=== PATIENT | male | born 1965 | race Caucasian/White ===

== ENCOUNTER → 2016-07-25 | Outpatient (CLI) | payer OTHER ==
[~2016-07-25] VITALS: Ht 170.2 cm; Wt 93.9 kg
[~2016-07-25] MED LIST: BACT400T PO; ELIT100T2 PO; NS 1,000 ML IV SCH; OXYC-208 PO; PROPOFOL 200 MG/20 ML VIAL As Ordered ONE; SENN8.6T76 PO; TURMCAP PO
--- NOTE | 2016-07-25 13:23 | ROOR ---
Patient Name: Jonatan Means Procedure Date: 07/25/2016 1:00 PM Date of : 1965 Age: 50 Room: [facility] Gender: Male Note Status: Finalized Procedure: Colonoscopy Indications: Screening for colorectal malignant neoplasm Providers: Best VALE MD Referring MD: RACHEL REECE [facility] RACHEL REECE [facility], Admin. Requesting Provider: Medicines: Monitored Anesthesia Care Complications: No immediate complications. Procedure: Pre-Anesthesia Assessment: - The heart rate, respiratory rate, oxygen saturations, blood pressure, adequacy of pulmonary ventilation, and response to care were monitored throughout the procedure. The Colonoscope was introduced through the anus and advanced to the cecum, identified by appendiceal orifice and ileocecal valve. The colonoscopy was performed without difficulty. The patient tolerated the procedure well. The quality of the bowel preparation was good. Findings: The perianal and digital rectal examinations were normal. A 10 mm polyp was found in the rectum (benign-appearing lesion). The polyp was semi-pedunculated. The polyp was removed with a piecemeal technique using a cold snare. Resection and retrieval were complete. To close a defect after polypectomy, two hemostatic clips were successfully placed. There was no bleeding at the end of the procedure. A 5 mm polyp was found in the ascending colon. The polyp was sessile. The polyp was removed with a cold snare. Resection and retrieval were complete. Small Internal Hemorrhoids. (EXAM: Complete, PREP:Adequate) Impression: - One 10 mm polyp in the upper rectum (at 10 cm from verge), removed piecemeal using a cold snare. Resected and retrieved. Clips were placed. - One 5 mm polyp in the ascending colon, removed with a cold snare. Resected and retrieved. - Small Internal Hemorrhoids. - Exam is otherwise normal. - (EXAM: Complete, PREP:Adequate) Recommendation: - Repeat colonoscopy in 3 years for surveillance. Best Vale MD Best VALE MD 07/25/2016 1:23:35 PM This report has been signed electronically. Number of Addenda: 0 Note Initiated On: 07/25/2016 1:00 PM Estimated Blood Loss: Estimated blood loss: none.
[2016-07-25 13:45] VITALS: BP 154/84
== END ==
LOC: M OPP 10:51
PROVIDERS: ATTEND Internal Medicine Gastroenterology
DX: Z12.11 Encounter for screening for malignant neoplasm of colon (principal); K62.1 Rectal polyp; D12.2 Benign neoplasm of ascending colon; K64.8 Other hemorrhoids; I10 Essential (primary) hypertension; Z90.5 Acquired absence of kidney; Z79.899 Other long term (current) drug therapy; Z88.0 Allergy status to penicillin

== ENCOUNTER 2016-11-05 09:01 | Emergency (ER) | payer OTHER ==
[~2016-11-05] VITALS: Ht 170.2 cm; Wt 96.2 kg
[~2016-11-05 09:01] MED LIST changes: -NS 1,000 ML IV SCH; -PROPOFOL 200 MG/20 ML VIAL As Ordered ONE
[2016-11-05 10:59] LABS: ALBUMIN 3.7 GM/DL (3.2-5.2); ALBUMIN/GLOBULIN RATIO 1.12 (1.00-1.93); BILIRUBIN,DIRECT 0.1 MG/DL (0.0-0.2); BILIRUBIN,TOTAL 0.5 MG/DL (0.2-1.0); CALCIUM LEVEL 8.5 MG/DL (8.5-10.1); CREATININE FOR GFR 1.36 MG/DL (0.70-1.30); GLOMERULAR FILTRATION RATE 58.6 (>56); POTASSIUM SERUM 4.2 MEQ/L (3.5-5.1)
[2016-11-05 11:04] LABS: BASO # 0.1 K/mm3 (0.0-0.2); EOS # 0.5 K/mm3 (0.0-0.50); EOS % 7.7 % (0.0-3.0); LARGE UNSTAINED CELL # 0.2 K/mm3 (0.0-0.4); LARGE UNSTAINED CELL % 2.6 % (0.0-4.0); LYMPH # 1.5 K/mm3 (1.5-4.5); LYMPH % 21.4 % (24.0-44.0); MEAN CORPUSCULAR HEMOGLOBIN 33.1 pg (27.0-33.0); MEAN CORPUSCULAR VOLUME 94.5 fl (80.0-96.0); MONO # 0.6 K/mm3 (0.0-0.8); MONO % 8.7 % (0.0-5.0); NEUTROPHILS # 4.1 K/mm3 (1.8-7.7); NEUTROPHILS % 58.6 % (36.0-66.0); PLATELET COUNT, AUTOMATED 163 k/mm3 (150-450); RED CELL DISTRIBUTION WIDTH 12.9 % (11.5-14.5)
--- NOTE | 2016-11-05 11:07 | REP ---
ABDOMINAL SERIES: Supine and erect views of the abdomen demonstrate no free air and no compelling evidence for obstruction. Air is scattered throughout the GI tract in a nonspecific pattern. Air is seen in small bowel loops in the left abdomen, which do not appear to be significantly dilated. Calcification in the right mid abdomen measures 8 mm and may represent and intrarenal calculus. There are mild degenerative changes and curvature of the spine. IMPRESSION: Nonspecific bowel gas pattern. Possible 8 mm intrarenal calculus on the right. Signed by Vinh Harvey MD 11/05/2016 04:07 P
[2016-11-05 11:31] VITALS: BP 182/106
[2016-11-05] MEDS ORDERED: cloNIDine 0.1 MG TAB PO ONE (11:45)
== END 2016-11-05 11:39 | disposition home or self-care (01) ==
LOC: M ED 10:45
DX: K64.8 Other hemorrhoids (principal); R74.8 Abnormal levels of other serum enzymes; I10 Essential (primary) hypertension; Z96.0 Presence of urogenital implants; Z90.89 Acquired absence of other organs; Z88.0 Allergy status to penicillin

== ENCOUNTER → 2016-11-07 | Outpatient (REF) | payer OTHER ==
[2016-11-07 13:16] LABS: BASO # 0.1 K/mm3 (0.0-0.2); EOS # 0.5 K/mm3 (0.0-0.50); EOS % 7.1 % (0.0-3.0); LARGE UNSTAINED CELL # 0.2 K/mm3 (0.0-0.4); LARGE UNSTAINED CELL % 2.4 % (0.0-4.0); LYMPH # 1.4 K/mm3 (1.5-4.5); MEAN CORPUSCULAR HGB CONC 35.1 g/dl (32.0-36.5); MEAN CORPUSCULAR VOLUME 96.9 fl (80.0-96.0); MONO # 0.7 K/mm3 (0.0-0.8); MONO % 9.7 % (0.0-5.0); NEUTROPHILS # 4.2 K/mm3 (1.8-7.7); NEUTROPHILS % 59.8 % (36.0-66.0); PLATELET COUNT, AUTOMATED 162 k/mm3 (150-450); RED CELL DISTRIBUTION WIDTH 13.1 % (11.5-14.5)
== END ==
LOC: M SFHCADAM 08:42
PROVIDERS: ATTEND Family Medicine
DX: K64.8 Other hemorrhoids (principal); R74.8 Abnormal levels of other serum enzymes

== ENCOUNTER → 2016-12-16 | Outpatient (REF) | payer OTHER ==
[2016-12-16 13:33] LABS: ALBUMIN 3.6 GM/DL (3.2-5.2); ALBUMIN/GLOBULIN RATIO 1.13 (1.00-1.93); BILIRUBIN,TOTAL 0.5 MG/DL (0.2-1.0); CREATININE FOR GFR 1.68 MG/DL (0.70-1.30); FREE T4 0.8 NG/DL (0.76-1.46); GLOMERULAR FILTRATION RATE 45.9 (>56); POTASSIUM SERUM 4.2 MEQ/L (3.5-5.1); TOTAL PROTEIN 6.8 GM/DL (6.4-8.2)
== END ==
LOC: M SFHCADAM 08:28
PROVIDERS: ATTEND Family Medicine
DX: R68.81 Early satiety (principal); R94.6 Abnormal results of thyroid function studies; E78.5 Hyperlipidemia, unspecified

== ENCOUNTER → 2016-12-26 | Outpatient (REF) | payer OTHER | LOC: M SFHCADAM 09:28 | PROVIDERS: ATTEND Family Medicine | DX: N28.9 Disorder of kidney and ureter, unspecified (principal) ==

== ENCOUNTER → 2017-01-08 | Outpatient (CLI) | payer OTHER ==
--- NOTE | 2017-01-08 11:17 | REP ---
Urinary tract sonography: History: Solitary left kidney. Bloating. Comparison CT study August 10, 2012. Findings: The right kidney is surgically absent. Renal cortical echogenicity pattern is normal in the left kidney. Left kidney shows normal contours without evidence of hydronephrosis. No cyst, mass or calculus is seen on the left. The left kidney measures 11.6 x 6.4 x 5.9 cm. Impression: Unremarkable left renal sonography. Status post right nephrectomy.
== END ==
LOC: M WHC 08:02
PROVIDERS: ATTEND Family Medicine
DX: Q60.0 Renal agenesis, unilateral (principal); Z90.5 Acquired absence of kidney

== ENCOUNTER → 2017-01-29 | Outpatient (REF) | payer OTHER ==
[2017-01-29 19:51] LABS: ALT/SGPT 150 U/L (12-78); AST/SGOT 78 U/L (15-37)
[2017-01-31 10:59] LABS: HEPATITIS B SURFACE ANTIBODY NEGATIVE (POSITIVE)
== END ==
LOC: M LAB REF 16:59
PROVIDERS: ATTEND Internal Medicine Nephrology
DX: R94.5 Abnormal results of liver function studies (principal)

== ENCOUNTER → 2017-02-10 | Outpatient (CLI) | payer OTHER ==
--- NOTE | 2017-02-10 08:25 | REP ---
Abdominal right upper quadrant ultrasound: There is no Irwin's sign to transducer pressure. There is no cholelithiasis, gallbladder wall thickening or pericholecystic fluid. There is no intrahepatic or extrahepatic biliary duct dilatation, the common duct measures 4.1 mm in diameter. The hepatic parenchyma is echogenic compatible with hepato steatosis. The pancreas is obscured by bowel gas. The the patient has a right nephrectomy. There is no right upper quadrant free fluid. Impression: Hepato steatosis. Right nephrectomy. Pancreas obscured by bowel gas. Signed by Vinh Caraballo MD 02/10/2017 08:17 A
[2017-02-10 09:38] LABS: ALBUMIN 3.5 GM/DL (3.2-5.2); ALBUMIN/GLOBULIN RATIO 1.35 (1.00-1.93); BILIRUBIN,DIRECT 0.1 MG/DL (0.0-0.2); BILIRUBIN,TOTAL 0.4 MG/DL (0.2-1.0); TOTAL PROTEIN 6.1 GM/DL (6.4-8.2)
== END ==
LOC: M RAD 07:35 → M LAB 07:35
PROVIDERS: ATTEND Internal Medicine Nephrology
DX: R94.5 Abnormal results of liver function studies (principal); K76.0 Fatty (change of) liver, not elsewhere classified; Z90.5 Acquired absence of kidney

== ENCOUNTER 2018-01-10 11:18 | Emergency (ER) | payer OTHER ==
[2018-01-10] MEDS ORDERED: LISSAMINE GREEN OPHTH 1.5 MG STRIP OS (13:15)
[2018-01-10] MEDS ORDERED: TETRACAINE 0.5% OPHTH SOLN 4ML OS (13:15)
== END 2018-01-10 13:53 | disposition home or self-care (01) ==
LOC: M ED 11:18
DX: T15.02XA Foreign body in cornea, left eye, initial encounter (principal); X58.XXXA Exposure to other specified factors, initial encounter; Y92.89 Other specified places as the place of occurrence of the external cause; I10 Essential (primary) hypertension; M54.9 Dorsalgia, unspecified; Z88.0 Allergy status to penicillin; Z79.899 Other long term (current) drug therapy; Z79.2 Long term (current) use of antibiotics
CPT/HCPCS: 65220

== ENCOUNTER → 2018-07-16 | Outpatient (REF) | payer OTHER ==
[~2018-07-16] MED LIST changes: +ERYTOIN8 OS; +MAGN200T PO; +OFLO3OPSO; +[UNRECOGNIZED DRUG - OTHER] PO
--- NOTE | 2018-07-17 02:38 | REP ---
Clinical: Right foot pain. Technique: AP, lateral, bilateral oblique views of the right foot. Findings: Generalized age-related changes are appreciated. Subtle increased periarticular sclerosis at the first metatarsophalangeal joint identified. No further overt osteoarthritic findings noted. No acute fracture or dislocation. No subcutaneous emphysema or radiodense foreign body. Impression: Generalized age-related changes. Electronically Signed by Galdino Sanchez MD 07/17/2018 02:29 A
== END ==
LOC: M ADAMS 09:37
PROVIDERS: ATTEND Family Medicine
DX: M79.671 Pain in right foot (principal)

== ENCOUNTER → 2018-07-16 | Outpatient (REF) | payer OTHER ==
[2018-07-16 12:59] LABS: BASO # 0.1 10^3/uL (0.0-0.2); BASO % 0.7 % (0.0-1.0); EOS # 0.3 10^3/uL (0.0-0.50); EOS % 3.6 % (0.0-3.0); LYMPH # 1.1 10^3/uL (1.5-4.5); LYMPH % 12.5 % (24.0-44.0); MEAN CORPUSCULAR HEMOGLOBIN 33.4 pg (27.0-33.0); MEAN CORPUSCULAR HGB CONC 35.7 g/dl (32.0-36.5); MEAN CORPUSCULAR VOLUME 93.5 fl (80.0-96.0); MONO # 1.3 10^3/uL (0.0-0.8); MONO % 15.3 % (0.0-5.0); NEUTROPHILS # 5.8 10^3/uL (1.8-7.7); NEUTROPHILS % 67.4 % (36.0-66.0); PLATELET COUNT, AUTOMATED 161 10^3/uL (150-450); RED BLOOD COUNT 4.49 10^6/uL (4.30-6.10); WHITE BLOOD COUNT 8.6 10^3/uL (4.0-10.0)
[2018-07-16 13:03] LABS: ALBUMIN 3.9 GM/DL (3.2-5.2); BILIRUBIN,TOTAL 0.9 MG/DL (0.2-1.0); CALCIUM LEVEL 8.7 MG/DL (8.5-10.1); CREATININE FOR GFR 1.41 MG/DL (0.70-1.30); POTASSIUM SERUM 4.8 MEQ/L (3.5-5.1); TOTAL PROTEIN 6.9 GM/DL (6.4-8.2)
== END ==
LOC: M SFHCADAM 09:51
PROVIDERS: ATTEND Family Medicine
DX: I10 Essential (primary) hypertension (principal)

== ENCOUNTER 2020-02-11 10:40 | Day surgery (SDC) | payer OTHER ==
[~2020-02-11 10:40] MED LIST changes: +LIDOCAINE 2% MDV 20ML VIAL ONE; +propofoL 200 MG/20 ML VIAL ONE
[2020-02-11] MEDS ORDERED: fentaNYL 100 MCG/2 ML INJECTION (J3010) ONE (11:29)
--- NOTE | 2020-03-08 11:34 | ROOR ---
Patient Name: Jonatan Means Procedure Date: 02/11/2020 11:19 AM Date of : 1965 Age: 54 Room: 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 Procedure: Pre-Anesthesia Assessment: - The heart rate, respiratory rate, oxygen saturations, blood pressure, adequacy of pulmonary ventilation, and response to care were monitored throughout the procedure. The Colonoscope was introduced through the anus and advanced to the cecum, identified by appendiceal orifice and ileocecal valve. The colonoscopy was performed without difficulty. The patient tolerated the procedure well. The quality of the bowel preparation was adequate. Findings: Two sessile polyps were found in the cecum. The polyps were diminutive in size. These polyps were removed with a cold snare. Resection and retrieval were complete. External and internal hemorrhoids were found during retroflexion. The hemorrhoids were medium-sized. Hemorrhoids were found on perianal exam. Impression: - Ulcerated inflammed hemorrhoids found on perianal exam-biopsied. - Two diminutive polyps in the cecum, removed with a cold snare. Resected and retrieved. - Moderate internal hemorrhoids. Recommendation: - Telephone endoscopist for pathology results in 2 weeks. - Repeat colonoscopy in 5 years for surveillance. Best LOTT MD 02/11/2020 11:46:22 AM Number of Addenda: 0 Note Initiated On: 02/11/2020 11:19 AM Estimated Blood Loss: Estimated blood loss: none.
== END 2020-02-11 12:19 | disposition home or self-care (01) ==
LOC: M OPP 10:40
PROVIDERS: ATTEND Internal Medicine Gastroenterology
DX: Z12.11 Encounter for screening for malignant neoplasm of colon (principal); Z86.010 Personal history of colon polyps; K63.5 Polyp of colon; K64.8 Other hemorrhoids; I10 Essential (primary) hypertension; Z88.0 Allergy status to penicillin
CPT/HCPCS: 45385; 88305; J3010

== ENCOUNTER 2020-07-04 15:34 | Emergency (ER) | payer OTHER ==
[~2020-07-04] VITALS: Ht 170.2 cm; Wt 108.2 kg
[~2020-07-04 15:34] MED LIST changes: -LIDOCAINE 2% MDV 20ML VIAL ONE; -propofoL 200 MG/20 ML VIAL ONE
[2020-07-04] MEDS ORDERED: ISOVUE-370 76% 100ML VIAL As Ordered ONE (16:09)
--- NOTE | 2020-07-04 16:25 | REP ---
INDICATION: CVA COMPARISON: 09/23/2012 TECHNIQUE: Portable AP view of the chest FINDINGS: The mediastinum and cardiac silhouette are stable and within normal limits for portable technique. The lung wills are clear without acute consolidation, effusion, or pneumothorax. Skeletal structures are intact. IMPRESSION: No acute cardiopulmonary process appreciated. <Electronically signed by Galdino Sanchez > 07/04/20 [id number]
[2020-07-04] MEDS ORDERED: PT COMMENT (16:37)
[2020-07-04 16:54] LABS: BASO % 0.4 % (0.0-1.0); EOS # 0.5 10^3/uL (0.0-0.5); HEMATOCRIT 43.3 % (42.0-52.0); HEMOGLOBIN 14.6 g/dl (13.5-17.5); LYMPH # 1.5 10^3/uL (1.5-5.0); LYMPH % 16.3 % (24.0-44.0); MEAN CORPUSCULAR HEMOGLOBIN 31.9 pg (27.0-33.0); MEAN CORPUSCULAR HGB CONC 33.7 g/dl (32.0-36.5); MEAN CORPUSCULAR VOLUME 94.5 fl (80.0-96.0); MONO % 10.1 % (0.0-5.0); NEUTROPHILS # 6.3 10^3/uL (1.5-8.5); NEUTROPHILS % 67.7 % (36.0-66.0); PLATELET COUNT, AUTOMATED 165 10^3/uL (150-450); RED BLOOD COUNT 4.58 10^6/uL (4.30-6.10); WHITE BLOOD COUNT 9.4 10^3/uL (4.0-10.0)
[2020-07-04 17:10] VITALS: BP 181/90
[2020-07-04 17:15] LABS: PROTHROMBIN TIME 13.4 SECONDS (12.5-14.3)
[2020-07-04 17:16] LABS: PARTIAL THROMBOPLASTIN TIME 32.6 SECONDS (24.2-38.5)
--- NOTE | 2020-07-04 17:22 | REP ---
INDICATION: LEFT SIDE WEAKNESS COMPARISON: None. TECHNIQUE: Axial noncontrast images from the skull base to the thoracic inlet with coronal reformations. This CT examination was performed using the following dose reduction techniques: Automated exposure control, adjustment of mA and/or kv according to the patient's size, and use of iterative reconstruction technique. FINDINGS: Examination demonstrates a 4.7 x 2.5 x 3.8 cm hemorrhagic focus in the central right hemispheric white matter consistent with hypertensive hemorrhagic infarction. There is early surrounding vasogenic edema causing mass effect on the lateral ventricle and approximately 6 mm of contralateral midline shift. Harvey-white differentiation is maintained. The basilar cisterns are patent and there is no evidence for herniation. No extra-axial collection identified. Calvarium is intact. Sinuses and mastoid air cells are within normal limits. IMPRESSION: Presumed hypertensive hemorrhagic infarction in the right hemisphere with associated findings as described above. <Electronically signed by Galdino Sanchez > 07/04/20 [id number]
[2020-07-04] MEDS ORDERED: niCARdipine IV 40 MG in IV 1 EA IV SCH (17:30)
[2020-07-04 17:37] VITALS: BP 198/112
--- NOTE | 2020-07-04 17:38 | REPVR ---
PROCEDURE INFORMATION: Exam: CT Angiography Head With Contrast Exam date and time: 07/04/2020 4:44 PM Age: 54 years old Clinical indication: Headache; Additional info: CVA - nursing interventions must not delay CT TECHNIQUE: Imaging protocol: Computed tomography angiography of the head with intravenous contrast. 3D rendering (Not supervised by radiologist): MIP and/or 3D reconstructed images were created by the technologist. Radiation optimization: All CT scans at this facility use at least one of these dose optimization techniques: automated exposure control; mA and/or kV adjustment per patient size (includes targeted exams where dose is matched to clinical indication); or iterative reconstruction. Contrast material: ISOVUE 370; Contrast volume: 100 ml; Contrast route: INTRAVENOUS (IV); COMPARISON: No relevant prior studies available. FINDINGS: ANTERIOR CIRCULATION: Right internal carotid artery: Mild atherosclerosis of the right internal carotid artery, with mild stenosis. No aneurysm. Right middle cerebral artery: No occlusion or significant stenosis. No aneurysm. Right anterior cerebral artery: Fenestration of the A1 segment of the right anterior cerebral artery is visualized. No occlusion. No aneurysm. Left internal carotid artery: Mild atherosclerosis of the left internal carotid artery, with mild stenosis. No aneurysm. Left middle cerebral artery: No occlusion or significant stenosis. No aneurysm. Left anterior cerebral artery: No occlusion or significant stenosis. No aneurysm. POSTERIOR CIRCULATION: Right vertebral artery: The right vertebral artery is hypoplastic. There is stenosis with decreased enhancement/flow involving the proximal V4 segment of the right vertebral artery. Left vertebral artery: A dominant left vertebral artery is identified. No significant stenosis or occlusion of the left vertebral artery. Basilar artery: No occlusion or significant stenosis. No aneurysm. Right posterior cerebral artery: No occlusion or significant stenosis. No aneurysm. Left posterior cerebral artery: No occlusion or significant stenosis. No aneurysm. Brain: Hyperdense acute hemorrhage is identified within the right basal ganglia with adjacent edema. This area of hemorrhage measures 4.7 x 1.9 x 3.6 cm. This can be due to hemorrhagic conversion of infarction or hypertensive bleed, although additional hemorrhagic pathology cannot be excluded. Cerebral ventricles: There is mass effect upon the right lateral ventricle, with approximately 3 mm of midline shift to the left. Bones/joints: No acute fracture. Soft tissues: See "Brain" finding. IMPRESSION: 1. Acute hemorrhage is identified within the right basal ganglia with adjacent edema. This can be due to hemorrhagic conversion of infarction or hypertensive bleed, although additional hemorrhagic pathology cannot be excluded. 2. There is mass effect upon the right lateral ventricle, with approximately 3 mm of midline shift to the left. 3. A dominant left vertebral artery is identified. 4. The right vertebral artery is hypoplastic. There is stenosis with decreased enhancement/flow involving the proximal V4 segment of the right vertebral artery. 5. Atherosclerosis of the internal carotid arteries, with mild stenoses bilaterally. 6. Additional findings described above. Electronically signed by: Bernardo Hernandez On 07/04/2020 17:38:54 PM
[2020-07-04 17:40] LABS: CK-MB VALUE MASS 11.9 NG/ML (<3.6); CPK CREATINE PHOSPHOKINASE 1133 U/L (39-308); MB/CK RELATIVE INDEX 1.05 (< OR =4); TROPONIN I < 0.02 NG/ML (< 0.10)
--- NOTE | 2020-07-04 17:44 | ECGEPIP ---
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
--- NOTE | 2020-07-04 17:52 | REPVR ---
PROCEDURE INFORMATION: Exam: CT Angiography Neck With Contrast Exam date and time: 07/04/2020 4:44 PM Age: 54 years old Clinical indication: Headache; Additional info: CVA - nursing interventions must not delay CT TECHNIQUE: Imaging protocol: Computed tomography angiography of the neck with intravenous contrast. 3D rendering (Not supervised by radiologist): MIP and/or 3D reconstructed images were created by the technologist. Radiation optimization: All CT scans at this facility use at least one of these dose optimization techniques: automated exposure control; mA and/or kV adjustment per patient size (includes targeted exams where dose is matched to clinical indication); or iterative reconstruction. Contrast material: ISOVUE 370; Contrast volume: 100 ml; Contrast route: INTRAVENOUS (IV); COMPARISON: No relevant prior studies available. FINDINGS: Right common carotid artery: No significant stenosis. No dissection or occlusion. Right internal carotid artery: There is approximately 60% stenosis of the proximal right internal carotid artery, with atherosclerosis and suggested noncalcified plaque. Mural thrombus from dissection cannot be excluded. Right external carotid artery: No occlusion or significant stenosis. Right vertebral artery: There is nonvisualization of flow within the mid to distal V1 and proximal V2 segments of the right vertebral artery, consistent with occlusion. Flow is identified more distally, with a vessel that is small in caliber. Left common carotid artery: No significant stenosis. No dissection or occlusion. Left internal carotid artery: Atherosclerosis of the proximal left internal carotid artery, with less than 50% stenosis. Left external carotid artery: No occlusion or significant stenosis. Left vertebral artery: A dominant left vertebral artery is identified. No significant stenosis or occlusion of the left vertebral artery. Subclavian arteries: Venous enhancement and artifact limit evaluation of the right subclavian artery. The left subclavian artery is patent, as visualized. Oropharynx: A tiny calcification is seen within the right palatine tonsil. Hypopharynx: There is decreased aeration of the left pyriform sinus. Bones/joints: Degenerative changes are identified at multiple cervical levels. Straightening of the lordotic curvature of the cervical spine. Soft tissues: No significant soft tissue swelling. Lymph nodes: Scattered nonspecific cervical lymph nodes visualized. Other findings: Right apical bullae identified. IMPRESSION: 1. There is approximately 60% stenosis of the proximal right internal carotid artery, with atherosclerosis and suggested noncalcified plaque. Mural thrombus from dissection cannot be excluded. 2. There is nonvisualization of flow within the mid to distal V1 and proximal V2 segments of the right vertebral artery, consistent with occlusion. 3. Atherosclerosis of the proximal left internal carotid artery, with less than 50% stenosis. 4. A dominant left vertebral artery is identified. 5. Additional findings described above. REFERENCES: NASCET CRITERIA. The degree of internal carotid artery stenosis is based on NASCET criteria. Normal is no stenosis. Mild is less than 50% stenosis. Moderate is 50-69% stenosis. Severe is 70% to 99% stenosis. Total occlusion is no detectable patent lumen. Electronically signed by: Bernardo Hernandez On 07/04/2020 17:52:53 PM
[2020-07-04 18:00] VITALS: BP 155/88
[2020-07-04 18:45] VITALS: BP 167/95
[2020-07-04 18:58] VITALS: BP 167/95
== END 2020-07-04 19:06 | disposition short-term general hospital (02) ==
LOC: EDBD 15:34 → M ED 16:19
DX: I61.0 Nontraumatic intracerebral hemorrhage in hemisphere, subcortical (principal); R29.710 NIHSS score 10; I16.0 Hypertensive urgency; F10.10 Alcohol abuse, uncomplicated; F17.200 Nicotine dependence, unspecified, uncomplicated; Z88.0 Allergy status to penicillin
CPT/HCPCS: 70450; 70496; 70498; 71045; 80047; 82550; 82553; 85025; 85610; 85730; 86850; 86900; 86901; 93005; 93041; 94760; 96365; 96366; 99285; Q9967; U0002

== ENCOUNTER → 2020-07-17 | Outpatient (REF) | payer OTHER ==
[~2020-07-17] MED LIST changes: +PT COMMENT
[2020-07-17 18:00] LABS: BASO # 0.1 10^3/uL (0.0-0.2); BASO % 0.8 % (0.0-1.0); EOS # 0.5 10^3/uL (0.0-0.5); EOS % 5.7 % (0.0-3.0); HEMOGLOBIN 13.4 g/dl (13.5-17.5); LYMPH # 1.6 10^3/uL (1.5-5.0); LYMPH % 18.5 % (24.0-44.0); MEAN CORPUSCULAR HEMOGLOBIN 32.4 pg (27.0-33.0); MEAN CORPUSCULAR HGB CONC 34.4 g/dl (32.0-36.5); MEAN CORPUSCULAR VOLUME 94.2 fl (80.0-96.0); MONO # 0.9 10^3/uL (0.0-0.8); MONO % 10.4 % (0.0-5.0); NEUTROPHILS # 5.4 10^3/uL (1.5-8.5); NEUTROPHILS % 62.4 % (36.0-66.0); PLATELET COUNT, AUTOMATED 250 10^3/uL (150-450); RED BLOOD COUNT 4.14 10^6/uL (4.30-6.10); WHITE BLOOD COUNT 8.7 10^3/uL (4.0-10.0)
[2020-07-17 18:29] LABS: ALBUMIN 3.9 GM/DL (3.2-5.2); ALT/SGPT 36 U/L (12-78); BILIRUBIN,TOTAL 0.5 MG/DL (0.2-1.0); BLOOD UREA NITROGEN 12 MG/DL (7-18); CALCIUM LEVEL 9.5 MG/DL (8.5-10.1); CARBON DIOXIDE LEVEL 29 MEQ/L (21-32); CHLORIDE LEVEL 103 MEQ/L (98-107); CREATININE FOR GFR 1.24 MG/DL (0.70-1.30); GLOMERULAR FILTRATION RATE > 60.0 (>56); GLUCOSE, FASTING 80 MG/DL (70-100); POTASSIUM SERUM 4.4 MEQ/L (3.5-5.1); SODIUM LEVEL 140 MEQ/L (136-145)
== END ==
LOC: M SFHCADAM 11:41
PROVIDERS: ATTEND Physician Assistant Medical
DX: I12.9 Hypertensive chronic kidney disease with stage 1 through stage 4 chronic kidney disease, or unspecified chronic kidney disease (principal); N18.31 Chronic kidney disease, stage 3a

== ENCOUNTER 2020-08-21 11:45 | Emergency (ER) | payer OTHER ==
[~2020-08-21] VITALS: Ht 170.2 cm; Wt 100.5 kg
--- OUTSIDE RECORDS SUMMARY | 2020-08-21 11:56 | CCD | Summary of Care ---
Author Author [facility] Address Unknown Phone Unavailable Care Team Providers Care Hospitality Recruiter Name Role Phone Magnolia Rodarte PCP Reason for Visit * Reason Comments Follow-up ICH (CT same day) Encounter Details Care Team Description Date Type Department Justin Kelly MD [address] [place] [address] Intracranial hemorrhage (Primary Dx) 08/02/2020 Telemedicine [facility] [address] [facility] [address] [place] [id number] Allergies Comments Active Allergy Reactions Severity Noted Date Penicillins Rash Low 07/04/2020 documented as of this encounter (statuses as of 08/02/2020) Medications End Date Status Medication Sig Dispensed Refills Start Date Active Magnesium 100 MG Oral Take 200 mg 0 Tablet by mouth daily Active TURMERIC PO Take 1 0 capsule by mouth daily 07/11/2021 Active amLODIPine Besylate 10 MG Take 1 tablet 30 tablet Oral Tablet (NORVASC) by mouth 1 daily 07/11/2021 Active Folic Acid 1 MG Oral Take 1 tablet 30 tablet Tablet (FOLVITE) by mouth 1 daily 07/10/2021 Active Labetalol HCl 100 MG Oral Take 1 tablet 60 tablet Tablet (NORMODYNE) by mouth 1 every 12 (twelve) hours Active Tab-A-Joanna/Beta Carotene Take 1 tablet 30 tablet 0 Oral Tablet by mouth 1 daily 07/11/2021 Active Thiamine HCl 100 MG Oral Take 1 tablet 30 tablet 11 Tablet (B-1) by mouth 1 daily documented as of this encounter (statuses as of 08/02/2020) Active Problems Problem Noted Date H/O right nephrectomy 07/12/2020 Overview: 2013 ETOH abuse 07/11/2020 Uncontrolled hypertension 07/05/2020 LUCRECIA (acute kidney injury) 07/05/2020 Non-traumatic rhabdomyolysis 07/05/2020 Intracranial hemorrhage 07/04/2020 documented as of this encounter (statuses as of 08/02/2020) Social History Date Tobacco Use Types Packs/Day Years Used Former Smoker Smokeless Tobacco: Never Used Drinks/Week oz/Week Comments Alcohol Use 5 Shots of liquor 5.0 daily Yes Sex Assigned at Date Recorded Not on file Date Recorded COVID-19 Exposure Response 08/02/2020 11:10 AM EST In the last month, have you been in contact with No / Unsure someone who was confirmed or suspected to have Coronavirus / COVID-19? documented as of this encounter Last Filed Vital Signs Not on filedocumented in this encounter Progress Notes * Mesfin Garg MD - 08/02/2020 1:00 PM EST Subjective: Patient ID: Jonatan Means is a 54 y.o. male. HPI 54M PMHx HTN who was previously seen in the hospital for right basal ganglia hem orrhage with initial presenting systolic BP in the 180s. MRI was done at the [facility] without evidence of underlying mass lesion. Patient is here for followup; he r eports he is doing better now and is still working with home PT. Patient reports he is now able to walk on his own; he uses a walker but thinks he doesn't really need it, says he has it just to be safe. He reports no new symptoms, denies he adaches, vision changes, difficulty with speech, new numbness or weakness in the extremities. Review of Systems Constitutional: Negative. Respiratory: Negative. Cardiovascular: Negative. Gastrointestinal: Negative. Genitourinary: Negative. Neurological: Positive for weakness. Improving residual weakness from previous ICH, no new weakness Objective: Physical Exam Unable to complete physical exam as this was a telemedicine visit I personally reviewed the CTH from today as well as cranial imaging from recent admission Assessment: 54M PMHx HTN here for follow up for right basal ganglia hemorrhage Plan: Patient reports improvement in left sided weakness, able to walk independently n ow with walker CTH today shows complete resolution of right basal ganglia hemorrhage, no new ac jovany pathology Patient may follow up with PCP for HTN control, does not need further neurosurgi josh followup Mesfin Garg MD (Tony) Neurosurgery PGY-1 documented in this encounter Plan of Treatment Health Maintenance Due Date Last Done Comments MMR Vaccines (1 of - 1965 Standard series) Varicella Vaccines (1 of 1965 2 - 2-dose childhood series) Pneumococcal Vaccine: 1970 Pediatrics (0 to 5 Years) and At-Risk Patients (6 to 64 Years) (1 of 1 - PPSV23) DTaP,Tdap,and Td Vaccines 1971 (1 - Tdap) HIV Screening 1977 Colon Cancer Screening 10 2014 yrs Influenza Vaccine 03/30/2020 Pneumococcal Vaccine: 65+ 2029 Years (1 of 1 - PPSV23) Hepatitis C Screening (B. Completed 07/05/2020, [id number]) 07/05/2020 HIB Vaccines Aged Out No longer eligible based on patient's age to complete this topic Hepatitis A Vaccines Aged Out No longer eligibl e based on patient's age to complete this topic Hepatitis B Vaccines Aged Out No longer eligibl e based on patient's age to complete this topic IPV Vaccines Aged Out No longer eligible based on patient's age to complete this topic documented as of this encounter Results Not on filedocumented in this encounter Visit Diagnoses Diagnosis Intracranial hemorrhage - Primary Unspecified intracranial hemorrhage documented in this encounter
--- OUTSIDE RECORDS SUMMARY | 2020-08-21 11:56 | CCD ---
Author Author [facility] Organization [facility] Address Unknown Phone Unavailable Care Team Providers Care Team Facilitator Name Role Phone Magnolia Rodarte Unavailable PROBLEMS Type Condition ICD9-CM Code [id number] Code Onset Dates Condition S tatus W/U Status Risk SNOMED Code Notes Problem Hyperlipidemia, unspecified hyperlipidemia type E7 8.5 Active confirmed 06344596 Problem Poor appetite R63.0 Active confirmed 661025 06 Problem Essential hypertension I10 Active confirmed 41959619 Problem Alcohol abuse F10.10 Active confirmed 240904 05 Problem Solitary left kidney Q60.0 Active confirmed 152560180 Problem Chronic diastolic heart failure I50.32 Active confi rmed 143173217 Problem Stress F43.9 Active confirmed 96884686 Problem Left hemiplegia G81.94 Active confirmed 2782 45078 Problem Hemorrhagic cerebrovascular accident (CVA) I61.9 Active confirmed 250196045 Problem Medical non-compliance Z91.19 Active confirmed 183080941 ALLERGIES Allergen (clinical drug ingredient) Drug/Non Drug Allergy do cumented on EMR Reaction Allergy Type Onset Date Status Penicillin (For Allergies Use Only) Rash Drug Allerg y Active ENCOUNTERS from 1965 to 2020-08-11 Encounter Location Date Provider Diagnosis [facility] [address] [place] [address] 12 Jul, 2020 Kenya Rodarte IMMUNIZATIONS Vaccine Route Administration Date Status TDAP 0.5mL (Boostrix) IM Intramuscular November 06, 2016 Administe red Influenza (6mo & up) Fluzone IM Intramuscular Apr 29, 2016 Ad ministered SOCIAL HISTORY Tobacco Use: Social History Observation Description Date Details (start date - stop date) Former Smoker Sex Assigned At : Social History Observation Description Sex Assigned At Unknown Education: Question Answer Notes Level of Education: High School Audit Question Answer Notes Total Score: 10 Interpretation: Simple Advice Drug and Alcohol Question Answer Notes Total Score: 2 Interpretation: Low level Alcohol Screening: Question Answer Notes Did you have a drink containing alcohol in the past year? Ye s Points 5 Interpretation Positive How often did you have six or more drinks on one occas ion in the past year? Less than monthly (1 point) How many drinks did you have on a typica l day when you were drinking in the past year? 1 or 2 (0 points) How often did you have a drink containing alcohol in t he past year? Four or more times a week (4 points) BMI Care Goal Follow-Up Question Answer Notes Above Normal BMI Follow-Up Giving encouragement to exercise Tobacco Use: Question Answer Notes Are you a: former smoker How long has it been since you last smoked? 1-5 years 2012 REASON FOR REFERRAL No Information VITAL SIGNS No information MEDICATIONS Medication SIG (Take, Route, Frequency, Duration) Notes Start Da te End Date Status Thiamine 50 MG 2 capsules Orally Once a day for 30 day(s) Active Cane - straight cane I61.9, G81.94 use daily for 99 days Jun, Active Tab-A-Joanna - 1 tab Orally Daily for 30 Days Active AmLODIPine Besylate 10 MG 1 tablet Orally Once a day for 30 day(s) Active Labetalol HCl 100 MG 1 tablet Orally Twice a day for 30 day(s) Active Folic Acid 1 MG 1 tablet Orally Once a day for 30 day(s) Active PROCEDURES No Information RESULTS No Results REASON FOR VISIT [place] MEDICAL (GENERAL) HISTORY Type Description Date Medical History R renal hydropnephrosis, s/p nephrectomy , with Dr. Johnson Medical History colonoscopy (06/2016) with internal hemor rhoids, 2 polyps Medical History 10 year ASCVD risk 6.7% (11/2016) Medical History echo with mild concentric LV H, impaired LV diastolic function, aortic valvular sclerosis and very mild insufficiency (11/2017) Medical History essential hypertension, refusing medical therapy Medical History R basal ganglia hemorrhagic CVA, likely hypertensive - 06/2020 Surgical History appendectomy- as a child Surgical History Right - Nephrectomy 10/13/2012 Hospitalization History surgery related Hospitalization History R basal ganglia hemorrhagic CVA 07/19 20 Goals Section No Information Health Concerns No Information MEDICAL EQUIPMENT No Information MENTAL STATUS No Information FUNCTIONAL STATUS No Information ASSESSMENTS No Information PLAN OF TREATMENT Medication Medication Name Sig Start Date Stop Date Thiamine 50 MG 2 capsules Orally Once a day for 30 day(s) Labetalol HCl 100 MG 1 tablet Orally Twice a day for 30 day(s) Folic Acid 1 MG 1 tablet Orally Once a day for 30 day(s) AmLODIPine Besylate 10 MG 1 tablet Orally Once a day for 30 day( s) Tab-A-Joanna - 1 tab Orally Daily for 30 Days Next Appt Details Provider Name:Magnolia Rodarte, 2020-08-29 11:30:00 AM, [address], [place], [address], Insurance Providers Payer Name Payer Address Payer Phone Insured Name Patient Relati onship to Insured Coverage Start Date Coverage End Date [facility] COMMUNITY PLAN [facility] [address] [facility] [address] JULIETA BANGURA self
--- OUTSIDE RECORDS SUMMARY | 2020-08-21 11:56 | CCD | Summary of Care ---
Author Author [facility] Organization [facility] Address Unknown Phone Unavailable Care Team Providers Care Pta Name Role Phone Magnolia Rodarte PCP Reason for Referral * Diagnostic Radiology (STAT) Referred By Contact Referred To Contact Status Reason Specialty Diagnoses / Procedures Mesfin Garg MD [address] [place] [address] Email: [email or web address] Authorized Radiology Diagnoses Intracranial hemorrhage P rocedures CT Head without Contrast Reason for Visit * Diagnostic Radiology (STAT) Referred By Contact Referred To Contact Status Reason Specialty Diagnoses / Procedures Mesfin Garg MD [address] [place] [address] Email: [email or web address] Authorized Radiology Diagnoses Intracranial hemorrhage P rocedures CT Head without Contrast Encounter Details Care Team Description Date Type Department Intracranial hemorrhage 08/02/2020 [facility] [address] SCAN [facility] Encounter [address] [facility] [address] [place] [id number] Allergies Comments Active Allergy Reactions Severity Noted Date Penicillins Rash Low 07/04/2020 documented as of this encounter (statuses as of 2020) Medications End Date Status Medication Sig Dispensed [...] MG Oral Take 1 tablet 60 tablet 11 Tablet (NORMODYNE) by mouth 1 every 12 (twelve) hours Active Tab-A-Joanna/Beta Carotene Take 1 tablet 30 tablet 0 Oral Tablet by mouth 1 daily 07/11/2021 Active Thiamine HCl 100 MG Oral Take 1 tablet 30 tablet 11 Tablet (B-1) by mouth 1 daily documented as of this encounter (statuses as of 2020) Active Problems Problem Noted Date H/O right nephrectomy 07/12/2020 Overview: 2013 ETOH abuse 07/11/2020 Uncontrolled hypertension 07/05/2020 LUCRECIA (acute kidney injury) 07/05/2020 Non-traumatic rhabdomyolysis 07/05/2020 Intracranial hemorrhage 07/04/2020 documented as of this encounter (statuses as of 2020) Social History Date Tobacco Use Types Packs/Day [...] Signs Not on filedocumented in this encounter Plan of Treatment Health [...] PPSV23) Hepatitis C Screening (B. Completed 07/05/2020, [id number]) 07/05/2020 HIB Vaccines Aged Out No longer [...] this topic documented as of this encounter Procedures Comments Procedure Name Priority Date/Time Associated Diag nosis CT HEAD WITHOUT CONTRAST STAT 08/02/2020 Intra cranial hemorrhage 56209 11:00 AM EST documented in this encounter Results * CT Head without Contrast (08/02/2020 11:00 AM EST) Specimen Impressions Performed At Impression: Resolving right external capsule hemorrha ge. Decreased mass effect [facility] and resolution of midline shift. Sinus disease. Narrative Performed At Clinical Indication: Follow-up right basal ganglia in tracranial hemorrhage [facility] Comparison: 07/05/20 Multiple axial sections were obtained t hrough the brain without contrast. Automated dose lowering techniques and /or adjustment according to patient size were utilized for this exam. Compared to the prior study, the right external capsule hematoma now appears low density around the periphery and isoden se within the center. This is consistent with a resolving hematoma. There is dec reased mass effect on the right lateral ventricle and resolution of midline kristen ft. There is asymmetry of the lateral ventricles, smaller on the right side. No new foci of abnormal attenuation are seen within the brain. There is no acute intra or extra-axial hemorrhage. Mucosal thickening is noted within the left maxillary sinus. Retention cysts versus polyps in an old fracture are no frank involving the right maxillary sinus. There is an old depressed fracture of t he left lamina papyracea. The paranasal sinuses and mastoid air cells are other reynoso clear. Procedure Note Interface, Received Via Radiant System - 08/02/2020 11:38 AM EST Clinical Indication: Follow-up right basal ganglia intracranial hemorrhage Comparison: 07/05/20 Multiple axial sections were obtained through the brain without contrast. Automated dose lowering techniques and/or adjustment according to patient size were utilized for this exam. Compared to the prior study, the right external capsule hematoma now appears low density around the periphery and isodense within the center. This is consistent with a resolving hematoma. There is decreased mass effect on the right lateral ventricle and resolution of midline shift. There is asymmetry of the lateral ventricles, smaller on the right side. No new foci of abnormal attenuation are seen within the brain. There is no acute intra or extra-axial hemorrhage. Mucosal thickening is noted within the left maxillary sinus. Retention cysts versus polyps in an old fracture are noted involving the right maxillary sinus. There is an old depressed fracture of the left lamina papyracea. The paranasal sinuses and mastoid air cells are otherwise clear. Impression: Resolving right external capsule hemorrhage. Decreased mass effect and resolution of midline shift. Sinus disease. Performing Organization Address City/State/Zipctde Ph one Number [facility] [address] [place] [address] documented in this encounter Visit Diagnoses Diagnosis Intracranial hemorrhage Unspecified intracranial hemorrhage documented in this encounter
--- OUTSIDE RECORDS SUMMARY | 2020-08-21 11:56 | CCD ---
Author Author [facility] Organization [facility] Address Unknown Phone Unavailable Care Team Providers Care Precinct Police Sergeant Name Role Phone Magnolia Rodarte Unavailable PROBLEMS Type Condition ICD9-CM Code [id number] Code Onset Dates Condition S tatus W/U Status Risk SNOMED Code Notes Problem Hyperlipidemia, unspecified hyperlipidemia type E7 8.5 Active confirmed 72438895 Problem Poor appetite R63.0 Active confirmed 156588 06 Problem Essential hypertension I10 Active confirmed 96582082 Problem Alcohol abuse F10.10 Active confirmed 032037 05 Problem Solitary left kidney Q60.0 Active confirmed 931659271 Problem Chronic diastolic heart failure I50.32 Active confi rmed 054374009 Problem Stress F43.9 Active confirmed 87308566 Problem Left hemiplegia G81.94 Active confirmed 2782 32309 Problem Hemorrhagic cerebrovascular accident (CVA) I61.9 Active confirmed 311701845 Problem Medical non-compliance Z91.19 Active confirmed 923747713 ALLERGIES Allergen (clinical drug ingredient) Drug/Non Drug Allergy do cumented on EMR Reaction Allergy Type Onset Date Status Penicillin (For Allergies Use Only) Rash Drug Allerg y Active ENCOUNTERS from 1965 to 2020-08-18 Encounter Location Date Provider Diagnosis [facility] [address] [place] [address] 16 Jul, 2020 Kenya Rodarte IMMUNIZATIONS Vaccine Route Administration Date Status TDAP 0.5mL (Boostrix) IM Intramuscular November 06, 2016 Administe red Influenza 6mo & up Fluzone IM Intramuscular Apr 29, 2016 Admi nistered SOCIAL HISTORY Tobacco Use: Social History Observation [...] Information RESULTS No Results REASON FOR VISIT cardiology appt MEDICAL (GENERAL) HISTORY Type Description Date Medical [...] Details Provider Name:Magnolia Rodarte, 2020-08-29 11:30:00 AM, [address], [place], [address], Insurance Providers Payer Name Payer Address Payer Phone Insured Name Patient Relati onship to Insured Coverage Start Date Coverage End Date [facility] COMMUNITY PLAN [facility] [address] [facility] [address] JULIETA BANGURA self
--- OUTSIDE RECORDS SUMMARY | 2020-08-21 11:56 | CCD ---
Author Author [facility] Organization [facility] Address Unknown Phone Unavailable Care Team Providers Care Pediatric Cns Name Role Phone Ligia Vazquez Unavailable PROBLEMS Type Condition ICD9-CM Code [id number] Code Onset Dates Condition S tatus SNOMED Code Notes Problem Solitary left kidney Q60.0 Active 306613793 Problem Hyperlipidemia, unspecified hyperlipidemia type E7 8.5 Active 99431283 Problem Poor appetite R63.0 Active 50821717 Problem Medical non-compliance Z91.19 Active 203487055 Problem Alcohol abuse F10.10 Active 35739110 Problem Essential hypertension I10 Active 88687287 Problem Stress F43.9 Active 87996183 Problem Left hemiplegia G81.94 Active 801702830 Problem Hemorrhagic cerebrovascular accident (CVA) I61.9 Active 151445679 ALLERGIES Allergen (clinical drug ingredient) Drug/Non Drug Allergy do cumented on EMR Reaction Allergy Type Onset Date Status Penicillin (For Allergies Use Only) Rash Drug Allerg y Active ENCOUNTERS from 1965 to 2020-07-27 Encounter Location Date Provider Diagnosis [address] [place] [address] Jun, Ligia Vazquez IMMUNIZATIONS Vaccine Route Administration Date Status TDAP [...] Notes Start Da te End Date Status Folic Acid 1 MG 1 tablet Orally Once a day for 30 day(s) Active Tab-A-Joanna - 1 tab Orally Daily for 30 Days Active AmLODIPine Besylate 10 MG 1 tablet Orally Once a day for 30 day(s) Active Labetalol HCl 100 MG 1 tablet Orally Twice a day for 30 day(s) Active Cane - straight cane I61.9, G81.94 use daily for 99 days Jun, Active Thiamine 50 MG 2 capsules Orally Once a day for 30 day(s) Active PROCEDURES No Information RESULTS No Results REASON FOR VISIT call back reguarding an appt MEDICAL (GENERAL) HISTORY Type Description Date [...] Medication Name Sig Start Date Stop Date Folic Acid 1 MG 1 tablet Orally Once a day for 30 day(s) Cane - straight cane I61.9, G81.94 use daily for 99 day s Jun, Thiamine 50 MG 2 capsules Orally Once a day for 30 day(s) Labetalol HCl 100 MG 1 tablet Orally Twice a day for 30 day(s) Tab-A-Joanna - 1 tab Orally Daily for 30 Days AmLODIPine Besylate 10 MG 1 tablet Orally Once a day for 30 day( s) Next Appt Details Provider Name:Magnolia Andersoncea, 2020-08-08 11:30:00 AM, [address], [place], [address], Insurance Providers Payer Name Payer Address Payer Phone Insured Name Patient Relati onship to Insured Coverage Start Date Coverage End Date [facility] COMMUNITY PLAN [facility] [address] [facility] [phone] JULIETA BANGURA self
--- OUTSIDE RECORDS SUMMARY | 2020-08-21 11:57 | CCD ---
Author Author [facility] Organization [facility] Address Unknown Phone Unavailable Care Team Providers Care Technician Plant And Maintenance Name Role Phone Magnolia Rodarte Unavailable PROBLEMS Type Condition ICD9-CM Code [id number] Code Onset Dates Condition S tatus SNOMED Code Notes Problem Solitary left kidney Q60.0 Active 103815735 Problem Hyperlipidemia, unspecified hyperlipidemia type E7 8.5 Active 25840484 Problem Poor appetite R63.0 Active 24378394 Problem Medical non-compliance Z91.19 Active 358709878 Problem Alcohol abuse F10.10 Active 85179681 Problem Essential hypertension I10 Active 29116370 Problem Stress F43.9 Active 02786056 Problem Left hemiplegia G81.94 Active 269736232 Problem Hemorrhagic cerebrovascular accident (CVA) I61.9 Active 231961266 ALLERGIES Allergen (clinical drug ingredient) Drug/Non Drug Allergy do cumented on EMR Reaction Allergy Type Onset Date Status Penicillin (For Allergies Use Only) Rash Drug Allerg y Active ENCOUNTERS from 1965 to 2020-07-23 Encounter Location Date Provider Diagnosis [address] [address] Jun, Magnolia Rodarte IMMUNIZATIONS Vaccine Route Administration Date Status [...] Information RESULTS No Results REASON FOR VISIT pain in left knee MEDICAL (GENERAL) HISTORY Type Description Date Medical [...] day( s) Next Appt Details Provider Name:Magnolia Rodarte, 2020-08-08 11:30:00 AM, [address], [place], [address], Provider Name:Ligia Vazquez, 2020-10-23 11:30:00 AM, [address], [place], [address], Insurance Providers Payer Name Payer Address Payer Phone Insured Name Patient Relati onship to Insured Coverage Start Date Coverage End Date [facility] COMMUNITY [facility] [address] [facility] [address] JULIETA BANGURA self
--- OUTSIDE RECORDS SUMMARY | 2020-08-21 11:57 | CCD ---
Author Author [facility] Organization [facility] Address Unknown Phone Unavailable Care Team Providers Care Continuing Education Dean Name Role Phone Magnolia Rodarte Unavailable PROBLEMS Type Condition ICD9-CM Code KTK89-MQ Code Onset Dates Condition S tatus SNOMED Code Notes Problem Hydronephrosis 591 Active 10933339 Problem Solitary left kidney Q60.0 Active 846621528 Problem Stage 3 chronic kidney disease N18.3 Active 4 39883416 Secondary to hypertension and solitary kidney Problem Stress F43.9 Active 42868501 Problem Solitary kidney Q60.0 Active 670546440 Problem Hyperlipidemia, unspecified hyperlipidemia type E7 8.5 Active 89371198 Problem Poor appetite R63.0 Active 32905921 Problem Essential hypertension I10 Active 82784817 ALLERGIES Allergen (clinical drug ingredient) Drug/Non Drug Allergy do cumented on EMR Reaction Allergy Type Onset Date Status Penicillin (For Allergies Use Only) Rash Drug Allerg y Active ENCOUNTERS from 1965 to 2020-07-08 Encounter Location Date Provider Diagnosis [address] [address] Jun, Magnolia Rodarte IMMUNIZATIONS Vaccine Route Administration [...] Answer Notes Level of Education: High School Alcohol Screening: Question Answer Notes Did you [...] Notes Start Da te End Date Status Cefdinir 300 MG 1 cap Orally twice daily for 7 day(s) 20 A 2019 Active Halobetasol Propionate 0.05 % 1 application to affecte d area Externally Once a day to rash on leg for 21 day(s) Dec, Not-Taking Oxycodone HCl 5 MG 1 tablet as needed Orally every 6 hrs Not-Taking Tylenol 8 Hour Arthritis Pain 650 MG 2 tablets as needed Orally mat ry 8 hrs Not-Taking Turmeric 500 MG 1 cap Orally Daily N ot-Taking Cetirizine HCl 10 MG 1 tablet Orally Once a day for 90 day(s) Dec, Not-Taking Betamethasone Dipropionate Aug 0.05 % 1 application to affected area Externally to rash on leg Once a day for 21 day(s) Dec, Not-Taking Cetirizine HCl 10 MG 1 tablet Orally Once a day for 90 day(s) Dec, Not-Taking Magnesium 200 MG 2 tablets with a meal Orally occ Not-Taking PROCEDURES No Information RESULTS No Results REASON FOR VISIT ER Visit [facility] fall MEDICAL (GENERAL) HISTORY Type Description Date Medical History R renal hydropnephrosis, s/p nephrectomy , with Dr. Johnson Medical History colonoscopy (06/2016) with internal hemor rhoids, 2 polyps Medical History 10 year ASCVD risk 6.7% (11/2016) Medical History echo with mild concentric LV H, impaired LV diastolic function, aortic valvular sclerosis and very mild insufficiency (11/2017) Medical History essential hypertension, refusing medical therapy Surgical History appendectomy- as a child Surgical History Right - Nephrectomy 10/13/2012 Hospitalization History surgery related Goals Section No Information Health Concerns No Information MEDICAL EQUIPMENT No Information MENTAL STATUS No Information FUNCTIONAL STATUS No Information ASSESSMENTS No Information PLAN OF TREATMENT Medication Medication Name Sig Start Date Stop Date Cefdinir 300 MG 1 cap Orally twice daily for 7 day(s) Sep, Next Appt Details Provider Name:Ligia Vazquez, 2020-10-23 11:30:00 AM, [address], [place], [address], Insurance Providers Payer Name Payer Address Payer Phone Insured Name Patient Relati onship to Insured Coverage Start Date Coverage End Date [facility] COMMUNITY PLAN [facility] [address] [facility] [address] JULIETA BANGURA self
--- OUTSIDE RECORDS SUMMARY | 2020-08-21 11:57 | CCD ---
Author Author [facility] Organization [facility] Address Unknown Phone Unavailable Care Team Providers Care Electronic Lab Technician Name Role Phone Magnolia Rodarte Unavailable PROBLEMS Type Condition ICD9-CM Code UXT10-ZG Code Onset Dates Condition S tatus SNOMED Code Notes Problem Solitary left kidney Q60.0 Active 348229928 Problem Hyperlipidemia, unspecified hyperlipidemia type E7 8.5 Active 93085447 Problem Poor appetite R63.0 Active 46942619 Problem Medical non-compliance Z91.19 Active 221275380 Problem Alcohol abuse F10.10 Active 17237916 Problem Essential hypertension I10 Active 23177241 Problem Stress F43.9 Active 48518480 Problem Left hemiplegia G81.94 Active 673541310 Problem Hemorrhagic cerebrovascular accident (CVA) I61.9 Active 511947647 ALLERGIES Allergen (clinical drug ingredient) Drug/Non Drug Allergy do cumented on EMR Reaction Allergy Type Onset Date Status Penicillin (For Allergies Use Only) Rash Drug Allerg y Active ENCOUNTERS from 1965 to 2020-07-23 Encounter Location Date Provider Diagnosis [facility] [address] [place] [address] Jun, Mar fawad Rodarte IMMUNIZATIONS Vaccine Route Administration Date Status [...] Information RESULTS No Results REASON FOR VISIT cane MEDICAL (GENERAL) HISTORY Type Description Date Medical [...] Details Provider Name:Magnolia Rodarte, 2020-08-08 11:30:00 AM, [address], [place], [address], Provider Name:Ligia Vazquez, 2020-10-23 11:30:00 AM, [address], [place], [address], Insurance Providers Payer Name Payer Address Payer Phone Insured Name Patient Relati onship to Insured Coverage Start Date Coverage End Date [facility] COMMUN[facility] PLAN [facility] [address] [facility] [address] JULIETA BANGURA self
--- OUTSIDE RECORDS SUMMARY | 2020-08-21 11:57 | CCD | Continuity of Care Document ---
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 (I69.254) 04-Jul-2020 Status: Active Personal history of nicotine dependence (Z87.891) 04-Jul-2020 Status: Active History of falling (Z91.81) 04-Jul-2020 Status: Active Morbid (severe) obe sity due to excess calories (E66.01) 04-Jul-2020 Status: Active Essential (primary) hypertension (I10) 04-Jul-2020 Status: Active Other chronic pain (G89.29) 04-Jul-2020 Status: Active Dorsalgia, unspecif ied (M54.9) 04-Jul-2020 Status: Active Alcohol abuse, unco mplicated (F10.10) 04-Jul-2020 Status: Active Unspecified symptom s and signs involving cognitive functions and awareness (R41.9) 04-Jul-2020 Status: Active Rhabdomyolysis (M62.82) 04-Jul-2020 Status: Active 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 (I69.212) 04-Jul-2020 Status: Active 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) 04-Jul-2020 Status: Active Other sequelae of o ther nontraumatic intracranial hemorrhage (I69.298) 04-Jul-2020 Status: Active Medications Name Dates Details AmLODIPine Besylate 10 MG Jonatan Pena Active Labetalol HCl 100 MG Jonatan Pena* Start : 18-Jul-2020 Active Folic Acid 1 MG Jonatan Pena* Start : 18-Jul-2020 Active Thiamine HCl 100 MG Jonatan Pena* Start : 18-Jul-2020 Active Multivitamin Adult Jonatan Pena* Start : 18-Jul-2020 Active Allergies and Adverse Reactions Name Dates Details PCN (Allergy) Onset: 18-Jul-2020 Stat us: Active Results Date Description Value Details No Known Results Plan of Care Name Dates Details Instructions Diet:Regular Diet Ins truction Type: Nutrition education Payers * [facility] Essential Plan * [facility]
--- OUTSIDE RECORDS SUMMARY | 2020-08-21 11:57 | CCD ---
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 Role Phone Magnolia Rodarte Unavailable PROBLEMS Type Condition ICD9-CM Code FHS80-UR Code Onset Dates Condition S tatus SNOMED Code Notes Problem Solitary left kidney Q60.0 Active 163190987 Problem Hyperlipidemia, unspecified hyperlipidemia type E7 8.5 Active 54768831 Problem Poor appetite R63.0 Active 56697064 Problem Medical non-compliance Z91.19 Active 447159935 Problem Alcohol abuse F10.10 Active 16888210 Problem Essential hypertension I10 Active 35497055 Problem Stress F43.9 Active 89441025 Problem Left hemiplegia G81.94 Active 250765387 Problem Hemorrhagic cerebrovascular accident (CVA) I61.9 Active 945680940 ALLERGIES Allergen (clinical drug ingredient) Drug/Non Drug Allergy do cumented on EMR Reaction Allergy Type Onset Date Status Penicillin (For Allergies Use Only) Rash Drug Allerg y Active ENCOUNTERS from 1965 to 2020-07-22 Encounter Location Date Provider Diagnosis [address] [place] [address] Jun, Mar fawad Rodarte Essential hypertension I10 ; Stage 3a chronic kidney disease N18.31 ; Hemorrhagic cerebrovascular accident (CVA) I61.9 ; Medical non-compliance Z91.19 ; Alcohol abuse F10.10 and Left hemiplegia G81.94 IMMUNIZATIONS Vaccine Route Administration Date Status TDAP [...] REASON FOR REFERRAL No Information VITAL SIGNS Weight 227 lbs Jun, Height 5'7" in Jun, BMI 35.55 kg/m2 Jun, Heart Rate 78 /min Jun, Respiratory Rate 18 /min Jun, Temperature 96.3 degrees Fahrenheit Jun, Oximetry 96 Jun, Blood pressure systolic 135 mm Hg Jun, Blood pressure diastolic 80 mm Hg Jun, MEDICATIONS Medication SIG (Take, Route, Frequency, Duration) [...] 30 day(s) Active PROCEDURES No Information RESULTS Component Value Reference Range CBC with Differential Reviewed date:07/18/2020 09:02:10 Interpretation: Performing Lab:[facility], [facility] [address] [place] [address] , ,[place] [address] WHITE BLOOD COUNT 8.7 4.0-10.0 RED BLOOD COUNT 4.14 4.30-6.10 HEMOGLOBIN 13.4 13.5-17.5 HEMATOCRIT 39.0 42.0-52.0 MEAN CORPUSCULAR VOLUME 94.2 80.0-96.0 MEAN CORPUSCULAR HEMOGLOBIN 32.4 27.0-33.0 MEAN CORPUSCULAR HGB CONC 34.4 32.0-36.5 RED CELL DISTRIBUTION WIDTH 12.6 11.5-14.5 PLATELET COUNT, AUTOMATED 250 150-450 NEUTROPHILS % 62.4 36.0-66.0 LYMPH % 18.5 24.0-44.0 MONO % 10.4 0.0-5.0 EOS % 5.7 0.0-3.0 BASO % 0.8 0.0-1.0 NEUTROPHILS # 5.4 1.5-8.5 LYMPH # 1.6 1.5-5.0 MONO # 0.9 0.0-0.8 EOS # 0.5 0.0-0.5 BASO # 0.1 0.0-0.2 Comprehensive Metabolic Profile (CMP) Reviewed date:07/18/2020 09:02:10 Interpretation: Performing Lab:[facility], [facility] [address] [facility] [address] , ,[place] [address] GLUCOSE, FASTING 80 70-100 BLOOD UREA NITROGEN 12 7-18 CREATININE FOR GFR 1.24 0.70-1.30 GLOMERULAR FILTRATION RATE > 60.0 >56 SODIUM LEVEL 140 136-145 POTASSIUM SERUM 4.4 3.5-5.1 CHLORIDE LEVEL 103 98-107 CARBON DIOXIDE LEVEL 29 21-32 CALCIUM LEVEL 9.5 8.5-10.1 AST/SGOT 24 7-37 ALT/SGPT 36 12-78 ALKALINE PHOSPHATASE 108 45-117 BILIRUBIN,TOTAL 0.5 0.2-1.0 TOTAL PROTEIN 7.0 6.4-8.2 ALBUMIN 3.9 3.2-5.2 ALBUMIN/GLOBULIN RATIO 1.3 REASON FOR VISIT [facility] MEDICAL (GENERAL) HISTORY Type Description Date Medical [...] No Information FUNCTIONAL STATUS No Information ASSESSMENTS Encounter Date Diagnosis Assessment Notes Treatment Notes Treatm ent Clinical Notes Jun, Essential hypertension (ICD-10 - I10) Prssures controlled, meds refilled. Enc PIO diet, discouraged EtOH. Enc elevating legs when at rest. Jun, Stage 3a chronic kidney disease (ICD-10 - N18.31 ) Jun, Hemorrhagic cerebrovascular accident (CVA) (ICD- 10 - I61.9) PH is coming tomorrow to evaluate for PT/OT. Pt aware. Call with concerns. Pressures controlled. Jun, Medical non-compliance (ICD-10 - Z91.19) Jun, Alcohol abuse (ICD-10 - F10.10) Enc cessation. Jun, Left hemiplegia (ICD-10 - G81.94) Advised no driving, no heights/climbing, no working for now. He completed assistance paperwork when in the hospital. needs PT/OT. PLAN OF TREATMENT Medication Medication Name Sig [...] Once a day for 30 day( s) Treatment Notes Assessment Notes Clinical Notes Essential hypertension Prssures controlled, meds re filled. Enc PIO diet, discouraged EtOH. Enc elevating legs when at rest. Hemorrhagic cerebrovascular accident (CVA) PH is comin g tomorrow to evaluate for PT/OT. Pt aware. Call with concerns. Pressures controlled. Alcohol abuse Enc cessation. Left hemiplegia Advised no driving, no heigh ts/climbing, no working for now. He completed assistance paperwork when in the hospital. needs PT/OT. Next Appt Details PAULETTE gerardo, 3 Weeks, needs transfer paperw ork Reason: Provider Name:Magnolia Rodarte, 2020-08-08 11:30:00 AM, [address], [place], [address], Provider Name:Ligia Vazquez, 2020-10-23 11:30:00 AM, [address], [place], [address], Insurance Providers Payer Name Payer Address Payer Phone Insured Name Patient Relati onship to Insured Coverage Start Date Coverage End Date [facility] COMM[employer]AN [facility] [address] [facility] [id number] JULIETA BANGURA self
--- OUTSIDE RECORDS SUMMARY | 2020-08-21 11:57 | CCD | Continuity of Care Document ---
Author Author Jonatan Palm Automated Organization Unknown Address Unknown Phone Unavailable Care Team Providers Care Power Tong Operator Name Role Phone Jonatan Pena Unavailable Unavailable Unavailable [facility] Unavailable Unavailable Unavailable MosesCece faust Unavailable Yandy Yanez Unavailable Rachell Ramirez Unavailable Daniel Chaz Unavailable Problems Name Dates [...] nontraumatic intracranial hemorrhage (I69.298) 04-Jul-2020 Status: Active Body mass index [BM I] 35.0-35.9, adult (Z68.35) 04-Jul-2020 Status: Active Medications Name Dates Details [...] Ins truction Type: Nutrition education Payers * [facility] Essential Plan * [facility]
--- OUTSIDE RECORDS SUMMARY | 2020-08-21 11:57 | CCD | Summary of Care ---
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 Name Role Phone Magnolia Rodarte PCP Reason for Referral * Used Durable Medical Equipment (Routine) Referred By Contact Referred To Contact Status Reason Specialty Diagnoses / Procedures Soila Chong NP [address] [place] [id number] Email: [email or web address] Open Diagnoses Intracranial hemorrhage * Home Health Care (Routine) Referred By Contact Referred To Contact Status Reason Specialty Diagnoses / Procedures Soila Chong NP [address] [place] [id number] Email: [email or web address] Open Specialty Services Home Health Diagnoses Required Services Intracranial hemorrhage Reason for Visit * Reason Comments ED To ED Transfer Cerebrovascular Accident * Auth/Cert Referred By Contact Referred To Contact Status Reason Specialty Diagnoses / Procedures Diagnoses Intracranial hemorrhage Hemorrhagic Intracranial hemorrhage Encounter Details Care Team Description Date Type Department Dusty Mott MD [address] [place] [address] [phone] Reza Cobian MD [address] [place] [address] [phone] Jayshree Mclean MD [address] [place] [address] [phone] Viri Matias MD [address] [place] [address] [phone] Intracranial hemorrhage (Primary Dx) 07/04/2020 Hospital 09 NEUROSURGERY - Encounter [address] 07/12/2020 [place] [address] Allergies Comments Active Allergy Reactions Severity Noted Date Penicillins Rash Low 07/04/2020 documented as of this encounter (statuses as of 07/12/2020) Medications End Date Status Medication Sig Dispensed Refills Start Date Active Magnesium 100 MG Oral Take 200 mg 0 Tablet by mouth daily Active TURMERIC PO Take 1 0 capsule by mouth daily 07/11/2021 Active amLODIPine Besylate 10 MG Take 1 tablet 30 tablet 11 Oral Tablet (NORVASC) by mouth 1 daily 07/11/2021 Active Folic Acid 1 MG Oral Take 1 tablet 30 tablet 11 Tablet (FOLVITE) by mouth 1 daily 07/10/2021 [...] as of this encounter (statuses as of 07/12/2020) Active Problems Problem Noted Date H/O right nephrectomy 07/12/2020 Overview: 2013 ETOH abuse 07/11/2020 Uncontrolled hypertension 07/05/2020 LUCRECIA (acute kidney injury) 07/05/2020 Non-traumatic rhabdomyolysis 07/05/2020 Intracranial hemorrhage 07/04/2020 documented as of this encounter (statuses as of 07/12/2020) Social History Date Tobacco Use Types Packs/Day Years Used Former Smoker Smokeless Tobacco: Never Used Drinks/Week oz/Week Comments Alcohol Use 5 Shots of liquor 5.0 daily Yes Sex Assigned at Date Recorded Not on file documented as of this encounter Last Filed Vital Signs Reading Time Taken Comments Vital Sign 128/72 07/12/2020 8:00 AM EST Blood Pressure 71 07/12/2020 8:00 AM EST Pulse 36.7 C (98.1 F) 07/12/2020 8:00 AM EST Temperature 18 07/12/2020 8:00 AM EST Respiratory Rate 95% 07/12/2020 8:00 AM EST Oxygen Saturation - - Inhaled Oxygen Concentration 103 kg (227 lb 1.2 oz) 07/06/2020 6:00 AM EST Weight 170.2 cm (5' 7") 07/04/2020 8:27 PM EST Height 35.56 07/04/2020 8:27 PM EST Body Mass Index documented in this encounter Discharge Instructions * Discharge Instr - Outside Referral* Gabrielle Nagy LMSW - 07/07/2020 1:42 PM EST Please call Carolyn from Department of Charge Poster in [facility] follow u p with your Temporary Assistance application (they will hold the application unt August 07 so you do not have to complete a new one!). Call Carolyn at : when you get home. To contact the IRS to be eligible for a stimulus check, call: * Additional Instructions* Nika Madrid [facility] - 07/11/2020 1:42 PM EST Please start taking blood pressure control medications (Amlodipine and Labetalol ) as prescribed for prevention of hemorrhagic stroke worsening or recurrence. Please follow up with Neurosurgery outpatient clinic in 4 weeks for repeat evalu ation. documented in this encounter Progress Notes * Marly Eason, GERARD - 07/12/2020 10:48 AM EST Discharge instructions reviewed with patient at bedside. Verbalized understandin g of reasons to call provider and follow up appointment. No questions at this ti me. Patient was escorted to main entrance via wheelchair. * Germaine Osman, PT - 07/12/2020 9:05 AM EST Physical Therapy Acute Care Neurology Treatment Note Medical Diagnosis: 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 Rehabilitation Precautions/Restrictions: Full code. High fall risk. Activity: OOB as tolerated. OOB to chair. Keep SBP <140. O2 sat >94%. Goal Review Visit Number: 5 SUBJECTIVE Patient Report: Pt reports wanting to go home. States son (8th grade) will be with him at night and a couple friends during the day. Pain: Patient currently complains of pain. Location: R shoulder, low back - chronic . Patient describes pain as Nonspecific. Verbal Scale: Patient reports a pain level of 3 out of 10. Pain Medication Today: yes. OBJECTIVE Vital Signs: asymptomatic General Observation: Pt was supine in bed, NAD on room air, IV removed by RN during session, chair alarm Range of Motion:No change observed. Strength:No change observed. Skin Integrity Screen: Moderate edema to LUE throughout Functional Status: Bed Mobility: Patient moves from supine to/from sit with independence. Transfers: Patient transferred sit to/from stand requiring contact guard assistance of 1 person. gait belt with and without walker x3 reps each Locomotion/Wheelchair: Not assessed. Locomotion/Gait/Ambulation: Pt ambulated [id number], 2x15ft with minimal assistance and gait belt with unsteadiness, antalgic, decreased stance on L LE. Pt ambulated [id number] with rolling walker and contact guard to minimal assistance with frequent cues for junior account executive with L UE on walker, slight unsteadiness, x2 times walking walker into objects on L side with more equal step length and stance time noted. Stairs: Patient was minimal assist of 1 person for 4 steps with R ascending rail . Patient used the following equipment: Gait belt - use per hospital policy. one loss of balance requiring minimal assistance otherwise contact guard Modified Butler Score (mRS): 4 - Moderately severe disability; unable to walk without assistance and unable to attend to own bodily needs without assistance. Outcome Measures: [facility]-PAC "6 Clicks" Basic Mobility Inpatient Short Form: Turning over in bed: No difficulty (4) Sitting down on and standing up from a chair with arms: Unable to perform (1) Moving from lying on back to sitting on the side of the bed: A little difficulty (3) Moving to and from a bed to a chair (including a wheelchair): A little help (3) Walking in hospital room: A little help (3) Climbing 3-5 steps with a railing: A little help (3) Raw Score 17 /24. Interventions: Neuromuscular Reeducation: Facilitated balance training in standing with eyes closed, pertubations and varying base of support (shoulder width, narrow base, tandem stance) Pt reported increased difficulty with R forward tandem stance with increased unsteadiness and increased weightbearing in L LE to avoid position. Therapeutic Activities: Facilitated transfer training with cues for hand placement with walker management and increasing junior account executive on walker once in standing prior to walking. Facilitated bed mobility with cues for safety and breathing throughout activity. Discussed continued recommendation for rehab due to safety concern. Pt refusing rehab. Educated about fall risk due to poor balance and current level of assistance of minimal assistance with walker for increased safety. Gait Training: Facilitated gait training with cues for equal step length, upright posture, obstacle negotiation and cues for junior account executive on L UE. Educated about increasing eye contact when L junior account executive is about to loose grasp to improve holding position. Facilitated stair training with cues for increased use of railing to decrease risk of falling. Educated about using rohit UE on one rail when descending to improve safety due to difficulty gripping with L UE for increased safety. Education: Mode of education provided: Explanation. Demonstration. Audience: Patient. Education Provided: Importance of activity. Mobility Techniques. Safety. Role of Physical Therapy. Treatment Plan. Response: Applied knowledge. Needs practice/reinforcement. ASSESSMENT Response to Visit: The session was tolerated well. Pt demonstrated decreased assistance with rolling walker with difficulty maintaining L hand junior account executive due to weakness. Chair alarm was on at end of session. Patient seated on waffle cushion at end of session. Call oquendo was in patient's reach at end of session. Pain: Yes, pain is unchanged from start of today's treatment. Goal review: Contact guard to minimal assistance with rolling walker Changes in or Continuation of Plan of Care: Patient will benefit from continued therapy to achieve planned goals. PLAN Treatment Frequency, Duration and Interventions: Restorative Physical Therapy is recommended for 5x/wk for 4 weeks Treatment is to include: Gait Training. Therapeutic Activity. Therapeutic Exercise. Neuromuscular Re-education. Self Care/Home Management. Equipment Provided: None issued this visit. Equipment Recommended: Rolling walker. Recommended Physical Therapy Follow Up: Upon acute care discharge, the following is currently recommended: Anticipate patient will have inpatient rehab needs beyond the acute stay. If pt refuses short term rehab, then he would require gait belt, rolling walker and minimal assistance for all mobility 20/01 for pt safety. Recommended Consults: None currently. Development of Plan of Care: Participants included: pt. There was no change to plan of care today. Visit Number: Today's visit is number 5 Program: Stroke (Therapist may be reached on Voc[employer]) This document is submitted as a late entry. SESSION: Duration: 40 CHARGES: 05063 - CHARGE - PT GAIT TRNG - 15 MIN 1 Units 10201 - CHARGE - PT THERAPEUTIC ACTIVITIES - 15 MIN 1 Units 52166 - CHARGE - PT NEURO RE-ED - 15 MIN 1 Units - ORDER - Physical Therapy Treatment 1 Units - STROKE VISIT 1 Units Total treatment minutes: 40.00 Minutes Electronically Signed by: Germaine Osman PT, 07/12/2020 11:13:35 AM * Tanya Sanders RN - 07/12/2020 9:01 AM ESTSummary: Discharge Planning CM spoke with patient this am. Patient declined inpatient rehabilitation. CM has arranged home SN/PT/OT via [facility]. Patient has shared t hat he has 20/01 home support of friends and family. Patients brother, matt wall s confirmed that a family friend ( Ada) will stay with patient and when she is unavailable, patient will stay @ brothers home. Rolling Walker has been request ed on behalf of the patient. Patient due for d/c to home this am. Patient is vincent re and agreeable with the plan. * Nika Madrid [facility] - 07/12/2020 6:15 AM EST Plan for discharge home today following arrangement of home services. ANISHA Nur Department of Neurology, PGY-2 Pager: [phone] 07/12/2020 * Shiva Milton RN - 07/11/2020 11:36 PM EST 07/11/20 2321 Vitals BP 144/80 Dr. García notified SBP 144. Asked for clarification due to conflicting Epic order s. Dr. Colindres maintain SBP < 160 * Nika Madrid, [facility] - 07/11/2020 7:32 PM EST Stroke Service Progress Note Patient Jonatan [place] 1965 PCP Magnolia Rodarte PA Subjective Patient was seen and examined at bedside today. He had no overnight events. He i nitially contemplated inpatient rehab however later revised his decision and req uested to go home. Unfortunately he came to this decision too late in the day fo r transport and plan for discharge tomorrow. He had no new complaints. The patient's past medical history, social history and family history are unchan ged from prior assessment. Objective Temp: [36.3 C (97.4 F)-36.8 C (98.3 F)] 36.3 C (97.4 F) Pulse: [61-78] 73 Resp: [16-19] 18 BP: (122-149)/(77-91) 133/91 SpO2: [92 %-97 %] 92 % O2 Therapy: Room air Physical Exam General Appearance: obese, appears stated age, in no apparent distress Skin: No lesions HEENT: Head: Normocephalic, no lesions, without obvious abnormality. Breathing comfortably on room air Extremities: extremities normal, atraumatic, no cyanosis or edema Neurological Exam Mental status: Awake, oriented x3. Able to focus and sustain attention. Regards examiner. Follows complex commands and answers all questions appropriately. Auditory comprehension:Intact Speech output: Fluent and grammatically correct Naming: Preserved Repetition: Intact. Cranial nerves: CN II:Visual wills full CN III- : All extraocular movements were intact and no nystagmus CN V:Facial sensation was normal and symmetric CN VII: Facial expression was symmetric Sensory exam: Incomplete left hemisensory numbness Motor exam: Proximal Distal Right Upper extremity 5 5 Left Upper extremity 4- (pain) 5 tri, 5- biceps 5 WE 5- Proximal Distal Right lower extremity 5 5 Left Lower extremity 4 5 TA 5- Cerebellar Exam: Finger to nose / HTS Right Upper extremity intact Left Upper extremity intact Gait: Deferred Telemetry NSR Diagnostics Ct Head Without Contrast: 07/06/2020 IMPRESSION: Stable examination. Grossly unchanged appearance of the intraparench ymal hemorrhage with surrounding vasogenic edema. Stable mass effect and leftwar d midline shift of approximately [address] Head Without Contrast: 07/05/2020 IMPRESSION: Grossly stable intraparenchymal hemorrhage involving the right basal ganglia and temporal lobe with surrounding vasogenic edema, mass effect with pe rsistent effacement of right lateral ventricle and left-sided midline shift sandra uring approximately [address] hemorrhage[address] Ct Cervical Spine Without Contrast: 07/05/2020 IMPRESSION: No evidence of acute fracture or traumatic listhesis is noted. Mr Brain With And Without Contrast: 07/06/2020 IMPRESSION: Acute right basal ganglia hematoma. No evidence of an underlying mas s on the current examination. However a repeat MRI is recommended upon resolutio n of the blood byproducts. Medications Medication Frequency acetaminophen (TYLENOL) tablet 650 mg Q4H PRN amlodipine (NORVASC) tablet 10 mg Daily amlodipine (NORVASC) tablet 5 mg Once cyclobenzaprine (FLEXERIL) tablet 10 mg TID PRN docusate sodium (COLACE) capsule 100 mg BID folic acid (FOLVITE) tablet 1 mg Daily heparin (porcine) 5000 UNIT/ML injection 5,000 Units BID HYDROcodone-acetaminophen (LORTAB) 5-325 MG per tablet 1 tablet Q6H PRN labetalol (NORMODYNE) tablet 100 mg 2 times per day lidocaine (LIDODERM) 5 % patch 1 patch Daily multivitamin tablet 1 tablet Daily pantoprazole (PROTONIX) injection 40 mg Daily senna (SENOKOT) syrup 10 mL Nightly sodium chloride (preservative free) 0.9 % flush 3 mL 3 times per day sodium chloride (preservative free) 0.9 % flush 3 mL PRN sodium chloride 0.9 % bag 3-20 mL PRN thiamine (B-1) tablet 100 mg Daily Assessment & Plan Jonatan [place] is a 54 y.o. male patient with PMH of ETOH/marijuana abuse who pre sented as a transfer from [facility] for a nontraumatic intracranial hem orrhage. Of note patient was markedly hypertensive on admission. Plan for possib le discharge 07/10/2020 to . Events of the past 24h: - No acute events - Pending discharge to home on 07/12/2020 --- Right basal ganglia ICH Etiology: hypertension CTH at OSH on 07/04/20 with large right basal ganglia IPH CTA H/N on 07/04/20 at OSH without AVM/AVF MRI brain with and without contrast negative for any masses Most recent CTH on 07/05/20 grossly stable Neurosurgery: no acute intervention. SBP <160, Plt>100K, INR <1.4 PT/OT at bedside as tolerated. Hypertension s/p right nephrectomy, POA: Reportedly informed of his hypertension in 2012 s/p right nephrectomy at [facility]. Reports he was not on active home therapy. Keep SBP <160 Hydralazine/Labetalol PRN C/w Amlodipine 10mg QD and Labetalol 100 mg BID Consulted medicine team regarding BP control given history of nephrectomy. Recom mended Labetalol with good response in BP Alcohol withdrawal ETOH abuse, POA: Admits to drinking 5 hard drinks per day Elevated LFTs, normalized over 1-2 days Continue CIWA protocol, MVI, FOLIC ACID, THIAMINE S/P banana bag R/O cervical injury in setting of fall: C spine CT 07/05/20 showed no evidence of acute fracture Dc'd c collar Hx of chronic back pain, POA: Started on Flexeril PRN Lidocaine patch daily Lortab q6prn DVT Prophylaxis: heparin GI Prophylaxis: Not Indicated Code Status: Full Code Diet: regular diet Disposition: Plan discharge to: home Estimated Discharge Date: 07/12/2020 Patient seen and examined. Case discussed with Dr. Matias and formulated the palmer brown plan together. Associated attestation - Viri Matias MD - 07/11/2020 8:53 PM EST STROKE ATTENDING ADDENDUM: Date of Encounter: 07/11/2020 I personally saw and examined the patient, discussed the case and formulated ass essment and plan with the resident and agree with the history, exam, assessment and plan outlined in the resident's note except where stated in the supplemental documentation by myself. Doing well. Decided against going to rehab, reporting that he would feel better mentally back at home. He further states that he's relying on support from his f amily, as well as friends and is intent on working with PT on outpt bases. D/c t omorrow to home. Reminder of plan per resident's note. Signature: Viri Matias Quonitra W, RN - 07/11/2020 3:50 PM ESTSummary: Discharge Planning CM unable to speak with patient as patient unavailable. Patient due for inpatien t rehab, patient has refused. CM working on home care plan for [facility]. CM will discuss plan with patient once patient available. CM will continue to f demetri. * Nika Madrid [facility] - 07/11/2020 3:40 PM EST Spoke to patient who is insisting on return to home. Discussed his plan to get h ome and he stated he would like his brother to pick him up. Called his brother Matt [place] who stated he would be able to pick him up no ea rlier than 10 AM tomorrow. Plan for discharge to home in morning. ANISHA Nur Department of Neurology, PGY-2 Pager: [phone] 07/11/2020 * Germaine Osman, PT - 07/11/2020 1:50 PM EST Physical Therapy Acute Care Encounter Note Medical Diagnosis: 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 Rehabilitation Precautions/Restrictions: Full code. High fall risk. Activity: OOB as tolerated. OOB to chair. Keep SBP <140. O2 sat >94%. Goal Review Visit Number: 4 SUBJECTIVE Patient Report: Pt was agreeable to PT. Stated that he wants to go home "or he's going to need a padded room" Pain: Patient currently complains of pain. Location: R shoulder, low back - chronic . Patient describes pain as Nonspecific. Verbal Scale: Unable to articulate. "Normal aches and pains" Pain Medication Today: yes. OBJECTIVE General Observation: Pt was seated in recliner, NAD on room air, IV intact Chair alarm was on at start of session. Skin Integrity Screen: Moderate edema to LUE throughout Vital Signs: asymptomatic Functional Status: Transfers: Patient transferred sit to/from stand requiring contact guard assistance of 1 person. Patient used the following equipment: Transfer belt. Patient used the following equipment: Arms of chair. x8 reps Bed Mobility: Not assessed. Locomotion/Gait/Ambulation: Pt requires minimal assistance [id number], 3x75ft ambulation with gait belt with x3 loss of balance noticed with one requiring moderate assistance to maintain upright, antalgic, increased veer toward left with x2 times requiring assistance to prevent hitting object on L side. Stairs:Patient was minimal assist of 1 person for x4 steps with R ascending rail x4 steps with L ascending rail with moderate assistance . step to pattern Outcome Measures: [facility]-PAC "6 Clicks" Basic Mobility Inpatient Short Form: Turning over in bed: A little difficulty (3) Sitting down on and standing up from a chair with arms: Unable to perform (1) Moving from lying on back to sitting on the side of the bed: Unable to perform (1) Moving to and from a bed to a chair (including a wheelchair): A little help (3) Walking in hospital room: A little help (3) Climbing 3-5 steps with a railing: A little help (3) Raw Score 14 /24. Interventions: Gait Training: Facilitated gait training with cues for sequencing, obstacle negotiation, equal step length and safety. Facilitated stair training with increased support for ascending with L rail due to difficulty with junior account executive on L hand. Educated about safety and current assist for gait training with numerous loss of balance presenting fall risk. Therapeutic Activities: Facilitated transfer training with cues for sequencing and safety. Educated pt about rehab recommendation with importance of safety prior to discharge. Discussed fall risk and rehab recommendation with pt and MD at bedside. Neuromuscular Reeducation: Facilitated picking up objects x4 with x11 attempts due to constant dropping of cone and minimal assistance for stability. Educated about positioning to reduce back pain when bending over. Facilitated walking with heel toe pattern with increased unsteadiness with minimal to moderate assistance with hand held support and numerous loss of balance during 4x10ft trials. Education: Mode of education provided: Explanation. Demonstration. Audience: Patient. Education Provided: Importance of activity. Mobility Techniques. Role of Physical Therapy. Safety. Treatment Plan. Response: Indicates understanding. ASSESSMENT Response to Visit: The session was tolerated well. Patient reported fatigue Pt continues to required increased support for mobility due to poor safety, unsteadiness and numerous loss of balance. Medical team notified of PT recommendation. Call oquendo was in patient's reach at end of session. Chair alarm was on at end of session. Pain: Yes, pain is unchanged from start of today's treatment. PLAN Treatment Frequency, Duration and Interventions: Restorative Physical Therapy is recommended for 5x/wk for 4 weeks Treatment is to include: Gait Training. Therapeutic Activity. Therapeutic Exercise. Neuromuscular Re-education. Self Care/Home Management. Recommended Physical Therapy Follow Up: Upon acute care discharge, the following is currently recommended: Anticipate patient will have inpatient rehab needs beyond the acute stay. Equipment Provided: None issued this visit. Visit Number: Today's visit is number 4 Program: Stroke (Therapist may be reached on [employer]) SESSION: Duration: 43 CHARGES: - ORDER - Physical Therapy Treatment 1 Units 42477 - CHARGE - PT GAIT TRNG - 15 MIN 1 Units 78805 - CHARGE - PT THERAPEUTIC ACTIVITIES - 15 MIN 1 Units 25937 - CHARGE - PT NEURO RE-ED - 15 MIN 1 Units - STROKE VISIT 1 Units Total treatment minutes: 43.00 Minutes Electronically Signed by: Germaine Osman PT, 07/11/2020 3:24:39 PM * Marek Hernandez, OT - 07/11/2020 11:14 AM EST Occupational Therapy Acute Care Encounter Note Medical Diagnosis: Right basal ganglia ICH, s/p found down. Rehabilitation Precautions/Restrictions: Full code. High fall risk. Activity: OOB as tolerated. OOB to chair. Keep SBP <140. O2 sat >94%. Goal Review Visit Number: 4 SUBJECTIVE Patient Report: Patient agreeable to therapy Pain: Patient has no complaints of pain currently. Pain Medication Today: yes. OBJECTIVE General Observation: Patient received sleeping in bedside recliner. NAD. +PIV Chair alarm was on at start of session. Skin Integrity Screen: Moderate edema to LUE throughout Vital Signs: Stable. Self Care/Home Management: Grooming: Complete [place]. Dressing - upper body: Minimal Assistance. Bathing: Minimal Assistance. Dressing - lower body: Modified [place]. Shower transfer: Contact guard. Toilet transfer: Contact guard. Toileting: Complete [place]. Splinting: No splint issued today. Cognitive Test Score: Not tested. Outcome Measures: [employer] AM-PAC "6 Clicks" Daily Activity Inpatient Short Form: Putting on and taking off regular lower body clothing: A little assistance (3) Bathing (including washing, rinsing, and drying): A little assistance (3) Toileting (including use of toilet, bedpan, or urinal): A little assistance (3) Putting on and taking off regular upper body clothing: A little assistance (3) Taking care of personal grooming such as brushing teeth: No assistance (4) Eating meals: No assistance (4) Raw Score: 20 /24 MODIFIED SAQIB INDEX (AGUIRRE VERSION): SELF CARE ASSESSMENT Chair/Bed Transfers: 12 - The presence of another person is required either as a confidence measure, or to provide supervision for safety. Ambulation: 8 - Assistance is required with reaching aids and/or their manipulation. One person is required to offer assistance. Wheelchair: N/A - Pt is ambulatory and wheelchair is not scored Stair Climbin - Assistance is required in all aspects of stair climbing, including assistance with walking aids. Toilet Transfers: 5 - Assistance may be required with managment of clothing, transferring, or washing hands. Bowel Control: 10 - The patient can control bowels and has no accidents, can use suppository or take an enema when necessary. Bladder Control: 10 - The patient is able to control bladder day and night, and/or is independent with internal or external devices. Bathin - Assistance is required with either transfer to shower/bath or with washing or drying; including inability to complete a task because of condition or disease, etc. Dressin - Assistance is needed in putting on, and/or removing any clothing. Personal Hygiene (grooming): 5 - The pt can wash his/her own hands/face, comb hair, clean teeth and shave. Male pts may use any razor, but must insert blade or plug in razor and retrieve it without help. A female pt must apply own makeup, if used, but need not braid or style hair. Feedin - The patient can feed self from a tray or table when someone puts the food within reach. The patient must put on an assistive device if needed, cut food, and if desired use salt and pepper, spread butter, etc. Total Score: 70 Prediction: If living alone will probably need a number of community services to cope. Interventions: Self Care/Home Management: Therapist facilitated engagement in morning ADL routine in order to assess patient functional cognition, LUE function, and balance in order to maximize patient independence with self-care tasks. Therapist challenged patient by encouraging gathering of items to prepare for ADL tasks. Patient with difficulty maintaining balance while gathering items. Required support. Therapist facilitate standing/sitting balance throughout ADL routine in order to challenge patient functional endurance and standing balance. Therapist and patient discussed benefits of installation of grab bars and shower chair to promote safety while performing showering, and transferring in and out of the shower tub. Therapist provided minimal cues throughout to promote safety awareness and judgement. Therapist instructed patient through modified lower body dressing techniques in order to maximize patient independence while donning/doffing socks. Therapist and patient discussed discharge planning at length. Therapist discussed with patient the benefits of attending rehab as it pertains patient safety, and ability to care for self at home. Therapist explained to the patient the risk of readmission if not properly rehab'd. Patient indicated understanding. Education: Mode of education provided: Explanation. Audience: Patient. Education Provided: Role of OT in acute care, d/c plan, treatment plan, safety, modified dressing techniques . Response: Indicates understanding. ASSESSMENT Response to Visit: The session was tolerated fair, as evidenced by: Patient demonstrated consistent level of performance. Therapist and patient spoke at length regarding discharge. Therapist empathized with patient desire to discharge home with family support and OP services. However therapist educated patient on the benefits of attending rehab to improve function and promote safety. Chair alarm was on at end of session. Call oquendo was in patient's reach at end of session. Pain: Patient has no complaints of pain currently. PLAN Treatment Frequency, Duration and Interventions: Restorative Occupational Therapy recommended for 5x/week for 4 weeks. Treatment is to include: Hot Cold Pack. Development of Cognitive Skills. Neuromuscular Re-education. Self Care/Home Management. Therapeutic Activity. Therapeutic Exercise. Recommended Occupational Therapy Follow Up: Upon acute care discharge, the following is currently recommended: Anticipate patient will have inpatient rehab needs beyond the acute stay. Visit Number: Today's visit is number 4 Program: Stroke (Therapist may be reached on [facility]) SESSION: Duration: 69 CHARGES: - ORDER - Occupational Therapy Treatment 1 Units 36265 - CHARGE - OT SELF CARE ADL TRAIN-15 MIN 5 Units - STROKE VISIT 1 Units Total treatment minutes: 69.00 Minutes Electronically Signed by: ROSALBA Cook/Leigh Ann, 07/11/2020 12:54:24 PM * Betsy Quijano, HYDRO STATION OPERATOR - 07/11/2020 5:57 AM EST Physical Medicine and Rehabilitation IRF Consult Follow Up Interval hx: Jonatan Bangura is a 54 y.o. male. Interval/subjective hx: seen today in chair attempting to make a phone call to his brother. He has no ac jovany complaints besides "if I do not get out of here today I am going to end up i n a padded room." Out of bed yesterday ambulated in the hallway with therapy hand-held assist, sti ll unsteady, improving with coordination but still have issues grasping things w ith his left hand. He is not interested in rehab and he wants to go home. His brother will be coming to pick him up today hopefully. Scheduled Meds: amLODIPine 10 mg Oral Daily amLODIPine 5 mg Oral Once docusate sodium 100 mg Oral BID folic acid 1 mg Oral Daily heparin (porcine) 5,000 Units Subcutaneous BID labetalol 100 mg Oral 2 times per day lidocaine 1 patch Transdermal Daily multivitamin 1 tablet Oral Daily pantoprozole 40 mg Intravenous Daily senna 10 mL Oral Nightly sodium chloride (preservative free) 3 mL Intravenous 3 times per day thiamine 100 mg Oral Daily Continuous Infusions: PRN Meds:.acetaminophen (TYLENOL) tablet, cyclobenzaprine, HYDROcodone-acetamino phen, Peripheral IV AND sodium chloride (preservative free) AND sodium c hloride (preservative free) AND [COMPLETED] Saline Lock order, sodium chlori de Speech/swallow status: Dietary Orders (From admission, onward) Start Ordered 07/05/20913 Diet Adult; Regular DIET EFFECTIVE NOW Question Answer Comment Age Adult Diet Regular 07/05/20913 REVIEW OF SYSTEMS: (+ = positive, - = negative) 1. Constitutional: (-) fever, (-) chills, (-) insomnia, (-) fatigue/lethargy 2. Eye: (-) glasses, (-) diplopia, (-) blurred vision, (-) blindness 3. ENT: (-) dentures (-) hearing deficits, (-) dysphagia, (-) dizziness. 4. Respiratory: (-) shortness of breath, (-) wheeze, (-) cough, (-) dyspnea. 5. Cardiovascular: (-) chest pressure or pain, (-) palpitations, (-) edema. 6. GI: (-) abdominal pain, (-) nausea, (-) vomiting, (-) diarrhea, (-) constipat ion. 7. Neurology: (-) pain, (-) headache, (+) left UE weakness, (-) paralysis, (-) n umbness, (-) paresthesias, (-) dysesthesia. 8. Musculoskeletal: (-) arthralgia, (-) myalgia, (-) spasm, (-) contracture, (-) deformity. 9. Integument: (-) skin changes, (-) rash, (-) pressure sore. 10. Endocrine: (-) temperature intolerence, (-) polyuria, (-) polydipsia. 11. : (-) dysuria, (-) frequency, (-) urgency, (-) incontinence, (-) hematuria , (-) use of catheter. 12. Hem/Onc: (-) easy bleeding, (-) ecchymosis, (-) swollen glands 13. Psychiatric: (-) mood disturbance, (-) depression, (-) anxiety, (-) sleep di sturbance, (-) altered behavior delusions/hallucination. 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 No edema, No calf tenderness. Musculoskeletal: No significant changes from consult. Psych: Mood normal DIAGNOSTIC STUDIES: CBC: Lab Results Component Value Date WBC 9.6 07/10/2020 RBC 4.05 (L) 07/10/2020 HGB 13.5 07/10/2020 HCT 38.2 (L) 07/10/2020 PLT 154 07/10/2020 BMP: Lab Results Component Value Date NA 137 07/08/2020 K 4.2 07/08/2020 CL 102 07/08/2020 BICARBONATE 24 07/08/2020 GLUCOSE 96 07/08/2020 BUN 11 07/08/2020 CREATININE 1.23 (H) 07/08/2020 BCR 9 07/08/2020 GFRAA 75 07/08/2020 GFRNONAA 64 07/08/2020 DATA REVIEWED: allergy list and medication list Assessment and Plan: Assessing patient medical readiness for transition to [facility] level care and coordin ating safe transition: Assessment: 54 y/o RHD male with impaired mobility and self care secondary to s/p fall while smoking marijuana 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 E tiology HTN. Hx ETOH ( ci), R nephrectomy (2012). He was reluctant to take HTN meds in past. Medicine consulted for his uncontrolled HTN rec increasing meds and OP PCP follow up. SBP within last 24 hrs ranging 120's -160's managed with P O, meds recently titrated up . Exam alert oriented x3 follows commands. seen in bed on RA. Per his report ambul ating SA to BR. 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 WBAT he is pending updated notes, last notes 1/8 min A 100ft gait/ambulation GB left la teral path deviation, easily looses balance, high fall risk, CGA transfer, min A UB dressing, max A LB dressing. 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 He does his own finances he would n eed to be able to maintain that level. Regular diet. Bowel continence LBM 06/30 0.bladder continence. 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 unsteadiness with decreased coordination on L side, o ccassionally walking into objects on L side, standing rests due to fatigue,trans corrina CGA. OT: Dressing - lower body: Supervision. Toileting Complete Davison . Toilet transfer: Supervision Plan: Based upon yesterdays therapies his functional level was too high for IRF, Will have pt seen by OT again today to assess higher level adl's if qualifies will of corrina bed for 2N today. Of note: express he is not interested in rehab and prefers to go home however with limited support and would need to be fairly independent. would triple plan for IRF vs SNF vs Homecare Call with questions/concerns Betsy Quijano ANP-C Physical Medicine and Rehab Discussed with Soila Chong Stroke HYDRO STATION OPERATOR, PMR Attending RILEY Gonzalez ra dictation software used, some errors may occur in line crew supervisor every eff ort has been made to ensure accuracy of line crew supervisor but errors may go unnotice d/uncorrected.Parts of this note are copied/forwarded from prior PMR progress no licha for purposes of continuity of care. All changes made daily are reviewed and signed. * Stacey Riley GN - 07/10/2020 5:46 PM EST Assumed care of pt from 1500- 1900, neuro assessment documented in the flowsheet ,otherwise read and agree with previous production control scheduler. * Frank Pennington PharmD - 07/10/2020 11:52 AM EST Pharmacy Inpatient Medication History Review Prior to Admission Medications Prescriptions Last Dose Informant Patient Reported? Taking? Magnesium 100 MG Oral Tablet Self Yes Yes Sig: Take 200 mg by mouth daily TURMERIC PO Self Yes Yes Sig: Take 1 capsule by mouth daily Facility-Administered Medications: None The following medications have been added: magnesium, turmeric The following medications have been removed: The following medications have been modified: The patient takes the following medications differently than prescribed: Medication History Source: [facility] - [place] - [id number] US RT 11 [id number] US RT 11 [place] [address] [facility] - Located in the [facility] - [address] [place] [address] [address] [facility] [address] The above prior to admission medications have been compared to current inpatient orders. Medication history was completed based on information available during this bee ent encounter by a pharmacy med history fuel retrofitting technician and reviewed by myself. The list above may not be all inclusive. Thank you, Frank Pennington, PharmD * Marek Hernandez, OT - 07/10/2020 10:51 AM EST Occupational Therapy Acute Care Treatment Note Medical Diagnosis: Right basal ganglia ICH, s/p found down. Rehabilitation Precautions/Restrictions: Full code. High fall risk. Activity: OOB as tolerated. OOB to chair. Keep SBP <140. O2 sat >94%. Goal Review Visit Number: 3 SUBJECTIVE Patient Report: Patient agreeable to therapy Pain: Patient has no complaints of pain currently. Pain Medication Today: yes. OBJECTIVE General Observation: Patient received sitting in bedside chair. NAD. Chair alarm was on at start of session. Vital Signs: Stable. Range of Motion:Patient noted to have impairments to LUE as followed: Shoulder flexion: 0-100 Shoulder abduction: 0- 95 Elbow:WFL throughout Patient wrist/hand: >10% functional use Strength:No change observed. Skin Integrity Screen: Moderate edema to LUE throughout Self Care/Home Management: Dressing - lower body: Supervision. Toileting: Complete Davison. Toilet transfer: Supervision. Splinting: No splint issued today. Cognitive Test Score: Not tested. Outcome Measures: [facility] AM-PAC "6 Clicks" Daily Activity Inpatient Short Form: Putting on and taking off regular lower body clothing: A little assistance (3) Bathing (including washing, rinsing, and drying): A lot of assistance (2) Toileting (including use of toilet, bedpan, or urinal): No assistance (4) Putting on and taking off regular upper body clothing: A little assistance (3) Taking care of personal grooming such as brushing teeth: A little assistance (3) Eating meals: No assistance (4) Raw Score: 19 /24 Interventions: Therapeutic Activities: Therapist facilitated therapeutic activities in order to facilitate coordinated movement, fine motor control, and in hand manipulation to LUE. Therapist engaged patient in grab and release of items to simulate items of ADLs in order to assist with coordination improvement and to refine fine motor control. Therapist provide patient with resistive theraputty in order to improve in hand strength, in hand coordination and manipulation, as well as fine motor grasp pattern strengths including pincer and lateral pincer. Therapist and patient discussed every day tasks impacted by limited hand use, and the importance of performing activities in room in order to improve deficits. Indicated understanding Self Care/Home Management: Therapist facilitated toilet transfer with gait belt. Therapist provided verbal cues for safety and stand-by assistance. Therapist provided distant supervision for post toileting care. Education: Mode of education provided: Explanation. Audience: Patient. Education Provided: Role of OT in acute care, d/c plan, treatment plan . Response: Indicates understanding. ASSESSMENT Response to Visit: The session was tolerated fair, as evidenced by: Patient endorsed no pain throughout session. Reported mild discomfort Chair alarm was on at end of session. Call oquendo was in patient's reach at end of session. Pain: Patient has no complaints of pain currently. Goal review: Patient continues to make progress towards goals. Will continue to monitor progress. Patient requiring supervision for toilet transfer, supervision for lower body dressing. Patient is limited due to LUE deficits PLAN Treatment Frequency, Duration and Interventions: Restorative Occupational Therapy recommended for 5x/week for 4 weeks. Treatment is to include: Hot Cold Pack. Development of Cognitive Skills. Neuromuscular Re-education. Self Care/Home Management. Therapeutic Activity. Therapeutic Exercise. Equipment Provided: None issued this visit. Equipment Recommended: To be assessed. Recommended Occupational Therapy Follow Up: Upon acute care discharge, the following is currently recommended: If patient were to discharge today patient would benefit from inpatient rehab stay Recommended Consults: None currently. Development of Plan of Care: Participants included: Patient. Visit Number: Today's visit is number 3 Program: Stroke (Therapist may be reached on [facility]) SESSION: Duration: 33 CHARGES: 84219 - CHARGE - OT THEREAPEUTIC ACT 15 MIN 1 Units 60234 - CHARGE - OT SELF CARE ADL TRAIN-15 MIN 1 Units - ORDER - Occupational Therapy Treatment 1 Units - STROKE VISIT 1 Units Total treatment minutes: 33.00 Minutes Electronically Signed by: ROSALBA Cook/Leigh Ann, 07/10/2020 3:51:41 PM * Germaine Osman, PT - 07/10/2020 10:06 AM EST Physical Therapy Acute Care Neurology Treatment Note Medical Diagnosis: 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 Rehabilitation Precautions/Restrictions: Full code. High fall risk. Activity: OOB as tolerated. OOB to chair. Keep SBP <140. O2 sat >94%. 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 Pt agreeable to PT at this time. Pending PT from team. Pain: Patient currently complains of pain. Location: R shoulder, low back - chronic . Patient describes pain as Nonspecific. Verbal Scale: Patient reports a pain level of 3 out of 10. Pain Medication Today: yes. OBJECTIVE Vital Signs: Asymptomatic General Observation: Pt was seated in recliner, NAD on phone, IV intact in L UE. Chair alarm was on at start of session. Range of Motion:No change observed. Strength:No change observed. Skin Integrity Screen: visualized skin intact. Functional Status: Bed Mobility: Not assessed. Transfers: Patient transferred sit to/from stand requiring contact guard assistance of 1 person. Patient used the following equipment: Transfer belt. Patient used the following equipment: Arms of chair. Locomotion/Wheelchair: Not assessed. Locomotion/Gait/Ambulation:Patient was minimal assist with gait/ambulation of 1 person for [id number], x75ft, 2x90ft . Patient requires the following assistive device(s): Gait belt. unsteadiness with decreased coordination on L side, occassionally walking into objects on L side, standing rests due to fatigue Stairs: Not assessed. Outcome Measures: [facility]-PAC "6 Clicks" Basic Mobility Inpatient Short Form: Turning over in bed: A little difficulty (3) Sitting down on and standing up from a chair with arms: Unable to perform (1) Moving from lying on back to sitting on the side of the bed: Unable to perform (1) Moving to and from a bed to a chair (including a wheelchair): A little help (3) Walking in hospital room: A little help (3) Climbing 3-5 steps with a railing: A lot of help (2) Raw Score 13 /24. Tinetti: Total Balance Score: 4 16 Total Gait Score: 4 Total Score (Gait and Balance): 8 /28 ; Patients who score below 19 are at a high risk for falls. Graham Balance Scale: Graham Balance Scale 1. Sitting to Standin - needs minimal aid to stand or to stabilize 2. Arises: 2 - able to stand 30 seconds unsupported 3. Sitting Unsupported: 4 - able to sit safely and securely 2 minutes 4. Standing to Sittin - needs assistance to sit 5. Transfers: 1 - needs one person assist 6. Standing Unsupported with Eyes Closed: 0 - needs help to keep from falling 7. Standing with Feet Together: 1 - needs help to attain position but able to stand 15 seconds feet together 8. Reaching Forward in Standin - loses balance while trying/requires external support 9. Picking up Objects from Standin - unable to try/needs assist to keep from losing balance or falling 10. Turning to Look 0 - needs assist to keep from losing balance or falling 11. Turning 360 Degrees: 0 - needs assistance while turning 12. Alternating Foot on Step: 0 - needs assistance to keep from falling/unable to try 13. Standing Unsupported One Foot in Front: 0 - loses balance while stepping or standing 14. Standing On One Le - unable to try or needs assist to prevent fall Total Score: 9 Lurdes K, Oseas S, Omar JI, Jason D: Measuring balance in the elderly: Preliminary development of an instrument. Physiotherapy Minh, 41:[phone], 1989. Interventions: Gait Training: Facilitated gait training with cues for safety, obstacle negotiation and standing rests with fatigue to prevent falling. Provided pt with gloves to hold in left hand with ability to hold in hand for approx 9 steps at best, 2-4 steps as typical. Pt demonstrated unsteadiness with path deviation, and uncoordinated stepping. Neuromuscular Reeducation: Facilitated balance training with tinetti and graham balance scale to assess safety for return home with pt noted to be at high fall risk with both scales. Facilitated picking up objects x6 reps with increased difficulty grasping with L UE. Facilitated seated reaching with L UE without back support to improve L UE coordination x10 reps for 2 trials. Facilitated transfer training throughout session with cues for sequencing to improve coordination in L UE and L LE. Education: Mode of education provided: Demonstration. Explanation. Audience: Patient. Education Provided: Importance of activity. Mobility Techniques. Role of Physical Therapy. Safety. Treatment Plan. Response: Indicates understanding. ASSESSMENT Response to Visit: The session was tolerated well. Pt demonstrated stable pain with activities. Pt shows high fall risk on two balance scales and requires minimal assistance for gait to prevent fall. Pt would benefit from acute inpatient rehab to improve strength, coordination and balance to return back to prior level of function of independent without assistive device. Chair alarm was on at end of session. Patient seated on waffle cushion at end of session. Call oquendo was in patient's reach at end of session. Pain: Yes, pain is unchanged from start of today's treatment. Goal review: minimal assistance for gait training with numerous loss of balance. Changes in or Continuation of Plan of Care: Patient will benefit from continued therapy to achieve planned goals. PLAN Treatment Frequency, Duration and Interventions: Restorative Physical Therapy is recommended for 5x/wk for 4 weeks Treatment is to include: Gait Training. Therapeutic Activity. Therapeutic Exercise. Neuromuscular Re-education. Self Care/Home Management. Equipment Provided: None issued this visit. Equipment Recommended: None. Recommended Physical Therapy Follow Up: Upon acute care discharge, the following is currently recommended: Anticipate patient will have inpatient rehab needs beyond the acute stay. Recommended Consults: PM and R Consult. Development of Plan of Care: Participants included: Patient. Visit Number: Today's visit is number 3 Program: Stroke (Therapist may be reached on [facility]) SESSION: Duration: 46 CHARGES: 82265 - CHARGE - PT GAIT TRNG - 15 MIN 2 Units 42975 - CHARGE - PT NEURO RE-ED - 15 MIN 1 Units - ORDER - Physical Therapy Treatment 1 Units - STROKE VISIT 1 Units Total treatment minutes: 46.00 Minutes Electronically Signed by: Germaine Osman PT, 07/10/2020 10:35:39 AM * Nika Madrid, [facility] - 07/10/2020 9:19 AM EST Stroke Service Progress Note Patient Jonatan Bangura 1965 PCP Magnolia Rodarte PA Subjective Patient was seen and examined at bedside today. He had no new complaints. The patient's past medical history, social history and family history are unchan ged from prior assessment. Objective Temp: [36.6 C (97.8 F)-37.1 C (98.7 F)] 36.8 C (98.2 F) Pulse: [54-91] 70 Resp: [16-18] 16 BP: (120-160)/(71-97) 131/73 SpO2: [94 %-97 %] 96 % O2 Therapy: Room air Physical Exam General Appearance: obese, appears stated age, in no apparent distress Skin: No lesions HEENT: Head: Normocephalic, no lesions, without obvious abnormality. Breathing comfortably on room air Extremities: extremities normal, atraumatic, no cyanosis or edema Neurological Exam Mental status: Awake, oriented x3. Able to focus and sustain attention. Regards examiner. Follows complex commands and answers all questions appropriately. Auditory comprehension:Intact Speech output: Fluent and grammatically correct Naming: Preserved Repetition: Intact. Cranial nerves: CN II:Visual wills full CN III- : All extraocular movements were intact and no nystagmus CN V:Facial sensation was normal and symmetric CN VII: Facial expression was symmetric Sensory exam: Incomplete left hemisensory numbness Motor exam: Proximal Distal Right Upper extremity 5 5 Left Upper extremity 4- (pain) 5 tri, 5- biceps 5 WE 5- Proximal Distal Right lower extremity 5 5 Left Lower extremity 4 5 TA 5- Cerebellar Exam: Finger to nose / HTS Right Upper extremity intact Left Upper extremity intact Gait: Deferred Telemetry NSR Diagnostics Ct Head Without Contrast: 07/06/2020 IMPRESSION: Stable examination. Grossly unchanged appearance of the intraparench ymal hemorrhage with surrounding vasogenic edema. Stable mass effect and leftwar d midline shift of approximately [address] Head Without Contrast: 07/05/2020 IMPRESSION: Grossly stable intraparenchymal hemorrhage involving the right basal ganglia and temporal lobe with surrounding vasogenic edema, mass effect with pe rsistent effacement of right lateral ventricle and left-sided midline shift sandra uring approximately 5 mm. No new hemorrhage. Ct Cervical Spine Without Contrast: 07/05/2020 IMPRESSION: No evidence of acute fracture or traumatic listhesis is noted. Mr Brain With And Without Contrast: 07/06/2020 IMPRESSION: Acute right basal ganglia hematoma. No evidence of an underlying mas s on the current examination. However a repeat MRI is recommended upon resolutio n of the blood byproducts. Medications Medication Frequency acetaminophen (TYLENOL) tablet 650 mg Q4H PRN amlodipine (NORVASC) tablet 10 mg Daily amlodipine (NORVASC) tablet 5 mg Once cyclobenzaprine (FLEXERIL) tablet 10 mg TID PRN docusate sodium (COLACE) capsule 100 mg BID folic acid (FOLVITE) tablet 1 mg Daily heparin (porcine) 5000 UNIT/ML injection 5,000 Units BID HYDROcodone-acetaminophen (LORTAB) 5-325 MG per tablet 1 tablet Q6H PRN labetalol (NORMODYNE) tablet 100 mg 2 times per day lidocaine (LIDODERM) 5 % patch 1 patch Daily multivitamin tablet 1 tablet Daily pantoprazole (PROTONIX) injection 40 mg Daily senna (SENOKOT) syrup 10 mL Nightly sodium chloride (preservative free) 0.9 % flush 3 mL 3 times per day sodium chloride (preservative free) 0.9 % flush 3 mL PRN sodium chloride 0.9 % bag 3-20 mL PRN thiamine (B-1) tablet 100 mg Daily Assessment & Plan Jonatan Bangura is a 54 y.o. male patient with PMH of ETOH/marijuana abuse who pre sented as a transfer from [facility] for a nontraumatic intracranial hem orrhage. Of note patient was markedly hypertensive on admission. Plan for possib le discharge 07/10/2020 to 2N. Events of the past 24h: - No acute events - Pending discharge to 2N --- Right basal ganglia ICH Etiology: hypertension CTH at OSH on 07/04/20 with large right basal ganglia IPH CTA H/N on 07/04/20 at OSH without AVM/AVF MRI brain with and without contrast negative for any masses Most recent CTH on 07/05/20 grossly stable Neurosurgery: no acute intervention. SBP <160, Plt>100K, INR <1.4 PT/OT at bedside as tolerated. Hypertension s/p right nephrectomy, POA: Reportedly informed of his hypertension in 2012 s/p right nephrectomy at [facility]. Reports he was not on active home therapy. Keep SBP <140 Hydralazine/Labetalol PRN C/w Amlodipine 10mg QD Consulted medicine team regarding BP control given history of nephrectomy. BP im proved Alcohol withdrawal ETOH abuse, POA: Admits to drinking 5 hard drinks per day Elevated LFTs, will trend Continue CIWA protocol, MVI, FOLIC ACID, THIAMINE S/P banana bag R/O cervical injury in setting of fall: C spine CT 07/05/20 showed no evidence of acute fracture Dc'd c collar Hx of chronic back pain, POA: Started on Flexeril PRN Lidocaine patch daily Lortab q6prn DVT Prophylaxis: heparin GI Prophylaxis: Not Indicated Code Status: Full Code Diet: regular diet Disposition: Plan discharge to: 2N Estimated Discharge Date: 07/11- Patient seen and examined. Case discussed with Dr. Matias and formulated the a kevin plan together. Associated attestation - Viri Matias MD - 07/11/2020 2:21 AM EST STROKE ATTENDING ADDENDUM: Date of Encounter: 07/10/2020 I personally saw and examined the patient, discussed the case and formulated ass essment and plan with the resident and agree with the history, exam, assessment and plan outlined in the resident's note except where stated in the supplemental documentation by myself. Doing well. Awaiting rehab. Reminder of plan per resident's note. Signature: Viri Matias * Lauren Rice MD - 07/10/2020 8:54 AM EST Internal Medicine Inpatient Progress Note Subjective Pt seen at bedside this AM, resting comfortably in his chair, no acute distress. Patient reports that he just has diffuse body aches whenever he sits for a long time yesterday but he is cooperative with physical therapy. He denies chest p ain, headache, shortness of breath, cough, abdominal pain, nausea, vomiting. Review of Systems Constitutional: Positive for fatigue. Negative for appetite change, chills, diap horesis and fever. HENT: Negative for congestion, rhinorrhea and sore throat. Respiratory: Negative for cough, chest tightness, shortness of breath and strido r. Cardiovascular: Negative for chest pain, palpitations and leg swelling. Gastrointestinal: Negative for abdominal distention, abdominal pain, blood in st ool, constipation, diarrhea, nausea and vomiting. Endocrine: Negative for polydipsia. Genitourinary: Negative for decreased urine volume, difficulty urinating, dysuri a, frequency, hematuria and urgency. Musculoskeletal: Positive for arthralgias. Skin: Negative for pallor, rash and wound. Neurological: Positive for weakness. Negative for dizziness, syncope, facial asy mmetry, light-headedness, numbness and headaches. Hematological: Negative for adenopathy. Does not bruise/bleed easily. Objective Temp: [36.6 C (97.8 F)-37.1 C (98.7 F)] 36.8 C (98.2 F) Pulse: [54-91] 70 Resp: [16-18] 16 BP: (120-160)/(71-97) 131/73 SpO2: [94 %-97 %] 96 % O2 Therapy: Room air Intake/Output Summary (Last 24 hours) at 07/10/2020 0855 Last data filed at 07/10/2020 0848 Gross per 24 hour Intake 540 ml Output 850 ml Net -310 ml I/O last 3 completed shifts: In: 540 [P.O.:540] Out: 550 [Urine:550] I/O this shift: In: - Out: 300 [Urine:300] Physical Exam Constitutional: He is oriented to person, place, and time. Non-toxic appearance . He does not appear ill. No distress. HENT: Head: Normocephalic and atraumatic. Right Ear: External ear normal. Left Ear: External ear normal. Nose: Nose normal. No rhinorrhea. Mouth/Throat: Mucous membranes are moist. No posterior oropharyngeal erythema. Eyes: Conjunctivae are normal. No scleral icterus. Neck: Normal range of motion. No muscular tenderness present. Cardiovascular: Normal rate, regular rhythm, normal heart sounds and normal puls es. No murmur heard. Pulmonary/Chest: Effort normal. No stridor. Abdominal: Soft. Normal appearance and bowel sounds are normal. He exhibits no d istension. There is no abdominal tenderness. Musculoskeletal: Normal range of motion. General: No swelling or tenderness. Neurological: He is alert and oriented to person, place, and time. Skin: Skin is warm and dry. No jaundice or pallor. Psychiatric: His behavior is normal. Mood, judgment and thought content normal. Lines, Tubes, Monitors & Restraints Description Still Required? Comments PIV [x] Yes [] No Total Days of Anti-infective Therapy: 0 Laboratory Data (Most Recent in Past 3 Days) Lab 07/08/20 0529 07/09/20 0555 07/10/20 0448 WBC 8.3 9.0 9.6 HGB 14.3 14.3 13.5 HCT 41.2 40.8* 38.2* MCV 95.3 94.0 94.2 PLT 144* 153 154 Lab 07/08/20 0529 NA 137 K 4.2 CL 102 BICARBONATE 24 GLUCOSE 96 BUN 11 CREATININE 1.23* Lab 07/08/20 0529 CALCIUM 9.5 Lab 07/08/20 0529 PROT 7.0 ALBUMIN 3.9 AST 27 ALT 32 TBILI 0.8 ALKPHOS 92 Assessment/Plan Mr. Jonatan Bangura is a 54 y.o. male w past medical history most significant for h/o nephrectomy, alcohol and tobacco use disorder who has been admitted under al urology service forright basal ganglia hemorrhage with adjacent edemaand medline shift. Medicine was consulted for poorly controlled hypertension. Possi ble discharge today. #Hypertension -Continue on Amlodipine 10 mg Daily -continue with labetalol 100 mg bid. -Blood pressure looks better controlled today with a reading of 120/71 at 5 AM a nd 131/73 at 7:30 AM. Ensure patient has PCP prior to discharge who can follow up and monitor BP, titr ate medications as needed. The patient was discussed with Dr.Catherine Willingham who agrees with the above asse ssment and plan. Signature: Lauren Rice MD Date/Time: July 10, 2020 8:55 AM Associated attestation - Siomara Willingham MD - 07/10/2020 6:11 PM EST I saw and evaluated the patient. Discussed with the resident and agree with the residents findings and plans as written, along with any supplemental dictated a nd/or attending documentation in the patient record by myself. Stressed the importance of medication compliance, low salt diet, and home BP mon itoring again to patient to ensure <140/90. He will require close PCP follow-up for continued monitoring/titration of his antihypertensives, however his blood pressures overall seem very much improved. Thank you for this consult, the medicine service will sign off at this time. Maricel james appears to be planned for discharge to soon. Please reach out if further questions or concerns develop. Siomara Willingham MD Fisheries Manager * Betsy Quijano, HYDRO STATION OPERATOR - 07/10/2020 5:52 AM EST Physical Medicine and Rehabilitation IRF Consult Follow Up Interval hx: Jonatan Bangura is a 54 y.o. male. Interval/subjective hx: C/o 4/5 LBP, left hand weakness, difficulty grasping things. Per his report he has been out of bed and ambulated the unit with hand-held assist of 1 over the w eekend, feels unsteady but does not feel like he is going to fall. Thinks his LLE is back to normal. Tolerating regular diet. Voiding using urinal without d ifficulty. Bowel movement overnight. He is hopeful to go home Scheduled Meds: amLODIPine 10 mg Oral Daily amLODIPine 5 mg Oral Once docusate sodium 100 mg Oral BID folic acid 1 mg Oral Daily heparin (porcine) 5,000 Units Subcutaneous BID labetalol 100 mg Oral 2 times per day lidocaine 1 patch Transdermal Daily multivitamin 1 tablet Oral Daily pantoprozole 40 mg Intravenous Daily senna 10 mL Oral Nightly sodium chloride (preservative free) 3 mL Intravenous 3 times per day thiamine 100 mg Oral Daily Continuous Infusions: PRN Meds:.acetaminophen (TYLENOL) tablet, cyclobenzaprine, HYDROcodone-acetamino phen, Peripheral IV AND sodium chloride (preservative free) AND sodium c hloride (preservative free) AND [COMPLETED] Saline Lock order, sodium chlori de Speech/swallow status: Dietary Orders (From admission, onward) Start Ordered 01/06/21 0914 Diet Adult; Regular DIET EFFECTIVE NOW Question Answer Comment Age Adult Diet Regular 07/05/20913 REVIEW OF SYSTEMS: (+ = positive, - = negative) 1. Constitutional: (-) fever, (-) chills, (-) insomnia, (-) fatigue/lethargy 2. Eye: (-) glasses, (-) diplopia, (-) blurred vision, (-) blindness 3. ENT: (-) dentures (-) hearing deficits, (-) dysphagia, (-) dizziness. 4. Respiratory: (-) shortness of breath, (-) wheeze, (-) cough, (-) dyspnea. 5. Cardiovascular: (-) chest pressure or pain, (-) palpitations, (-) edema. 6. GI: (-) abdominal pain, (-) nausea, (-) vomiting, (-) diarrhea, (-) constipat ion. 7. Neurology: (+) pain, (-) headache, (+) left UE weakness, (-) paralysis, (-) n umbness, (-) paresthesias, (-) dysesthesia. 8. Musculoskeletal: (-) arthralgia, (-) myalgia, (-) spasm, (-) contracture, (-) deformity. 9. Integument: (-) skin changes, (-) rash, (-) pressure sore. 10. Endocrine: (-) temperature intolerence, (-) polyuria, (-) polydipsia. 11. : (-) dysuria, (-) frequency, (-) urgency, (-) incontinence, (-) hematuria , (-) use of catheter. 12. Hem/Onc: (-) easy bleeding, (-) ecchymosis, (-) swollen glands 13. Psychiatric: (-) mood disturbance, (-) depression, (-) anxiety, (-) sleep di sturbance, (-) altered behavior delusions/hallucination. 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 No edema, No calf tenderness. Musculoskeletal: No significant changes from consult. Psych: Mood normal DIAGNOSTIC STUDIES: CBC: Lab Results Component Value Date WBC 9.6 07/10/2020 RBC 4.05 (L) 07/10/2020 HGB 13.5 07/10/2020 HCT 38.2 (L) 07/10/2020 PLT 154 07/10/2020 BMP: Lab Results Component Value Date NA 137 07/08/2020 K 4.2 07/08/2020 CL 102 07/08/2020 BICARBONATE 24 07/08/2020 GLUCOSE 96 07/08/2020 BUN 11 07/08/2020 CREATININE 1.23 (H) 07/08/2020 BCR 9 07/08/2020 GFRAA 75 07/08/2020 GFRNONAA 64 07/08/2020 DATA REVIEWED: allergy list and medication list Assessment and Plan: Assessing patient medical readiness for transition to [facility] level care and coordin ating safe transition: Assessment: 54 y/o RHD male with impaired mobility and self care secondary to s/p fall while smoking marijuana 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 E tiology HTN. Hx ETOH ( ci), R nephrectomy (2012). He was reluctant to take HTN meds in past. Medicine consulted for his uncontrolled HTN rec increasing meds and OP PCP follow up. SBP within last 24 hrs ranging 120's -160's managed with P O, meds recently titrated up . Exam alert oriented x3 follows commands. seen in bed on RA. Per his report ambul ating SA to BR. 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 WBAT he is pending updated notes, last notes 1/8 min A 100ft gait/ambulation GB left la teral path deviation, easily looses balance, high fall risk, CGA transfer, min A UB dressing, max A LB dressing. 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 Regular diet. Bowel continence LB M 07/09.bladder continence. 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 currently IRF bed are tight and he is m aking functional progress with PT, please continue to have therapy work with him on the unit and will follow progress; however consider dual plan for home Call with questions/concerns Betsy Quijano ANP-C Physical Medicine and Rehab Discussed with Soila Chong Stroke HYDRO STATION OPERATOR, PMR Attending Marguerite Murguia dictation software used, some errors may occur in line crew supervisor every eff ort has been made to ensure accuracy of line crew supervisor but errors may go unnotice d/uncorrected. * Sarahi Navarro RN - 07/09/2020 10:36 PM EST Assumed care of pt from 19-23. VSS, complaints of muscle cramps & spasms, meds not due, previously medicated around 1700. Ambulated pt to bathroom a few times with standby assist, BM x1. No other acute issues during shift, will report to oncoming RN * Carlito Whitley MD - 07/09/2020 1:13 PM EST Internal Medicine Inpatient Progress Note Subjective Pt seen at bedside this AM, resting comfortably, no acute distress. Pt states he has been moving around more with PT and motivated to be active, vincent iting walker and will attempt to ambulate with nurses. Pt reports mild headaches, generalized fatigue and body aches at this time. Bee ent denies blurry vision, SOB, Cough, Chest pain, N/V/D, urinary changes or diff iculty. Review of Systems Constitutional: Positive for fatigue. Negative for appetite change, chills, diap horesis and fever. HENT: Negative for congestion, ear pain, facial swelling, hearing loss, rhinorrh ea, sore throat, tinnitus and trouble swallowing. Eyes: Negative for photophobia, pain, discharge and visual disturbance. Respiratory: Negative for cough, choking, chest tightness, shortness of breath, wheezing and stridor. Cardiovascular: Negative for chest pain, palpitations and leg swelling. Gastrointestinal: Negative for abdominal distention, abdominal pain, blood in st ool, constipation, diarrhea, nausea and vomiting. Endocrine: Negative for cold intolerance, heat intolerance, polydipsia and polyu fady. Genitourinary: Negative for decreased urine volume, difficulty urinating, dysuri a, frequency, hematuria and urgency. Musculoskeletal: Negative for arthralgias, back pain, myalgias, neck pain and ne ck stiffness. Skin: Negative for pallor, rash and wound. Allergic/Immunologic: Negative for environmental allergies, food allergies and i mmunocompromised state. Neurological: Positive for weakness and headaches. Negative for dizziness, synco pe, facial asymmetry, light-headedness and numbness. Hematological: Negative for adenopathy. Does not bruise/bleed easily. Psychiatric/Behavioral: Negative for agitation, decreased concentration, halluci nations and sleep disturbance. The patient is not nervous/anxious. Objective Temp: [36.5 C (97.7 F)-36.7 C (98.1 F)] 36.7 C (98.1 F) Pulse: [62-89] 70 Resp: [18] 18 BP: (137-148)/(76-91) 148/82 SpO2: [94 %-98 %] 94 % O2 Therapy: Room air Intake/Output Summary (Last 24 hours) at 07/09/2020 1313 Last data filed at 07/09/2020 1150 Gross per 24 hour Intake 420 ml Output 975 ml Net -555 ml I/O last 3 completed shifts: In: 360 [P.O.:360] Out: 925 [Urine:925] I/O this shift: In: 180 [P.O.:180] Out: 250 [Urine:250] Physical Exam Constitutional: He is oriented to person, place, and time. Non-toxic appearance . He does not appear ill. No distress. HENT: Head: Normocephalic and atraumatic. Right Ear: External ear normal. Left Ear: External ear normal. Nose: Nose normal. No rhinorrhea. Mouth/Throat: Mucous membranes are moist. No posterior oropharyngeal erythema. Eyes: Conjunctivae are normal. No scleral icterus. Neck: Normal range of motion. No muscular tenderness present. Cardiovascular: Normal rate, regular rhythm, normal heart sounds and normal puls es. No murmur heard. Pulmonary/Chest: Effort normal. No stridor. Abdominal: Soft. Normal appearance and bowel sounds are normal. He exhibits no d istension. There is no abdominal tenderness. Musculoskeletal: Normal range of motion. General: No swelling or tenderness. Neurological: He is alert and oriented to person, place, and time. Skin: Skin is warm and dry. No jaundice or pallor. Psychiatric: His behavior is normal. Mood, judgment and thought content normal. Lines, Tubes, Monitors & Restraints Description Still Required? Comments PIV [x] Yes [] No Total Days of Anti-infective Therapy: 0 Laboratory Data (Most Recent in Past 3 Days) Lab 07/07/20 0342 07/08/20 0529 07/09/20 0555 WBC 6.2 8.3 9.0 HGB 13.3* 14.3 14.3 HCT 37.9* 41.2 40.8* MCV 94.8 95.3 94.0 PLT 142* 144* 153 Lab 07/07/20 0342 07/08/20 0529 NA 137 137 K 3.9 4.2 CL 106 102 BICARBONATE 23 24 GLUCOSE 96 96 BUN 9 11 CREATININE 1.18 1.23* Lab 07/08/20 0529 CALCIUM 9.5 Lab 07/07/20 0342 07/08/20 0529 PROT 6.2* 7.0 ALBUMIN 3.5 3.9 AST 30 27 ALT 34 32 TBILI 0.7 0.8 ALKPHOS 82 92 Assessment/Plan Mr. Jonatan Bangura is a 54 y.o. male w past medical history as mentioned below an d significant for h/o nephrectomy, alcohol and tobacco use disorder who has been admitted under neurology service forright basal ganglia hemorrhage with adj acent edemaand medline shift. #Hypertension Continue on Amlodipine 10 mg Daily Consider increasing Labetalol to 200 mg BID for improved control with BP Goal of SBP <140 Please continue monitor BP control closely Ensure patient has PCP prior to discharge who can follow up and monitor BP, titr ate medications as needed The patient was discussed with Dr.Catherine Willingham who agrees with the above asse ssment and plan. Signature: Carlito Whitley MD Date/Time: July 09, 2020 1:13 PM Associated attestation - Siomara Willingham MD - 07/09/2020 2:28 PM EST I saw and evaluated the patient. Discussed with the resident and agree with the residents findings and plans as written, along with any supplemental dictated a nd/or attending documentation in the patient record by myself. If SBP is still not consistently <140 after a full day of Labetalol would consider increasing dose. As discussed yesterday, he will require close follow- up with his PCP after discharge for continued BP monitoring and titration of medications to sustain optimal control. Patient should have repeated enforcement on the importance of medication compliance, consistent home BP monitoring, low salt diet/DASH diet, as well as weight loss which all will play a large role in blood pressure control. Siomara Willingham MD Fisheries Manager * Marlyn Andrews MD - 07/09/2020 10:46 AM EST Stroke Service Progress Note Patient Jonatan Bangura 1965 PCP Magnolia Rodarte PA Subjective Patient was seen and examined at bedside today, sitting in his chair at bedside. When I entered the room patient was watching televion, stayed he has cabin feve r. . Patient slept without issues overnight and had eaten breakfast this morning . Patient endorsed no headache, nausea, vomiting, cough, SOB, Chest pain, abdomi nal pain. There were no acute events overnight. The patient's past medical history, social history and family history are unchan ged from prior assessment. Objective Temp: [36.5 C (97.7 F)-36.7 C (98 F)] 36.5 C (97.7 F) Pulse: [62-89] 62 Resp: [18] 18 BP: (137-148)/(76-91) 148/85 SpO2: [95 %-98 %] 98 % O2 Therapy: Room air Physical Exam General Appearance: obese, appears stated age, in no apparent distress Skin: No lesions HEENT: Head: Normocephalic, no lesions, without obvious abnormality. Breathing comfortably on room air Extremities: extremities normal, atraumatic, no cyanosis or edema Neurological Exam Mental status: Awake, oriented x3. Able to focus and sustain attention. Regards examiner. Follows complex commands and answers all questions appropriately. Auditory comprehension:Intact Speech output: Fluent and grammatically correct Naming: Preserved Repetition: Intact. Cranial nerves: CN II:Visual wills full CN III- : All extraocular movements were intact and no nystagmus CN V:Facial sensation was normal and symmetric CN VII: Facial expression was symmetric Sensory exam: Incomplete left hemisensory numbness Motor exam: Proximal Distal Right Upper extremity 5 5 Left Upper extremity 4- (pain) 5 tri, 5- biceps 5 WE 5- Proximal Distal Right lower extremity 5 5 Left Lower extremity 4 5 TA 5- Cerebellar Exam: Finger to nose / HTS Right Upper extremity intact Left Upper extremity intact Gait: Deferred Telemetry NSR Diagnostics Ct Head Without Contrast: 07/06/2020 IMPRESSION: Stable examination. Grossly unchanged appearance of the intraparench ymal hemorrhage with surrounding vasogenic edema. Stable mass effect and leftwar d midline shift of approximately [address] Head Without Contrast: 07/05/2020 IMPRESSION: Grossly stable intraparenchymal hemorrhage involving the right basal ganglia and temporal lobe with surrounding vasogenic edema, mass effect with pe rsistent effacement of right lateral ventricle and left-sided midline shift sandra uring approximately 5 mm. No new hemorrhage. Ct Cervical Spine Without Contrast: 07/05/2020 IMPRESSION: No evidence of acute fracture or traumatic listhesis is noted. Mr Brain With And Without Contrast: 07/06/2020 IMPRESSION: Acute right basal ganglia hematoma. No evidence of an underlying mas s on the current examination. However a repeat MRI is recommended upon resolutio n of the blood byproducts. Medications Medication Frequency acetaminophen (TYLENOL) tablet 650 mg Q4H PRN amlodipine (NORVASC) tablet 10 mg Daily amlodipine (NORVASC) tablet 5 mg Once cyclobenzaprine (FLEXERIL) tablet 10 mg TID PRN docusate sodium (COLACE) capsule 100 mg BID folic acid (FOLVITE) tablet 1 mg Daily heparin (porcine) 5000 UNIT/ML injection 5,000 Units BID HYDROcodone-acetaminophen (LORTAB) 5-325 MG per tablet 1 tablet Q6H PRN labetalol (NORMODYNE) tablet 100 mg 2 times per day lidocaine (LIDODERM) 5 % patch 1 patch Daily multivitamin tablet 1 tablet Daily pantoprazole (PROTONIX) injection 40 mg Daily senna (SENOKOT) syrup 10 mL Nightly sodium chloride (preservative free) 0.9 % flush 3 mL 3 times per day sodium chloride (preservative free) 0.9 % flush 3 mL PRN sodium chloride 0.9 % bag 3-20 mL PRN thiamine (B-1) tablet 100 mg Daily Assessment & Plan Jonatan Bangura is a 54 y.o. male patient with PMH of ETOH/marijuana abuse who pre sented as a transfer from [facility] for a nontraumatic intracranial hem orrhage. Of note patient was markedly hypertensive on admission. Plan for possib le discharge 07/10/2020 to 2N. Right basal ganglia ICH Etiology: hypertension CTH at OSH on 07/04/20 with large right basal ganglia IPH CTA H/N on 07/04/20 at OSH without AVM/AVF MRI brain with and without contrast negative for any masses Most recent CTH on 07/05/20 grossly stable Neurosurgery: no acute intervention. SBP <160, Plt>100K, INR <1.4 PT/OT at bedside as tolerated. Hypertension s/p right nephrectomy, POA: Reportedly informed of his hypertension in 2012 s/p right nephrectomy at [facility]. Reports he was not on active home therapy. Keep SBP <140 Hydralazine/Labetalol PRN C/w Amlodipine 10mg QD Consulted medicine team regarding BP control given history of nephrectomy. BP im proved Alcohol withdrawal ETOH abuse, POA: Admits to drinking 5 hard drinks per day Elevated LFTs, will trend Continue CIWA protocol, MVI, FOLIC ACID, THIAMINE S/P banana bag R/O cervical injury in setting of fall: C spine CT 07/05/20 showed no evidence of acute fracture Dc'd c collar Hx of chronic back pain, POA: Started on Flexeril PRN Lidocaine patch daily Lortab q6prn DVT Prophylaxis: heparin GI Prophylaxis: Not Indicated Code Status: Full Code Diet: regular diet Disposition: Plan discharge to: 2N Estimated Discharge Date: 07/10/2020 to 2N. Patient seen and examined. Case discussed with Dr. Duleep and formulated the ab ove plan together. Associated attestation - Jayshree Mclean MD - 07/09/2020 10:33 PM EST Stroke Attending: I saw the patient with the resident, I discussed the plan of c are with the resident and I agree with the resident's documentation * Sarahi Navarro RN - 07/08/2020 11:13 PM EST Assumed care of pt from 19-23. Pt in chair upon assessment. Assisted to bathroom & back to bed a few times with standby assist. Encouraged use of urinal due to urgency, pt compliant. VSS. Acute issue, pain in L Upper abdomen, treated with flexiril. Otherwise, pt rested comfortably & was appropriate towards staff. Will report to oncoming RN * Nika Madrid MBBC - 07/08/2020 2:24 PM EST Stroke Service Progress Note Patient Jonatan Bangura 1965 PCP Magnolia Rodarte PA Subjective Jonatan is resting comfortably. He was sitting up in his chair. He reported feeli ng some aches and pains especially his shoulders for which he has been receiving Lortab. He had no new complaints. The patient's past medical history, social history and family history are unchan ged from prior assessment. Objective Temp: [36.7 C (98 F)-37.1 C (98.8 F)] 36.7 C (98 F) Pulse: [60-96] 86 Resp: [16-18] 18 BP: (128-159)/(63-95) 137/88 SpO2: [95 %-97 %] 95 % O2 Therapy: Room air Physical Exam General Appearance: obese, appears stated age, in no apparent distress Skin: No lesions HEENT: Head: Normocephalic, no lesions, without obvious abnormality. Cardiovascular: normal sinus rhythm, no murmurs, heart sounds normal Respiratory: breath sounds clear and equal bilaterally Gastrointestinal: Abdomen soft, non-tender Extremities: extremities normal, atraumatic, no cyanosis or edema Neurological Exam Mental status: Awake, oriented x3. Able to focus and sustain attention. Regards examiner. Follows complex commands and answers all questions appropriately. Language: Auditory comprehension:Intact Speech output: Fluent and grammatically correct Naming: Preserved Repetition: Intact. Cranial nerves: CN II:Direct pupillary reaction to light normal. Visual wills full CN III- : All extraocular movements were intact and no nystagmus noted CN V:Facial sensation was normal and symmetric CN VII: Facial expression was symmetric CN VIII: Finger rub response was normal bilaterally CN IX: Uvula elevates bilaterally CN XI: Shoulder shrug normal CN XII: Tongue protrusion was midline Sensory exam: Incomplete left hemisensory numbness Motor exam: Proximal Distal Right Upper extremity 5- 5 Left Upper extremity 5- 5 Proximal Distal Right lower extremity 5 5 Left Lower extremity 5 5 Cerebellar Exam: Finger to nose Right Upper extremity intact Left Upper extremity intact Gait: Deferred Telemetry NSR Diagnostics Ct Head Without Contrast Result Date: 07/06/2020 IMPRESSION: Stable examination. Grossly unchanged appearance of the intraparench ymal hemorrhage with surrounding vasogenic edema. Stable mass effect and leftwar d midline shift of approximately [address] Head Without Contrast Result Date: 07/05/2020 IMPRESSION: Grossly stable intraparenchymal hemorrhage involving the right basal ganglia and temporal lobe with surrounding vasogenic edema, mass effect with pe rsistent effacement of right lateral ventricle and left-sided midline shift sandra uring approximately 5 mm. No new hemorrhage. Ct Cervical Spine Without Contrast Result Date: 07/05/2020 IMPRESSION: No evidence of acute fracture or traumatic listhesis is noted. END OF IMPRESSION: Mr Brain With And Without Contrast Result Date: 07/06/2020 IMPRESSION: Acute right basal ganglia hematoma. No evidence of an underlying mas s on the current examination. However a repeat MRI is recommended upon resolutio n of the blood byproducts. Medications Current Facility-Administered Medications Medication Dose Route Frequency Provider Last Rate Last Admin acetaminophen (TYLENOL) tablet 650 mg 650 mg Oral Q4H PRN OSWALDO Joseph 650 mg at 07/06/20 1658 amlodipine (NORVASC) tablet 10 mg 10 mg Oral Daily Elaine Saurez NP 10 mg at 07/08/20 0848 amlodipine (NORVASC) tablet 5 mg 5 mg Oral Once Elaine Suarez NP Stoppe d at 07/06/20 0942 cyclobenzaprine (FLEXERIL) tablet 10 mg 10 mg Oral TID PRN Elaine Suarez NP 10 mg at 07/08/20 0522 docusate sodium (COLACE) capsule 100 mg 100 mg Oral BID OSWALDO Lorenzo 100 mg at 07/08/20 0849 folic acid (FOLVITE) tablet 1 mg 1 mg Oral Daily OSWALDO Lawrence 1 mg at 07/08/20 0848 heparin (porcine) 5000 UNIT/ML injection 5,000 Units 5,000 Units Subcuta neous BID Peterson Enriquez NP 5,000 Units at 07/08/20 0848 hydrALAZINE (APRESOLINE) injection 10 mg 10 mg Intravenous Q6H PRN Nika Madrid [facility] 10 mg at 07/06/20 1514 HYDROcodone-acetaminophen (LORTAB) 5-325 MG per tablet 1 tablet 1 tablet Oral Q6H PRN Nika Madrid [facility] 1 tablet at 07/08/20 0522 labetalol (TRANDATE) injection 10 mg 10 mg Intravenous Q6H [facility]N [facility] 100 mL/hr at 07/05/20 2132 10 mg at 07/07/20 1151 lidocaine (LIDODERM) 5 % patch 1 patch 1 patch Transdermal Daily Elaine guerra NP 1 patch at 07/08/20 0849 multivitamin tablet 1 tablet 1 tablet Oral Daily OSWALDO Lawrence 1 tablet at 07/08/20 0848 pantoprazole (PROTONIX) injection 40 mg 40 mg Intravenous Daily Elaine rosa NP 40 mg at 07/08/20 0848 potassium chloride (K-DUR) dissolvable tablet 20 mEq 20 mEq Oral BID Kamran Ring NP 20 mEq at 07/08/20 0848 senna (SENOKOT) syrup 10 mL 10 mL Oral Nightly Elaine Suarez NP Stopped at 07/05/20 0853 sodium chloride (preservative free) 0.9 % flush 3 mL 3 mL Intravenous 3 times per day OSWALDO Lawrence 3 mL at 07/08/20 0850 And sodium chloride (preservative free) 0.9 % flush 3 mL 3 mL Intravenous PA N OSWALDO Lawrence sodium chloride 0.9 % bag 3-20 mL 3-20 mL Intravenous PRN OSWALDO Joseph thiamine (B-1) tablet 100 mg 100 mg Oral Daily OSWALDO Lawrence 100 mg at 07/08/20 0848 Assessment & Plan Jonatan Bangura is a 54 y.o. male patient with PMH of ETOH/marijuana abuse who pre sented as a transfer from [facility] for a nontraumatic intracranial hem orrhage. Of note patient was markedly hypertensive on admission. Events of the past 24h - Consulted medicine team regarding BP control given history of nephrectomy. - Plan for possible discharge 07/10/2020 to 2N. --- Right basal ganglia ICH Etiology: likely hypertension CTH at OSH on 07/04/20 with large right basal ganglia IPH CTA H/N on 07/04/20 at OSH without AVM/AVF MRI brain with and without contrast negative for any masses Most recent CTH on 07/05/20 grossly stable Neurosurgery: no acute intervention. SBP <160, Plt>100K, INR <1.4 PT/OT at bedside as tolerated. Hypertension s/p right nephrectomy, POA: Reportedly informed of his hypertension in 2012 s/p right nephrectomy at [facility]. Reports he was not on active home therapy. Keep SBP <140 Hydralazine/Labetalol PRN C/w Amlodipine 10mg QD Consulted medicine team regarding BP control given history of nephrectomy. Alcohol withdrawal ETOH abuse, POA: Admits to drinking 5 hard drinks per day Elevated LFTs, will trend Continue CIWA protocol, MVI, FOLIC ACID, THIAMINE S/P banana bag R/O cervical injury in setting of fall: C spine CT 07/05/20 showed no evidence of acute fracture Dc'd c collar Hx of chronic back pain, POA: Started on Flexeril PRN Lidocaine patch daily Lortab q6prn DVT Prophylaxis: heparin GI Prophylaxis: Not Indicated Code Status: Full Code Diet: regular diet Disposition: Plan discharge to: 2N Estimated Discharge Date: 07/10/2020 to 2N. Patient seen and examined. Case discussed with Dr. Mclean and formulated the ab ove plan together. Associated attestation - Jayshree Mclean MD - 07/08/2020 9:52 PM EST Attending: I saw the patient with the resident, discussed the plan of care and I agree with the resident's documentation * Nika Madrid MBBC - 07/07/2020 7:54 [place] [address] Patient's Name: Jonatan Bangura : 1965 --- 8 PM: updated patient's brother on his status. Answered all questions to his sat isfaction. JUDITH Nur Department of Neurology, PGY-2 Pager: [phone] 07/07/2020 * Nika Madrid MBBC - 07/07/2020 5:13 PM EST Stroke Service Progress Note Patient Jonatan Bangura 1965 PCP [facility] Rodarte PA Subjective Jonatan is resting comfortably. He sitting up in his chair. He reported history o f right nephrectomy in 2012 after which he was diagnosed with HTN. He had no new complaints. The patient's past medical history, social history and family history are unchan ged from prior assessment. Objective Temp: [36.3 C (97.4 F)-36.9 C (98.4 F)] 36.9 C (98.4 F) Pulse: [56-85] 75 Resp: [13-18] 18 BP: (113-153)/(61-97) 143/86 SpO2: [92 %-98 %] 95 % O2 Therapy: Room air Physical Exam General Appearance: obese, appears stated age, in no apparent distress Skin: No lesions HEENT: Head: Normocephalic, no lesions, without obvious abnormality. Cardiovascular: normal sinus rhythm, no murmurs, heart sounds normal Respiratory: breath sounds clear and equal bilaterally Gastrointestinal: Abdomen soft, non-tender Extremities: extremities normal, atraumatic, no cyanosis or edema Neurological Exam NIH Stroke Scale: Category Patient Score 1a. Level of consciousness (Alert, drowsy, etc.) 0 - Alert 1b. LOC Questions (Month, age) 0 - Both questions correct 1c. LOC Commands (Open, close eyes; make fist, let go) 0 - Performs both tasks correctly 2. Best Gaze (Eyes open- patient follows finger or face) 0 - Normal 3. Visual (Introduce visual stimulus to patients visual field quadrants) 0 - No vi sual loss 4. Facial palsy (Show teeth, raise eyebrows and squeeze eyes shut) 0 - Normal, symmetrical move ments 5a. Motor Arm left 5b. Motor Arm right (Elevate extremity to 90 and score drift/movement) Left: 0- No drift (exten ds arm 10sec. w/o drift) Right: 0- No drift (extends arm 10sec. w/o drift) 6a. Motor Leg left 6b. Motor Leg right (Elevate extremity to 30 and score drift/movement) Left: 0- No drift (exten ds leg 5 sec w/o drift) Right: 0- No drift (extends leg 5 sec w/o drift) 7. Limb Ataxia (Finger-nose, heel-[place]) 0 - Absent 8. Sensory (Pin prick to face, arm trunk, and leg- compare side to side) 1 - Mild to moder ate sensory loss 9. Best Language (Name items, describes a picture, reads sentence) 0 - No aphasia 10. Dysarthria (Evaluate speech clarity by patient repeating listed words) 0 - Normal articula tion 11. Extinction and Inattention (Use information from prior testing to identify neglect or double simultaneous s timuli testing) 0 - No neglect Proximal muscle weakness not significant enough to cause drift Total Score: 1 NEUROLOGIC EXAMINATION: Mental status: Awake, oriented x3. Able to focus and sustain attention. Regards examiner. Follows complex commands and answers all questions appropriately. Language: Auditory comprehension:Intact Speech output: Fluent and grammatically correct Naming: Preserved Repetition: Intact. Cranial nerves: CN II:Direct pupillary reaction to light normal. Visual wills full CN III- : All extraocular movements were intact and no nystagmus noted CN V:Facial sensation was normal and symmetric CN VII: Facial expression was symmetric CN VIII: Finger rub response was normal bilaterally CN IX: Uvula elevates bilaterally CN XI: Shoulder shrug normal CN XII: Tongue protrusion was midline Sensory exam: Incomplete left hemisensory numbness Motor exam: Proximal Distal Right Upper extremity 5- 5 Left Upper extremity 5- 5 Proximal Distal Right lower extremity 5 5 Left Lower extremity 5 5 Cerebellar Exam: Finger to nose Right Upper extremity intact Left Upper extremity intact Gait: Deferred Telemetry NSR Diagnostics Ct Head Without Contrast Result Date: 07/06/2020 IMPRESSION: Stable examination. Grossly unchanged appearance of the intraparench ymal hemorrhage with surrounding vasogenic edema. Stable mass effect and leftwar d midline shift of approximately [address] Head Without Contrast Result Date: 07/05/2020 IMPRESSION: Grossly stable intraparenchymal hemorrhage involving the right basal ganglia and temporal lobe with surrounding vasogenic edema, mass effect with pe rsistent effacement of right lateral ventricle and left-sided midline shift sandra uring approximately 5 mm. No new hemorrhage. Ct Cervical Spine Without Contrast Result Date: 07/05/2020 IMPRESSION: No evidence of acute fracture or traumatic listhesis is noted. END OF IMPRESSION: Mr Brain With And Without Contrast Result Date: 07/06/2020 IMPRESSION: Acute right basal ganglia hematoma. No evidence of an underlying mas s on the current examination. However a repeat MRI is recommended upon resolutio n of the blood byproducts. Medications Current Facility-Administered Medications Medication Dose Route Frequency Provider Last Rate Last Admin acetaminophen (TYLENOL) tablet 650 mg 650 mg Oral Q4H PRN OSWALDO Joseph 650 mg at 07/06/20 1658 amlodipine (NORVASC) tablet 10 mg 10 mg Oral Daily Elaine Suarez HYDRO STATION OPERATOR 10 mg at 07/07/20 0811 amlodipine (NORVASC) tablet 5 mg 5 mg Oral Once Elaine Daniela, HYDRO STATION OPERATOR Stoppe d at 07/06/20 0942 cyclobenzaprine (FLEXERIL) tablet 10 mg 10 mg Oral TID PRN Elaine Suarez HYDRO STATION OPERATOR 10 mg at 07/06/20 1907 docusate sodium (COLACE) capsule 100 mg 100 mg Oral BID OSWALDO Lorenzo 100 mg at 07/07/20 0811 folic acid (FOLVITE) tablet 1 mg 1 mg Oral Daily OSWALDO Lawrence 1 mg at 07/07/20 0811 heparin (porcine) 5000 UNIT/ML injection 5,000 Units 5,000 Units Subcuta neous BID Peterson Enriquez, HYDRO STATION OPERATOR 5,000 Units at 07/07/20 0811 hydrALAZINE (APRESOLINE) injection 10 mg 10 mg Intravenous Q6H PRN [facility] 10 mg at 07/06/20 1514 HYDROcodone-acetaminophen (LORTAB) 5-325 MG per tablet 1 tablet 1 tablet Oral Q6H PRN Elaine Suarez, HYDRO STATION OPERATOR 1 tablet at 07/07/20 1009 labetalol (TRANDATE) injection 10 mg 10 mg Intravenous Q6H PRN Nika villatoro [facility] 100 mL/hr at 07/05/20 2132 10 mg at 07/07/20 1151 lidocaine (LIDODERM) 5 % patch 1 patch 1 patch Transdermal Daily Elaine guerra NP 1 patch at 07/07/20 0810 multivitamin tablet 1 tablet 1 tablet Oral Daily OSWALDO Lawrence 1 tablet at 07/07/20 0811 pantoprazole (PROTONIX) injection 40 mg 40 mg Intravenous Daily Elaine Patrick moe, HYDRO STATION OPERATOR 40 mg at 07/07/20 0811 potassium chloride (K-DUR) dissolvable tablet 20 mEq 20 mEq Oral BID Kamran Ring HYDRO STATION OPERATOR 20 mEq at 07/07/20 0811 senna (SENOKOT) syrup 10 mL 10 mL Oral Nightly Elaine Suarez, HYDRO STATION OPERATOR Stopped at 07/05/20 0853 sodium chloride (preservative free) 0.9 % flush 3 mL 3 mL Intravenous 3 times per day OSWALDO Lawrence 3 mL at 07/07/20 1557 And sodium chloride (preservative free) 0.9 % flush 3 mL 3 mL Intravenous PA N OSWALDO Lawrence sodium chloride 0.9 % bag 3-20 mL 3-20 mL Intravenous PRN OSWALDO Joseph thiamine (B-1) tablet 100 mg 100 mg Oral Daily OSWALDO Lawrence 100 mg at 07/07/20 0811 Assessment & Plan Jonatan Bangura is a 54 y.o. male patient with PMH of ETOH/marijuana abuse who pre sented as a transfer from [facility] for a nontraumatic intracranial hem orrhage. Of note patient was markedly hypertensive on admission. Events of the past 24h - Consulted PMR team. Plan for possible discharge 07/10/2020. --- Right basal ganglia ICH Etiology: likely hypertension CTH at OSH on 07/04/20 with large right basal ganglia IPH CTA H/N on 07/04/20 at OSH without AVM/AVF MRI brain with and without contrast negative for any masses Most recent CTH on 07/05/20 grossly stable Neurosurgery: no acute intervention. SBP <160, Plt>100K, INR <1.4 PT/OT at bedside as tolerated. Hypertension s/p right nephrectomy, POA: Reportedly informed of his hypertension in 2012 s/p right nephrectomy at [facility]. Reports he was not on active home therapy. Keep SBP <160 Hydralazine/Labetalol PRN C/w Amlodipine 10mg QD Continue with hemodynamic monitoring. Echo 07/05/20 with no LVH, EF 64% Alcohol withdrawal ETOH abuse, POA: Admits to drinking 5 hard drinks per day Elevated LFTs, will trend Continue CIWA protocol, MVI, FOLIC ACID, THIAMINE S/P banana bag R/O cervical injury in setting of fall: C spine CT 07/05/20 showed no evidence of acute fracture Dc'd c collar Hx of chronic back pain, POA: Started on Flexeril PRN Lidocaine patch daily Lortab q6prn DVT Prophylaxis: heparin GI Prophylaxis: Not Indicated Code Status: Full Code Diet: regular diet Disposition: Plan discharge to: Rehab Estimated Discharge Date: 07/10/2020 Patient seen and examined. Case discussed with Dr. Mclean and formulated the ab ove plan together. Associated attestation - Jayshree Mclean MD - 07/07/2020 9:26 PM EST Stroke Attending: I saw the patient, I discussed with the resident and I agree w ith the resident's documentation * Lita Hernandez, PT - 07/07/2020 2:54 PM EST Physical Therapy Acute Care Encounter Note Medical Diagnosis: 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 Rehabilitation Precautions/Restrictions: Full code. High fall risk. Activity: OOB as tolerated. OOB to chair. Keep SBP <140. O2 sat >94%. Goal Review Visit Number: 2 SUBJECTIVE Patient Report: Pt and bedside RN agreeable to therapy session Pain: Patient has no complaints of pain currently. Pain Medication Today: yes. OBJECTIVE General Observation: Pt presents seated in recliner in NAD (+)PIV Chair alarm was on at start of session. Skin Integrity Screen: visualized skin intact. Vital Signs: Stable. Functional Status: Transfers: Patient transferred sit to/from stand requiring contact guard assistance of 1 person. Patient used the following equipment: Transfer belt. Patient used the following equipment: Arms of chair. Bed Mobility: Not assessed. Locomotion/Gait/Ambulation: Patient was minimal assist with gait/ambulation of 1 person for Approximately 100 ft x2 . Patient requires the following assistive device(s): Gait belt. Narrow base of support, occasionally running into objects on L, unable to hold something in his left hand and ambulate, easily looses his balance if asked to dual task. L lateral path deviation Stairs: Not assessed. Outcome Measures: [facility] "6 Clicks" Basic Mobility Inpatient Short Form: Turning over in bed: A little difficulty (3) Sitting down on and standing up from a chair with arms: Unable to perform (1) Moving from lying on back to sitting on the side of the bed: Unable to perform (1) Moving to and from a bed to a chair (including a wheelchair): A little help (3) Walking in hospital room: A little help (3) Climbing 3-5 steps with a railing: A little help (3) Raw Score 14 /24. Interventions: Gait Training: Therapist facilitated gait training as described above to improve functional mobility and normalize gait pattern. Prior to mobilization reviewed compensatory strategies with pt to account for his L side neglect- pt appropriate stating that he had to look to his L side more frequently to make sure he didn't run into something. Cuing provided throughout ambulation to increase step length, to correct L foot from crossing/nearing midline with each step, for safety, and for visual scanning. Pt requiring 1 standing rest break each distance and a seated rest break in between trials. On second ambulation attempt, this ad copy writer attempted to have pt hold a sock in his L hand to increase awareness and further challenge the pt however pt was unable to maintain hold on the sock and would drop it almost immediately without noticing despite max cuing. Therapeutic Activities: Therapist facilitated multiple sit to stands from bedside chair to improve functional mobility and strength. Cuing provided for proper placement of hands throughout and to encourage use of LUE. Therapist educated pt on the importance of elevating LUE and using it frequently throughout the day to reduce edema and improve strength/coordination. Pt also educated on the importance of ambulating 3x day with nursing to improve gait. Pt agreeable. Education: Mode of education provided: Explanation. Audience: Patient. Education Provided: importance of mobility, role of acute PT, PT plan of care, safe mobility . Response: Indicates understanding. Needs practice/reinforcement. ASSESSMENT Response to Visit: The session was tolerated well. Patient reported fatigue Pt reporting improvement in back pain after ambulation. Chair alarm was on at end of session. Patient seated on waffle cushion at end of session. Call oquendo was in patient's reach at end of session. LUE elevated on 2 pillows after ambulation Pain: Patient has no complaints of pain currently. PLAN Treatment Frequency, Duration and Interventions: Restorative Physical Therapy is recommended for 5x/wk for 4 weeks Treatment is to include: Gait Training. Neuromuscular Re-education. Therapeutic Activity. Therapeutic Exercise. Self Care/Home Management. Recommended Physical Therapy Follow Up: Upon acute care discharge, the following is currently recommended: Anticipate patient will have inpatient rehab needs beyond the acute stay. Equipment Provided: None issued this visit. Visit Number: Today's visit is number 2 Program: Stroke (Therapist may be reached on [facility]) SESSION: Duration: 31 CHARGES: 74206 - CHARGE - PT GAIT TRNG - 15 MIN 1 Units 24481 - CHARGE - PT THERAPEUTIC ACTIVITIES - 15 MIN 1 Units - STROKE VISIT 1 Units Total treatment minutes: 31.00 Minutes Electronically Signed by: Lita Hernandez PT, DPT, 07/07/2020 4:28:21 PM * Lita Hernandez PT - 07/07/2020 12:01 PM EST Physical Therapy Acute Care Missed Visit Note Location: bedside Attempted to visit patient for therapy, but was unable for the following reasons: Treatment not completed secondary to scheduling conflict. Pt meeting with social work at bedside, will continue to follow and re-attempt as scheduling allows and pt is medically appropriate. (Therapist may be reached on [facility]) SESSION: Duration: 0 CHARGES: - CHARGE-IP PT PATIENT SCHEDULING CONFLICT 1 Units - ORDER - Physical Therapy Treatment 1 Units Total treatment minutes: 0.00 Minutes Electronically Signed by: Lita Hernandez PT, DPT, 07/07/2020 12:02:37 PM * Johanna Mccormack LMSW - 07/07/2020 9:58 AM EST Social Work: This ad copy writer provided verbal handoff to Gabrielle Nagy LMSW as pt was castro sferred from 8F to 9G. SW will continue to remain available. * Janna Arita OT - 07/07/2020 9:56 AM EST Occupational Therapy Acute Care Encounter Note Medical Diagnosis: Right basal ganglia ICH, s/p found down. Rehabilitation Precautions/Restrictions: Full code. High fall risk. Activity: OOB as tolerated. OOB to chair. Keep SBP <140. O2 sat >94%. Goal Review Visit Number: 2 SUBJECTIVE Patient Report: Pt and RN agreeable to OT treatment session Pain: Patient currently complains of pain. Location: R shoulder, low back - chronic . Patient describes pain as Nonspecific. Verbal Scale: Patient reports a pain level of 7 out of 10. Pain Medication Today: yes. OBJECTIVE General Observation: Pt received supine in bed with HOB elevated, sound asleep. LUE undressed and unaware. PIV, capped. Bed alarm was on at start of session. Skin Integrity Screen: visualized skin intact. Vital Signs: Stable. Self Care/Home Management: Dressing - lower body: Maximal Assistance. rohit sock management seated edge of bed . Dressing - upper body: Minimal Assistance. doff/don hospital gown seated edge of bed . Dressing - lower body: Maximal Assistance. don pants seated<> standing . Task: Functional bed mobility, supine to sit edge of bed Provided: Judy x1 . Task: Functional sit <> stand, edge of bed Provided: initial transfer modA x1, progressed to Judy x1, cues, gait belt . Task: Functional mobility within pt room, unsupported Provided: mod A x1, cues, gait belt . Eating: Supervision. set-up . Splinting: No splint issued today. Cognitive Test Score: Alert, oriented x4, demonstrating fair insight into functional impairments. Difficulty with motor planning. L side inattention. score = Outcome Measures: [facility] AM-PAC "6 Clicks" Daily Activity Inpatient Short Form: Putting on and taking off regular lower body clothing: A lot of assistance (2) Bathing (including washing, rinsing, and drying): A lot of assistance (2) Toileting (including use of toilet, bedpan, or urinal): A lot of assistance (2) Putting on and taking off regular upper body clothing: A little assistance (3) Taking care of personal grooming such as brushing teeth: A little assistance (3) Eating meals: A little assistance (3) Raw Score: 15 /24 Interventions: Self Care/Home Management: Facilitated pt through self-care tasks and safe functional transitions this session to improve strength, activity tolerance, coordination, functional cognition, functional performance patterns, balance, neuroplasticity, safety, and independence in prep for ADL routine engagement provided assistance as documented above, cues/coaching to improve motor planning/sequencing/problem solving, grading of tasks/modified engagement/use of DME, and additional time to process cues/commands and complete all with maximal independence. Discussed/educated pt on POC, stroke education, neurorehabilitation/neuroplasticity, and safe discharge planning. Therapeutic Exercise: Facilitated pt through 1x 10 reps LUE AAROM/AROM therapeutic exercises (shoulder flexion/extension, adduction/abduction, elbow flexion/extension in gravity assisted position, pronation/supination, composite digit flexion/extension, scapular protraction/retraction, scapular elevation/depression) to improve AROM, strength, joint integrity, motor learning, circulation, swelling/edema management, contracture prevention, and functional use in prep for ADL routine engagement/achievement of functional goals provided grading of assistance to provide just-right challenge with points of distal/proximal stability/control and cues/coaching for pacing/technique/count aloud. Rest breaks as needed to optimize pt engagement and to monitor pain. Education: Mode of education provided: Explanation. Demonstration. Audience: Patient. Education Provided: As indicated above. . Response: Applied knowledge. Needs practice/reinforcement. Requires cues (auditory/physical). Verbalized understanding. ASSESSMENT Response to Visit: The session was tolerated well. Patient reported fatigue Pain unchanged. Pt repositioned seated supported in bedside recliner, NAD. All intact and unchanged. Eating breakfast. Pleasant, cooperative, and motivated throughout. Chair alarm was on at end of session. Patient seated on waffle cushion at end of session. Call oquendo was in patient's reach at end of session. Pain: Yes, pain is unchanged from start of today's treatment. PLAN Treatment Frequency, Duration and Interventions: Restorative Occupational Therapy recommended for 5x/week for 4 weeks. Treatment is to include: Development of Cognitive Skills. Neuromuscular Re-education. Self Care/Home Management. Therapeutic Activity. Therapeutic Exercise. Recommended Occupational Therapy Follow Up: Upon acute care discharge, the following is currently recommended: Anticipate patient will have inpatient rehab needs beyond the acute stay. Visit Number: Today's visit is number 2 Program: Stroke (Therapist may be reached on [facility]) SESSION: Duration: 39 CHARGES: 57008 - CHARGE - OT THER PRO - 15 MIN 1 Units [id number] - CHARGE - OT SELF CARE ADL TRAIN-15 MIN 2 Units - ORDER - Occupational Therapy Treatment 1 Units - STROKE VISIT 1 Units Total treatment minutes: 39.00 Minutes Electronically Signed by: ROSALBA Delaney/Leigh Ann, 07/07/2020 12:09:34 PM * Юлия Park RN - 07/06/2020 9:04 PM EST 2100 pt refused po meds. Educated pt on rationale and stressed importance of eac h med. 2315 report given to nurse. VSS and pt transported in bed to . All belongin gs with pt. * Johanna Mccormack LMSW - 07/06/2020 3:09 PM EST Social Work: Pt's bedside nurse reported that pt is alert and able to make his needs known an d she was going to address the HCP form with pt. This ad copy writer and pt's bedside Karen stephenson met with pt at bedside. Pt was aware that Renuka Kuo was his heal th care agent listed on his HCP form that was retrieved. Pt reported that he wan frank to change his HCP form and wanted to appoint his brother, Jose D Bangura as his he alth care agent on the HCP form. Pt did not want to appoint an alternate health care agent at this time. Pt completed a new HCP form and appointed his brother, Jose D Bangura ([phone]) a s his health care agent. This ad copy writer faxed pt's HCP form to medical records to be scanned into [employer]. 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 This ad copy writer notified Renuka that SW would follow up with pt regar sabrina this. * Mesfin Garg MD - 07/06/2020 9:31 AM EST Brief Neurosurgery Progress Note Care of patient discussed with attending. Patient neurologically stable. MRI zay ws stable acute basal ganglia hemorrhage, no evidence of underlying mass. No maddie rosurgical intervention warranted, neurosurgery will sign off. Patient will foll ow up with neurosurgery clinic in 4 weeks with repeat CTH. Mesfin Garg MD (Tony) Neurosurgery PGY-1 * Betsy Cote RN - 07/05/2020 10:30 PM EST All times approximated. Assumed care of patient [id number]. 1900 - Received report from off shift RN. Room safety checks complete. Patient a sleep and VSS. Previous production control scheduler reviewed; current assessment complete and in agreement. 2029 - Chely CHACON updated regarding patients pain level of 3/10, moaning and a gitated. CIWA score noted 3. Patient received PRN tylenol at 1830 with little re lief. Patient also complaining the R PIV in antecubital is extremely painful. 2099 - Patient blood pressure 155/79. Hydralazine given at 1800; reached out to Jose Cuellar regarding infusing labetolol in minibag. She advised in D5, but then after consulting with Chely KINSEYBS agreed 10 mg labetolol in 25 mL NS over 15 minutes would be appropriate. Patient's BP increased to 172/82 at 2115. Admin istered labetolol as directed, BP 121/63 at 2200. 2300 - Chely CHACON at bedside to assess patient's pain. Prescribed lortab and a greed to d/c hudson at patient's request. * Sanjana López MBBS - 07/05/2020 12:59 PM EST Neurocritical Care Attending Note Jonatan Bangura is a 54 y.o. male patient with: Active Problems: Intracranial hemorrhage Critical Care Documentation Performed by: Sanjana López MBBS Date of Encounter: 07/05/2020 Total critical care time: 35 minutes Critical care time was exclusive of separately billable procedures and treating other patients and teaching time. 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 failure due to Nontraumatic Intracerebral Hemorrhage Critical care was time spent personally by me on the following activities: obtaining history from patient or surrogate examination of patient ordering an d review of laboratory studies ordering and review of radiographic studies orde ring and performing treatments and interventions development of treatment plan with patient or surrogate discussion with consultants discussion with primary provider evaluation od patient's response to treatment re-evaluation of patien t's condition review of old charts Events of the last 24 hours: Awake and alert, oriented to person, knows he is in the hospital and the year is 2020. Mild dysarthria but edentulous Moves all extremities antigravity but slightly weaker on the right. Medical Decision Makin54 year old male with alcohol abuse and hypertension history found down at his h ouse and on presentation found to have a right basal ganglia hemorrhage. Right basal ganglia hemorrhage - likely secondary to hypertension SBP in the 200s at presentation. SBP goal <140mmhg. MRI brain pending Risk of C-spine injury: CT Alcohol abuse - on thiamine and folic acid. CIWA protocol. Hypertension - start amlodipine. Weaned off nicardipine. SBP goal as above. TTE. Pulm - saturating well in room air. Suspected LUCRECIA - unclear bas chary. Will continue to monitor. Mild rhabdomyolysis - ensure adequate hydration. Trending down. Nutrition -ADAT. Hb goal > 7, Endo Blood sugar satisfactory. DVT prophylaxis - SCDs for today. * Leti Richey RN - 07/05/2020 12:02 PM EST Case Management Screen Patient Name: Jonatan Bangura Gender: male Date of : 1965 Admission Dx: Intracranial hemorrhage [I62.9] Age: 54 y.o. Admission: 07/04/2020 8:17 PM Attending Provider: Reza Cobian MD High Risk Criteria - Prior to Admission/Upon Arrival [employer]ER-Type of Residence: Private Residence [employer]- Home Care Services: No Limited Home Supports/Lives Alone?: No Multi trauma/Critical care/Step down admit?: Yes Head/Spinal cord injury?: No Self Pay: No Multiple ED visits?: No Related/Unplanned readmission within 30 days?: No Complex/New medical issues: Right basal ganglia ICH Relevant comorbidities: ETOH abuse, HTN, Marijuana use Screening Outcome Social Work Consult Needed?: Yes Social Work Consult Order Exists: Acknowledge Further Case Management Needs?: Case Management Needs Note: Patient transferred from [facility] with nontraumatic likely hyper tensive intracranial hemorrhage on the right side with subsequent left hemiplegi a. Patient with h/o ETOH abuse and on CIWA protocol. Patient discussed in multidisciplinary rounds this morning and patient on room a ir, hudson to gravity, and plan for MRI of Brain. CM spoke to Damaris [facility]ccormack [facility] with identifying patient's HCP/surrogate decision maker this morning. Patient is sleepy and chart reviewed at this time. Patient will benefit from PT, and OT consults to assess for discharge recommenda tions. Benefit check to be requested. CM to follow-up with patient and family to discuss d/c planning needs and concer ns. Leti Richey * Bernardo Silvestre RN - 07/05/2020 10:09 AM EST If wound was present on admission, this documentation was sent to attending prov ider for cosignature. Originally filed by Leno GEE on 07/04/20 * Ramírez Jimenez MD - 07/05/2020 7:54 [place] [address] PATIENT NAME: Jonatan Bangura, DATE OF : 1965 . Subjective Date of Encounter: 07/05/2020 Length of stay: 1 days Interval History: admitted yesterday, agitated and started on precedex Current Hospital Problem List: Active Problems: Intracranial hemorrhage Objective Vitals Temp: [35.9 C (96.6 F)-36.7 C (98.1 F)] 35.9 C (96.6 F) Pulse: [57-94] 58 Resp: [11-19] 14 BP: (85-162)/(52-104) 105/73 SpO2: [90 %-96 %] 95 % O2 Therapy: Room air O2 Flow Rate (L/min): [2 L/min] 2 L/min Intake/Output Last 3 Completed Shifts I/O last 3 completed shifts: In: 1692.7 [I.V.:1692.7] Out: 630 [Urine:630] Physical Exam General NAD, lying supine on room air HEENT:NC/AT CV:Normal Rate Pulm: symmetric chest rise Abdm: soft Ext: warm, well perfused Neuro General appearance: Sleepy, precedex held Mental status: arouses to stim, oriented to person place and time Language: slightly dysarhtric vs edentulous Cranial nerves: Left facial weakness, TML, PERRL, EOMI Strength: Elevates BUE R>>L, Wiggles toes BLE Sensation: Sensation intact to light touch bilaterally Neglect: None Data Review CBC: Recent Labs Lab 07/04/20203907/05/20 0609 WBC 9.9 6.4 RBC 4.58* 4.11* HGB 15.1 13.7 HCT 43.0 38.8* PLT 184 134* NEUTOPHILPCT 65 -- MONOPCT 11 -- BMP: Recent Labs Lab 07/04/20203907/05/20 0003 07/05/20 0609 NA 143 138 140 K 3.7 3.8 4.0 CL 104 103 108* BICARBONATE 25 24 23 GLUCOSE 102 98 95 BUN 13 15 15 CREATININE 1.43* 1.54* 1.29* BCR 9 10 11 GFRAA 62 57* 71 GFRNONAA 54* 49* 61 COAGS: Recent Labs Lab 07/04/202039 INR 1.00 Assessment/Plan Jonatan Bangura is a 54 y.o. male patient with hx of ETOH use disorder who present s after being found down with a right basal ganglia IPH. GCS 13 Exam limited by recent precedex but grossly stable Repeat CT head prelim read stable MR brain pending CT cervical spine pending Rest of care per primary team Will follow peripherally for scan Ramírez Jimenez Neurosurgery Resident, PGY-4 Associated attestation - Adrian Hurley MD - 07/05/2020 11:08 PM EST I agree with the findings and plans described, except/unless as listed below. I personally evaluated the patient. I reviewed and discussed the history, exam fin dings, relevant laboratory and imaging data, assessment and plan with the reside nt physician. * Jayna Gold, RN - 07/05/2020 7:47 AM EST All times are approximate. Assumed care of pt [id number]. 2330: Pt arrived to unit and settled 2347: Pt restless, anxious, agitated, verbally abusive, and difficult to redirec t. CIWA score noted 28. Valium ordered Q1H x4 (see MAR). 0000: Full assessment completed (see flowsheet). 0003: Labs collected (see results). 0015: Thiamine given (see MAR). 0019: Precedex started (see MAR/VS flowsheet for RASS trend). 0035: Plasmalyte stopped as MIVF, NS started, per order (see MAR). 0045: Banana bag started (see MAR). 0100: Pt taken down to have CT of head without contrast via bed with 2 RNs on tr bridger monitor. Pt tolerated 0145: Cardene gtt weaned off (see MAR/VS flowsheet for BP trend). 0452: Pt RASS -2, per OSWALDO Lund precedex weaned off. 0609: AM labs collected (see results). 0730: Precedex off but pt RASS remains -2. Bedside report given to oncoming RN. Aware of behavior fluctuation. Safety measures remains in place. Jesus Manuel Gold * Marlyn Burr RN - 07/04/2020 11:11 PM EST documented in this encounter H&P Notes * Anahi Easley MBBS - 07/04/2020 10:15 PM EST Consider consult note as H&P Signed by: OSWALDO Carlson Neurology Resident Physician PGY 3 This document was dictated using speech to text medical software. A reasonable attempt at proofreading has been made to minimize errors. Associated attestation - Reza Cobian MD - 07/05/2020 8:08 AM EST . documented in this encounter Consult Notes * Gabrielle Nagy LMSW - 07/10/2020 11:57 AM EST Social work note: KHADRA received a phone call from Carolyn at the Department of [employer] of [facility], letting me know that they'll hold on to Quique's Temporary Assistance application for 30 days after submission (until 08/07/2020) so he does not have to complete a new one, but that he needs to contact them back when he's out of the hospital. They cannot get him started with TA until he's discharged back home. KHADRA let Quique know this and he asked for KHADRA to put their number in his discharge [facility] [phone]-. He said he will call them once discharged back home. * Melissa Gibbons MBBS - 07/08/2020 2:25 PM EST Associated Order(s): Consult to General Int Medicine Inpatient Consult to General Int Medicine Inpatient Consult performed by: OSWALDO Lopez Consult ordered by: Jayshree Mclean MD CONSULT NOTE Department: Internal Medicine Reason for consult: Hypertension management Physician requesting consult: Jayshree Mclean MD Physician performing the consult: Melissa Gibbons MD History of Presenting Illness Mr. Jonatan Bangura is a 54 y.o. male with a past medical history as mentioned bel ow and significant for h/o nephrectomy In 2012, alcohol and previous tobacco us e disorder (quit in 2012) who has been admitted under neurology service for righ t basal ganglia hemorrhage with adjacent edema and medline shift. Patient is kno wn to have a history of hypertension and medication non-compliance. The etiology was thought to be hypertension and patient is s/p nicardipine drip and currentl y on Amlodipine daily with prn hydralazine and Labetalol to maintain SBP<160 mm hg. Patient says his BP at home is usually in the range of 150/90mmhg and sometimes lesser. He was prescribed some medication in the past (possibly XAVIER inhibitor) a nd was told it might affect his kidney. Patient reports never taking the medicat ion as he has "only one kidney now". He reports no chest pain, shortness of rica th, leg swelling. Does have some abdominal discomfort on and off. He drinks 3-6 beers daily and is not on any other medications at home. Medicine was consulted for hypertension management. Past Medical & Surgical History Past Medical History: Diagnosis Date ETOH abuse Hypertension Past Surgical History: Procedure Laterality Date APPENDECTOMY nepherectomy Right non func Home medications Home Medications Not on File Allergies Allergen Reactions Penicillins Rash Medications at this time amLODIPine 10 mg Oral Daily amLODIPine 5 mg Oral Once docusate sodium 100 mg Oral BID folic acid 1 mg Oral Daily heparin (porcine) 5,000 Units Subcutaneous BID lidocaine 1 patch Transdermal Daily multivitamin 1 tablet Oral Daily pantoprozole 40 mg Intravenous Daily potassium chloride 20 mEq Oral BID senna 10 mL Oral Nightly sodium chloride (preservative free) 3 mL Intravenous 3 times per day thiamine 100 mg Oral Daily acetaminophen (TYLENOL) tablet, cyclobenzaprine, hydrALAZINE, HYDROcodone-acetam inophen, labetalol, Peripheral IV AND sodium chloride (preservative free) AND sodium chloride (preservative free) AND [COMPLETED] Saline Lock order, sodium chloride Social History He is Single. He lives alone. He reports that he has quit smoking. He has never used smokeless tobacco. He reports current alcohol use of about 5.0 standard dri nks of alcohol per week. He reports current drug use. Drug: Marijuana. Travel:No recent history of long distance travel Family History family history is not on file. Review Of Systems: The following systems were reviewed: A complete review of systems was performed with the patient which was negative o ther than pertinent positives as mentioned in the HPI PHYSICAL EXAMINATION Vitals: 07/08/20 0300 07/08/20 0522 07/08/20 0745 07/08/20 1150 BP: 128/63 (!) 159/95 140/83 137/88 BP Location: Right arm Right arm Left leg Right arm Patient Position: Lying Lying Sitting Pulse: 60 66 68 86 Resp: 16 16 16 18 Temp: 36.7 C (98.1 F) 36.9 C (98.4 F) 37.1 C (98.7 F) 36 .7 C (98 F) TempSrc: Oral Oral Oral Oral SpO2: 95% 97% 96% 95% Weight: Height: Patient in no acute distress, breathing comfortably HEENT: EOMI, PERRL, no conjunctival discoloration, no sore throat, No JVD CVS- S1S2 heard, no murmurs, rubs or gallops RS- B/L equal breath sounds heard, no rhonchi, rales Abdomen- Soft, non-tender, mildly distended, no organomegaly, bowel sounds heard Neuro- AAOX3, CN 2-12 grossly intact, weakness in the LUE DATA REVIEW Laboratory Data Recent Labs Lab 07/06/20 0618 07/07/20 0342 07/08/20 0529 HGB 13.6 13.3* 14.3 HCT 38.5* 37.9* 41.2 WBC 6.8 6.2 8.3 PLT 149* 142* 144* ] Lab Results Component Value Date NEUTOPHILPCT 65 07/04/2020 LYMPHOPCT 17 07/04/2020 MONOPCT 11 07/04/2020 EOSPCT 6 07/04/2020 Lab Results Component Value Date NA 137 07/08/2020 K 4.2 07/08/2020 CL 102 07/08/2020 BICARBONATE 24 07/08/2020 GLUCOSE 96 07/08/2020 BUN 11 07/08/2020 CREATININE 1.23 (H) 07/08/2020 Lab Results Component Value Date PROT 7.0 07/08/2020 ALBUMIN 3.9 07/08/2020 AST 27 07/08/2020 ALT 32 07/08/2020 TBILI 0.8 07/08/2020 ALKPHOS 92 07/08/2020 No results found for: LIPASE, AMYLASE Lab Results Component Value Date INR 1.00 07/04/2020 Lab Results Component Value Date HGBA1C 5.4 07/04/2020 Lab Results Component Value Date CHO 175 07/04/2020 TRIG 89 07/04/2020 HDL 42 07/04/2020 LDL 115 (H) 07/04/2020 VLDL 18 07/04/2020 No results for input(s): CKTOTAL, TROPONINI, TROPONINT, CKMBINDEX in the last 16 8 hours. Lab Results Component Value Date TSH 3.140 07/04/2020 ASSESSMENT AND PLAN Mr. Jonatan Bangura is a 54 y.o. year old male with past medical history as mentfederico guerrier below and significant for h/o nephrectomy, alcohol and tobacco use disorder who has been admitted under neurology service for right basal ganglia hemorrhage with adjacent edema and medline shift. We have been consulted for Hypertension management. PLAN: -Please start patient on Labetalol 100 mg twice daily. Continue Amlodipine 10mg daily. -Please stop all PRN anti-hypertensive medications so that we can assess his BP control on this new regimen -Please ensure patient has a PCP prior to discharge who he can follow up with fo r BP follow up and medication titration. The patient was discussed with Dr.Catherine Willingham who agrees with the above asse ssment and plan. Melissa Gibbons MBBS 07/08/2020 2:25 PM Associated attestation - Siomara Willingham MD - 07/08/2020 6:55 PM EST I saw and evaluated the patient with the resident. A complete ROS was obtained a nd is negative other than as per HPI below. Family history was reviewed and was deemed non-contributory. A full physical examination was performed with pertinen t findings documented below. Discussed with the resident and agree with the donna ornelas findings as documented in the resident's note which has not been edited, a ny differences are noted respectively in this addendum. Patient was recently started on Amlodipine by the primary service and this appea rs to be having a great effect. It is likely the patient has chronic uncontrolle d hypertension and he tells us that he has never taken any of his prescribed ant ihypertensives because of concern for adverse kidney side effects (given that he is s/p nephrectomy). While Amlodipine will take a couple of days to reach maxim um efficacy, I do think it's reasonable to add a second agent (we are recommendi ng Labetalol given patient's hesitation to try any medication that could affect his lone kidney) as patient has borderline control (per neurology guidance of < 140 SBP) at this time when he is sedentary. He is likely to have higher blood pr essures upon ambulation/exertion as well as he returns to his home diet (would a ssume higher sodium intake). I would also recommend stopping any PRN IV medicati ons in order to get a good read on how we are doing with PO mgmt alone. He will require close follow-up with his PCP after discharge for continued BP monitoring and titration of medications to sustain optimal control. Patient should have re peated enforcement on the importance of medication compliance, consistent home B P monitoring, low salt diet/DASH diet, as well as weight loss which all will romelia y a large role in blood pressure control. Thank you for this consult. Siomara Willingham MD Fisheries Manager * Gabrielle Nagy, [facility] - 07/07/2020 1:19 PM EST Social work note: KHADRA had previously been consulted for substance use/abuse and to help Quique with so me financial concerns. KHADRA went and visited with Quique for a lengthy amount of time. We talked about his a lcohol use, which he states is not a problem, but he was willing to complete an assessment. He drinks around 2-6 shots in a 16 oz bottle of soda per day. He dri nks every day of the week, but does not classify himself as an alcoholic, statin g that alcoholics are people who drink every day to get drunk. He was adamant th at he just drinks because it de-stresses him after work. He believes that there' s a big difference, despite the many areas of his life that alcohol has affected --including his health, past arrests, 4 DUI's and DUAI's, etc. He states that he does not have any desire to lower his consumption at all right now. KHADRA tried to work with him on getting him to see how alcohol may impact him and be a part of his life more than he realizes. He was defensive about his alcohol use and SW p icked up on it. He states that people have brought up concerns in the past (prim makaylaly family, he states no medical providers have brought up concerns). The conc erns were related to his weight and losing weight, which his father has brought up. He states that he has cut out artificial sweetener because he felt it was ne gatively impacting him. KHADRA asked whether he'd like to learn more about the affec ts of alcohol on the body and weight, which he declined for now. He was mandated to go to inpatient rehab at one point but wound up leaving before admission, as he did not want to stay the full 21 days. Social Work Alcohol Use Disorders Identification (AUDIT) Assessment How often do you have a drink containing alcohol? 4 or more times a week (4 pts) How many drinks containing alcohol do you have on a typical day when you are dri nking? 5 or 6 (2 pts) How often do you have six or more drinks on one occasion? Weekly (3 pts) How often during the last year have you found that you were not able to stop dri nking once you had started? Less than monthly (1 pt) How often during the last year have you failed to do what is normally expected f rom you because of drinking? Never (0 pts) How often during the last year have you needed a first drink in the morning to g et yourself going after a heavy drinking session? Never (0 pts) How often during the last year have you had a feeling of guilt or remorse after drinking? Never (0 pts) How often during the last year have you been unable to remember what happened th e night before because you had been drinking? Never (0 pts) Have you or someone else been injured as a result of your drinking? Yes, during the last year (4 pts) Has a relative, friend, doctor or other health worker been concerned about your drinking or suggested you cut down? Yes, during the last year (4 pts) AUDIT Score 18 Quique states that he is not motivated to quit, thus he did not want any resources or referrals. He states that his primary concern is that he is self-employed and needs to figure out an income until he can get back to work. He runs a [employer] KHADRA assisted him with completing the application for Temporary Assistance/Public Assistance through the [facility] department of health. We completed the application in its entirety and KHADRA faxed it to the department of clinical social worker of [facility] ( ). KHADRA provided Quique with a copy of the application so he has it on file, and will provide the office livia ne # so he can check in with his application status in a few weeks. KHADRA put the # in his discharge summary. KHADRA assessed for other needs, which he deferred right now. KHADRA will remain available as needed. * Lolita Rosa DO - 07/07/2020 9:09 AM EST Associated Order(s): Consult to PMR Inpatient Consult to PMR Inpatient Consult performed by: Lolita Rosa DO Consult ordered by: Jayshree Mclean MD Reason for consult: Impaired mobility and self-care, evaluate for rehab needs Physical Medicine and Rehabilitation Consult REASON FOR CONSULTATION: Impaired mobility and self-care secondary to right basa l ganglia hemorrhagic stroke Requested By: ANISHA Nur HISTORY OF PRESENT ILLNESS: (Brief 1-3 elements, Extended 4-8 elements) Jonatan Bangura is a 54 y.o. male Admitted on: 07/04/2020 Jonatan Bangura is a 54 y.o. male with PMH significant for alcohol abuse, marijuan a abuse, chronic back pain. He presented as OSH transfer. He was found down afte r he reported that he fell while smoking marijuana. Following the fall he was un able to get up or move his left arm or leg. He was started on cardene drip for h ypertensive urgency on admission. CTH showed right basal ganglia hemorrhage with adjacent edema and 3mm midline shift. CTA negative for AVM or AVF. NIHSS 4 on a rrival. Neurosurgery did not recommend any acute intervention. Patient has been on CIWA protocol while admitted and started on folic acid and thiamine. He was t reated for rhabdomyolysis. Patient also noted to have elevated Cr during admissi on. PM&R consulted for evaluation for admission to IRF. Current Functional Status: PT: Mobility Dep Max Mod Min CG S I PA Ambulation x Bed x Transfer x Balance x OT: ADL Dep Max Mod Min CG S I PA Feeding x Grooming x Upper x Lower x Toileting x Speech/swallow status: no dysphagia, mild dysarthria Weight bearing restrictions: WBAT Continence: Bowel: incontinent Bladder: continent REVIEW OF SYSTEMS: (+ = positive, - = negative) (Problem Pertinent: 1 system, Ex tended: 2-9 systems, Complete: 10+ systems / others neg.) Review of Systems: 1. Constitutional: (-) fever, (-) chills, (-) insomnia, (-) weight loss, (+) fat igue/lethargy 2. Eye: (-) glasses, (-) diplopia, (-) blurred vision, (-) blindness 3. ENT: (-) dentures (-) hearing deficits, (-) dysphagia, (-) dizziness. 4. Respiratory: (-) shortness of breath, (-) wheeze, (+) cough, (-) dyspnea. 5. Cardiovascular: (-) chest pressure or pain, (-) palpitations, (-) edema, (-) orthopnea. 6. GI: (-) abdominal pain, (-) nausea, (-) vomiting, (-) diarrhea, (-) constipat ion, (+) appetite change. 7. Neurology: (+) pain, (+) headache, (-) dizziness, (+) weakness, (-) paralysis , (+) stiffness, (+) numbness, (-) paresthesias, (+) dysesthesia. 8. Musculoskeletal: (+) arthralgia, (+) myalgia, (-) spasm, (-) contracture, (-) deformity. 9. Integument: (-) skin changes, (-) rash, (-) pressure sore 10. Endocrine: (-) temperature intolerence, (-) polyuria, (-) polydipsia, (-) ch anges in weight. 11. : (-) dysuria, (-) frequency, (-) urgency, (+) incontinence, (-) hematuria , (-) use of catheter. 12. Hem/Onc: (-) easy bleeding, (-) ecchymosis, (-) swollen glands 13. Psychiatric: (+) mood disturbance, (-) depression, (-) anxiety, (-) sleep di sturbance, (-) altered behavior delusions/hallucination. ALLERGIES/REACTIONS: Allergies Allergen Reactions Penicillins Rash MEDICATIONS: Current Facility-Administered Medications Medication Dose Route Frequency Provider Last Rate Last Admin acetaminophen (TYLENOL) tablet 650 mg 650 mg Oral Q4H PRN OSWALDO Joseph 650 mg at 07/06/20 1658 amlodipine (NORVASC) tablet 10 mg 10 mg Oral Daily Elaine Suarez HYDRO STATION OPERATOR 10 mg at 07/07/20 0811 amlodipine (NORVASC) tablet 5 mg 5 mg Oral Once Elaine Suarez NP Stoppe d at 07/06/20 0942 cyclobenzaprine (FLEXERIL) tablet 10 mg 10 mg Oral TID PRN Elaine Suarez HYDRO STATION OPERATOR 10 mg at 07/06/20 1907 docusate sodium (COLACE) capsule 100 mg 100 mg Oral BID OSWALDO Lorenzo 100 mg at 07/07/20 0811 folic acid (FOLVITE) tablet 1 mg 1 mg Oral Daily OSWALDO Lawrence 1 mg at 07/07/20 0811 heparin (porcine) 5000 UNIT/ML injection 5,000 Units 5,000 Units Subcuta neous BID Peterson Enriquez NP 5,000 Units at 07/07/20 0811 hydrALAZINE (APRESOLINE) injection 10 mg 10 mg Intravenous Q6H PRN Elaine Suarez, HYDRO STATION OPERATOR 10 mg at 07/06/20 1514 HYDROcodone-acetaminophen (LORTAB) 5-325 MG per tablet 1 tablet 1 tablet Oral Q6H PRN Elaine Daniela, HYDRO STATION OPERATOR 1 tablet at 07/07/20 1009 labetalol (TRANDATE) injection 10 mg 10 mg Intravenous Q6H PRN Elaine Sye da, HYDRO STATION OPERATOR 100 mL/hr at 07/05/20 2132 10 mg at 07/05/20 213 lidocaine (LIDODERM) 5 % patch 1 patch 1 patch Transdermal Daily Elaine sanchezda, HYDRO STATION OPERATOR 1 patch at 07/07/20 0810 multivitamin tablet 1 tablet 1 tablet Oral Daily OSWALDO Lawrence 1 tablet at 07/07/20 0811 pantoprazole (PROTONIX) injection 40 mg 40 mg Intravenous Daily Elaine Sy moe, HYDRO STATION OPERATOR 40 mg at 07/07/20 0811 potassium chloride (K-DUR) dissolvable tablet 20 mEq 20 mEq Oral BID Arunlacy al Daniela, HYDRO STATION OPERATOR 20 mEq at 07/07/20 0811 senna (SENOKOT) syrup 10 mL 10 mL Oral Nightly Elaine Suarez, HYDRO STATION OPERATOR Stopped at 07/05/20 0853 sodium chloride (preservative free) 0.9 % flush 3 mL 3 mL Intravenous 3 times per day OSWALDO Lawrence 3 mL at 07/07/20 0812 And sodium chloride (preservative free) 0.9 % flush 3 mL 3 mL Intravenous PA N OSWALDO Lawrence sodium chloride 0.9 % bag 3-20 mL 3-20 mL Intravenous PRN OSWALDO Joseph thiamine (B-1) tablet 100 mg 100 mg Oral Daily OSWALDO Lawrence 100 mg at 07/07/20 0811 PMH: ETOH abuse Hypertension PSH: nepherectomy APPENDECTOMY FAMILY HX: HTN SOCIAL HISTORY: He reports that he has quit smoking. He has never used smokeless tobacco. He rep orts current alcohol use of about 5.0 standard drinks of alcohol per week. He re ports current drug use. Drug: Marijuana. 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 PHYSICAL EXAM: (Prob. Focused: 1-5 checks; Expanded: 6-11 checks; Detailed: 2 ch ecks in 6 systems or 12 checks; Comprehensive: 2 checks in 9 systems) Vitals: Visit Vitals BP 134/69 (BP Location: Right arm) Pulse 62 Temp 36.5 C (97.7 F) (Oral) Resp 18 Ht 1.702 m (5' 7") Wt 103 kg (227 lb 1.2 oz) SpO2 95% BMI 35.56 kg/m GENERAL APPEARANCE: Normal development and nutrition, disheveled Build: Obese BMI: Body mass index is 35.56 kg/m. HEAD: NC/AT EYES:Normal pupil shape and size, PERRL, Conjunctiva clear/no lid lesions ENT: External ears and nose intact without erythema or exudate , Gross hearing i ntact, Normal lips, gums, and teeth, Oral mucosa is pink and moist without eryth alex, exudate, or lesions NECK: Supple and symmetrical with trachea midline RESPIRATORY: Lungs: Clear to ascultation: no crackles, wheezes, or rhonchi, Norm al respiratory effort CARDIOVASCULAR: Heart: RRR, no murmurs, Pedal pulses intact bilaterally, no elaine pheral cyanosis, edema, asymmetry, limbs nontender ABDOMINAL: Bowel sounds present in all 4 quadrants, Nondistended, Nontender MUSCULOSKELETAL: Normal Bulk, Normal Tone Motor Examination: (Graded strength from a scale 0-5) Motor Strength Right Left C4 Shoulder abductors 5 3 C5 Elbow flexors 5 4+ C6 Wrist extensor 5 4 C7 Elbow extensor 5 4 C7/8 Finger extensor 5 4 C8 Finger flexors 5 4+ T1 Finger abductor 5 4 L2 Hip flexors 5 4 L3 Knee extensors 5 4+ L4 Ankle dorsiflexors 5 4+ L5 Extensor hallucis longus 5 4 S1 Ankle plantar flexor 5 4+ Neurological: No Babinski No Valdez's No Clonus No pathologic reflexes Cranial nerves II-XII exam: Cranial Nerves Normal Abnormal II x III, IV, X (1-2 beats nystagmus rightward) V x VII X (left facial droop) VIII x IX, X x XI x XII x Coordination: Normal Abnormal Motor Control X (LUE) Finger to nose X (dysmetria L) Heel/knee/middleton x Rapid alternating movements Sensation: Normal Abnormal Light touch (Dorsal Column) X (diminished LUE, LLE) Pin prick (Spinothalamic) Vibration (Dorsal Column) Proprioception (Dorsal Column) x DTR exam: Present, symmetric Right Left Bicep (C5) 2 2 Brachioradialis (C6) Patella (L3/4) 2 2 Achilles (S1) Other Abnormal Neurologic: Present Absent Normal speech/language x Dysarthria x Apraxia x Neglect x Hemiparesis x Paresis x Aphasia: Present Absent Fluency x Word Errors x Repetition x Naming x Comprehension x Reading x Psychiatric: Present Absent Normal judgement/and insight: x Normal mood: x Depression x Anxiety x Agitation x Hypomanic x Normal affect: x Flat x Euphoric x Normal level of consciousness: x Drowsy/Stupor x Coma x Mini Mental Status: Orientation: Year, Day, Month, Date, Season, State, Country, Town, Hospital, [facility] or Memory: Immediate 3 item recall 3/ 3, Delayed 3 item recall 3/ 3 Serial 7's # / 5 or DLROW 2/ 5 Language: Point and have patient name Pencil & Watch 2/ 2 Repeat the following: "No if's, and's, or but's." 06/30 3 step commands: (Take the paper, fold, and place.) 0/ 3 (patient declined) Read and obey: "Close your eyes." 06/30 Write a sentence: 0/ 1 (patient declined) Copy: 0/ 1 (patient declined) Fund of knowledge: fair Skin: Inspection: no rashes, lesions, or ulcers, Palpation: no induration, nodu les, or tightening. DIAGNOSTIC TESTS: CBC: Lab Results Component Value Date WBC 6.2 07/07/2020 RBC 4.00 (L) 07/07/2020 HGB 13.3 (L) 07/07/2020 HCT 37.9 (L) 07/07/2020 PLT 142 (L) 07/07/2020 BMP: Lab Results Component Value Date NA 137 07/07/2020 K 3.9 07/07/2020 CL 106 07/07/2020 BICARBONATE 23 07/07/2020 GLUCOSE 96 07/07/2020 BUN 9 07/07/2020 CREATININE 1.18 07/07/2020 BCR 7 07/07/2020 GFRAA 79 07/07/2020 GFRNONAA 68 07/07/2020 Ct Head Without Contrast Result Date: 07/06/2020 CLINICAL INDICATION: Follow-up of intraparenchymal hemorrhage. TECHNIQUE: Multia xial CT images of the brain were obtained from the skull base through the vertex and displayed at 5 mm and 1.25 mm increments. No intravenous contrast was admin istered. Automated dose lowering techniques and/or adjustment according to patie nt size were utilized for this exam. COMPARISON: Outside noncontrast CT head and CTA head dated 07/04/2020. FINDINGS: Intracranial hemorrhage centered in the right basal ganglia and temporal lobe measures 4.2 x 2.5 x 3.3 cm (AP x TV x CC), gr ossly unchanged in size from the prior outside study. The amount of surrounding vasogenic edema appears stable. There is persisting effacement of the right late ral ventricle and approximately 5 mm leftward midline shift, which is unchanged. The basal cisterns and foramen magnum remain patent. No hemorrhage is seen else where and there is no evidence of acute territorial infarct. The calvarium is in tact. Mild maxillary sinus mucosal thickening is present. Mastoid air cells are clear. The extracranial soft tissues are unremarkable. IMPRESSION: Stable examination. Grossly unchanged appearance of the intraparench ymal hemorrhage with surrounding vasogenic edema. Stable mass effect and leftwar d midline shift of approximately [address] Head Without Contrast Result Date: 07/05/2020 INDICATION: Follow-up of intraparenchymal hemorrhage. TECHNIQUE: Noncontrast CT of the head using axial technique was performed. Automated dose lowering techniq ues and/or adjustment according to patient size were utilized for this exam. COM PARISON: CT head dated 07/05/2020. FINDINGS: There is redemonstration of intrapare nchymal hemorrhage involving the right basal ganglia and temporal lobe, grossly unchanged as compared to scan. There is redemonstration of surrounding vasogenic edema and mass effect with persistent effacement of right lateral ventricle. Th ere is redemonstration of left-sided midline shift measuring approximately 5 mm. No new hemorrhage is seen. There is no evidence of acute territorial infarction. No abnormal extra-axial fluid collection is seen. The basal cisterns are patent. Mild mucosal thickening is noted in bilateral maxillary sinuses. Mastoid air cells are clear. No depressed calvarial fracture. Extracranial soft tissues are normal. IMPRESSION: Grossly stable intraparenchymal hemorrhage involving the right basal ganglia and temporal lobe with surrounding vasogenic edema, mass effect with pe rsistent effacement of right lateral ventricle and left-sided midline shift sandra uring approximately 5 mm. No new hemorrhage. Ct Cervical Spine Without Contrast Result Date: 07/05/2020 07/05/2020 8:[address] CERVICAL SPINE WITHOUT CONTRAST [id number] ORDERING CLINICAL INF ORMATION: trauma. Fall from standing. ADDITIONAL CLINICAL INFORMATION: None. COMPARISON: None. CERVICAL SPINE CT PROCEDURE : Contiguous axial tomographic s ections were obtained through the cervical spine without intravenous contrast. Coronal and sagittal reformats were processed. Automated dose lowering technique s and/or adjustment according to patient size were utilized for this exam CERVIC AL SPINE CT FINDINGS: Cervical vertebral bodies are grossly maintained in height . There is no evidence of significant compression deformity or fracture. Alignme nt of the cervical vertebral bodies is unremarkable without significant listhesi s or subluxation. The craniovertebral junction is unremarkable. Multilevel osteo phyte formation is noted. Moderate to severe narrowing of neural foramina at C5- 6 and C6-7 levels. IMPRESSION: No evidence of acute fracture or traumatic listhesis is noted. END OF IMPRESSION: Mr Brain With And Without Contrast Result Date: 07/06/2020 HISTORY: Rule out underlying mass in the region of hemorrhage. COMPARISON: CT he ad July 05, 2020. TECHNIQUE: Multiplanar multiecho MRI of the brain emphasizin g relative T1 and T2*information without and with intravenous contrast administr ation was completed on a 3 Mayi magnet. FINDINGS: The known hemorrhage in the r ight basal ganglia reveals low intensity signal on T2-weighted sequences while o n the T1-weighted sequences there is a center with increased intensity signal an d the periphery of low intensity signal. Following intravenous contrast administ ration there is no evidence of abnormal enhancement in the region of the hemorrh age or in the vicinity of the brain. Moderate vasogenic edema surrounds the righ t basal ganglia acute hematoma extending also to the right temporal stem. Again there is effacement of the right lateral ventricle and approximately 4.5 mm midl ine shift to the left grossly unchanged compared to the prior examination. The b raúl cisterns and the foramen magnum remain patent. The remainder of the brain r eveals normal signal characteristics and morphology. There is no evidence off ed alex or mass effect elsewhere in the brain. The posterior fossa structures appear normal. No evidence of abnormal parenchymal or meningeal enhancement in the rem ainder of the brain either. IMPRESSION: Acute right basal ganglia hematoma. No evidence of an underlying mas s on the current examination. However a repeat MRI is recommended upon resolutio n of the blood byproducts. Records Reviewed: Hospital, H&P ASSESSMENT: Patient Active Problem List Diagnosis Date Noted Uncontrolled hypertension 07/05/2020 LUCRECIA (acute kidney injury) 07/05/2020 Non-traumatic rhabdomyolysis 07/05/2020 Intracranial hemorrhage 07/04/2020 PLAN: Jonatan Bangura is a 54 y.o. 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 CTH showed right basal ganglia hemorrhagic stroke with adjacent edema and 3mm midline shift. NIHSS 4 on arrival. No acute intervention recommended by neurosurgery. Patient's course complicated by need for CIWA protocol for alcohol withdrawal and hypertension requiring cardene drip initially, and LUCRECIA. He was also treated for rhabdomyolysis. PM&R consulted for evaluation for admission to IRF. -Prior to admission, patient was independent for mobility, ADLs, and IADLs. Curr ently, he is requiring moderate assistance for ambulation, max assist for lower body dressing, min assist for transfers and balance as well as feeding grooming, upper body dressing, and toileting. Patient has intermittent assistance availab le from family and friends following discharge. Please see attending addendum for full assessment and recommendations. Marlene Giron MD PGY3 Pager: [phone] Jnoatan Bangura is a 54 y.o. male seen today for impaired mobility and self care Continue therapy in the acute care hospital until admission. Patient admitted on: 07/04/2020. Prior to admission the patient was independent and active. Therapies: PT for inc reased mobility, transfers, strengthening, OT for increased UE strength, ADL's a nd FREELANCE RECRUITER for cognitive evaluationCurrently the patient requires assistance in [facility] two therapy disciplines for 3 hours, 5 days per week and daily medical arvin toring from a rehabilitation physician for listed problems and comorbidities to obtain timely functional recovery. Due to the complexity of their nursing, medic al management, and specialized rehabilitation needs this patient requires and ca n reasonably be expected to benefit from an inpatient stay with an interdiscipli nary team approach to the delivery of rehabilitation needs. Patient requires close medical management by a rehabilitation physician, rehabil itation nursing care and comprehensive interdisciplinary team (including OT, PT, ST and/or Prosthetics/Orthotics, RT, Rehab Psych, Rehab Counseling, Social Work) to manage and complete training/education/recovery for the following problem a reas: Medical/functional conditions requiring inpatient rehabilitation: Patient Active Problem List Diagnosis Date Noted Uncontrolled hypertension 07/05/2020 LUCRECIA (acute kidney injury) 07/05/2020 Non-traumatic rhabdomyolysis 07/05/2020 Intracranial hemorrhage 07/04/2020 Comorbidities: Cognitive Impairment, Hemiparesis, Impaired health literacy, Morb id obesity, Neglect and Vision impairment with hemianopsia ETOH abuse and Hypertension. Risk for medical/clinical complications: Behavioral/mood, Bleeding, Decubitus u lcer, DVT/PE, Fall, Gastrointestinal, Hypertension, Hypotension, Infection, AR, Nutritional Risk, Pain, Pneumonia, Safety, Seizure, Spasticity and Stroke Anticipate Inpatient Rehabilitation Facility needs at [facility] ([facility]). * Johanna Mccormack [facility] - 07/05/2020 1:54 PM EST Associated Order(s): IP CONSULT TO SOCIAL WORK Social Work Brief Screen Patient Name: Jonatan Bangura Pronoun Date of : 1965 County of Residence: [place] Admitting Dx: Intracranial hemorrhage [I62.9] Admitting Provider: Reza camargo MD Referral Type: Inpatient Referral Source: Lamar CHACON and Leti benitez RN CM Reason for Referral: Family Dynamics "Establish health care proxy and for MRI questionnaire"; Decision Making Date: J anuary 2020 Emergency Contacts Name: Address: Home: Work: Mobile: Primary Caregiver: unknown Informant(s): Please see note below for details on in formants Authorized to Consent: If pt lacks decisional making capacity, Renuka Kuo, w ho is his health care agent would be his decision maker This ad copy writer was asked by Leti Richey RN CM to locate pt's decision maker. T his ad copy writer was unsuccessful in locating a HCP form in [facility]. This ad copy writer contacte d pt's PCP office at [phone] to inquire if pt had a HCP form on file and SW was notified that pt did not have a HCP form on file or an emergency contact gerardo mallory. This ad copy writer contacted [facility] Medical Records Department at [phone] and was notified that pt did not have an emergency contact, but did no t have a HCP form on file from 2012. This ad copy writer received pt's HCP form from via fax and did verify the form was valid. Pt appointed Renukajonah Kuo (Addres s: [id number] [facility]; ) as his health care agent . This ad copy writer attempted to contact Renuka at number listed on the HCP form but th e contact number did not work. This ad copy writer found additional contact numbers for a person by the name of Renuka Scotton but they were also not working numbers. T his ad copy writer did locate a person by the name of Renuka Elysia on [email or web address] utilizing the [facility] Facebook page. This ad copy writer messaged Renuka Alvares requesting that she contact this ad copy writer, but did not provide any pa tient information. This ad copy writer did receive a phone call from Renuka Naidu ([phone]) and she confirmed that she knows the pt as he is her ex-fiance and the father o f her 13 y/o son. She stated that she was never to the pt. She reported that she used to reside with pt at [id number] [facility] in [place], but she no longer resides there and her contact number is no longer [phone]. She repo rted that she was aware that pt was in the hospital prior to speaking to this wr iter. This ad copy writer asked Renuka if she would like to be pt's decision maker as she is listed as his health care agent on the HCP form. This ad copy writer notified Renuka of the [facility] Care Decision's Act if she were to decide to not make m edical decisions for pt. She reported that pt does not have a known legal guardi an or court order. She reported that pt is not and does not have a domes tic partner that she is aware of. She reported that pt does not have adult child dakota. She reported that pt's mother and father reside in [place]. If she decided to not make medical decisions, pt's surrogate decision makers would be pt's moth er and father. At this time, Renuka reported that she would like to remain pt's decision maker a t this time if pt is unable to do so. She is aware that she should call this wri ter if she changes her mind. Renuka reported that she was to another pers on after the completion of the HCP form, thus her name is now Renuka ahumada and she can be reached at [phone]. This ad copy writer attempted to contact pt's brother, Jose D at [phone] but was unsuc cessful in reaching him initially. However, Jose D contacted this ad copy writer back and S W notified him of reason for call: to solidify decision making for pt. This writ er notified Jose D of the located HCP form from 2012. This ad copy writer notified pt's bedside nurse of pt's valid HCP form and his health ca re agent, Renuka. This ad copy writer has attempted to get in contact with pt's provider, but is waiting to hear back. This ad copy writer updated the floor principal planner of the completed HCP form located. This ad copy writer faxed the HCP form to medical records to be scanned into [employer]. No further SW needs identified at this time. Please re-consult SW if additional SW needs/concerns arise. Interventions Located pt's HCP form and verified with his health care agent and she wants to b e able to make medical decisions on behalf of pt if he is unable to. Signature: Johanna Mccormack LMSW Date: July 05, 2020 Available on [employer] * Oh, Jimmy Benítez MD - 07/04/2020 10:31 PM EST Associated Order(s): IP CONSULT TO NEUROSURGERY [facility] [place] [address] PATIENT NAME: Jonatan Bangura, DATE OF : 1965 . Subjective Date of Encounter: 07/04/2020 Reason for Consultation: Right basal ganglia IPH. Requested By: ED Time consult called: 2046 Time consult seen: 2048 History of Present Illness: Jonatan Bangura is a 54 y.o. male with hx of HTN who p resents after being found down in his home by neighbors. He states that he was i n his usual state of health yesterday when his leg gave out and he fell to the round. He was unable to get up by himself. He was stuck there until today his ne ighbors found him. He was brought to [facility] where he was hypertensive to the 180's. He had a CT head showing a large right basal ganglia IPH and was [facility]. Patient today denies WALL, n, v. Does endorse some numbness in his right hand. He denies bowel/bladder loss of control. Denies saddle anesthesia. Denies blood thi nners. Review of Systems Pertinent items are noted in HPI. Active Problems: Patient Active Problem List Diagnosis Date Noted Intracranial hemorrhage 07/04/2020 Past Medical History: Past Medical History: Diagnosis Date ETOH abuse Past Surgical History:History reviewed. No pertinent surgical history. Allergies: Allergies Allergen Reactions Penicillins Rash Prior to Admission Medications:(Not in a hospital admission) Family History:No family history on file. Social History: Social History Tobacco Use Smoking status: Never Smoker Substance Use Topics Alcohol use: Yes Objective Vitals Temp: [36.7 C (98.1 F)] 36.7 C (98.1 F) Pulse: [77-94] 77 Resp: [11-18] 14 BP: (114-162)/(56-90) 114/56 SpO2: [91 %-96 %] 91 % O2 Therapy: Room air O2 Flow Rate (L/min): [2 L/min] 2 L/min Intake/Output Last 3 Completed Shifts No intake/output data recorded. Physical Exam Mental status: Eyes open to voice, orientedx3 Language: Fluent Cranial Nerves: PERRL, EOMI, Left facial droop, TML Strength: Elevates BUE significant left drift, Elevates BLE left lag Sensation: SILTx4 Data Review CBC: No results for input(s): WBC, RBC, HGB, HCT, PLT, NEUTOPHILPCT, MONOPCT in the l ast 168 hours. Invalid input(s): EOSPCT BMP: No results for input(s): NA, K, CL, BICARBONATE, GLUCOSE, BUN, CREATININE, BCR, LABOSMO, GFRAA, GFRNONAA in the last 168 hours. COAGS: No results for input(s): INR in the last 168 hours. Invalid input(s): PT, PTT Assessment/Plan Jonatan Bangura is a 54 y.o. male patient with hx of ETOH use disorder who present s after being found down with a right basal ganglia IPH. Neuro: GCS 14 (Eyes 3, Verbal 5, Motor 6) -Neurological exam with expected left sided weakness -CTA at OSH without obvious vascular malformation or aneurysm -repeat CTH in 6 hours for stability -SBP<140 -Plt>100K -INR <1.4 -Recommend coags -Recommend MRI brain with and without contrast after stable scan -Recommend neurology service -Recommend CT cervical spine given fall Discussed with chief resident Dr. Gill and attending Dr. Hurley . Jimmy Coburn MD Neurosurgery Resident, PGY-3 Associated attestation - Adrian Hurley MD - 07/05/2020 11:08 PM EST I agree with the findings and plans described, except/unless as listed below. I personally evaluated the patient. I reviewed and discussed the history, exam fin dings, relevant laboratory and imaging data, assessment and plan with the reside nt physician. documented in this encounter ED Notes * Brent Hess RN - 07/04/2020 11:25 PM EST Report given to Johanna GEE. * Brent Hess RN - 07/04/2020 10:41 PM EST Report given to Erna GEE on 8F. * Dusty Mott MD - 07/04/2020 9:01 PM EST History Allergies Allergen Reactions Penicillins Rash Chief Complaint Patient presents with ED To ED Transfer Cerebrovascular Accident There is no immunization history on file for this patient. The history is provided by the patient. Cerebrovascular Accident Presenting symptoms: weakness Presenting symptoms: no headaches Onset quality: Sudden Timing: Constant Progression: Unchanged Associated symptoms: no chest pain, no difficulty swallowing, no dizziness, no f ever, no nausea, no neck pain and no vomiting Past Medical History: Diagnosis Date ETOH abuse History reviewed. No pertinent surgical history. No family history on file. Social History Tobacco Use Smoking status: Never Smoker Substance Use Topics Alcohol use: Yes Drug use: Not Currently E-Cigarette Use: Never User Social Screening Review of Systems Constitutional: Negative for chills and fever. HENT: Negative for ear pain, nosebleeds, sore throat and trouble swallowing. Eyes: Negative for visual disturbance. Respiratory: Negative for cough, shortness of breath and wheezing. Cardiovascular: Negative for chest pain. Gastrointestinal: Negative for abdominal pain, constipation, diarrhea, nausea an d vomiting. Genitourinary: Negative for dysuria and hematuria. Musculoskeletal: Negative for arthralgias, myalgias and neck pain. Skin: Negative for rash. Neurological: Positive for weakness. Negative for dizziness, light-headedness, n umbness and headaches. Hematological: Negative for adenopathy. Does not bruise/bleed easily. Psychiatric/Behavioral: Negative for dysphoric mood and suicidal ideas. Physical Exam Visit Vitals BP 143/82 Pulse 84 Temp 36.7 C (Oral) Resp 15 Ht 1.702 m Wt 104.8 kg SpO2 92% BMI 36.18 kg/m Physical Exam Vitals signs and nursing note reviewed. Constitutional: Appearance: He is well-developed. HENT: Head: Normocephalic and atraumatic. Right Ear: Tympanic membrane and external ear normal. Left Ear: Tympanic membrane and external ear normal. Nose: Nose normal. Eyes: General: Right eye: No discharge. Left eye: No discharge. Conjunctiva/sclera: Conjunctivae normal. Pupils: Pupils are equal, round, and reactive to light. Neck: Musculoskeletal: Normal range of motion and neck supple. Cardiovascular: Rate and Rhythm: Normal rate and regular rhythm. Heart sounds: Normal heart sounds. No murmur. No friction rub. No gallop. Pulmonary: Effort: Pulmonary effort is normal. Breath sounds: Normal breath sounds. No wheezing or rales. Abdominal: General: Bowel sounds are normal. There is no distension. Palpations: Abdomen is soft. Tenderness: There is no abdominal tenderness. There is no guarding or rebound . Musculoskeletal: Normal range of motion. General: No tenderness. Lymphadenopathy: Cervical: No cervical adenopathy. Skin: General: Skin is warm and dry. Findings: No rash. Neurological: Mental Status: He is alert and oriented to person, place, and time. Cranial Nerves: Facial asymmetry present. No cranial nerve deficit. Sensory: No sensory deficit. Motor: Weakness present. Coordination: Coordination normal. Gait: Gait normal. Deep Tendon Reflexes: Reflexes are normal and symmetric. Comments: Rightward pupil gaze Psychiatric: Speech: Speech normal. Behavior: Behavior normal. Thought Content: Thought content normal. Judgment: Judgment normal. ED Course (Entries in this section may reflect care that occurred after patient hand-off a nd are the responsibility of that provider as indicated by their initials.) Procedures MDM Number of Diagnoses or Management Options Diagnosis management comments: 54 M c/o L sided weakness found to have R basal g anglia bleed at [facility] on Nicardipine. Will d/w neuro/neurosurgery. Admitted to neuro. 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 Critical care time was time spent personally, by me, exclusive of any separately billable procedures, on the following activities: development of treatment plan with patient or surrogate. Discussed with: Neurology Signature: Dusty Mott MD 07/04/20 7908 * Beau Larson RN - 07/04/2020 8:19 PM EST Pt transferred for neuro consult. Fall yesterday. +SDH. Pt arrives Alert and fol lowing commands. Pt arrives on Nicardipine at 7.5mg/hr. documented in this encounter Miscellaneous Notes * Plan of Care - Yoselin Cowan RN - 07/09/2020 3:40 PM EST Problem: Sensory Perception is less than 4 (< 4) Goal: Improve Sensory Perception 07/09/2020 1540 by Yoselin Cowan RN Outcome: Progressing 07/09/2020 1002 by Yoselin Cowan RN Outcome: Progressing Problem: Moisture is less than 4 (< 4) Goal: Eliminate Moisture 07/09/2020 1540 by Yoselin Cowan RN Outcome: Progressing 07/09/2020 1002 by Yoselin Cowan RN Outcome: Progressing Problem: Activity is less than 4 (< 4) Goal: Improve Activity 07/09/2020 1540 by Yoselin Cowan RN Outcome: Progressing 07/09/2020 1002 by Yoselin Cowan RN Outcome: Progressing Problem: Mobility is less than 4 (< 4) Goal: Improve Mobility 07/09/2020 1540 by Yoselin Cowan RN Outcome: Progressing 07/09/2020 1002 by Yoselin Cowan RN Outcome: Progressing Problem: Nutrition is Less than 3 (< 3) Goal: Improve Nutrition 07/09/2020 1540 by Yoselin Cowan RN Outcome: Progressing 07/09/2020 1002 by Yoselin Cowan RN Outcome: Progressing Problem: Friction Shear is less than 3 (< 3) Goal: Eliminate Friction Shear 07/09/2020 1540 by Yoselin Cowan RN Outcome: Progressing 07/09/2020 1002 by Yoselin Cowan RN Outcome: Progressing Problem: Risk for Falls Goal: No falls during hospitalization Description: Patient will not fall during hospitalization. 07/09/2020 1540 by Yoselin Cowan RN Outcome: Progressing 07/09/2020 1002 by Yoselin Cowan RN Outcome: Progressing Problem: Knowledge Deficit Goal: Knowledge - personal safety Description: Patient will verbalize understanding of fall prevention. 07/09/2020 1540 by Yoselin Cowan RN Outcome: Progressing 07/09/2020 1002 by Yoselin Cowan RN Outcome: Progressing Problem: Neurological Deficit Goal: Neurological status is stable or improving Description: Monitor and assess patient's level of consciousness, motor function , sensory function, and level of assistance needed for ADLs. Monitor and report changes from baseline. Collaborate with interdisciplinary team to initiate plan and implement interventions as ordered. Outcome: Progressing Problem: Activity Intolerance/Impaired Mobility Goal: Mobility/activity is maintained at optimum level for patient Description: Assess and monitor patient barriers to mobility and need for chan tive/adaptive devices. Assess patient's emotional response to limitations. Ang maceate with interdisciplinary team and initiate plans and interventions as order ed. Outcome: Progressing Problem: Comorbidity: Increased stroke risk related to hypertension Goal: Blood pressure is within ordered parameters Outcome: Progressing Goal: Knowledge deficit of disease process Outcome: Progressing Goal: Patient's hypertension discharge needs are met Outcome: Progressing Problem: Communication Impairment Goal: Ability to express needs and understand communication Description: Assess patient's communication skills and ability to understand inf ormation. Patient will demonstrate use of effective communication techniques, a lternative methods of communication and understanding even if not able to speak. Outcome: Progressing Problem: Aspiration Precautions Goal: Non-ventilated patient's risk of aspiration is minimized Description: Assess and monitor vital signs, respiratory status, and labs (WBC). Monitor for signs of aspiration (tachypnea, cough, rales, wheezing, cyanosis, fever). Outcome: Progressing Goal: Ventilated patient's risk of aspiration is minimized Description: Assess and monitor vital signs, respiratory status, airway cuff pre ssure, and labs (WBC). Monitor for signs of aspiration (tachypnea, cough, rales , wheezing, cyanosis, fever). Outcome: Progressing Problem: Post Alteplase Bleeding Goal: Patient's risk of bleeding post tPA is minimized within 24 hours post papa tment Outcome: Progressing Problem: Post Alteplase Bleeding Knowledge Deficit Goal: Patient will have increased knowledge of bleeding risk after alteplase lily atment Outcome: Progressing Problem: Nutrition Goal: Nutritional status is improving Description: Monitor and assess patient for malnutrition (ex- brittle hair, brui ses, dry skin, pale skin and conjunctiva, muscle wasting, smooth red tongue, and disorientation). Collaborate with interdisciplinary team and initiate plan and interventions as ordered. Monitor patient's weight and dietary intake as ordere d or per policy. Utilize nutrition screening tool and intervene per policy. Dete rmine patient's food preferences and provide high-protein, high-caloric foods as appropriate. Outcome: Progressing Problem: Comorbidity: Increased stroke risk related to dyslipidemia Goal: Patient cholestrol levels will be monitored Outcome: Progressing Goal: Knowledge deficit on high cholestrol treatment and prevention Outcome: Progressing Goal: Patient's discharge needs are met Outcome: Progressing Problem: Comorbidity: Increased stroke risk related to diabetes mellitus Goal: Clinical indication of glucose balance is achieved Outcome: Progressing Goal: Knowledge deficit of disease process Outcome: Progressing Goal: Patient's discharge needs are met Outcome: Progressing Problem: Comorbidity: Increased stroke risk related to Coronary Artery Disease Goal: Patient will be within ordered blood pressure parameters Outcome: Progressing Goal: Patient will be without knowledge deficits in Cornary Artery Disease treat ment and prevention Outcome: Progressing Goal: Patient's discharge needs are met Outcome: Progressing Problem: Comorbidity: Increased stroke risk related to atrial fibrillation Goal: Maintain heart rate less than 110bpm Outcome: Progressing Goal: Knowledge deficit of disease process Outcome: Progressing Goal: Patient's discharge needs are met Outcome: Progressing * Plan of Yoselin Esquivel RN - 07/09/2020 10:02 AM EST Problem: Sensory Perception is less than 4 (< 4) Goal: Improve Sensory Perception Outcome: Progressing Problem: Moisture is less than 4 (< 4) Goal: Eliminate Moisture Outcome: Progressing Problem: Activity is less than 4 (< 4) Goal: Improve Activity Outcome: Progressing Problem: Mobility is less than 4 (< 4) Goal: Improve Mobility Outcome: Progressing Problem: Nutrition is Less than 3 (< 3) Goal: Improve Nutrition Outcome: Progressing Problem: Friction Shear is less than 3 (< 3) Goal: Eliminate Friction Shear Outcome: Progressing Problem: Risk for Falls Goal: No falls during hospitalization Description: Patient will not fall during hospitalization. Outcome: Progressing Problem: Knowledge Deficit Goal: Knowledge - personal safety Description: Patient will verbalize understanding of fall prevention. Outcome: Progressing * Plan of Yoslein Esquivel RN - 07/08/2020 11:53 AM EST Problem: Sensory Perception is less than 4 (< 4) Goal: Improve Sensory Perception Outcome: Progressing Problem: Moisture is less than 4 (< 4) Goal: Eliminate Moisture Outcome: Progressing Problem: Activity is less than 4 (< 4) Goal: Improve Activity Outcome: Progressing Problem: Mobility is less than 4 (< 4) Goal: Improve Mobility Outcome: Progressing Problem: Nutrition is Less than 3 (< 3) Goal: Improve Nutrition Outcome: Progressing Problem: Friction Shear is less than 3 (< 3) Goal: Eliminate Friction Shear Outcome: Progressing Problem: Risk for Falls Goal: No falls during hospitalization Description: Patient will not fall during hospitalization. Outcome: Progressing Problem: Knowledge Deficit Goal: Knowledge - personal safety Description: Patient will verbalize understanding of fall prevention. Outcome: Progressing * Interim Summary - Leti Richey RN - 07/07/2020 8:08 AM EST Jonatan Bangura transferred to from , and report was given to receiving CM. P atient admitted from Emergency Dept Other Hosp + CPEP Admissn with complaints of Intracranial hemorrhage [I62.9]. Patient Level of Care remains Acute at this [facility]. Jonatan's supports include No data recorded, and they are available to assist the patient with discharge. Decision Maker/HCP: patient Jonatan does not have a complex CM following, and is not on the Difficult to Plac e list. Transfer Agreement: Yes Current discharge plan is rehab, and expected discharge date is 07/11/2020. Barriers to discharge include: No data recorded Jonatan has not been referred in [facility]. Patient transferred from [facility] with nontraumatic likely hypertensiv e intracranial hemorrhage on the right side with subsequent left hemiplegia. Maricel ramirez with h/o ETOH abuse and on CIWA protocol upon admission and previous HCP Leigh duffy and patient A&O yesterday and changed HCP to his brother Jose D Bangura and completed form with [facility]. Patient lives alone and family support is his brother. Home is [address] to enter. Per SW's note previous HCP Renuka asked SW to speak to patient regarding financia l resources available to him as patient may be out of work for some time and pat james was self employed prior to admission. PT/OT recommending PM&R consult for rehab needs at discharge. Benefit check completed. Leti Richey * Assessment & Plan Note - Jordyn Vicente, OT - 07/06/2020 10:49 AM EST Occupational Therapy Acute Care Functional Living Examination Medical Diagnosis: Right basal ganglia ICH left hemiplegia History of Present Illness: per EPIC: "This is a 54-year-old gentleman with past medical history of alcohol and marijuana use disorder who presents to the hospital after being transferred from [facility]. He was transferred after he was found down for an unknown number of hours. The patient reports that he fell down yesterday night without feeling dizzy or lightheaded after he toked a couple of bongs of marijuana. Subsequent to this he was unable to get up and was not able to move his left arm or left leg. He was down for approximately the whole night, and in the morning the next-door neighbor noticed that his dog was outside the house when it was usually inside. Therefore the next her neighbor called the state police, and the state police found him down on the ground. At [facility] he was found to be hypertensive up to the 190s to 200s, and he was given a Cardene drip. A CT of the head revealed that he had significant right basal ganglia hemorrhage with adjacent edema. There was 3 mm of midline shift to the left. A CT angiogram of the brain did not reveal any acute abnormalities. The area of hemorrhage measured 4.7 x 1.9 x 3.6 cm, with an estimated volume of 16-18cm?" Date of Admission: 07/04/2020 8:17:00 PM Demographics: Age: 54 Gender: Male Past Medical History and Radiographics: Significant rehabilitation considerations: Past Medical History: DiagnosisDate ETOH abuse? ? Past Surgical History: Has had nephrectomy Rehabilitation Precautions/Restrictions: High fall risk OOB as tolerated SBH<140 SUBJECTIVE Premorbid Level of Activities of Daily Living: Pt reports he was independent with ADLs. Remains active. Independent with all IADLs. +drives. Has two dogs at home that he cares for. 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 . If needed: Family member is willing to assist. reports his 13 year old son may be able to assist some. Brother is able to assist some- self employed contractor. Home Environment: There are 4 steps to enter the home with Right ascending handrails. There is no ramp to enter the home. Home is a single level. Description of bed and bathroom accessibility: tub/shower combo. Regular height toilet. Regular flat bed. . one 5inch step down to living room Equipment Owned: None. Pain: Patient has no complaints of pain currently. Pain Medication Today: yes. OBJECTIVE General Observation: Pt sidelying to the R, +tele, +pulse ox, +BP cuff, NAD No bed alarm noted at start of session. Vital Signs: Stable. Heart Rate: 74 beats per minute Oxygen Saturation: 96 % Blood Pressure: 140/77 mm Hg UPPER EXTREMITY FUNCTION Hand Dominance: right. Range of Motion: RUE AROM within functional limits, LUE PROM within functional limits Strength: RUE grossly 5/5, L shoulder 2+/5, L elbow flexion 3/5, elbow extension 4/5 Skin Integrity Screen: visualized skin intact. Endurance: good (-). Tone/Spasticity: No relevant impairments. Sensation: all sensation intact to R side. Absent light touch. Pt does not recognize painful stimuli, however pulls away reporting "My toe is cramping", intact proprioception proximally, impairments apparent moving distally. Edema: Left hand edema- Moderate. LOWER EXTREMITY FUNCTION: BLE ROM and strength grossly within functional limits, L foot with decreased coordination Cognitive Screen: Responsiveness: Alert. Orientation: oriented to self, place. knows the month and year- states that its Friday the . Following Commands: Able to follow 2 step commands. Memory: Normal. Recalls names and information from earlier in day and within session Communications: Pt is able to verbally communicate all wants/needs Executive Function: Pt demonstrates some decreased insight . Attention: Normal. Cognitive Test Score: Not tested. Vision Screen: reports corrective lenses for "small print" at baseline. Visually tracks to all planes, able to maintain gaze stabilization. Noted to have L sided inattention vs. fieldcut Perception: Perception impaired with today's examination as follows: Body neglect. Functional Mobility: Functional bed mobility with CGA supine to sit, sit to supine. Functional transfers and mobility with CGA, cues for avoiding obstacles Fine Motor Coordination: Fine motor coordination of the left hand is impaired. Gross Motor Coordination: Left upper extremity gross motor coordination is impaired Balance: fair+ standing balance Activities of Daily Living: Feeding: Supervision. Observed patient during task. assist to open items Grooming: Supervision. Observed patient during task. Bathing - Upper Body: Minimal assistance. Observed patient during task. simulated Bathing - Lower Body: Minimal assistance. Observed patient during task. simulated Upper Body Dressing: Minimal Assistance. Observed patient during task. Lower Body Dressing: Moderate assistance. Observed patient during task. Toileting: Minimal assistance. Observed patient during task. simulated Toilet Transfer: Contact guard assistance. Observed patient during task. Outcome Measure: [facility] "6 Clicks" Daily Activity Inpatient Short Form: Putting on and taking off regular lower body clothing: A lot of assistance (2) Bathing (including washing, rinsing, and drying): A little assistance (3) Toileting (including use of toilet, bedpan, or urinal): A little assistance (3) Putting on and taking off regular upper body clothing: A little assistance (3) Taking care of personal grooming such as brushing teeth: A little assistance (3) Eating meals: A little assistance (3) Raw Score: 17 /24 Interventions: None provided today. Splinting: No splint issued today. Education: Educational needs: Role of OT, treatment plan, ADL retraining, stroke, task modifications, compensatory techniques, safety, transfer training, discharge recommendations Barriers to Learning: Visual deficits. Learning Preference: Auditory. Demonstration. Visual. Mode of education provided: Demonstration. Explanation. Audience: Patient. Education Provided: Role of OT, treatment plan, ADL retraining, stroke, task modifications, compensatory techniques, safety, transfer training, discharge recommendations . Response: Needs practice/reinforcement. ASSESSMENT Moderate Complexity Evaluation: An occupational profile and medical and therapy history, which includes an expanded review of medical and/or therapy records and additional review of physical, cognitive, or psychosocial history related to current functional performance. An assessment(s) that identifies 3-5 performance deficits (i.e., relating to physical, cognitive, and psychosocial skills) that result in activity limitations and/or participation restrictions. Patient may present with comorbidities that affect occupational performance. Minimal to moderate modification of tasks or assistance (i.e., physical or verbal) with assessment(s) is necessary to enable patient to complete evaluation component. Clinical decision-making of moderate analytic complexity which includes an analysis of the occupational profile, analysis of data from detailed assessment(s), and consideration of several treatment options. Response to Evaluation: The session was tolerated well. pt reports fatigue, but pleasant and cooperative throughout. Call oquendo was in patient's reach at end of session. Pain: Patient has no complaints of pain currently. Strengths: Independent premorbid function. Goals: Patient's functional goals: to get better, to go home The patient's therapy goals are based on limitations/impairments in the following areas: ADLs / IADLs. Short Term Goals: 1. Pt will complete UB dressing tasks with supervision within two weeks. 2. Pt will demonstrate improved visual scanning techniques by ability to complete grooming tasks with only two verbal cues within two weeks. Assisted Goals: 1. Pt will complete dressing tasks with modified independence within four weeks. 2. Pt with complete all toileting tasks with modified independence within four weeks. 3. Pt will complete ADL routine with no verbal cues for compensatory techniques within four weeks. PLAN Treatment Frequency, Duration and Interventions: Restorative Occupational Therapy recommended for 5x/week for 4 weeks. Treatment is to include: Development of Cognitive Skills. Neuromuscular Re-education. Self Care/Home Management. Therapeutic Activity. Therapeutic Exercise. Equipment Provided: None issued this visit. Equipment Recommended: To be assessed. Recommended Occupational Therapy Follow Up: Upon acute care discharge, the following is currently recommended: Anticipate patient will have inpatient rehab needs beyond the acute stay. Recommended Consults: PM and R Consult. Development of Plan of Care: Participants included: Patient. Nurse. Goal Review Visit Number: 1 Visit Number: Today's visit is number 1 Program: Stroke (Therapist may be reached on [facility] [facility]) SESSION: Duration: 45 CHARGES: - 0 Units - 0 Units - 0 Units - 0 Units 16651 - CHARGE - OT EVAL; MODERATE COMLEXITY 3 Units - ORDER - Occupational Therapy Treatment 1 Units - ORDER - OCCUPATIONAL THERAPY CONSULT 1 Units - STROKE VISIT 1 Units Total treatment minutes: 45.00 Minutes Electronically Signed by: ROSALBA Carrizales/Leigh Ann, 07/06/2020 2:07:35 PM * Assessment & Plan Note - Lita Hernandez, PT - 07/06/2020 10:49 AM EST Physical Therapy Acute Care ICU Examination Medical Diagnosis: 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 History of Present Illness: Per Epic: "This is a 54-year-old gentleman with past medical history of alcohol and marijuana use disorder who presents to the hospital after being transferred from [facility]. He was transferred after he was found down for an unknown number of hours. The patient reports that he fell down yesterday night without feeling dizzy or lightheaded after he toked a couple of bongs of marijuana. Subsequent to this he was unable to get up and was not able to move his left arm or left leg. He was down for approximately the whole night, and in the morning the next-door neighbor noticed that his dog was outside the house when it was usually inside. Therefore the next her neighbor called the state police, and the state police found him down on the ground. At [facility] he was found to be hypertensive up to the 190s to 200s, and he was given a Cardene drip. A CT of the head revealed that he had significant right basal ganglia hemorrhage with adjacent edema. There was 3 mm of midline shift to the left. A CT angiogram of the brain did not reveal any acute abnormalities. The area of hemorrhage measured 4.7 x 1.9 x 3.6 cm, with an estimated volume of 16-18cm?" Date of Onset: as described above Date of Admission: 07/04/2020 8:17:00 PM Demographics: Age: 54 Gender: Male Past Medical History and Radiographics: Significant rehabilitation considerations: Past Medical History: DiagnosisDate ?ETOH abuse? ? ? Past Surgical History: Has had nephrectomy Rehabilitation Precautions/Restrictions: OOB as tolerated, SBP <140 mmHg, high fall risk, Oxygen goal O2Sat>94%, swallow/aspiration precaution SUBJECTIVE Mental Status: Responsiveness:Alert. Orientation:Pt oriented to location, grossly to date requiring minor cuing, to situation, and to self Following Commands: Able to follow 2 step commands. Arouses to: WNL. Prior Functional Level: The patient reported the premorbid level of function was independent with ADL's and iADL's. Active- finishing [employer] wall the day before the stroke. Drives. Occupation: Works in [employer] Social History: Patient lives alone. . If needed: Family member is willing to assist. Pt reporting that his brother could assist him if needed but he does work Home Environment: There are 4 steps to enter the home with Right ascending handrails. There is no ramp to enter the home. Home is a single level. Description of bed and bathroom accessibility: full bathroom and bedroom. (+)1 Step up into kitchen (+)flat bed (+)tub shower . Equipment Owned: None. Pain: Patient has no complaints of pain currently. Pain Medication Today: yes. OBJECTIVE General Observation: Pt presents supine in bed with HOB elevated in NAD (+)PIV (+)Tele No bed alarm noted at start of session. Position: The position of the patient upon entering the room was: Head of bed elevated 30 degrees. Vital Signs: Stable. Blood Pressure: 140/77 mm Hg Heart Rate: 72 beats per minute Oxygen Saturation: 96 % Lines, Tubes, and Drains: Intact. Skin Integrity Screen: swelling/redness observed to L hand/arm Tone: No relevant impairments. Range of Motion: PROM to BUE and BLE intact Strength: BLE 4+/5 into hip flexion, knee extension, knee flexion, and ankle dorsiflexion. L shoulder flexion 2+/5 L elbow flexion 3/5 L elbow extension 4/5 Edema: Left hand edema- Minimal. Functional Mobility: Bed Mobility:Patient moves from supine to/from sit requiring contact guard assistance. to steady trunk and prevent backwards loss of balance Transfers:Patient transferred sit to/from stand requiring minimal assistance of 1 person. Patient used the following equipment: Transfer belt. Patient used the following equipment: Bed rails. Locomotion/Wheelchair: Not applicable for this patient at this time. Locomotion/Gait/Ambulation: Patient was moderate assist with gait/ambulation of 1 person for approximately 75 ft . Patient requires the following assistive device(s): Gait belt. Narrow base of support, L lateral path deviations, small step lengths, poor body awareness/awareness of surroundings, requiring assistance to visually scan to prevent pt from running into objects Pulmonary Status: Within normal limits. Neuromotor: WNL. Sensation: Detailed Sensation: Intact sensation to RUE and RLE. Absent light touch sensation to LUE and LLE. Pt not recognizing noxious stimuli on LUE or LLE however noticed to withdraw from noxious stimuli at nail beds on foot and hand. Pt reporting "my toes cramping" when asked what was going on with his foot after withdrawing from noxious. Pt not recognizing noxious stimuli at nail beds at all. Endurance: good. Balance: fair. Outcome Measures: [facility] "6 Clicks" Basic Mobility Inpatient Short Form: Turning over in bed: No difficulty (4) Sitting down on and standing up from a chair with arms: Unable to perform (1) Moving from lying on back to sitting on the side of the bed: Unable to perform (1) Moving to and from a bed to a chair (including a wheelchair): A lot of help (2) Walking in hospital room: A lot of help (2) Climbing 3-5 steps with a railing: A lot of help (2) Raw Score 12 /24. Interventions: None provided today. Education: Educational needs: importance of mobility, role of acute PT, PT plan of care, safe mobility, impairments associated with his stroke, purpose/benefits of rehab Barriers to Learning: No barriers. Learning Preference: Auditory. Mode of education provided: Explanation. Audience: Patient. Education Provided: importance of mobility, role of acute PT, PT plan of care, safe mobility, impairments associated with his stroke, purpose/benefits of rehab . Response: Needs practice/reinforcement. Requires cues (auditory/physical). Indicates understanding. ASSESSMENT Moderate Complexity Evaluation: A history of present problem with 1-2 personal factors and/or comorbidities that impact the plan of care. An examination of body system(s) using standardized tests and measures addressing a total of 3 or more elements from any of the following: body structures and functions, activity limitations, and/or participation restrictions. An evolving clinical presentation with changing characteristics. Clinical decision-making of moderate complexity using standardized patient assessment instrument and/or measurable assessment of functional outcome. Response to Evaluation: The session was tolerated well. Patient reported fatigue Pt reporting understanding of his deficits and demonstrated good memory of things told to him. Pt with some neglect and reduced proprioception to L side that is seemingly worse at distal aspects of UE&LE then proximal aspect. Pt also with potential visual deficits on the L side. Call oquendo was in patient's reach at end of session. Pain: Patient has no complaints of pain currently. Other Rehabilitation Considerations: Patient's progress may be impaired by the following potential barriers: No potential barriers to progress. Support Structure: Support structure is fair. Strengths: Independent premorbid function. Goals: Patient's functional goals: to go home The patient's therapy goals are based on limitations/impairments in the following areas: Balance. Bed Mobility. Gait. Stairs/Curbs/Environmental barrier negotiation. Strength. Transfers. Short Term Goals: 1. Pt will be able to perform all bed mobility independently in 2 weeks 2. Pt will be able to perform all transfers independently in 2 weeks [facility] Manager Goals: 1. Pt will be able to ambulate 400 ft independently in 4 weeks 2. Pt will be able to ascend/descend 4 stairs with modified independence and use of unilateral handrail in 4 weeks PLAN Treatment Frequency, Duration and Interventions: Restorative Physical Therapy is recommended for 5x/wk for 4 weeks Treatment is to include: Gait Training. Neuromuscular Re-education. Therapeutic Activity. Therapeutic Exercise. Self Care/Home Management. Equipment Provided: None issued this visit. Equipment Recommended: None. Recommended Physical Therapy Follow Up: Upon acute care discharge, the following is currently recommended: Anticipate patient will have inpatient rehab needs beyond the acute stay. Recommended Consults: PM and R Consult. Development of Plan of Care: Participants included: Nurse. Patient. Goal Review Visit Number: 1 Visit Number: Today's visit is number 1 Program: Stroke (Therapist may be reached on [employer]) SESSION: Duration: 45 CHARGES: - 0 Units - 0 Units - 0 Units - 0 Units 03573 - CHARGE - PT EVAL; MODERATE COMPLEXITY 3 Units - ORDER - Physical Therapy Treatment 1 Units - ORDER - PHYSICAL THERAPY CONSULT 1 Units - STROKE VISIT 1 Units Total treatment minutes: 45.00 Minutes Electronically Signed by: Lita Hernandez PT, DPT, 07/06/2020 12:14:53 PM * Plan of Care - Betsy Cote RN - 07/06/2020 12:33 AM EST Problem: Sensory Perception is less than 4 (< 4) Goal: Improve Sensory Perception 07/06/202032 by Betsy Cote RN Outcome: Progressing 07/06/202029 by Betsy Cote RN Outcome: Progressing Problem: Moisture is less than 4 (< 4) Goal: Eliminate Moisture 07/06/202032 by Betsy Cote RN Outcome: Progressing 07/06/2020 003 by Betsy Cote RN Outcome: Progressing Problem: Activity is less than 4 (< 4) Goal: Improve Activity 07/06/202032 by Betsy Cote RN Outcome: Progressing 07/06/202029 by Betsy Cote RN Outcome: Progressing Problem: Mobility is less than 4 (< 4) Goal: Improve Mobility 07/06/202032 by Betsy Cote RN Outcome: Progressing 07/06/202029 by Betsy Cote RN Outcome: Progressing Problem: Nutrition is Less than 3 (< 3) Goal: Improve Nutrition 07/06/202032 by Betsy Cote RN Outcome: Progressing 07/06/202029 by Betsy Cote RN Outcome: Progressing Problem: Friction Shear is less than 3 (< 3) Goal: Eliminate Friction Shear 07/06/202032 by Betsy Cote RN Outcome: Progressing 07/06/202029 by Betsy Cote RN Outcome: Progressing Problem: Risk for Falls Goal: No falls during hospitalization Description: Patient will not fall during hospitalization. 07/06/202032 by Betsy Cote RN Outcome: Progressing 07/06/202029 by Betsy Cote RN Outcome: Progressing Problem: Knowledge Deficit Goal: Knowledge - personal safety Description: Patient will verbalize understanding of fall prevention. 07/06/202032 by Betsy Cote RN Outcome: Progressing 07/06/202029 by Betsy Cote RN Outcome: Progressing * Benefit Check - Ligia Lacy - 07/05/2020 12:16 PM EST [facility] Acute - $150 co pay. [facility] - $150 co pay. [facility], [facility] Home health - $15 copay. [facility] home health Home infusion - 100% coverage. [facility], [employer], [facility] dme - 95% coverage. gulshan Jonas, [facility] * Plan of Care - Marlyn Burr RN - 07/04/2020 11:24 PM EST Problem: Sensory Perception is less than 4 (< 4) Goal: Improve Sensory Perception Outcome: Progressing Problem: Moisture is less than 4 (< 4) Goal: Eliminate Moisture Outcome: Progressing Problem: Activity is less than 4 (< 4) Goal: Improve Activity Outcome: Progressing Problem: Mobility is less than 4 (< 4) Goal: Improve Mobility Outcome: Progressing Problem: Nutrition is Less than 3 (< 3) Goal: Improve Nutrition Outcome: Progressing Problem: Friction Shear is less than 3 (< 3) Goal: Eliminate Friction Shear Outcome: Progressing documented in this encounter Plan of Treatment Order Schedule Name Type Priority Associated Diag noses Daily for 30 Days starting 07/05/2020 un til 2020, 8 completed CBC Lab Routine Order Schedule Name Type Priority Associated Diag noses Ordered: 07/12/2020 Referral to home health Outpatient Routine Intrac ranial hemorrhage Referral Ordered: 07/12/2020 REFERRAL TO DME, EXTERNAL Outpatient Routine Intr acranial hemorrhage ONLY Referral Health Maintenance Due Date Last Done Comments [...] PPSV23) Hepatitis C Screening (B. Completed 07/05/2020, [id number]) 07/05/2020 HIB Vaccines Aged Out No longer [...] Procedure Name Priority Date/Time Associated Diag nosis CBC Routine 07/12/2020 3:27 AM EST COVID-19 PCR Routine 07/11/2020 9:29 AM EST CBC Routine 07/11/2020 6:00 AM EST CBC Routine 07/10/2020 4:48 AM EST CBC Routine 07/09/2020 5:55 AM EST POCT GLUCOSE, DOCKED Routine 07/08/2020 8:43 AM EST CBC Routine 07/08/2020 5:29 AM EST COMPREHENSIVE METABOLIC Routine 07/08/2020 PANEL 5:29 AM EST CBC Routine 07/07/2020 3:42 AM EST COMPREHENSIVE METABOLIC Routine 07/07/2020 PANEL 3:42 AM EST CBC Routine 07/06/2020 6:18 AM EST CK Routine 07/06/2020 6:18 AM EST COMPREHENSIVE METABOLIC Routine 07/06/2020 PANEL 6:18 AM EST CK Timed 07/06/2020 1:17 AM EST CK Timed 07/05/2020 6:25 PM EST MR BRAIN WITH AND WITHOUT Routine 07/05/2020 CONTRAST [id number] 5:48 PM EST ECHOCARDIOGRAM 2D Routine 07/05/2020 COMPLETE 1:37 PM EST CK Timed 07/05/2020 11:51 AM EST COMPREHENSIVE METABOLIC Timed 07/05/2020 PANEL 11:[address] CERVICAL SPINE WITHOUT Routine 07/05/2020 CONTRAST 13391 8:[address] HEAD WITHOUT CONTRAST Routine 07/05/2020 44238 8:17 AM EST CBC Routine 07/05/2020 6:09 AM EST CK Timed 07/05/2020 6:09 AM EST COMPREHENSIVE METABOLIC Timed 07/05/2020 PANEL 6:[address] HEAD WITHOUT CONTRAST STAT 07/05/2020 52746 1:15 AM EST RESPIRATORY PATHOGEN Routine 07/05/2020 PANEL 12:49 AM EST COVID-19 PCR Routine 07/05/2020 12:49 AM EST HEPATITIS C ANTIBODY Routine 07/05/2020 12:03 AM EST CK Timed 07/05/2020 12:03 AM EST COMPREHENSIVE METABOLIC Timed 07/05/2020 PANEL 12:03 AM EST METABOLIC PANEL, Routine 07/04/2020 COMPREHENSIVE 8:40 PM EST PARTIAL THROMBOPLASTIN Routine 07/04/2020 TIME (PTT) 8:40 PM EST PROTIME INR Routine 07/04/2020 8:40 PM EST CBC AND DIFFERENTIAL Routine 07/04/2020 8:40 PM EST TSH Routine 07/04/2020 8:40 PM EST HEMOGLOBIN A1C Routine 07/04/2020 8:40 PM EST CK Routine 07/04/2020 8:40 PM EST LIPID PANEL Routine 07/04/2020 8:40 PM EST documented in this encounter Results * CBC (07/12/2020 3:27 AM EST) White Blood 7.1 4 - 10 10*3/uL [facility] Clin Pathology Red Blood Cell 3.88 (L) 4.6 - 6.1 10*6/uL [facility] Clin Pathology Hemoglobin 12.8 (L) 13.5 - 18 g/dL [facility] Clin Pathology Hematocrit 35.9 (L) 41 - 53 % [facility] Clin Pathology Mean Cell 92.6 80 - 96 fL [facility] Volume Med Univ Clin Pathology Mean Cell 32.9 27 - 33 pg [facility] Hemoglobin Med Univ Clin Pathology Mean Cell Hgb 35.5 32.0 - 36.0 g/dL [facility] Conc [facility] Clin Pathology Red Cell Dist 12.7 11.5 - 14.5 % [facility] Width [facility] Clin Pathology Platelet Count 197 150 - 400 10*3/uL [facility] Clin Pathology Specimen EDTA Whole Blood Performing Organization Address City/[facility] Ph one Number [facility] CLINICAL [address] [place], [place] [address] PATHOLOGY [facility] [address] [place], [place] [address] Clin Pathology * COVID-19 PCR (07/11/2020 9:29 AM EST) Specimen Nasopharyngeal Swab [facility] Description CLINICAL PATHOLOGY SARS CoV-2 2019 nCoV Real-Time RT-PCR: 2019 nCoV Real-Julius e [facility] NOT DETECTED RT-PCR: NOT DETECTED Med [facility] Clin Pathology Assay performed Test performed using [facility] Sim[facility] COVID-19 Direct [facility] Clin Assay. This test is only for Pathology use under Food and Drug Administration's Emergency Use Authorization. Additional information is available on the following FDA websites for healthcare providers and patients. https://www.fda.gov/media/0587 20/download, https://www.fda.gov/media/1341 21/download First COVID-19 NO [facility] Test? CLINICAL PATHOLOGY Employed in NO [facility] CLINICAL setting? PATHOLOGY Symptomatic for NO [facility] COVID-19 as CLINICAL defined by CDC? PATHOLOGY Date of symptom UNKNOWN [facility] onset? CLINICAL ([id number]) PATHOLOGY Hospitalized NO [facility] for COVID-19? CLINICAL PATHOLOGY Admitted to ICU UNKNOWN [facility] for COVID-19? CLINICAL PATHOLOGY Resident in a NO [facility] CLINICAL (group) care PATHOLOGY setting? ? UNKNOWN [facility] CLINICAL PATHOLOGY Specimen Nasopharyngeal Swab Performing Organization Address [facility] Number [facility] [address] [place], [place] [address] [address] Clin Pathology * CBC (07/11/2020 6:00 AM EST) White Blood 6.9 4 - 10 10*3/uL [facility] Clin Pathology Red Blood Cell 3.96 (L) 4.6 - 6.1 10*6/uL [facility] Clin Pathology Hemoglobin 13.1 (L) 13.5 - 18 g/dL [facility] Clin Pathology Hematocrit 36.8 (L) 41 - 53 % [facility] Clin Pathology Mean Cell 93.0 80 - 96 fL [facility] Clin Pathology Mean Cell 33.0 27 - 33 pg [facility] Clin Pathology Mean Cell Hgb 35.5 32.0 - 36.0 g/dL [facility] Clin Pathology Red Cell Dist 12.7 11.5 - 14.5 % [facility] Clin Pathology Platelet Count 178 150 - 400 10*3/uL [facility] Clin Pathology Specimen EDTA Whole Blood Performing Organization Address City[facility] Ph one Number [facility] [address], [place] [address] [address] 10 Clin Pathology * CBC (07/10/2020 4:48 AM EST) White Blood 9.6 4 - 10 10*3/uL [facility] Univ Clin Pathology Red Blood Cell 4.05 (L) 4.6 - 6.1 10*6/uL [facility] Clin Pathology Hemoglobin 13.5 13.5 - 18 g/dL [facility] Clin Pathology Hematocrit 38.2 (L) 41 - 53 % [facility] Clin Pathology Mean Cell 94.2 80 - 96 fL [facility] Univ Clin Pathology Mean Cell 33.2 (H) 27 - 33 pg [facility] Hemoglobin Med Univ Clin Pathology Mean Cell Hgb 35.2 32.0 - 36.0 g/dL [facility] Univ Clin Pathology Red Cell Dist 13.0 11.5 - 14.5 % [facility] Clin Pathology Platelet Count 154 150 - 400 10*3/uL [facility] Clin Pathology Specimen EDTA Whole Blood Performing Organization Address [facility] Ph one Number [facility] CLINICAL [address], [place] [address] PATHOLOGY [facility] [address] [place], [place] [address] 10 Clin Pathology * CBC (07/09/2020 5:55 AM EST) White Blood 9.0 4 - 10 10*3/uL [facility] Clin Pathology Red Blood Cell 4.34 (L) 4.6 - 6.1 10*6/uL [facility] Clin Pathology Hemoglobin 14.3 13.5 - 18 g/dL [facility] Clin Pathology Hematocrit 40.8 (L) 41 - 53 % [facility] Clin Pathology Mean Cell 94.0 80 - 96 fL [facility] Volume [facility] Clin Pathology Mean Cell 32.9 27 - [address] [facility] Clin Pathology Mean Cell Hgb 35.0 32.0 - 36.0 g/dL [facility] Clin Pathology Red Cell Dist 13.0 11.5 - 14.5 % [facility] Pathology Platelet Count 153 150 - 400 10*3/uL [facility] Pathology Specimen EDTA Whole Blood Performing Organization Address [facility] Ph one Number [facility] CLINICAL [address], [place] [address] PATHOLOGY [facility] [address] [place], [place] [address] 10 Clin Pathology * POCT glucose, docked (07/08/2020 8:43 AM EST) POC Glucose 99 70 - 140 mg/dL [facility] POC Specimen Whole Blood Performing Organization Address [facility] Ph one Number POINT OF CARE TEST [address] [place] [address] [facility] POC [address] [place] [address] * Comprehensive Metabolic Panel (07/08/2020 5:29 AM EST) Albumin 3.9 3.5 - 5.2 g/dL [facility] PATHOLOGY Bilirubin, 0.8 <1.2 mg/dL [facility] Total CLINICAL PATHOLOGY Calcium 9.5 8.6 - 10.0 mg/dL [facility] CLINICAL PATHOLOGY Chloride 102 98 - 107 mmol/L [facility] CLINICAL PATHOLOGY Creatinine 1.23 (H) 0.70 - 1.20 mg/dL [facility] CLINICAL PATHOLOGY Glucose 96 70 - 140 mg/dL [facility] CLINICAL PATHOLOGY Alkaline 92 40 - 129 U/L [facility] Phosphatase CLINICAL PATHOLOGY Potassium 4.2 3.4 - 5.1 mmol/L [facility] PATHOLOGY Total Protein 7.0 6.4 - 8.3 g/dL [facility] CLINICAL PATHOLOGY Sodium 137 136 - 145 mmol/L [facility] CLINICAL PATHOLOGY AST/SGO 27 <40 U/L [facility] PATHOLOGY Blood Urea 11 6 - 20 mg/dL [facility] Nitrogen CLINICAL PATHOLOGY Osmolality, Osman 283 275 - 300 mosm/kg [facility] PATHOLOGY BUN/Cre Ratio 9 [facility] CLINICAL PATHOLOGY Bicarbonate 24 22 - 29 mmol/L [facility] PATHOLOGY ALT/SGP 32 <41 U/L [facility] PATHOLOGY Anion Gap 11 8 - 15 mmol/L [facility] CLINICAL PATHOLOGY GFR Non 64 >60 mL/min/1.73m2 [facility] 2008 CLINICAL CDK-EPI PATHOLOGY GFR 75 >60 mL/min/1.73m2 [facility] 2008 CLINICAL CKD-EPI PATHOLOGY Specimen Plasma Performing Organization Address [facility] Ph one Number [facility] CLINICAL [address] [place] [address] PATHOLOGY * CBC (07/08/2020 5:29 AM EST) White Blood 8.3 4 - 10 10*3/uL [facility] Univ Clin Pathology Red Blood Cell 4.32 (L) 4.6 - 6.1 10*6/uL [facility] Clin Pathology Hemoglobin 14.3 13.5 - 18 g/dL [facility] Clin Pathology Hematocrit 41.2 41 - 53 % [facility] Clin Pathology Mean Cell 95.3 80 - 96 fL [facility] Univ Clin Pathology Mean Cell 33.1 (H) 27 - 33 pg [facility] Hemoglobin Med Univ Clin Pathology Mean Cell Hgb 34.8 32.0 - 36.0 g/dL [facility] Univ Clin Pathology Red Cell Dist 13.0 11.5 - 14.5 % [facility] Width [facility] Clin Pathology Platelet Count 144 (L) 150 - 400 10*3/uL [facility] Clin Pathology Specimen EDTA Whole Blood Performing Organization Address [facility] Ph one Number [facility] CLINICAL [address], [place] [address] PATHOLOGY [facility] [address], [place] [address] 10 Clin Pathology * Comprehensive Metabolic Panel (07/07/2020 3:42 AM EST) Albumin 3.5 3.5 - 5.2 g/dL [facility] CLINICAL PATHOLOGY Bilirubin, 0.7 <1.2 mg/dL [facility] Total CLINICAL PATHOLOGY Calcium 8.8 8.6 - 10.0 mg/dL [facility] CLINICAL PATHOLOGY Chloride 106 98 - 107 mmol/L [facility] PATHOLOGY Creatinine 1.18 0.70 - 1.20 mg/dL [facility] PATHOLOGY Glucose 96 70 - 140 mg/dL [facility] CLINICAL PATHOLOGY Alkaline 82 40 - 129 U/L [facility] Phosphatase CLINICAL PATHOLOGY Potassium 3.9 3.4 - 5.1 mmol/L [facility] PATHOLOGY Total Protein 6.2 (L) 6.4 - 8.3 g/dL [facility] CLINICAL PATHOLOGY Sodium 137 136 - 145 mmol/L [facility] CLINICAL PATHOLOGY AST/SGO 30 <40 U/L [facility] PATHOLOGY Blood Urea 9 6 - 20 mg/dL [facility] CLINICAL PATHOLOGY Osmolality, Osman 282 275 - 300 mosm/kg [facility] CLINICAL PATHOLOGY BUN/Cre Ratio 7 [facility] CLINICAL PATHOLOGY Bicarbonate 23 22 - 29 mmol/L [facility] PATHOLOGY ALT/SGP 34 <41 U/L [facility] PATHOLOGY Anion Gap 8 8 - 15 mmol/L [facility] CLINICAL PATHOLOGY GFR Non 68 >60 mL/min/1.73m2 [facility] [place] 2008 CLINICAL CDK-EPI PATHOLOGY GFR 79 >60 mL/min/1.73m2 [facility] 2009 CLINICAL CKD-EPI PATHOLOGY Specimen Plasma Performing Organization Address [facility] Ph one Number [facility] CLINICAL [address], [place] [address] PATHOLOGY * CBC (07/07/2020 3:42 AM EST) White Blood 6.2 4 - 10 10*3/uL [facility] Cell [facility] Clin Pathology Red Blood Cell 4.00 (L) 4.6 - 6.1 10*6/uL [facility] Clin Pathology Hemoglobin 13.3 (L) 13.5 - 18 g/dL [facility] Clin Pathology Hematocrit 37.9 (L) 41 - 53 % [facility] Clin Pathology Mean Cell 94.8 80 - 96 fL [facility] Volume [facility] Clin Pathology Mean Cell 33.3 (H) 27 - 33 pg [facility] Hemoglobin [facility] Univ Clin Pathology Mean Cell Hgb 35.2 32.0 - 36.0 g/dL [facility] Conc [facility] Clin Pathology Red Cell Dist 13.7 11.5 - 14.5 % [facility] Width [facility] Clin Pathology Platelet Count 142 (L) 150 - 400 10*3/uL [facility] Clin Pathology Specimen EDTA Whole Blood Performing Organization Address [facility] Ph one Number [facility] CLINICAL [address] [place] [address] [address] 132 10 Clin Pathology * CK (07/06/2020 6:18 AM EST) CK 281 (H) 20 - 200 U/L [facility] PATHOLOGY Specimen Plasma Performing Organization Address [facility] Ph one Number [address] 1321 PATHOLOGY * Comprehensive Metabolic Panel (07/06/2020 6:18 AM EST) Albumin 3.5 3.5 - 5.2 g/dL [facility] PATHOLOGY Bilirubin, 0.7 <1.2 mg/dL [facility] Total CLINICAL PATHOLOGY Calcium 8.3 (L) 8.6 - 10.0 mg/dL [facility] CLINICAL PATHOLOGY Chloride 109 (H) 98 - 107 mmol/L [facility] PATHOLOGY Creatinine 1.22 (H) 0.70 - 1.20 mg/dL [facility] CLINICAL PATHOLOGY Glucose 93 70 - 140 mg/dL [facility] PATHOLOGY Alkaline 85 40 - 129 U/L [facility] Phosphatase CLINICAL PATHOLOGY Potassium 3.7 3.4 - 5.1 mmol/L [facility] CLINICAL PATHOLOGY Total Protein 6.0 (L) 6.4 - 8.3 g/dL [facility] CLINICAL PATHOLOGY Sodium 142 136 - 145 mmol/L [facility] CLINICAL PATHOLOGY AST/SGO 31 <40 U/L [facility] CLINICAL PATHOLOGY Blood Urea 11 6 - 20 mg/dL [facility] CLINICAL PATHOLOGY Osmolality, Osman 294 275 - 300 mosm/kg [facility] CLINICAL PATHOLOGY BUN/Cre Ratio 9 [facility] CLINICAL PATHOLOGY Bicarbonate 24 22 - 29 mmol/L [facility] CLINICAL PATHOLOGY ALT/SGP 34 <41 U/L [facility] PATHOLOGY Anion Gap 9 8 - 15 mmol/L [facility] CLINICAL PATHOLOGY GFR Non 65 >60 mL/min/1.73m2 [facility] 2008 CLINICAL CDK-EPI PATHOLOGY GFR 75 >60 mL/min/1.73m2 [facility] 2008 CLINICAL CKD-EPI PATHOLOGY Specimen Plasma Performing Organization Address [facility] Ph one Number [facility] [address], [place] [address] PATHOLOGY * CBC (07/06/2020 6:18 AM EST) White Blood 6.8 4 - 10 10*3/uL [facility] Cell [facility] Univ Clin Pathology Red Blood Cell 4.08 (L) 4.6 - 6.1 10*6/uL [facility] Clin Pathology Hemoglobin 13.6 13.5 - 18 g/dL [facility] Clin Pathology Hematocrit 38.5 (L) 41 - 53 % [facility] Clin Pathology Mean Cell 94.4 80 - 96 fL [facility] Volume [facility] Univ Clin Pathology Mean Cell 33.3 (H) 27 - 33 pg [facility] Hemoglobin [facility] Univ Clin Pathology Mean Cell Hgb 35.3 32.0 - 36.0 g/dL [facility] Clin Pathology Red Cell Dist 13.0 11.5 - 14.5 % [facility] Width [facility] Univ Clin Pathology Platelet Count 149 (L) 150 - 400 10*3/uL [facility] Clin Pathology Specimen EDTA Whole Blood Performing Organization Address [facility] Ph one Number [facility] CLINICAL [address], [place] [address] PATHOLOGY [facility] [address], [place] [address] 10 Clin Pathology * CK (07/06/2020 1:17 AM EST) CK 363 (H) 20 - 200 U/L [facility] CLINICAL PATHOLOGY Specimen Plasma Performing Organization Address [facility] one Number [facility] CLINICAL [address], [place] 1321 PATHOLOGY * CK (07/05/2020 6:25 PM EST) CK 454 (H) 20 - 200 U/L [facility] CLINICAL PATHOLOGY Specimen Plasma Performing Organization Address [facility] one Number [facility] CLINICAL [address], [place] [address] PATHOLOGY * MR Brain with and without Contrast (07/05/2020 5:48 PM EST) Specimen Impressions Performed At IMPRESSION: Acute right basal ganglia hematoma. No ev idence of an underlying [facility] RAD[facility] mass on the current examination. Howeve r a repeat MRI is recommended upon resolution of the blood byproducts. Narrative Performed At [facility] RAD[facility] HISTORY: Rule out underlying mass in th e region of hemorrhage. COMPARISON: CT head July 05, 2020. TECHNIQUE: Multiplanar multiecho MRI of the brain emphasizing relative T1 and T2*information without and with intrave nous contrast administration was completed on a 3 Mayi magnet. FINDINGS: The known hemorrhage in the right basal ganglia reveals low intensity signal on T2-weighted sequences while on the T1-w eighted sequences there is a center with increased intensity signal and the elaine phery of low intensity signal. Following intravenous contrast administration the re is no evidence of abnormal enhancement in the region of the hemorrhage or in t he vicinity of the brain. Moderate vasogenic edema surrounds the right bas al ganglia acute hematoma extending also to the right temporal stem. Again there is effacement of the right lateral ventricle and approximately 4.5 mm midl ine shift to the left grossly unchanged compared to the prior examination. The basal cisterns and the foramen magnum remain patent. The remainder of the brain reveals norm al signal characteristics and morphology. There is no evidence off edema or mass effect elsewhere in the brain. The posterior fossa structures appear chase l. No evidence of abnormal parenchymal or meningeal enhancement in the remainder of the brain either. Procedure Note Interface, Received Via [employer] System - 07/06/2020 8:23 AM EST HISTORY: Rule out underlying mass in the region of hemorrhage. COMPARISON: CT head July 05, 2020. TECHNIQUE: Multiplanar multiecho MRI of the brain emphasizing relative T1 and T2*information without and with intravenous contrast administration was completed on a 3 Mayi magnet. FINDINGS: The known hemorrhage in the right basal ganglia reveals low intensity signal on T2-weighted sequences while on the T1-weighted sequences there is a center with increased intensity signal and the periphery of low intensity signal. Following intravenous contrast administration there is no evidence of abnormal enhancement in the region of the hemorrhage or in the vicinity of the brain. Moderate vasogenic edema surrounds the right basal ganglia acute hematoma extending also to the right temporal stem. Again there is effacement of the right lateral ventricle and approximately 4.5 mm midline shift to the left grossly unchanged compared to the prior examination. The basal cisterns and the foramen magnum remain patent. The remainder of the brain reveals normal signal characteristics and morphology. There is no evidence off edema or mass effect elsewhere in the brain. The posterior fossa structures appear normal. No evidence of abnormal parenchymal or meningeal enhancement in the remainder of the brain either. IMPRESSION: Acute right basal ganglia hematoma. No evidence of an underlying mass on the current examination. However a repeat MRI is recommended upon resolution of the blood byproducts. Performing Organization Address [facility] Ph one Number [facility] RAD[facility] [address] [place] [address] * Echocardiogram 2D complete (07/05/2020 1:37 PM EST) Specimen Narrative Performed At . [facility] Echo/Stress Lab [address] [place] [address] Echocardiography Examination Transthoracic Name: JONATAN BANGURA MR#: [id number] Admission Number: [id number] Study Date: 07/05/2020 Study Time: 01:37 PM Date Of : 1965 Age: 54 years Height: 67 in. (170.2 cm) Weight: 231 lbs. (104.78 kg) BSA: 2.15 m2 Gender: Male Blood Pressure: 144 mmHg / 86 mmHg Heart Rate: 88 bpm Rhythm: Normal sinus rhythm Procedure Staff Business System Manager: Deena Sandhu RDCS Reading Physician: Leydi Reza MD [facility] Ordering Physician: SEVERO MOE Admitting Physician: REZA COBIAN Referring Physician: SEVERO MOE Indications Reason for Order->Other; Description->B aseline cardiac function Exam Details Procedure Ordered: ECHOCARDIOGRAM 2D COMPLETE Image Quality: This was a technically difficult stud y with suboptimal images Conclusions 1. Normal LV size with eccentric hypertro phy. Normal LV systolic function, cannot co mment on wall motion. Indeterminate LV diastolic function 2. Grossly normal RV size and function 3. Normal atria. Lipomatous hypertrophy of the interatr ial septum noted 4. No significant valvular disease No prior studies available for comparis on Previous Study Comparison Overview: No previous studies available for comp real Findings Patient: JONATAN BANGURA Study Date: 07/05/2020 01:37 PM Left Ventricle: Left ventricle is normal in size. There is left ventricular eccentric hypertrophy. Normal global systolic lef t ventricular function. This study is inadequate for the evaluation of regional wall motion. Indeterminate LV diastolic function.. Left Ventricular Measurements LVEF, BP: 64 %. Right Ventricle: Right ventricle is grossly normal in si ze and function. Left Atrium: The left atrium size by volume measurem ent is normal (16-34 ml/m2) . Left Atrium Measurements LAESV index, BP: 27.0 ml/m. IAS: There is increased thickness of the int eratrial septum, consistent with lipomatous hypertrophy. Right Atrium: The right atrium size by volume measure ment is normal. Right Atrium Measurements RA Index: 11.2 ml/m. Mitral Valve: The mitral valve appears grossly normal . The mitral valve is functionally normal. Aortic Valve: The aortic valve is trileaflet. No aort ic regurgitation. There is no aortic stenosis. Tricuspid Valve: Tricuspid valve is poorly visualized. Pulmonic Valve: Pulmonic valve is poorly visualized. Aorta: The aortic root measures 3.6 cm. The ao rtic root is normal in size. Aorta Measurements Ao Sinus Valsalva: 3.6 cm. Great Vessels: IVC: The inferior vena cava is normal in siz e with preserved inspiratory collapse. Pericardium: A prominent epicardial fat pad is prese nt. No pericardial effusion. Measurements Anatomy Label Value Normal Value Aorta Ao Sinus Valsalva 3.6 cm Aortic Valve AV PGmean 5.05 mmHg (0mmHg - 9.99mmHg) Aortic Valve SIRI D (continuity eq. Vmax) 2.5 cm Aortic Valve AV Vmax 1.57 m/s (1m/s - 1.7m/s) Interventricular septum IVSd, 2D 1.3 cm (0.6cm - 1cm) Left Atrium LADs, 2D 3.8 cm (3cm - 4cm) Left Atrium LAESV index, BP 27 ml/m (0ml/m - 34ml/m) Left Ventricle LVOTd 2.1 cm (1.9cm - 2.1cm) Left Ventricle LVDd, 2D 5.62 cm (4.2cm - 5.84cm) Left Ventricle LVDs, 2D 3.01 cm (2.5cm - 3.98cm) Left Ventricle LVPWd, 2D 1.2 cm (0.6cm - 1cm) Left Ventricle LVEF, BP 64 % (52% - 72%) Left Ventricle LV Mass Index, 2D ASE 138.8 g/m (50g/m - 102.4g/m) Left Ventricle LVRWT, 2D 0.41 (0.24 - 0.42) Left Ventricle LVESV, 2D 35 ml Patient: JONATAN BANGURA Study Date: 07/05/2020 01:37 PM Left Ventricle Diastolic MV E/A 0.69 Function Left Ventricle Diastolic MV E/E' lateral 6.05 (0 - 13) Function Left Ventricle Diastolic MV E/E' septal 9.51 (0 - 15) Function Left Ventricle Diastolic MV E' septal 0.06 m/s (0.07m/s - 0m/s) Function Left Ventricle Diastolic MV E' lateral 0.09 m/s Function Left Ventricle Diastolic MV E/E' mean 6.93 (0 - 14) Function Left Ventricle Diastolic MV E' mean 0.08 m/s Function Right Atrium RA Index 11.2 ml/m (1ml/m - 39ml/m) Right Ventricle TAPSE 2.9 cm Right Ventricle RVD Base 3.5 cm (2.5cm - 4.1cm) _ Patient: JONATAN BANGURA Study Date: 07/05/2020 01:37 PM Procedure Note Interface, Received Via [employer] Systems - 07/05/2020 5:22 PM EST . [facility] [place] Echo/Stress Lab [address] [place] [address] Echocardiography Examination Transthoracic Name: JONATAN BANGURA MR#: [id number] Admission Number: [id number] Study Date: 07/05/2020 Study Time: 01:37 PM Date Of : 1965 Age: 54 years Height: 67 in. (170.2 cm) Weight: 231 lbs. (104.78 kg) BSA: 2.15 m2 Gender: Male Blood Pressure: 144 mmHg / 86 mmHg Heart Rate: 88 bpm Rhythm: Normal sinus rhythm Procedure Staff Business System Manager: Deena Sandhu RDCS Reading Physician: Leydi Reza MD [facility] Ordering Physician: SEVERO MOE Admitting Physician: REZA COBIAN Referring Physician: SEVERO MOE Indications Reason for Order->Other; Description->Baseline cardiac function Exam Details Procedure Ordered: ECHOCARDIOGRAM 2D COMPLETE Image Quality: This was a technically difficult study with suboptimal images Conclusions 1. Normal LV size with eccentric hypert rophy. Normal LV systolic function, cannot comment on wall motion. Indeterminate LV diastolic function 2. Grossly normal RV size and function 3. Normal atria. Lipomatous hypertroph y of the interatrial septum noted 4. No significant valvular disease No prior studies available for comparison Previous Study Comparison Overview: No previous studies available for comparison Findings Patient: JONATAN BANGURA Study Date: 07/05/2020 01:37 PM Left Ventricle: Left ventricle is normal in size. There is left ventricular eccentric hypertrophy. Normal global systolic left ventricular function. This study is inadequate for the evaluation of regional wall motion. Indeterminate LV diastolic function.. Left Ventricular Measurements LVEF, BP: 64 %. Right Ventricle: Right ventricle is grossly normal in size and function. Left Atrium: The left atrium size by volume measurement is normal (16-34 ml/m2) . Left Atrium Measurements LAESV index, BP: 27.0 ml/m. IAS: There is increased thickness of the interatrial septum, consistent with lipomatous hypertrophy. Right Atrium: The right atrium size by volume measurement is normal. Right Atrium Measurements RA Index: 11.2 ml/m. Mitral Valve: The mitral valve appears grossly normal. The mitral valve is functionally normal. Aortic Valve: The aortic valve is trileaflet. No aortic regurgitation. There is no aortic stenosis. Tricuspid Valve: Tricuspid valve is poorly visualized. Pulmonic Valve: Pulmonic valve is poorly visualized. Aorta: The aortic root measures 3.6 cm. The aortic root is normal in size. Aorta Measurements Ao Sinus Valsalva: 3.6 cm. Great Vessels: IVC: The inferior vena cava is normal in size with preserved inspiratory collapse. Pericardium: A prominent epicardial fat pad is present. No pericardial effusion. Measurements Anatomy Label Value Normal Value Aorta Ao Sinus Valsalva 3.6 cm Aortic Valve AV PGmean 5.05 mmHg (0mmHg - 9.99mmHg) Aortic Valve SIRI D (continuity eq. Vmax) 2.5 cm Aortic Valve AV Vmax 1.57 m/s (1m/s - 1.7m/s) Interventricular septum IVSd, 2D 1.3 cm (0.6cm - 1cm) Left Atrium LADs, 2D 3.8 cm (3cm - 4cm) Left Atrium LAESV index, BP 27 ml/m (0ml/m - 34ml/m) Left Ventricle LVOTd 2.1 cm (1.9cm - 2.1cm) Left Ventricle LVDd, 2D 5.62 cm (4.2cm - 5.84cm) Left Ventricle LVDs, 2D 3.01 cm (2.5cm - 3.98cm) Left Ventricle LVPWd, 2D 1.2 cm (0.6cm - 1cm) Left Ventricle LVEF, BP 64 % (52% - 72%) Left Ventricle LV Mass Index, 2D ASE 138.8 g/m (50g/m - 102.4g/m) Left Ventricle LVRWT, 2D 0.41 (0.24 - 0.42) Left Ventricle LVESV, 2D 35 ml Patient: JONATAN BANGURA Study Date: 07/05/2020 01:37 PM Left Ventricle Diastolic MV E/A 0.69 Function Left Ventricle Diastolic MV E/E' lateral 6.05 (0 - 13) Function Left Ventricle Diastolic MV E/E' septal 9.51 (0 - 15) Function Left Ventricle Diastolic MV E' septal 0.06 m/s (0.07m/s - 0m/s) Function Left Ventricle Diastolic MV E' lateral 0.09 m/s Function Left Ventricle Diastolic MV E/E' mean 6.93 (0 - 14) Function Left Ventricle Diastolic MV E' mean 0.08 m/s Function Right Atrium RA Index 11.2 ml/m (1ml/m - 39ml/m) Right Ventricle TAPSE 2.9 cm Right Ventricle RVD Base 3.5 cm (2.5cm - 4.1cm) Patient: JONATAN BANGURA Study Date: 07/05/2020 01:37 PM Performing Organization Address City/State/Zipcode Ph one Number [facility] * Comprehensive Metabolic Panel (07/05/2020 11:51 AM EST) Albumin 3.4 (L) 3.5 - 5.2 g/dL [facility] CLINICAL PATHOLOGY Bilirubin, 0.9 <1.2 mg/dL [facility] Total CLINICAL PATHOLOGY Calcium 8.1 (L) 8.6 - 10.0 mg/dL [facility] CLINICAL PATHOLOGY Chloride 105 98 - 107 mmol/L [facility] PATHOLOGY Creatinine 1.38 (H) 0.70 - 1.20 mg/dL [facility] CLINICAL PATHOLOGY Glucose 82 70 - 140 mg/dL [facility] CLINICAL PATHOLOGY Alkaline 86 40 - 129 U/L [facility] Phosphatase CLINICAL PATHOLOGY Potassium 4.2 3.4 - 5.1 mmol/L [facility] PATHOLOGY Total Protein 5.8 (L) 6.4 - 8.3 g/dL [facility] CLINICAL PATHOLOGY Sodium 136 136 - 145 mmol/L [facility] CLINICAL PATHOLOGY AST/SGO 39 <40 U/L [facility] CLINICAL PATHOLOGY Blood Urea 14 6 - 20 mg/dL [facility] Nitrogen CLINICAL PATHOLOGY Osmolality, Osman 282 275 - 300 mosm/[facility] BUN/Cre Ratio 10 [facility] CLINICAL PATHOLOGY Bicarbonate 25 22 - 29 mmol/L [facility] CLINICAL PATHOLOGY ALT/SGP 37 <41 U/L [facility] CLINICAL PATHOLOGY Anion Gap 6 (L) 8 - 15 mmol/L [facility] CLINICAL PATHOLOGY GFR Non 56 (L) >60 mL/min/1.73m2 [facility] CLINICAL CDK-EPI PATHOLOGY GFR 65 >60 mL/min/1.73m2 [facility] [place] 2009 CLINICAL CKD-EPI PATHOLOGY Specimen Plasma Performing Organization Address City/[facility] Ph one Number [facility] CLINICAL [address], [place] [address] PATHOLOGY * CK (07/05/2020 11:51 AM EST) CK 525 (H) 20 - 200 U/L [facility] CLINICAL PATHOLOGY Specimen Plasma Performing Organization Address [facility] one Number [facility] CLINICAL [address], [place] [address] PATHOLOGY * CT Cervical Spine without Contrast (07/05/2020 8:17 AM EST) Specimen Impressions Performed At IMPRESSION: [facility] RADIOLOGY No evidence of acute fracture or trauma tic listhesis is noted. END OF IMPRESSION: Narrative Performed At 07/05/2020 8:12 AM [facility] RADIOLOGY CT CERVICAL SPINE WITHOUT CONTRAST [id number] ORDERING CLINICAL INFORMATION: trauma. Fall from standing. ADDITIONAL CLINICAL INFORMATION: None. COMPARISON: None. CERVICAL SPINE CT PROCEDURE : Contiguous axial tomographic sections were obtained through the cervical spine without intravenous contrast. Coronal and sagittal reformats were pr ocessed. Automated dose lowering techniques and/ or adjustment according to patient size were utilized for this exam CERVICAL SPINE CT FINDINGS: Cervical vertebral bodies are grossly m aintained in height. There is no evidence of significant com pression deformity or fracture. Alignment of the cervical vertebral bod ies is unremarkable without significant listhesis or subluxation. The craniovertebral junction is unremar kable. Multilevel osteophyte formation is noted. Moderate to severe narrowing of neural foramina at C5-6 and C6-7 levels. Procedure Note Interface, Received Via [employer] System - 07/05/2020 9:59 AM EST 07/05/2020 8:[address] CERVICAL SPINE WITHOUT CONTRAST [id number] ORDERING CLINICAL INFORMATION: trauma. Fall from standing. ADDITIONAL CLINICAL INFORMATION: None. COMPARISON: None. CERVICAL SPINE CT PROCEDURE : Contiguous axial tomographic sections were obtained through the cervical spine without intravenous contrast. Coronal and sagittal reformats were processed. Automated dose lowering techniques and/or adjustment according to patient size were utilized for this exam CERVICAL SPINE CT FINDINGS: Cervical vertebral bodies are grossly maintained in height. There is no evidence of significant compression deformity or fracture. Alignment of the cervical vertebral bodies is unremarkable without significant listhesis or subluxation. The craniovertebral junction is unremarkable. Multilevel osteophyte formation is noted. Moderate to severe narrowing of neural foramina at C5-6 and C6-7 levels. IMPRESSION: No evidence of acute fracture or traumatic listhesis is noted. END OF IMPRESSION: Performing Organization Address City/State/Zipcode Ph one Number [facility] RADIOLOGY [address] [place] [address] * CT Head without Contrast (07/05/2020 8:17 AM EST) Specimen Impressions Performed At IMPRESSION: [facility] RADIOLOGY Grossly stable intraparenchymal hemorrh age involving the right basal ganglia and temporal lobe with surrounding vasogeni c edema, mass effect with persistent effacement of right lateral ventricle a nd left-sided midline shift measuring approximately 5 mm. No new hemorrhage. Narrative Performed At INDICATION: Follow-up of intraparenchymal hemorrhage. [facility] RADIOLOGY TECHNIQUE: Noncontrast CT of the head u [facility] axial technique was performed. Automated dose lowering techniques and/ or adjustment according to patient size were utilized for this exam. COMPARISON: CT head dated 07/05/2020. FINDINGS: There is redemonstration of intraparenc hymal hemorrhage involving the right basal ganglia and temporal lobe, grossl y unchanged as compared to scan. There is redemonstration of surrounding vasogeni c edema and mass effect with persistent effacement of right lateral ventricle. There is redemonstration of left-sided midline shift measuring approximately 5 mm. No new hemorrhage is seen. There is no evidence of acute territori al infarction. No abnormal extra-axial fluid collection is seen. The basal cis terns are patent. Mild mucosal thickening is noted in rohit ateral maxillary sinuses. Mastoid air cells are clear. No depressed calvarial fracture. Extra cranial soft tissues are normal. Procedure Note Interface, Received Via [employer] System - 07/05/2020 8:36 AM EST INDICATION: Follow-up of intraparenchymal hemorrhage. TECHNIQUE: Noncontrast CT of the head using axial technique was performed. Automated dose lowering techniques and/or adjustment according to patient size were utilized for this exam. COMPARISON: CT head dated 07/05/2020. FINDINGS: There is redemonstration of intraparenchymal hemorrhage involving the right basal ganglia and temporal lobe, grossly unchanged as compared to scan. There is redemonstration of surrounding vasogenic edema and mass effect with persistent effacement of right lateral ventricle. There is redemonstration of left-sided midline shift measuring approximately 5 mm. No new hemorrhage is seen. There is no evidence of acute territorial infarction. No abnormal extra-axial fluid collection is seen. The basal cisterns are patent. Mild mucosal thickening is noted in bilateral maxillary sinuses. Mastoid air cells are clear. No depressed calvarial fracture. Extracranial soft tissues are normal. IMPRESSION: Grossly stable intraparenchymal hemorrhage involving the right basal ganglia and temporal lobe with surrounding vasogenic edema, mass effect with persistent effacement of right lateral ventricle and left-sided midline shift measuring approximately 5 mm. No new hemorrhage. Performing Organization Address City/State/Zipcode Ph one Number [facility] RADIOLOGY [address] [place] [address] * Comprehensive Metabolic Panel (07/05/2020 6:09 AM EST) Albumin 3.4 (L) 3.5 - 5.2 g/dL [facility] CLINICAL PATHOLOGY Bilirubin, 0.9 <1.2 mg/dL [facility] Total CLINICAL PATHOLOGY Calcium 8.0 (L) 8.6 - 10.0 mg/dL [facility] CLINICAL PATHOLOGY Chloride 108 (H) 98 - 107 mmol/L [facility] PATHOLOGY Creatinine 1.29 (H) 0.70 - 1.20 mg/dL [facility] CLINICAL PATHOLOGY Glucose 95 70 - 140 mg/dL [facility] CLINICAL PATHOLOGY Alkaline 86 40 - 129 U/L [facility] Phosphatase CLINICAL PATHOLOGY Potassium 4.0 3.4 - 5.1 mmol/L [facility] PATHOLOGY Total Protein 5.8 (L) 6.4 - 8.3 g/dL [facility] CLINICAL PATHOLOGY Sodium 140 136 - 145 mmol/L [facility] CLINICAL PATHOLOGY AST/SGO 45 (H) <40 U/L [facility] CLINICAL PATHOLOGY Blood Urea 15 6 - 20 mg/dL [facility] Nitrogen CLINICAL PATHOLOGY Osmolality, Osman 290 275 - 300 mosm/kg [facility] CLINICAL PATHOLOGY BUN/Cre Ratio 11 [facility] CLINICAL PATHOLOGY Bicarbonate 23 22 - 29 mmol/L [facility] CLINICAL PATHOLOGY ALT/SGP 39 <41 U/L [facility] CLINICAL PATHOLOGY Anion Gap 9 8 - 15 mmol/L [facility] CLINICAL PATHOLOGY GFR Non 61 >60 mL/min/1.73m2 [facility] [place] 2009 CLINICAL CDK-EPI PATHOLOGY GFR 71 >60 mL/min/1.73m2 [facility] 2009 CLINICAL CKD-EPI PATHOLOGY Specimen Plasma Performing Organization Address City/[facility] Ph one Number [facility] [address], [place] [address] PATHOLOGY * CK (07/05/2020 6:09 AM EST) CK 704 (H) 20 - 200 U/L [facility] CLINICAL PATHOLOGY Specimen Plasma Performing Organization Address [facility] Ph one Number [address] [address] PATHOLOGY * CBC (07/05/2020 6:09 AM EST) White Blood 6.4 4 - 10 10*3/uL [facility] Univ Clin Pathology Red Blood Cell 4.11 (L) 4.6 - 6.1 10*6/uL [facility] Clin Pathology Hemoglobin 13.7 13.5 - 18 g/dL [facility] Clin Pathology Hematocrit 38.8 (L) 41 - 53 % [facility] Clin Pathology Mean Cell 94.3 80 - 96 fL [facility] Volume [facility] Univ Clin Pathology Mean Cell 33.3 (H) 27 - 33 pg [facility] Hemoglobin [facility] Univ Clin Pathology Mean Cell Hgb 35.3 32.0 - 36.0 g/dL [facility] Univ Clin Pathology Red Cell Dist 13.2 11.5 - 14.5 % [facility] Width [facility] Univ Clin Pathology Platelet Count 134 (L) 150 - 400 10*3/uL [facility] Clin Pathology Specimen EDTA Whole Blood Performing Organization Address [facility] one Number [facility] [address], [place] [address] [address] Clin Pathology * CT Head without Contrast (07/05/2020 1:15 AM EST) Specimen Impressions Performed At IMPRESSION: [facility] RADIOLOGY Stable examination. Grossly unchanged a ppearance of the intraparenchymal hemorrhage with surrounding vasogenic e gretta. Stable mass effect and leftward midline shift of approximately 5 mm. Narrative Performed At CLINICAL INDICATION: Follow-up of intraparenchymal he morrhage. [facility] RADIOLOGY TECHNIQUE: Multiaxial CT images of the brain were obtained from the skull base through the vertex and displayed at 5 m m and 1.25 mm increments. No intravenous contrast was administered. Automated do se lowering techniques and/or adjustment according to patient size were utilized for this exam. COMPARISON: Outside noncontrast CT head and CTA head dated 07/04/2020. FINDINGS: Intracranial hemorrhage cente red in the right basal ganglia and temporal lobe measures 4.2 x 2.5 x 3.3 cm (AP x TV x CC), grossly unchanged in size from the prior outside study. The amount of surrounding vasogenic edema appears stable. There is persisting eff acement of the right lateral ventricle and approximately 5 mm leftward midline shift, which is unchanged. The basal cisterns and foramen magnum remain saravia nt. No hemorrhage is seen elsewhere and there is no evidence of acute territori al infarct. The calvarium is intact. Mild maxillary sinus mucosal thickening is p resent. Mastoid air cells are clear. The extracranial soft tissues are unremarka ble. Procedure Note Interface, Received Via [employer] System - 07/06/2020 9:43 AM EST CLINICAL INDICATION: Follow-up of intraparenchymal hemorrhage. TECHNIQUE: Multiaxial CT images of the brain were obtained from the skull base through the vertex and displayed at 5 mm and 1.25 mm increments. No intravenous contrast was administered. Automated dose lowering techniques and/or adjustment according to patient size were utilized for this exam. COMPARISON: Outside noncontrast CT head and CTA head dated 07/04/2020. FINDINGS: Intracranial hemorrhage centered in the right basal ganglia and temporal lobe measures 4.2 x 2.5 x 3.3 cm (AP x TV x CC), grossly unchanged in size from the prior outside study. The amount of surrounding vasogenic edema appears stable. There is persisting effacement of the right lateral ventricle and approximately 5 mm leftward midline shift, which is unchanged. The basal cisterns and foramen magnum remain patent. No hemorrhage is seen elsewhere and there is no evidence of acute territorial infarct. The calvarium is intact. Mild maxillary sinus mucosal thickening is present. Mastoid air cells are clear. The extracranial soft tissues are unremarkable. IMPRESSION: Stable examination. Grossly unchanged appearance of the intraparenchymal hemorrhage with surrounding vasogenic edema. Stable mass effect and leftward midline shift of approximately 5 mm. Performing Organization Address City/[facility] Ph one Number [facility] RADIOLOGY [address] [place] [address] * Respiratory Pathogen Panel (07/05/2020 12:49 AM EST) Special Request None [facility] Clin Pathology Respiratory PCR PCR Results [facility] Univ Clin Pathology Culture/Results See Labs Tab for 2019 n[facility] Clin Pathology Adenovirus Not Detected [facility] Clin Pathology Coronavirus Not Detected [facility] [address] [facility] Univ Clin Pathology Coronavirus Not Detected [facility] HKU1 [facility] Univ Clin Pathology Coronavirus Not Detected [facility] NL63 [facility] Univ Clin Pathology Coronavirus Not Detected [facility] OC43 [facility] Univ Clin Pathology Human Not Detected [facility] Metapneumovirus [facility] Univ Clin Pathology Rhinovirus/ Not Detected [facility] Enterovirus [facility] Clin Pathology Influenza A Not Detected [facility] Clin Pathology Influenza B Not Detected [facility] Clin Pathology Parainfluenza Not Detected [facility] virus [address] [facility] Univ Clin Pathology Parainfluenza Not Detected [facility] virus [address] [facility] Univ Clin Pathology Parainfluenza Not Detected [facility] virus 3 Med [facility] Clin Pathology Parainfluenza Not Detected [facility] virus [address] [facility] Clin Pathology RSV Not Detected [facility] Clin Pathology Bordetella Not Detected [facility] pertussis [facility] Univ Clin Pathology Chlamydia Not Detected [facility] pneumoniae [facility] Univ Clin Pathology Mycoplasma Not Detected [facility] pneumoniae [facility] Clin Pathology Bordetella Not Detected [facility] parapertussis [facility] Clin Pathology Specimen Nasopharyngeal Swab Performing Organization Address City/[facility] Ph one Number [facility] CLINICAL [address], [place] [address] PATHOLOGY [facility] [address] [place], [place] [address] Clin Pathology * COVID-19 PCR (07/05/2020 12:49 AM EST) Specimen Nasopharyngeal Swab [facility] CLINICAL PATHOLOGY SARS CoV-2 2019 nCoV Real-Time RT-PCR: 2019 nCoV Real-Julius e [facility] NOT DETECTED RT-PCR: NOT DETECTED Med Univ Clin Pathology Assay performed Test performed using [employer] AFRICA [facility] gonzalez Respiratory Panel. This test [facility] Clin is only for use under Food and Pathology Drug Administration's Emergency Use Authorization. Additional information is available on the following FDA websites for healthcare providers and patients. https://www.fda.gov/media/2053 20/download, https://www.fda.gov/media/6054 21/download First COVID-19 [facility] Test? CLINICAL PATHOLOGY Employed in [facility] CLINICAL setting? PATHOLOGY Symptomatic for [facility] COVID-19 as CLINICAL defined by CDC? PATHOLOGY Date of symptom UNKNOWN [facility] onset? CLINICAL ([id number]) PATHOLOGY Hospitalized [facility] for COVID-19? CLINICAL PATHOLOGY Admitted to ICU UNKNOWN [facility] for COVID-19? CLINICAL PATHOLOGY Resident in a [facility] CLINICAL (group) care PATHOLOGY setting? ? UNKNOWN [facility] CLINICAL PATHOLOGY Specimen Nasopharyngeal Swab Performing Organization Address City/[facility] Ph one Number [facility] CLINICAL [address], [place] [address] PATHOLOGY [facility] Med Univ [address], [place] [address] Clin Pathology * Hepatitis C antibody (07/05/2020 12:03 AM EST) Hepatitis C Ab Non ReactiveComment: No Non Reactive [facility] evidence of active CLINICAL infection. If recent exposure PATHOLOGY is suspected, test for HCV RNA. Specimen Serum Performing Organization Address [facility] Ph one Number [facility] CLINICAL [address], [place] [address] PATHOLOGY * Comprehensive Metabolic Panel (07/05/2020 12:03 AM EST) Albumin 3.9 3.5 - 5.2 g/dL [facility] CLINICAL PATHOLOGY Bilirubin, 1.1 <1.2 mg/dL [facility] Total CLINICAL PATHOLOGY Calcium 8.5 (L) 8.6 - 10.0 mg/dL [facility] CLINICAL PATHOLOGY Chloride 103 98 - 107 mmol/L [facility] PATHOLOGY Creatinine 1.54 (H) 0.70 - 1.20 mg/dL [facility] CLINICAL PATHOLOGY Glucose 98 70 - 140 mg/dL [facility] CLINICAL PATHOLOGY Alkaline 99 40 - 129 U/L [facility] Phosphatase CLINICAL PATHOLOGY Potassium 3.8 3.4 - 5.1 mmol/L [facility] CLINICAL PATHOLOGY Total Protein 6.6 6.4 - 8.3 g/dL [facility] CLINICAL PATHOLOGY Sodium 138 136 - 145 mmol/L [facility] CLINICAL PATHOLOGY AST/SGO 49 (H) <40 U/L [facility] CLINICAL PATHOLOGY Blood Urea 15 6 - 20 mg/dL [facility] Nitrogen CLINICAL PATHOLOGY Osmolality, Osman 287 275 - 300 mosm/kg [facility] CLINICAL PATHOLOGY BUN/Cre Ratio 10 [facility] CLINICAL PATHOLOGY Bicarbonate 24 22 - 29 mmol/L [facility] CLINICAL PATHOLOGY ALT/SGP 43 (H) <41 U/L [facility] PATHOLOGY Anion Gap 11 8 - 15 mmol/L [facility] CLINICAL PATHOLOGY GFR Non 49 (L) >60 mL/min/1.73m2 [facility] 2008 CLINICAL CDK-EPI PATHOLOGY GFR 57 (L) >60 mL/min/1.73m2 [facility] 2009 CLINICAL CKD-EPI PATHOLOGY Specimen Plasma Performing Organization Address City/[facility] Ph one Number [facility] CLINICAL [address], [place] [address] PATHOLOGY * CK (07/05/2020 12:03 AM EST) CK 925 (H) 20 - 200 U/L [facility] CLINICAL PATHOLOGY Specimen Plasma Performing Organization Address [facility] Ph one Number [facility] CLINICAL [address], [place] [address] PATHOLOGY * Hemoglobin A1c (07/04/2020 8:40 PM EST) Hemoglobin A1C 5.4 4.0 - 6.0 % [facility] Comment: CLINICAL (NOTE) PATHOLOGY <5.7% Average risk of diabetes(ADA) 5.7-6.4% Increased risk of diabetes(ADA) >/= 6.5% Diagnostic for diabetes(ADA) Estimated Avg 108 <126 mg/dL [facility] Glucose CLINICAL PATHOLOGY Specimen Whole Blood Performing Organization Address City[facility] Ph one Number [facility] [address], [place] [address] PATHOLOGY * TSH (07/04/2020 8:40 PM EST) TSH 3.140 0.270 - 4.200 [facility] u[IU]/mL CLINICAL PATHOLOGY Specimen Plasma Performing Organization Address [facility] one Number [facility] CLINICAL [address], [place] [address] PATHOLOGY * Partial Thromboplastin Time (PTT) (07/04/2020 8:40 PM EST) PTT 30.7 24.0 - 33.0 s [facility] Clin Pathology Specimen Plasma Performing Organization Address [facility] one Number [facility] [address], [place] [address] [address] Clin Pathology * Protime-INR (07/04/2020 8:40 PM EST) PT Patient 13.3 12.5 - 14.9 s [facility] Clin Pathology Int'l 1.00Comment: Routine intensity [facility] Normalized oral anticoagulation INR is [facility] Clin Ratio typically 2.0-3.0. Target INR Patholo gy must be clinically individualized. Specimen Plasma Performing Organization Address [facility] one Number [facility] [address], [place] [address] [address] Clin Pathology * METABOLIC PANEL, COMPREHENSIVE (07/04/2020 8:40 PM EST) Albumin 4.2 3.5 - 5.2 g/dL [facility] CLINICAL PATHOLOGY Bilirubin, 1.2 (H) <1.2 mg/dL [facility] Total CLINICAL PATHOLOGY Calcium 8.6 8.6 - 10.0 mg/dL [facility] CLINICAL PATHOLOGY Chloride 104 98 - 107 mmol/L [facility] CLINICAL PATHOLOGY Creatinine 1.43 (H) 0.70 - 1.20 mg/dL [facility] CLINICAL PATHOLOGY Glucose 102 70 - 140 mg/dL [facility] CLINICAL PATHOLOGY Alkaline 103 40 - 129 U/L [facility] Phosphatase CLINICAL PATHOLOGY Potassium 3.7 3.4 - 5.1 mmol/L [facility] CLINICAL PATHOLOGY Total Protein 6.8 6.4 - 8.3 g/dL [facility] CLINICAL PATHOLOGY Sodium 143 136 - 145 mmol/L [facility] CLINICAL PATHOLOGY AST/SGO 51 (H) <40 U/L [facility] PATHOLOGY Blood Urea 13 6 - 20 mg/dL [facility] CLINICAL PATHOLOGY Osmolality, Osman 296 275 - 300 mosm/kg [facility] CLINICAL PATHOLOGY BUN/Cre Ratio 9 [facility] CLINICAL PATHOLOGY Bicarbonate 25 22 - 29 mmol/L [facility] PATHOLOGY ALT/SGP 44 (H) <41 U/L [facility] PATHOLOGY Anion Gap 14 8 - 15 mmol/L [facility] PATHOLOGY GFR Non 54 (L) >60 mL/min/1.73m2 [facility] 2008 CLINICAL CDK-EPI PATHOLOGY GFR 62 >60 mL/min/1.73m2 [facility] 2008 CLINICAL CKD-EPI PATHOLOGY Specimen Plasma Performing Organization Address [facility] one Number 38 [address] PATHOLOGY * Lipid panel (07/04/2020 8:40 PM EST) Cholesterol 175 <200 mg/dL [facility] CLINICAL PATHOLOGY Triglyceride 89 <150 mg/dL [facility] CL[facility] PATHOLOGY HDL Cholesterol 42 >40 mg/dL [facility] CL[facility]ICAL PATHOLOGY LDL Cholesterol 115 (H) <100 mg/dL [facility] PATHOLOGY VLDL 18 16 - 42 mg/dl [facility] Cholesterol CLINICAL PATHOLOGY Non HDL 132 (H) <130 mg/dL [facility] CLINICAL PATHOLOGY Specimen Plasma Performing Organization Address City/[facility] Ph one Number [address] PATHOLOGY * CK (07/04/2020 8:40 PM EST) CK 1,063 (H) 20 - 200 U/L [facility] CLINICAL PATHOLOGY Specimen Plasma Performing Organization Address [facility] Ph one Number [address] PATHOLOGY * CBC and Differential (07/04/2020 8:40 PM EST) White Blood 9.9 4 - 10 10*3/uL [facility] Clin Pathology Red Blood Cell 4.58 (L) 4.6 - 6.1 10*6/uL [facility] Clin Pathology Hemoglobin 15.1 13.5 - 18 g/dL [facility] Clin Pathology Hematocrit 43.0 41 - 53 % [facility] Clin Pathology Mean Cell 93.7 80 - 96 fL [facility] Volume [facility] Clin Pathology Mean Cell 33.0 27 - 33 pg [facility] Hemoglobin [facility] Clin Pathology Mean Cell Hgb 35.2 32.0 - 36.0 g/dL [facility] Clin Pathology Red Cell Dist 13.0 11.5 - 14.5 % [facility] Width [facility] Clin Pathology Platelet Count 184 150 - 400 10*3/uL [facility] Clin Pathology Differential Automated Diff [facility] Type [facility] Clin Pathology Neutrophil 65 % [facility] Clin Pathology Lymphocyte 17 % [facility] Clin Pathology Monocyte 11 % [facility] Clin Pathology Eosinophil 6 % [facility] Clin Pathology Basophil 1 % [facility] Clin Pathology Abs Neutrophil 6.53 1.8 - 7.0 10*3/uL [facility] Clin Pathology Abs Lymphocyte 1.70 1.2 - 4.0 10*3/uL [facility] Clin Pathology Abs Monocyte 1.09 (H) 0 - 0.8 10*3/uL [facility] Clin Pathology Abs Eosinophil 0.55 (H) 0 - 0.5 10*3/uL [facility] Clin Pathology Abs Basophil 0.05 0 - 0.2 10*3/uL [facility] Clin Pathology Nucleated Red 0 0 - 0 /100{WBCs} [facility] Blood Cells [facility] Clin Pathology Specimen EDTA Whole Blood Performing Organization Address City/State/[facility] Ph one Number [facility] CLINICAL [address], [place] 132[address] PATHOLOGY [facility] [address] [place], [place] [address] Clin Pathology documented in this encounter Visit Diagnoses Diagnosis Intracranial hemorrhage - Primary Unspecified intracranial hemorrhage Uncontrolled hypertension Unspecified essential hypertension LUCRECIA (acute kidney injury) Acute kidney failure, unspecified Non-traumatic rhabdomyolysis ETOH abuse Alcohol abuse, unspecified H/O right nephrectomy documented in this encounter Administered Medications Action Date Dose Rate Site Medication Order AUG Action 07/10/2020 8:06 AM EST 650 mg acetaminophen (TYLENOL) tablet 650 mg Given 650 mg, Oral, Every 4 hours PRN, Mild Pain (Pain Scale Score 1-3), Starting Fri07/04/20 at 2216, For 30 days, Maximu m daily dose of acetaminophen is 3,000 mg from all sources in 24 hours., 650 mg Given 07/09/2020 5:39 PM EST 650 mg Given 07/09/2020 11:46 AM EST 07/12/2020 8:29 AM EST 10 mg amlodipine (NORVASC) tablet 10 mg Given 10 mg, Oral, Daily Standard, First dos e on Fri07/07/20 at 0900, For 30 days, Check vital signs before administering, 10 mg Given 07/11/2020 8:21 AM EST 10 mg Given 07/10/2020 8:05 AM EST 07/10/2020 12:12 AM EST 10 mg cyclobenzaprine (FLEXERIL) tablet 10 mg Given 10 mg, Oral, Three Times Daily-PRN, Muscle spasms, Starting Fri07/06/20 at 0913, For 30 days 10 mg Given 07/09/2020 5:39 PM EST 10 mg Given 07/09/2020 5:56 AM EST 07/12/2020 8:29 AM EST 100 mg docusate sodium (COLACE) capsule 100 mg Given 100 mg, Oral, 2 Times Daily, First dose on Fri07/05/20 at 0900, For 30 days 100 mg Given 07/09/2020 8:02 PM EST 100 mg Given 07/09/2020 8:16 AM EST 07/12/2020 8:29 AM EST 1 mg folic acid (FOLVITE) tablet 1 mg Given 1 mg, Oral, Daily Standard, First dose on Fri07/05/20 at 0900, For 30 days 1 mg Given 07/11/2020 8:21 AM EST 1 mg Given 07/10/2020 8:05 AM EST 07/12/2020 8:29 AM EST 5,000 Units heparin (porcine) 5000 UNIT/ML injection Given 5,000 Units 5,000 Units, Subcutaneous, 2 Times Daily, First dose on Fri07/06/20 at 2100 , For 30 days 5,000 Units Given 07/11/2020 8:48 PM EST 5,000 Units Given 07/11/2020 8:21 AM EST HYDROcodone-acetaminophen (LORTAB) 5-32 5 MG per tablet 1 tablet 1 tablet, Oral, Every 6 hours PRN, Moderate Pain (Pain Scale Score 4-6), Starting Fri07/12/20 at 0730, For 3 days, Maximum daily dose of acetaminophen is 3,000 mg from all sources in 24 hours., 07/12/2020 8:29 AM EST 100 mg labetalol (NORMODYNE) tablet 100 mg Given 100 mg, Oral, Every 12 hours Standard (2 times per day), First dose on 07/08/20 at 2100, For 30 days, Check alberto l signs before administering, 100 mg Given 07/11/2020 8:47 PM EST 100 mg Given 07/11/2020 8:21 AM EST 07/12/2020 8:29 AM EST 1 patch Other lidocaine (LIDODERM) 5 % patch 1 patch Patch 1 patch, Transdermal, Daily Standard, Applied First dose on Fri07/06/20 at 0915, For 3 0 days, Apply to area of back pain 12 hours on - 12 hours off, 1 patch Other Patch Applied 07/09/2020 8:16 AM EST 1 patch Other Patch Applied 07/08/2020 8:49 AM EST Magnesium 100 MG Oral Tablet Take 200 mg by mouth daily, Historical Med 07/12/2020 8:29 AM EST 1 tablet multivitamin tablet 1 tablet Given 1 tablet, Oral, Daily Standard, First dose on Fri07/05/20 at 0900, For 30 days 1 tablet Given 07/11/2020 8:21 AM EST 1 tablet Given 07/10/2020 8:05 AM EST 07/12/2020 8:29 AM EST 40 mg pantoprazole (PROTONIX) injection 40 mg New Bag 40 mg, Intravenous, Daily Standard, First dose on Fri07/05/20 at 1215, For 3 0 days 40 mg New Bag 07/11/2020 8:21 AM EST 40 mg Given by IV push 07/10/2020 8:05 AM EST senna (SENOKOT) syrup 10 mL 10 mL, Oral, Nightly, First dose on Fri07/05/20 at 0815, For 30 days 07/12/2020 8:30 AM EST 3 mLs sodium chloride (preservative free) 0.9 New Bag % flush 3 mL 3 mL, Intravenous, Every 8 hours Standard (3 times per day), First dose on Fri07/05/20 at 0100, For 30 days, Saline Lock. Flush Q8H and after each use to Saline Lock., 3 mLs Given 07/11/2020 8:22 AM EST 3 mLs Given 07/10/2020 8:06 AM EST sodium chloride (preservative free) 0.9 % flush 3 mL 3 mL, Intravenous, PRN, Line Care, Starting Fri07/04/20 at 2223, For 30 days, Saline Lock. Flush Q8H and after each use to Saline Lock., sodium chloride 0.9 % bag 3-20 mL 3-20 mL, Intravenous, at 1-999 mL/hr, PRN, For Medication Administration and Line Clearance, Starting Fri07/04/20 at 2223, For 30 days, Flush line with sufficient amount of fluid needed based on used car sales manager recommendation for specific line size. Rate should be run at the same rate as medication in the line being flushed., 07/12/2020 8:29 AM EST 100 mg thiamine (B-1) tablet 100 mg Given 100 mg, Oral, Daily Standard, First dose on Fri07/05/20 at 0900, For 30 days 100 mg Given 07/11/2020 8:21 AM EST 100 mg Given 07/10/2020 8:05 AM EST TURMERIC PO Take 1 capsule by mouth daily, Historical Med Action Date Dose Rate Site Medication Order MAR Action 07/06/2020 9:41 AM EST 10 mg amlodipine (NORVASC) tablet 10 mg Given 10 mg, Oral, Daily Standard, First dos e (after last modification) on Fri07/06/20 at 0900, For 28 doses, Check vital sign s before administering, 07/06/2020 8:03 AM EST 5 mg amlodipine (NORVASC) tablet 5 mg Given 5 mg, Oral, Daily Standard, First dose (after last modification) on Fri07/05/20 at 1515, For 30 days, Check vital signs before administering, 5 mg Given 07/05/2020 3:16 PM EST amlodipine (NORVASC) tablet 5 mg 5 mg, Oral, Once, [facility] 07/06/20 at 0915, For 1 dose, Check vital signs before administering, 07/05/2020 6:02 AM EST 0.1 mcg/kg/hr 2.6 mL/hr dexmedetomidine (PRECEDEX) in NaCl 0.9 % Rate/Dose infusion 4 mcg/mL Verify 0.1-1.5 mcg/kg/hr 104.8 kg (2.62-39.3 mL/hr, rounded to 2.6-39.3 mL/hr), Intravenous, at 2.6-39.3 mL/hr, Continuous, Starting We d 07/05/20 at 0015, For 30 days, Starting dose = 0.2 mcg/kg/hr Titrate to maintai n RASS of -2 Titrate by 0.1-0.2 mcg/kg/h r Max Dose = 1.5 mcg/kg/hr Titrate down if RASS of -1, 0.1 mcg/kg/hr 2.6 mL/hr Rate/Dose Change 07/05/2020 6:02 AM EST 0.2 mcg/kg/hr 5.2 mL/hr Rate/Dose Verify 07/05/2020 6:00 AM EST 07/05/2020 2:28 AM EST 10 mg diazePAM (VALIUM) injection 10 mg New Bag 10 mg, Intravenous, Every 1 hour, Firs t dose on Fri07/04/20 at 2300, For 4 doses , Maximum of 40 mg in 4 hour period. If patient is sleeping, do not wake them t o administer Diazepam or to assess the CIWA score. Assess once patient awakens., 10 mg New Bag 07/05/2020 12:35 AM EST 10 mg New Bag 07/04/2020 11:47 PM EST 07/05/2020 12:00 AM EST 125 mL/hr 125 mL/hr electrolyte-A (PLASMALYTE-A) infusion Rate/Dose at 125 mL/hr, Intravenous, Continuous, Verify Starting Fri07/04/20 at 2230, For 3 days , This product comes from distribution., 125 mL/hr 125 mL/hr New Bag 07/04/2020 11:48 PM EST 07/05/2020 5:34 PM EST 10 mLs gadobutrol (GADAVIST) contrast injection Given 10 mL 10 mL (rounded from 10.48 mL = 0.1 mL/k g 104.8 kg), Intravenous, 1 TIME IMAGING, Fri07/05/20 at 1715, For 1 dose, Do not mix or administer in the same IV line with other medications., 07/06/2020 3:14 PM EST 10 mg hydrALAZINE (APRESOLINE) injection 10 mg New Bag 10 mg, Intravenous, Every 6 hours PRN , Other, High Blood Pressure, Starting 07/04/20 at 2216, For 30 days, If BP > 140, 10 mg New Bag 07/06/2020 8:03 AM EST 10 mg New Bag 07/05/2020 6:36 PM EST 07/06/2020 12:44 AM EST 1 tablet HYDROcodone-acetaminophen (LORTAB) 5-325 Given MG per tablet 1 tablet 1 tablet, Oral, Once, Fri07/05/20 at 2330, For 1 dose, Maximum daily dose of acetaminophen is 3,000 mg from all sources in 24 hours., 07/10/2020 6:04 AM EST 1 tablet HYDROcodone-acetaminophen (LORTAB) 5-325 Given MG per tablet 1 tablet 1 tablet, Oral, Every 6 hours PRN, Moderate Pain (Pain Scale Score 4-6), Starting Dalila 07/06/20 at 1800, For 4 days 18 hours, Maximum daily dose of acetaminophen is 3,000 mg from all sources in 24 hours., 1 tablet Given 07/10/2020 12:12 AM EST 1 tablet Given 07/09/2020 5:39 PM EST 07/07/2020 11:51 AM EST 10 mg labetalol (TRANDATE) injection 10 mg New Bag 10 mg, Intravenous, Every 6 hours PRN , High Blood Pressure, Starting Fri 1 at 2216, For 30 days, If BP > 140, 10 mg 100 mL/hr New Bag 07/05/2020 9:32 PM EST 07/05/2020 12:00 PM EST 125 mL/hr NaCl infusion 0.9 % Rate/Dose at 125 mL/hr, Intravenous, Continuous, Verify Starting Fri07/05/20 at 0015, For 30 day s 125 mL/hr New Bag 07/05/2020 10:25 AM EST 125 mL/hr Rate/Dose Change 07/05/2020 5:06 AM EST 07/05/2020 1:30 AM EST 5 mg/hr 25 mL/hr niCARdipine (CARDENE) 40 mg in sodium Rate/Dose chloride 0.9 % 200 mL infusion (0.2 Change mg/mL) 5-15 mg/hr (25-75 mL/hr), Intravenous, at 25-75 mL/hr, Continuous, Starting 07/04/20 at 2045, For 8 hours, Titrate to SBP < 140, 6 mg/hr 30 mL/hr Rate/Dose Change 07/05/2020 1:00 AM EST 7 mg/hr 35 mL/hr Rate/Dose Verify 07/05/2020 12:00 AM EST niCARdipine (CARDENE) 40-0.83 MG/200ML- % in sodium chloride 0.9 % infusion (0.2 mg/mL) Starting Fri07/04/20 at 2024, For 1 dose , Momo Stover: viji beasley, Momo Stover: viji beasley, 07/08/2020 8:01 PM EST 20 mEq potassium chloride (K-DUR) dissolvable Given tablet 20 mEq 20 mEq, Oral, 2 Times Daily, First dose (after last modification) on [facility] 07/06/20 at 0915, For 3 days, May be dissolved i n water for patients with a G-Tube or unable to swallow. If concern for clogging G-Tube, may contact Pharmacy t o switch formulation to a powder packet., 20 mEq Given 07/08/2020 8:48 AM EST 20 mEq Given 07/07/2020 8:05 PM EST 07/05/2020 10:00 AM EST 100 mL/hr 100 mL/hr sodium chloride 0.9 % 1,000 mL with MVI Rate/Dose adult 10 mL, folic acid 1 mg, magnesium Verify sulfate 2 g, thiamine (B-1) 100 mg infusion at 100 mL/hr, Intravenous, Continuous, Starting Fri07/04/20 at 2230, For 10 hours, Run in at 100 mL/hr until done., 100 mL/hr 100 mL/hr Rate/Dose Change 07/05/2020 9:54 AM EST 100 mL/hr 100 mL/hr Rate/Dose Verify 07/05/2020 9:00 AM EST 07/05/2020 12:16 AM EST 100 mg thiamine (B-1) injection 100 mg Given 100 mg, Intramuscular, Once, 07/04/20 at 2230, For 1 dose, Upon arrival PRIOR to administration of any glucose containing IVF., documented in this encounter Additional Health Concerns Last Indicated Resolved Time Infection Onset Date 07/05/2020 07/05/2020 2:17 AM EST Respiratory Rule-Out 07/05/2020 documented as of this encounter
--- OUTSIDE RECORDS SUMMARY | 2020-08-21 11:59 | CCD ---
Author Author [facility] Organization [facility] Address Unknown Phone Unavailable Care Team Providers Care Consulting Nurse Name Role Phone Esperanza Cobian MD Unavailable Unavailabl e AranzaEsperanza MD Unavailable Unavailabl e AranzaEsperanza MD Unavailable Unavailabl e AranzaEsperanza MD Unavailable Unavailabl e AranzaEsperanza MD Unavailable Unavailabl e AranzaEsperanza MD Unavailable Unavailabl e AranzaEsperanza MD Unavailable Unavailabl e AranzaEsperanza MD Unavailable Unavailabl e AranzaEsperanza MD Unavailable Unavailabl e Aranza, Mata Abdirizak Gene MD Unavailable Unavailabl e Aranza, Mata Abdirizak Gene MD Unavailable Unavailabl e Aranza, Mata Abdirizak Gene MD Unavailable Unavailabl e Aranza, Mata Abdirizak Gene MD Unavailable Unavailabl e Aranza, Mata Abdirizak Gene MD Unavailable Unavailabl e Aranza, Mata Abdirizak Gene MD Unavailable Unavailabl e Aranza, Mata Abdirizak Gene MD Unavailable Unavailabl e Aranza, Mata Abdirizak Gene MD Unavailable Unavailabl e Aranza, Mata Abdirizak Gene MD Unavailable Unavailabl e Aranza, Mata Abdirizak Gene MD Unavailable Unavailabl e Aranza, Mata Badirizak Gene MD Unavailable Unavailabl e Aranza, Mata Abdirizak Gene MD Unavailable Unavailabl e Aranza, Mata Abdirizak Gene MD Unavailable Unavailabl e Aranza, Mata Abdirizak Gene MD Unavailable Unavailabl e Aranza, Mata Abdirizak Gene MD Unavailable Unavailabl e Aranza, Mata Abdirizak Gene MD Unavailable Unavailabl e Aranza, Mata Abdirizak Gene MD Unavailable Unavailabl e Aranza, Mata Abdirizak Gene MD Unavailable Unavailabl e Aranza, Mata Abdirizak Gene MD Unavailable Unavailabl e Aranza, Mata Abdirizak Gene MD Unavailable Unavailabl e Leslie DIAZ MD Unavailable Unavailable Leslie DIAZ MD Unavailable Unavailable Leslie DIAZ MD Unavailable Unavailable Leslie DIAZ MD Unavailable Unavailable Leslie DIAZ MD Unavailable Unavailable Leslie DIAZ MD Unavailable Unavailable Leslie DIAZ MD Unavailable Unavailable Leslie DIAZ MD Unavailable Unavailable Leslie DIAZ MD Unavailable Unavailable Leslie DIAZ MD Unavailable Unavailable Leslie DIAZ MD Unavailable Unavailable Leslie DIAZ MD Unavailable Unavailable Leslie DIAZ MD Unavailable Unavailable Leslie DIAZ MD Unavailable Unavailable Leslie DIAZ MD Unavailable Unavailable Leslie DIAZ MD Unavailable Unavailable Leslie DIZA MD Unavailable Unavailable Leslie DIAZ MD Unavailable Unavailable Leslie DIAZ MD Unavailable Unavailable Leslie DIAZ MD Unavailable Unavailable Leslie DIAZ MD Unavailable Unavailable Leslie DIAZ MD Unavailable Unavailable Leslie DIAZ MD Unavailable Unavailable Leslie DIAZ MD Unavailable Unavailable Leslie DIAZ MD Unavailable Unavailable Leslie DIAZ MD Unavailable Unavailable Leslie DIAZ MD Unavailable Unavailable DIAZ, C GRAHAME MD Unavailable Unavailable DIAZ, C GRAHAME MD Unavailable Unavailable DIAZ, C GRAHAME MD Unavailable Unavailable DIAZ, C GRAHAME MD Unavailable Unavailable DIAZ, C GRAHAME MD Unavailable Unavailable DIAZ, C GRAHAME MD Unavailable Unavailable DIAZ, C GRAHAME MD Unavailable Unavailable DIAZ, C GRAHAME MD Unavailable Unavailable DIAZ, C GRAHAME MD Unavailable Unavailable DIAZ, C GRAHAME MD Unavailable Unavailable DIAZ, C GRAHAME MD Unavailable Unavailable DIAZ, C GRAHAME MD Unavailable Unavailable DIAZ, C GRAHAME MD Unavailable Unavailable DIAZ, C GRAHAME MD Unavailable Unavailable DIAZ, C GRAHAME MD Unavailable Unavailable DIAZ, C GRAHAME MD Unavailable Unavailable DIAZ, C GRAHAME MD Unavailable Unavailable DIAZ, C GRAHAME MD Unavailable Unavailable DIAZ, C GRAHAME MD Unavailable Unavailable DIAZ, C GRAHAME MD Unavailable Unavailable DIAZ, C GRAHAME MD Unavailable Unavailable DIAZ, C GRAHAME MD Unavailable Unavailable DIAZ, C GRAHAME MD Unavailable Unavailable DIAZ, C GRAHAME MD Unavailable Unavailable DIAZ, C GRAHAME MD Unavailable Unavailable DIAZ, C GRAHAME MD Unavailable Unavailable DIAZ, C GRAHAME MD Unavailable Unavailable DIAZ, C GRAHAME MD Unavailable Unavailable DIAZ, C GRAHAME MD Unavailable Unavailable DIAZ, C GRAHAME MD Unavailable Unavailable DIAZ, C GRAHAME MD Unavailable Unavailable DIAZ, C GRAHAME MD Unavailable Unavailable DULEEP, K JAYCEE MD Unavailable Unavailable DULEEP, K JAYCEE MD Unavailable Unavailable DULEEP, K JAYCEE MD Unavailable Unavailable DULEEP, K JAYCEE MD Unavailable Unavailable DULEEP, K JAYCEE MD Unavailable Unavailable DULEEP, K JAYCEE MD Unavailable Unavailable DULEEP, K JAYCEE MD Unavailable Unavailable DULEEP, K JAYCEE MD Unavailable Unavailable DULEEP, K JAYCEE MD Unavailable Unavailable DULEEP, K JAYCEE MD Unavailable Unavailable DULEEP, K JAYCEE MD Unavailable Unavailable DULEEP, K JAYCEE MD Unavailable Unavailable DULEEP, K JAYCEE MD Unavailable Unavailable DULEEP, K JAYCEE MD Unavailable Unavailable DULEEP, K JAYCEE MD Unavailable Unavailable DULEEP, K JAYCEE MD Unavailable Unavailable DULEEP, K JAYCEE MD Unavailable Unavailable DULEEP, K JAYCEE MD Unavailable Unavailable DULEEP, K JAYCEE MD Unavailable Unavailable DULEEP, K JAYCEE MD Unavailable Unavailable DULEEP, K JAYCEE MD Unavailable Unavailable DULEEP, K JAYCEE MD Unavailable Unavailable DULEEP, K JAYCEE MD Unavailable Unavailable DULEEP, K JAYCEE MD Unavailable Unavailable DULEEP, K JAYCEE MD Unavailable Unavailable DULEEP, K JAYCEE MD Unavailable Unavailable DULEEP, K JAYCEE MD Unavailable Unavailable DULEEP, K JAYCEE MD Unavailable Unavailable DULEEP, K JAYCEE MD Unavailable Unavailable DULEEP, K JAYCEE MD Unavailable Unavailable DULEEP, K JAYCEE MD Unavailable Unavailable DULEEP, K JAYCEE MD Unavailable Unavailable DULEEP, K JAYCEE MD Unavailable Unavailable DULEEP, K JAYCEE MD Unavailable Unavailable DULEEP, K JAYCEE MD Unavailable Unavailable DULEEP, K JAYCEE MD Unavailable Unavailable DULEEP, K JAYCEE MD Unavailable Unavailable DULEEP, K JAYCEE MD Unavailable Unavailable DULEEP, K JAYCEE MD Unavailable Unavailable DULEEP, K JAYCEE MD Unavailable Unavailable DULEEP, K JAYCEE MD Unavailable Unavailable DULEEP, K JAYCEE MD Unavailable Unavailable DULEEP, K JAYCEE MD Unavailable Unavailable DULEEP, K JAYCEE MD Unavailable Unavailable DULEEP, K JAYCEE MD Unavailable Unavailable DULEEP, K JAYCEE MD Unavailable Unavailable DULEEP, K JAYCEE MD Unavailable Unavailable DULEEP, K JAYCEE MD Unavailable Unavailable DULEEP, K JAYCEE MD Unavailable Unavailable DULEEP, K JAYCEE MD Unavailable Unavailable DULEEP, K JAYCEE MD Unavailable Unavailable DULEEP, K JAYCEE MD Unavailable Unavailable DULEEP, K JAYCEE MD Unavailable Unavailable DULEEP, K JAYCEE MD Unavailable Unavailable DULEEP, K JAYCEE MD Unavailable Unavailable DULEEP, K JAYCEE MD Unavailable Unavailable DULEEP, K JAYCEE MD Unavailable Unavailable DULEEP, K JAYCEE MD Unavailable Unavailable DULEEP, K JAYCEE MD Unavailable Unavailable Janett Mott MD Unavailable Unavailable Janett Mott MD Unavailable Unavailable Janett Mott MD Unavailable Unavailable Janett Mott MD Unavailable Unavailable Janett Mott MD Unavailable Unavailable Janett Mott MD Unavailable Unavailable Janett Mott MD Unavailable Unavailable Janett Mott MD Unavailable Unavailable Janett Mott MD Unavailable Unavailable Janett Mott MD Unavailable Unavailable Janett Mott MD Unavailable Unavailable Janett Mott MD Unavailable Unavailable Kera GUERRERO Unavailable Unavailable KYLEE MILLS MD Unavailable KYLEE MILLS MD Unavailable KYLEE MILLS MD Unavailable KYLEE MILLS MD Unavailable KYLEE MILLS MD Unavailable MARLEN SHEARER MD Unavailable Unavailable MARLEN SHEARER MD Unavailable Unavailable MARLEN SHEARER MD Unavailable Unavailable MARLEN SHEARER MD Unavailable Unavailable BRYDEN, A FLOR DO Unavailable Unavailable BRYDEN, A FLOR DO Unavailable Unavailable BRYDEN, A FLOR DO Unavailable Unavailable BRYDEN, A FLOR DO Unavailable Unavailable BRYDEN, A FLOR DO Unavailable Unavailable BRYDEN, A FLOR DO Unavailable Unavailable BRYDEN, A FLOR DO Unavailable Unavailable BRYDEN, A FLOR DO Unavailable Unavailable BRYDEN, A FLOR DO Unavailable Unavailable BRYDEN, A FLOR DO Unavailable Unavailable BRYDEN, A FLOR DO Unavailable Unavailable BRYDEN, A FOLR DO Unavailable Unavailable BRYDEN, A FLOR DO Unavailable Unavailable BRYDEN, A FLOR DO Unavailable Unavailable BRYDEN, A FLOR DO Unavailable Unavailable BRYDEN, A FLOR DO Unavailable Unavailable BRYDEN, A FLOR DO Unavailable Unavailable BRYDEN, A FLOR DO Unavailable Unavailable BRYDEN, A FLOR DO Unavailable Unavailable BRYDEN, A FLOR DO Unavailable Unavailable BRYDEN, A FLOR DO Unavailable Unavailable BRYDEN, A FLOR DO Unavailable Unavailable BRYDEN, A FLOR DO Unavailable Unavailable BRYDEN, A FLOR DO Unavailable Unavailable BRYDEN, A FLOR DO Unavailable Unavailable BRYDEN, A FLOR DO Unavailable Unavailable BRYDEN, A FLOR DO Unavailable Unavailable BRYDEN, A FLOR DO Unavailable Unavailable Re-disclosure Warning The records that you are about to access may contain information from federally-assisted alcohol or drug abuse programs. If such information is present, then the following federally mandated warning applies: This information has been disclosed to you from records protected by federal confidentiality rules (42 CFR part 2). The federal rules prohibit you from making any further disclosure of this information unless further disclosure is expressly permitted by the written consent of the person to whom it pertains or as otherwise permitted by 42 CFR part 2. A general authorization for the release of medical or other information is NOT sufficient for this purpose. The Federal rules restrict any use of the information to criminally investigate or prosecute any alcohol or drug abuse patient.The records that you are about to access may contain highly sensitive health information, the redisclosure of which is protected by Article 27-F of the [facility] Public Health law. If you continue you may have access to information: Regarding HIV / AIDS; Provided by facilities licensed or operated by the [facility] Office of Mental Health; or Provided by the [facility] Office for People With Developmental Disabilities. If such information is present, then the following [facility] mandated warning applies: This information has been disclosed to you from confidential records which are protected by state law. State law prohibits you from making any further disclosure of this information without the specific written consent of the person to whom it pertains, or as otherwise permitted by law. Any unauthorized further disclosure in violation of state law may result in a fine or mcfp sentence or both. A general authorization for the release of medical or other information is NOT sufficient authorization for further disc losure. Allergies and Adverse Reactions Type Description Substance Reaction Status Data Source(s ) PCN PCN PCN active NETSBANNERT ([facility]) Drug Class PENICILLINS Penicillin Rash [facility] Drug allergy Penicillin (For Allergies Use Only) Drug allergy Rash Active eCW1 ([facility]) Family History Family Member Name Family Member Gender Family Member Status Date o f Status Description Data Source(s) Unknown Unknown Problem MEDENT ([facility]) Unknown Female Problem MEDENT ([facility]) Encounters Encounter Providers Location Date Indications Data Source(s ) [place] [address] [facility] [address] 08/15/2020 12:00:00 AM EST eCW1 ([facility]) [place] [address] [facility] [address] 08/11/2020 12:00:00 AM EST [facility]1 [facility]) Outpatient Attender: MARLEN SHEARER MD [id number] 08/02/2020 12:00:00 AM EST - 08/02/2020 01:21:46 PM EST [facility], [facility] Outpatient Referrer: CLAUDE DIAZ MD 08/02/2020 12: 00:00 AM EST [facility], un specified Outpatient Attender: GABINO GUERRERO [address] [place] [address] 07/28/2020 10:01:54 AM E [facility] [place] [address] [facility] [address] 07/25/2020 12:00:00 AM EST eCW1 ([facility]) [facility]2020 11:58:22 AM E [facility] Unknown [address] [facility] [address] 07/21/2020 12:00:00 AM EST eCW1 ([facility]) Unknown [address] [facility] [address] 07/19/2020 12:00:00 AM EST eCW1 ([facility]) 07/18/2020 12:00:00 AM EST - 021 10:10:03 AM EST NETSMART ([facility]) Outpatient Attender: GABINO [facility]ERRERO [facility] 07/17/2020 12:08:42 PM E [facility] Outpatient [address] [facility] [address] 07/17/2020 12:00:00 AM EST eCW1 ([facility]) [place] [address] [facility] [address] 07/06/2020 12:00:00 AM EST eCW1 ([facility]) Inpatient Attender: Abdirizak BUTLEReferrer: Abdirizak Cobian MD 07/05/2020 12:00:00 AM EST [facility] Inpatient Attender: KYLEE MILLS MDAt tender: JAYCEE LI MDAttender: Abdirizak Cobian MDAttender: Dusty Mott MDAdmitter: Abdirizak Cobian MDReferrer: Abdirizak Cobian MD [id number] 07/04/2020 12:00:00 AM EST - 07/12/2020 10:48:00 AM EST Nontraumatic intracranial hemorrhage, unspecified [facility] Nontraumatic intracranial hemorrhage, un specified Patient discharged. Outpatient Attender: FLOR Wheeler/Manfred/Johnie/David ndl 05/11/2020 09:00:00 AM EST MEDENT [facility] Outpatient Attender: FLOR Wheeler/Everett/David ndeugenia 03/16/2020 11:20:00 AM EDT MEDENT ([facility] ) [address], [address] [address] 10/19/2019 12:00:00 AM EDT eCW1 ([facility]) [address] [place] [address] 10/18/2019 12:00:00 AM EDT eCW1 ([facility]) [address] [address] 10/18/2019 12:00:00 AM EDT eCW1 ([facility]) Medications Medication Brand Name Start Date Product Form Dose Route Admi nistrative Instructions Pharmacy Instructions Status Indications Reaction Description Data Source(s) Labetalol hydrochloride 100 MG Oral Tablet LABETALOL HCL 08/09/2020 12:00:00 AM EST tablet 60 TAKE ONE TABLET BY MOUTH TWI CE A DAY TAKE ONE TABLET BY MOUTH TWICE A DAY SOLD: 08/10/2020 [facility] 50 mg 08/09/2020 12:00:00 AM EST tablet 60 TAKE TWO TABLETS BY MOUTH EVERY DAY TAKE TWO TABLETS BY MOUTH EVERY DAY SOLD: 08/10/2020 [facility] 10 mg 08/09/2020 12:00:00 AM EST tablet 30 TAKE ONE TABLET BY MOUTH EVERY DAY TAKE ONE TABLET BY MOUTH EVERY DAY SOLD: 08/10/2020 [facility] 400 mcg 08/08/2020 12:00:00 AM EST tablet 30 TAKE ONE TABLET BY MOUTH EVERY DAY TAKE ONE TABLET BY MOUTH EVERY DAY SOLD: 08/10/2020 [facility] 1 mg 08/08/2020 12:00:00 AM EST tablet 30 TAKE ONE TABLET BY MOUTH EVERY DAY TAKE ONE TABLET BY MOUTH EVERY DAY SOLD: 08/10/2020 [facility] Cane - Cane - 07/21/2020 12:00:00 AM EST active Cane - eCW1 ([facility]) Cane - Cane - 07/21/2020 12:00:00 AM EST active Cane - eCW1 ([facility]) Cane - Cane - 07/21/2020 12:00:00 AM EST active Cane - eCW1 ([facility]) Cane - Cane - 07/21/2020 12:00:00 AM EST active Cane - eCW1 ([facility]) Cane - Cane - 07/21/2020 12:00:00 AM EST active Cane - eCW1 ([facility]) Cane - Cane - 07/21/2020 12:00:00 AM EST active Cane - eCW1 ([facility]) Labetalol HCl 100 MG Labetalol HCl 07/18/2020 12:00:00 AM EST completed NETSMART ([facility]) Folic Acid 1 MG Folic Acid 07/18/2020 12:00:00 AM EST completed NETSMART ([facility]) Thiamine HCl 100 MG Thiamine HCl 07/18/2020 12:00:00 AM EST completed NETSMART ([facility]) Multivitamin Adult Multivitamin Adult 07/18/2020 12:00:00 AM EST completed NETSMART ([facility]) AmLODIPine Besylate 10 MG AmLODIPine Besylate 07/18/2020 12:00:[address] completed NETSMART ([facility]) Acetaminophen 325 MG / Hydrocodone Yarely trate 5 MG Oral Tablet HYDROcodone- acetaminophen (LORTAB) 5-325 MG per tablet 1 tablet HYDROcodone-acetaminophen (LORTAB) 5-325 MG per tablet 1 tablet 07/12/2020 07:30:54 AM EST 1 {tbl} Oral active 1 tablet, Oral, Every 6 hours PRN, Moderate Pain (Pain Scale Score 4-6), Starting Fri07/12/20 at 0730, For 3 days
Maximum daily dose of acetaminophen is 3,000 mg from all sources in 24 hours.
[facility] Medication administered onsite Tab-A-Joanna/Beta Carotene Oral Tablet 2298-3322-55 07/12/2020 12:00: 00 AM EST 1 {tbl} Oral active Take 1 tablet by mouth d [facility] Amlodipine 10 MG Oral Tablet amLODIPine Besylate 10 MG Oral Tablet (NORVASC) amLODIPine Besylate 10 MG Oral Tablet (NORVASC) 07/12/2020 12:00:00 AM EST 10 mg Oral active Take 1 tablet by mouth d [facility] Folic Acid 1 MG Oral Tablet Folic Acid 1 MG Oral Table t (FOLVITE) Folic Acid 1 MG Oral Tablet (FOLVITE) 07/12/2020 12:00:00 AM EST 1 mg Oral active Take 1 tablet by mouth daily [facility] Thiamine 100 MG Oral Tablet Thiamine HCl 100 MG Oral T ablet (B-1) Thiamine HCl 100 MG Oral Tablet (B-1) 07/12/2020 12:00:00 AM EST 100 mg Oral active Take 1 tablet by mouth daily [facility] Labetalol hydrochloride 100 MG Oral Tabl et Labetalol HCl 100 MG Oral Tablet (NORMODYNE) Labetalol HCl 100 MG Oral Tablet (NORMODYNE) 12:00:00 AM EST 100 mg Oral active Take 1 tablet by mouth every 12 (twelve) hours [facility] Labetalol hydrochloride 100 MG Oral Tablet labetalol ( NORMODYNE) tablet 100 mg labetalol (NORMODYNE) tablet 100 mg 07/08/2020 09:00:00 PM EST 100 mg Oral active 100 mg, Oral, Ev jackie 12 hours Standard (2 times per day), First dose on 07/08/20 at 2100, For 30 days
Check vital signs before administering
[facility] Medication administered onsite Amlodipine 5 MG Oral Tablet amlodipine (NORVASC) table t 10 mg amlodipine (NORVASC) tablet 10 mg 07/07/2020 09:00:00 AM EST 10 mg Oral active 10 mg, Oral, Daily Standard, First dose on Fri07/07/20 at 0900, For 30 days
Check vital signs before administering
[facility] Medication administered onsite heparin (porcine) 5000 UNIT/ML injection 5,000 Units [id number] 07/06/2020 09:00:00 PM EST 5000 U Subcutaneous active 5,000 Units, Subcutaneous, 2 Times Daily, First dose on Fri07/06/20 at 2100, For 30 days [facility] Medication administered onsite Acetaminophen 325 MG / Hydrocodone Yarely trate 5 MG Oral Tablet HYDROcodone- acetaminophen (LORTAB) 5-325 MG per tablet 1 tablet HYDROcodone-acetaminophen (LORTAB) 5-325 MG per tablet 1 tablet 07/06/2020 06:00:53 PM EST 1 {tbl} Oral completed 1 tablet, Oral, Every 6 hours PRN, Moderate Pain (Pain Scale Score 4-6), Starting Fri07/06/20 at 1800, For 4 days 18 hours
Maximum daily dose of acetaminophen is 3,000 mg from all sources in 24 hours.
[facility] Medication administered onsite potassium chloride (K-DUR) dissolvable tablet 20 mEq 21217-9 [id number] 07/06/2020 09:15:00 AM EST 20 meq Oral completed 20 mEq, Oral, 2 Times Daily, First dose (after last modification) on Fri07/06/20 at 0915, For 3 days
May be dissolved in water for patients with a G-Tube or unable to swallow. If concern for clogging G-Tube, may contact Pharmacy to switch formulation to a powder packet.
[facility] Medication administered onsite lidocaine (LIDODERM) 5 % patch 1 patch 0422-5914-94 09:15:00 AM EST 1 {patch} Transdermal active 1 patch, T ransdermal, Daily Standard, First dose on Fri07/06/20 at 0915, For 30 days
Apply to area of back pain12 hours on - 12 hours off
[facility] Medication administered onsite Amlodipine 5 MG Oral Tablet amlodipine (NORVASC) table t 5 mg amlodipine (NORVASC) tablet 5 mg 07/06/2020 09:15:00 AM EST 5 mg Oral aborted 5 mg, Oral, Once, Dalila 07/06/20 at 0915, For 1 dose
Check vital signs before administering
[facility] Medication administered onsite Cyclobenzaprine hydrochloride 10 MG Oral Tablet cyclobenzaprine (FLEXERIL) tablet 10 mg cyclobenzaprine (FLEXERIL) tablet 10 mg 07/06/2020 09:13:20 AM EST 10 mg Oral active 10 mg, Oral, Thr ee Times Daily-PRN, Muscle spasms, Starting Dalila 07/06/20 at 0913, For 30 days [facility] Medication administered onsite Amlodipine 5 MG Oral Tablet amlodipine (NORVASC) table t 10 mg amlodipine (NORVASC) tablet 10 mg 07/06/2020 09:00:00 AM EST 10 mg Oral aborted 10 mg, Oral, Daily Standard, First dose (after last modification) on Dalila 07/06/20 at 0900, For 28 doses
Check vital signs before administering
[facility] Medication administered onsite Acetaminophen 325 MG / Hydrocodone Yarely trate 5 MG Oral Tablet HYDROcodone- acetaminophen (LORTAB) 5-325 MG per tablet 1 tablet HYDROcodone-acetaminophen (LORTAB) 5-325 MG per tablet 1 tablet 07/05/2020 11:30:00 PM EST 1 {tbl} Oral completed 1 tablet, Oral, Once, Fri07/05/20 at 2330, For 1 dose
Maximum daily dose of acetaminophen is 3,000 mg from all sources in 24 hours.
[facility] Medication administered onsite gadobutrol (GADAVIST) contrast injection 10 mL [id number] 07/05/2020 05:15:00 PM EST 0.1 mL/kg Intravenous completed 10 mL (r ounded from 10.48 mL = 0.1 mL/kg 104.8 kg), Intravenous, 1 TIME IMAGING, Fri07/05/20 at 1715, For 1 dose
Do not mix or administer in the same IV line with other medications.
[facility] Medication administered onsite Amlodipine 5 MG Oral Tablet amlodipine (NORVASC) table t 5 mg amlodipine (NORVASC) tablet 5 mg 07/05/2020 03:15:00 PM EST 5 mg Oral aborted 5 mg, Oral, Daily Standard, First dose (after last modification) on Fri07/05/20 at 1515, For 30 days
Check vital signs before administering
[facility] Medication administered onsite pantoprazole 4 MG/ML Injectable Solution pantoprazole (PROTONIX) injection 40 mg pantoprazole (PROTONIX) injection 40 mg 07/05/2020 12:15:00 PM EST 40 mg Intravenous active 40 mg, Intrav enous, Daily Standard, First dose on Fri07/05/20 at 1215, For 30 days [facility] Medication administered onsite Thiamine 100 MG Oral Tablet thiamine (B-1) tablet 100 mg thiamine (B-1) tablet 100 mg 07/05/2020 09:00:00 AM EST 100 mg Oral active 100 mg, Oral, Daily Standard, First dose on Fri07/05/20 at 0900, For 30 days [facility] Medication administered onsite Docusate Sodium 100 MG Oral Capsule docusate sodium (C OLACE) capsule 100 mg docusate sodium (COLACE) capsule 100 mg 07/05/2020 09:00:00 AM EST 100 mg Oral active 100 mg, Oral, 2 Times Daily, First dose on Fri07/05/20 at 0900, For 30 days [facility] Medication administered onsite Folic Acid 1 MG Oral Tablet folic acid (FOLVITE) table t 1 mg folic acid (FOLVITE) tablet 1 mg 07/05/2020 09:00:00 AM EST 1 mg Oral active 1 mg, Oral, Daily Standard, First dose on Fri07/05/20 at 0900, For 30 days [facility] Medication administered onsite multivitamin tablet 1 tablet [id number] 07/05/2020 09:00:00 AM EST 1 {tbl} Oral active 1 tablet, Oral , Daily Standard, First dose on Fri07/05/20 at 0900, For 30 days [facility] Medication administered onsite sennosides, FCI 35.2 MG/ML Oral Solution senna (SENOKO T) syrup 10 mL senna (SENOKOT) syrup 10 mL 07/05/2020 08:15:00 AM EST 10 mL Oral active 10 mL, Oral, Nightly, First dose on Fri07/05/20 at 0815, For 30 days [facility] Medication administered onsite sodium chloride (preservative free) 0.9 % flush 3 mL 07/05/2020 01:00:00 AM EST 3 mL Intravenous active [Ord er 1 Start] Name: Peripheral IV Signed Summary: Routine, CONTINUOUS, Starting Fri07/04/20 at 2224, Until Dalila 08/03/20, For 30 days [Order 1 End] [Order 2 Start] Name: sodium chloride (preservative free) 0.9 % flush 3 mL Signed Summary: 3 mL, Intravenous, Every 8 hours Standard (3 times per day), First dose on Fri07/05/20 at 0100, For 30 days
Saline Lock. Flush Q8H and after each use to Saline Lock.
[Order 2 End] [Order 3 Start] Name: sodium chloride (preservative free) 0.9 % flush 3 mL Signed Summary: 3 mL, Intravenous, PRN, Line Care, Starting Fri07/04/20 at 2223, For 30 days
Saline Lock. Flush Q8H and after each use to Saline Lock.
[Order 3 End] [Order 4 Start] Name: Saline Lock order Signed Summary: Routine, ONCE, Fri07/04/20 at 2224, For 1 occurrence [Order 4 End] [facility] Medication administered onsite NaCl infusion 0.9 % [id number] 07/05/2020 12:15:00 AM EST Intravenous aborted at 125 mL/hr, Intrav enous, Continuous, Starting Fri07/05/20 at 0015, For 30 days [facility] Medication administered onsite dexmedetomidine (PRECEDEX) in NaCl 0.9 % infusion 4 mcg/mL 1 [id number] 07/05/2020 12:15:00 AM EST ug/kg/h Intravenous aborted 0.1-1.5 mcg/kg/hr 104.8 kg (2.62-39.3 mL/hr, rounded to 2.6-39.3 mL/hr), Intravenous, at 2.6-39.3 mL/hr, Continuous, Starting Fri07/05/20 at 0015, For 30 days
Starting dose = 0.2 mcg/kg/hrTitrate to maintain RASS of -2 Titrate by 0.1-0.2 mcg/kg/hrMax Dose = 1.5 mcg/kg/hr Titrate down if RASS of -1
[facility] Medication administered onsite diazePAM (VALIUM) injection 10 mg [id number] 07/04/2020 11:00:00 PM EST 10 mg Intravenous aborted 10 mg, I ntravenous, Every 1 hour, First dose on Fri07/04/20 at 2300, For 4 doses
Maximum of 40 mg in 4 hour period. If patient is sleeping, do not wake them to administer Diazepam or to assess the CIWA score. Assess once patient awakens.
[facility] Medication administered onsite Thiamine 100 MG/ML Injectable Solution thiamine (B-1) injection 100 mg thiamine (B-1) injection 100 mg 07/04/2020 10:30:00 PM EST 100 mg Intramuscu lar completed 100 mg, Intramuscula r, Once, Fri07/04/20 at 2230, For 1 dose
Upon arrival PRIOR to administration of any glucose containing IVF.
[facility] Medication administered onsite Magnesium Chloride 0.81573 MEQ/ML / Pota ssium Chloride 0.53222 MEQ/ML / Sodium Acetate 0.027 MEQ/ML / Sodium Chloride 0.0899 MEQ/ML / Sodium gluconate 5.02 MG/ML Injectable Solution [Plasmalyte A] electrolyte-A (PLASMALYTE-A) infusion electrolyte-A (PLASMALYTE-A) infusion 07/04/2020 10:30:00 PM EST 125 mL/h Intravenous aborted at 125 mL/hr, Intravenous, Continuous, Starting Fri07/04/20 at 2230, For 3 days
This product comes from distribution.
[facility] Medication administered onsite sodium chloride 0.9 % 1,000 mL with MVI adult 10 mL, folic acid 1 mg, magnesium sulfate 2 g, thiamine (B-1) 100 mg infusion 07/04/2020 10:30:00 PM EST 100 mL/h Intravenous aborted at 100 m L/hr, Intravenous, Continuous, Starting Fri07/04/20 at 2230, For 10 hours
Run in at 100 mL/hr until done.
[facility] Medication administered onsite sodium chloride 0.9 % bag 3-20 mL [id number] 07/04/2020 10:23:46 PM EST mL Intravenous active 3-20 mL, Intr avenous, at 1-999 mL/hr, PRN, For Medication Administration and Line Clearance, Starting Fri07/04/20 at 2223, For 30 days
Flush line with sufficient amount of fluid needed based on man ufacturer recommendation for specific line size. Rate should be run at the same rate as medication in the line being flushed.
[facility] Medication administered onsite Acetaminophen 325 MG Oral Tablet acetaminophen (TYLENO L) tablet 650 mg acetaminophen (TYLENOL) tablet 650 mg 07/04/2020 10:16:59 PM EST 65 0 mg Oral active 650 mg, Oral, E very 4 hours PRN, Mild Pain (Pain Scale Score 1- 3), Starting Fri07/04/20 at 2216, For 30 days
Maximum daily dose of acetaminophen is 3,000 mg from all sources in 24 hours.
[facility] Medication administered onsite 4 ML Labetalol hydrochloride 5 MG/ML Car tridge labetalol (TRANDATE) injection 10 mg labetalol (TRANDATE) injection 10 mg 07/04/2020 10:16:59 PM EST 10 mg Intravenous aborted 10 mg, Intrav enous, Every 6 hours PRN, High Blood Pressure, Starting Fri07/04/20 at 2216, For 30 days
If BP > 140
[facility] Medication administered onsite Hydralazine Hydrochloride 20 MG/ML Injec table Solution hydrALAZINE (APRESOLINE) injection 10 mg hydrALAZINE (APRESOLINE) injection 10 mg 07/04/2020 10 :16:59 PM EST 10 mg Intravenous aborted 10 m g, Intravenous, Every 6 hours PRN, Other, High Blood Pressure, Starting Fri07/04/20 at 2216, For 30 days
If BP > 140
[facility] Medication administered onsite Nicardipine hydrochloride 0.2 MG/ML Inje ctable Solution niCARdipine (CARDENE) 40 mg in sodium chloride 0.9 % 200 mL infusion (0.2 mg/mL) niCARdipine (CARDENE) 40 mg in sodium chloride 0.9 % 200 mL infusion (0.2 mg/mL) 07/04/2020 08:45:00 PM EST mg/h Intravenous completed 5- 15 mg/hr (25-75 mL/hr), Intravenous, at 25-75 mL/hr, Continuous, Starting Fri07/04/20 at 2044, For 8 hours
Titrate to SBP < 140
[facility] Medication administered onsite Nicardipine hydrochloride 0.2 MG/ML Inje ctable Solution niCARdipine (CARDENE) 40-0.83 MG/200ML-% in sodium chloride 0.9 % infusion (0.2 mg/mL) niCARdipine (CARDENE) 40-0.83 MG/200ML-% in sodium chloride 0.9 % infusion (0.2 mg/mL) 07/04/2020 08:25:33 PM EST completed Starting Fri07/04/20 at 2024, For 1 dose
Momo Stover: cabinet override
Momo Stover: ruthinet override
[facility] Medication administered onsite 17 gram/dose 02/04/2020 12:00:00 AM EDT powder 510 USE DIRECTED BY OREN COLÓN (TO BE USED FOR PREP) USE DIRECTED BY OREN COLÓN (TO BE USED FOR PREP) SOLD: 02/09/2020 [facility] POLYETHYLENE GLYCOL 3350 142 MG/ML Oral Solution [Miralax] M iralax 02/03/2020 12:00:00 AM EDT completed MEDENT ([facility]) cefdinir 300 MG Oral Capsule Cefdinir 300 MG Cefdinir 300 MG 10/18/2019 12:00:00 AM EDT active 1 cap eCW1 ([facility]) cefdinir 300 MG Oral Capsule Cefdinir 300 MG Cefdinir 300 MG 10/18/2019 12:00:00 AM EDT active Cefdinir 300 MG eCW1 ([facility]) 300 mg 10/18/2019 12:00:00 AM EDT capsule 14 TAKE ONE CAPSULE BY MOUTH TWICE A DAY FOR 7 DAYS TAKE ONE CAPSULE BY MOUTH TWICE A DAY FOR 7 DAYS SOLD: 10/18/2019 [facility] Bisacodyl 5 MG Delayed Release Oral Tablet [Dulcolax] Dulcol ax 09/13/2019 12:00:00 AM EDT ORAL active Janett EDENT ([facility], ) POLYETHYLENE GLYCOL 3350 142 MG/ML Oral Solution [Miralax] M iralax 09/13/2019 12:00:00 AM EDT active Janett TRUJILLO ([facility], ) Insurance Providers Payer name Policy type / Coverage type Policy ID Covered democrat ID Covered democrat's relationship to egan Policy Egan Plan Information [facility] COMMUNITY PLAN [employer] [id number] SP [id number] [facility] COMMUNITY PLAN MCDO [id number] SP [id number] [facility] [id number] Self [id number] [facility]) O [id number] S [id number] [facility] COMMUNITY PLAN MCDO [id number] SP [id number] [facility] COMMUNITY PLAN MCDO [id number] SP [id number] [facility] COMMUNITY PLAN MCDO [id number] SP [id number] [facility] Health Maintenance Organization (HMO) [id number] Self [id number] [facility]-Medicaid [id number] [facility] [id number] Self [id number] Medicaid Dental S [id number] S [id number] D Managed Care [facility] P [id number] S [id number] [facility] [id number] Self [id number] [facility]-Medicaid [id number] [facility](MCAID) O [id number] S [id number] ANSI-Medicaid [id number] D Managed Care [facility] P [id number] S [id number] [facility] Health Maintenance Organization (HMO) [id number] Self [id number] [facility] [id number] SP [id number] [facility] Health Maintenance Organization (HMO) Self [employer](MCAID) O [id number] S [id number] [facility] Health Maintenance Organization (HMO) Self SELF PAY UNAVAILABLE SP UNAVAILA BLE Medicaid Dental O [id number] S [id number] Medicaid S [id number] S [id number] MEDICAID [id number] SP [id number] MEDICAID - CLINIC [id number] DS [id number] Problems, Conditions, and Diagnoses Code Display Name Description Problem Type Effective Dates Data Source(s) I50.32 [id number] Chronic diastolic heart failure Problem 08/08/2020 12:00:00 AM EST eCW1 ([facility]) Z91.19 [id number] Medical non-compliance Problem 07/17/2020 12 :00:00 AM EST eCW1 ([facility]) I61.9 [id number] Hemorrhagic cerebrovascular accident (CVA ) Problem 07/17/2020 12:00:00 AM EST eCW1 ([facility]) G81.94 [id number] Left hemiplegia Problem 07/17/2020 12:00:00 AM EST eCW1 ([facility]) F10.10 Alcohol abuse Alcohol abuse Problem 07/17/2020 12:00:00 AM EST eCW1 ([facility]) Z68.35 Body mass index [BMI] 35.0-35.9, adult B devan mass index [BMI] 35.0-35.9, adult Problem 07/04/2020 12:00:00 AM EST NETSMART ([facility]) I69.298 Other sequelae of other nontraumatic int racranial hemorrhage Other sequelae of other nontraumatic intracranial hemorrhage Problem 07/04/2020 12:00:00 AM EST NETSMART ([facility] ) 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 Het eronymous bilateral field defects Problem 07/04/2020 12:00:00 AM EST NETSMART ([facility]) 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 Visuospatial deficit and spatial neglect following other nontraumatic intracranial hemorrhage Problem 07/04/2020 12:00:00 AM EST NETSMART ([facility]) M62.82 Rhabdomyolysis Rhabdomyolysis Problem 07/04/2020 12:00: 00 AM EST NETSMART ([facility]) R41.9 Unspecified symptoms and sig ns involving cognitive functions and awareness Unspecified symptoms and signs involving cognitive fun ctions and awareness Problem 07/04/2020 12:00:00 AM EST NETSMART ([facility]) F10.10 Alcohol abuse, uncomplicated Alcohol abuse, uncomplica frank Problem 07/04/2020 12:00:00 AM EST NETSMART ([facility] ) M54.9 Dorsalgia, unspecified Dorsalgia, unspecified Problem 07/04/2020 12:00:00 AM EST NETSMART ([facility] ) G89.29 Other chronic pain Other chronic pain Problem 12:00:00 AM EST NETSMART ([facility]) I10 Essential (primary) hypertension Essential (primary) h ypertension Problem 07/04/2020 12:00:00 AM EST NETSMART ([facility] ) E66.01 Morbid (severe) obesity due to excess ca lories Morbid (severe) obesity due to excess calories Problem 07/04/2020 12:00:00 AM EST NETSMART ( [facility]) Z91.81 History of falling History of falling Problem 12:00:00 AM EST NETSMART ([facility]) Z87.891 Personal history of nicotine dependence Personal history of nicotine dependence Problem 07/04/2020 12:00:00 AM EST NETSMART ([facility]) I69.254 Hemiplegia and hemiparesis f ollowing other nontraumatic intracranial hemorrhage affecting left non-dominant side Hemiplegia and hemiparesis following other nontraumatic intracranial hemorrhage affecting left non-dominant side Problem 07/04/2020 12:00:00 AM EST NETSMART ([facility]) I62.9 Nontraumatic intracranial hemorrhage, un specified Nontraumatic intracranial hemorrhage, unspecified Diagnosis 07/04/2020 10:25:17 PM [facility] R29.810 Facial weakness Facial weakness Diagnosis 07/04/2020 08:1 7:00 PM [facility] G81.94 Hemiplegia, unspecified affecting left n ondominant side Hemiplegia, unspecified affecting left nondominant side Diagnosis 07/04/2020 08:17:00 PM [facility] I61.0 Nontraumatic intracerebral hemorrhage in hemisphere, subcortical Nontraumatic intracerebral hemorrhage in hemisphere, subcortical Diagnosis 07/04/2020 08:17:00 PM [facility] Hemorrhagic CVA. Hemorrhagic CVA. Diagnosis 07/04/2020 08 :17:00 PM [facility] Surgeries/Procedures Procedure Description Date Indications Data Source(s) CT HEAD/BRAIN W/O CONTRAST MATERIAL CT HEAD WITHOUT CONTRAST 70 450 STAT 08/02/2020 11:00 AM EST Intracranial hemorrhage 08/02/2020 11:00:00 AM EST Intracranial hemorrhage [facility] Intracranial hemorrhage BLOOD COUNT COMPLETE AUTOMATED CBC Routine 07/12/2020 3:27 A M EST 07/12/2020 03:27:00 AM [facility] COVID-19 PCR COVID-19 PCR Routine 07/11/2020 9:29 AM EST 07/11/2020 09:29:00 AM [facility] BLOOD COUNT COMPLETE AUTOMATED CBC Routine 07/11/2020 6:00 A M EST 07/11/2020 06:00:00 AM [facility] BLOOD COUNT COMPLETE AUTOMATED CBC Routine 07/10/2020 4:48 A M EST 07/10/2020 04:48:00 AM [facility] BLOOD COUNT COMPLETE AUTOMATED CBC Routine 07/09/2020 5:55 A M EST 07/09/2020 05:55:00 AM [facility] GLUCOSE QUANTITATIVE BLOOD XCPT REAGENT STRIP POCT GLUCOSE, DOC KED Routine 07/08/2020 8:43 AM EST 07/08/2020 08:43:00 AM [facility] BLOOD COUNT COMPLETE AUTOMATED CBC Routine 07/08/2020 5:29 A M EST 07/08/2020 05:29:00 AM [facility] COMPREHENSIVE METABOLIC PANEL COMPREHENSIVE METABOLIC PANEL Rou rashard 07/08/2020 5:29 AM EST 07/08/2020 05:29:00 AM [facility] BLOOD COUNT COMPLETE AUTOMATED CBC Routine 07/07/2020 3:42 A M EST 07/07/2020 03:42:00 AM [facility] COMPREHENSIVE METABOLIC PANEL COMPREHENSIVE METABOLIC PANEL Rou rashard 07/07/2020 3:42 AM EST 07/07/2020 03:42:00 AM [facility] BLOOD COUNT COMPLETE AUTOMATED CBC Routine 07/06/2020 6:18 A M EST 07/06/2020 06:18:00 AM [facility] CREATINE KINASE TOTAL CK Routine 07/06/2020 6:18 AM EST 07/06/2020 06:18:00 AM [facility] COMPREHENSIVE METABOLIC PANEL COMPREHENSIVE METABOLIC PANEL Rou rashard 07/06/2020 6:18 AM EST 07/06/2020 06:18:00 AM [facility] CREATINE KINASE TOTAL CK Timed 07/06/2020 1:17 AM EST 07/06/2020 01:17:00 AM [facility] CREATINE KINASE TOTAL CK Timed 07/05/2020 6:25 PM EST 07/05/2020 06:25:00 PM [facility] MRI BRAIN BRAIN STEM W/O &W/CONTRAST MATERIAL MR BRAI N WITH AND WITHOUT CONTRAST [id number] Routine 07/05/2020 5:48 PM EST 07/05/2020 05:48:00 PM [facility] ECHO TTHRC R-T 2D W/WOM-MODE COMPL SPEC&COLR DOP ECHOCARDIO GRAM 2D COMPLETE Routine 07/05/2020 1:37 PM EST 07/05/2020 01:37:15 PM [facility] CREATINE KINASE TOTAL CK Timed 07/05/2020 11:51 AM EST 07/05/2020 11:51:00 AM [facility] COMPREHENSIVE METABOLIC PANEL COMPREHENSIVE METABOLIC PANEL Julius ed 07/05/2020 11:51 AM EST 07/05/2020 11:51:[address] [facility] [address] CERVICAL SPINE W/O CONTRAST MATERIAL CT CERVICAL S PINE WITHOUT CONTRAST [id number] Routine 07/05/2020 8:17 AM EST 07/05/2020 08:17 :26 AM [facility] CT HEAD/BRAIN W/O CONTRAST MATERIAL CT HEAD WITHOUT CONTRAST 70 450 Routine 07/05/2020 8:17 AM EST 07/05/2020 08:17:26 AM [facility] BLOOD COUNT COMPLETE AUTOMATED CBC Routine 07/05/2020 6:09 A M EST 07/05/2020 06:09:00 AM [facility] CREATINE KINASE TOTAL CK Timed 07/05/2020 6:09 AM EST 07/05/2020 06:09:00 AM [facility] COMPREHENSIVE METABOLIC PANEL COMPREHENSIVE METABOLIC PANEL Julius ed 07/05/2020 6:09 AM EST 07/05/2020 06:09:[address] [facility] [address] HEAD/BRAIN W/O CONTRAST MATERIAL CT HEAD WITHOUT CONTRAST 70 450 STAT 07/05/2020 1:15 AM EST 07/05/2020 01:15:48 AM [facility] RESPIRATORY PATHOGEN PANEL RESPIRATORY PATHOGEN PANEL Routine 07/05/2020 12:49 AM EST 07/05/2020 12:49:00 AM [facility] COVID-19 PCR COVID-19 PCR Routine 07/05/2020 12:49 AM EST 07/05/2020 12:49:00 AM [facility] HEPATITIS C ANTIBODY HEPATITIS C ANTIBODY Routine 07/05/2020 12:03 AM EST 07/05/2020 12:03:00 AM [facility] CREATINE KINASE TOTAL CK Timed 07/05/2020 12:03 AM EST 07/05/2020 12:03:00 AM [facility] COMPREHENSIVE METABOLIC PANEL COMPREHENSIVE METABOLIC PANEL Julius ed 07/05/2020 12:03 AM EST 07/05/2020 12:03:00 AM [facility] COMPREHENSIVE METABOLIC PANEL METABOLIC PANEL, COMPREHENSIVE Ro utine 07/04/2020 8:40 PM EST 07/04/2020 08:40:00 PM [facility] THROMBOPLASTIN TIME PARTIAL PLASMA/WHOLE BLOOD PARTIA L THROMBOPLASTIN TIME (PTT) Routine 07/04/2020 8:40 PM EST 07/04/2020 08:40 :00 PM [facility] PROTHROMBIN TIME PROTIME INR Routine 07/04/2020 8:40 PM EST 07/04/2020 08:40:00 PM [facility] BLOOD COUNT COMPLETE AUTO&AUTO DIFRNTL WBC COUNT CBC AND DIFFER ENTIAL Routine 07/04/2020 8:40 PM EST 07/04/2020 08:40:00 PM [facility] THYROID STIMULATING HORMONE TSH TSH Routine 07/04/2020 8:40 PM EST 07/04/2020 08:40:00 PM [facility] HEMOGLOBIN GLYCOSYLATED A1C HEMOGLOBIN A1C Routine 07/04/2020 8:40 PM EST 07/04/2020 08:40:00 PM [facility] CREATINE KINASE TOTAL CK Routine 07/04/2020 8:40 PM EST 07/04/2020 08:40:00 PM [facility] LIPID PANEL LIPID PANEL Routine 07/04/2020 8:40 PM EST 07/04/2020 08:40:00 PM [facility] Hemorrhoidectomy, By Simple Ligature 04/13/2020 12:00: 00 AM EDT MEDENT ([facility] ) Colonoscopy W/ Poly 02/11/2020 12:00:00 AM EDT MEDENT ([facility] ) Results ID Date Data Source [id number] 08/02/2020 03:30:05 PM [facility] Name Value Range Interpretation Code Description Data Elvira rce(s) Supporting Document(s) Progress Note [facility] YVXHUe1wQnOAQiYp83/CRUdmECHvl6EaVZuaHIm8CZoqDPKxI0PaPGJ4yQ3pVUB9VHaSBzGnHrNfZcOg [facility] [file] ThKat4RbPmXfkjBVYmLFJgTYB4XROrEdHnKC9MPz3TDwA1PVY8fVHhPd5RDsU3OSfMFyCrEL2KTDq= ID Date Data Source [id number] 08/02/2020 11:38:49 AM [facility] CT HEAD WITHOUT CONTRAST [id number] RESU LTInterpreted by:MARIETTA Damonlinical Indication: Follow-up right basal ganglia intracranial hemorrhageComparison: 07/05/20Multiple axial sections were obtained through the brain without contrast. Automated dose lowering techniques and/or adjustment according to patient size were utilized for this exam.Compared to the prior study, the right external capsule hematoma now appears low density around the periphery and isodense within the center. This is consistent with a resolving hematoma. There is decreased mass effect on the right lateral ventricle and res olution of midline shift. There is asymmetry of [...] sinuses and mastoid air cells are otherwise clear.Impression: Resolving right external capsule hemorrhage. Decreased mass effect and resolution of midline shift. Sinus disease.This document has been electronically signed by Brittney Garrett MD on 08/02/2020 11:36 AM Name Value Range Interpretation Code Description Data Elvira rce(s) Supporting Document(s) ID Date Data Source [id number] 07/28/2020 10:01:54 AM EST [facility] Name Value Range Interpretation Code Description Data Elvira rce(s) Supporting Document(s) Progress Note [facility] TOYHZg5aZkEUMqIv45/NRFhcIBGly2JiSBezKVh6UHcvYAPwT3LdWCD9mW5gESE0SKaOPjEvNkIdOMB4 lbm [file] ID Date Data Source [id number] 07/24/2020 11:58:22 AM EST [facility] Name Value Range Interpretation Code Description Data Elvira rce(s) Supporting Document(s) Progress Note [facility] FHLKRf2bRjBPAeVj75/KZIagGZVds4TuKUuySWy5ZPryHYItV9CwQJN3lK8xWBU6GGyOIrCoOgSyPSG5 lbm [file] De7Jq2KhhlF9qpVeNCdgMOI7Px9GVWHPB0RKKh== ID Date Data Source [id number] 07/19/2020 02:31:18 PM EST [facility] Name Value Range Interpretation Code Description Data Elvira rce(s) Supporting Document(s) Discharge Summary [facility] IBWFUt7bXdAJJkId18/WIFouUHUml3TnLCabMMd2WQbbCREgY5StPKH1zU7vXEH3AZcVVsPuZcWuRYCa lbm [file] K7y+u8h/SlUo1rr6+NBOcHnx8kpixB+/Ma0LA8AEkk/vj99zmqh/0q+TUU3fwThlfZYgc+n7HVeg/Simón [file] COMPUTER NETWORK SPECIALIST+Lg2TAVPwDKe2W1H3LNIeSTx0M9FAP3ELCYYqOT kqKMosYNMaZJn9P4Y3NYQcY8YZY5Mmgtmecn7+SR4KD93CPVMuHDa7A0B6mGWhB1S8cIiOeDN3EF2LMX 1BrFx2qHXpfQ6+MG7WZ5GIMoNrHPq0F8I4lHTiX9W8tQfQhAI8QL7HKH2MfNCyWFYmfuItDk8aZ4MWZU zTRkICUPR1WT6SrIRpTD7NfZUUA2SooXHbWt5eCEgu mZJbcL0uVi0dHHjkYZ6VTmSCQXpFTKB8EX9IeABoBE0KzVLYB9XkmCFzYy2jVUgcxAHvnb5+IP2CZWOj Xd2ACd3+LUhorjCfIhrJMpIpHQKnt5CvVQa5FD0MQC4xpYliCPA1Co7NrUT9mSMfM4pNBD8HvQEpQ65f dUNaOIVuDu1HWaU4ysNhzU1KUH34oYVrk7T7IYAqT7 ehAAkke53dUPmePIxBAZ4oLXEAMDhcYRlxJKH8JiWwoigcMBVqOf6ULbBmSLm8kU3ptTQ9BGJ6IqspvB PaYKxjLhWqJiEmEuF9lMgzrrt0OGvkTM5dUHzrkycrYEPiFou+ABarNMHhFESxKlnCZZPkfU4yhxO6dy DrFScpcYHcHu8da7p6RocoGg7zXh4mPQt4QdErZsWv OFPzPr0qdB67IAwdcxOgKt8BUlDtBNS1A4JzOtyRPHH+OGcfMIzcmQl5nWXyLILoCt1MZXXsEMFsRGOj ICAgICAgICAgICAgICAgICAgICAgICAgICAgICAgICAgICAgICAgICAgICAgICAgICAgICAgICAgICAg ICAgICAgICAgICAgICAgICAgICAgICAgICAgICAgIA 0KICAgICAgICAgICAgICAgICAgICAgICAgICAgICAgICAgICAgICAgICAgICAgICAgICAgICAgICAgIC WyLKRgZDSbXJTcYSFcMVSqYWVgVKFtANUoINIaNAGfYEYvBFEgBYNtTN0BIKQeQUNxECQyVBHlYZBaOL AgICAgICAgICAgICAgICAgICAgICAgICAgICAgICAg KPPgGALiCMFxWZMoLUSlLQLrWNNgNPLgQDVlPVFyLEPmFUPtRVXaYZDqCPRdNSFyCTYzRO1AANEwBVBt ICAgICAgICAgICAgICAgICAgICAgICAgICAgICAgICAgICAgICAgICAgICAgICAgICAgICAgICAgICAg ICAgICAgICAgICAgICAgICAgICAgICAgICAgICAgIC TzUW0DAYJjIRIdMGXnQUJsJZXxNPHrZRFzRCSbSPXhEAOcUUKrRNOlPODySATfTKJjUHBhWRHqYAFaPV SvCBTyPGJaPFVxNREwMBVqXPYwDHVhXDKkQFUhAIFnWLLiULUzEQYwTCMpXC0DZWViHBEhYGXtHTQpIJ AgICAgICAgICAgICAgICAgICAgICAgICAgICAgICAg LGFtMVStFOZcKMJtHBRfTQRaSVFbZLHmAIBkVRIaRKMtPLShUGRtPFCiLSLbNZOjCADyJEMfWS3SKFQj ICAgICAgICAgICAgICAgICAgICAgICAgICAgICAgICAgICAgICAgICAgICAgICAgICAgICAgICAgICAg ICAgICAgICAgICAgICAgICAgICAgICAgICAgICAgIC FrVRBuCN6DSZMoTIBeDZIxHNJuDQHgDNXdCMTwUFDeDUYpPRTgWXEfZJXwYVJjKXAyFCBlHRPtFWMkLE QrVSUvDCJnDIRuCRThHPYeEIPtBHKaYDYdPTYhQNQeQSIgTBKyAAOdWISmGYSbNM3CIGGtLDBeCAYbAB AgICAgICAgICAgICAgICAgICAgICAgICAgICAgICAg XVEmTQWmVOAzDCUcGDUyUYCsBGSdFPQmAAFoXEIgQDGjNACdJVCeACZtNDKpIJXvFFAkAACaLZHzCU3R ICAgICAgICAgICAgICAgICAgICAgICAgICAgICAgICAgICAgICAgICAgICAgICAgICAgICAgICAgICAg ICAgICAgICAgICAgICAgICAgICAgICAgICAgICAgIC WpEFIfBATmPM3BPM22aQSji3M8IIIiUR9ybis/Ti0ZFOcpwwZayITiVS5MGiFeFQ3xwy7HNgFlTS7ifj 6BYQeKYjCcV2T4dYOkAEJqXLOYPdHxQ08wWXweHn19VGjmIEQjAaFtUUp5Fd3GFhNbH5dkECTnPhD2JE LoCoD5TYJgLjR6MJDdNdLzUGSzHWPeTHNoUUZBXFL9 WCJaKuLyGoRvIDKsYFatNJQAKUMuXBAoSfFcNKszCX9Jx1CfuII5ULi+In0IMF4if9BlXJd9IQDwFJ5a bg5FZXpONuVdJ9QjkkM0EGA4OMRlQy3LJJVtIUBsyRC5QPRrBCKOWmAlT7TssP08VIAHFv2+DQplbmRv HeiYRmV5CPMyx6LzNKp0ZB8URHPhUGn5lAZdNEwmA1 lpxpaqUQX6bN7maxotRajrXQswKZDzJXXuXBpgrPwdBMNBM4dvAQTcWS2yIa6wGJQhIWZ4NkUsOLRYXV 0ZJSYuOVUubLVuHHZiDYOMUX7VOImcUKE8IYDkywRolTSfTDdyDU9XHZIsclJnKBFhUVKNBJp+Pg0KZW 9xy4AmCUt5SoYyKH6mjw6NMUxRXsSyK7V3eIXwR1C3 AKfzSf9XFZImSCFdYXOvYASYBKarME6TYN7cmbP8TE8OtBQpTNBfGUPbzOEoJQh5O14svFAtEVbqDO4G ICA+Shaneka+Lg4VTKFbNVGqDYRaXtTsRNKPMkIzE8FeR0FGq9IdU0PuOJ31gJjknjKjSIqzJM0GBM6iUTFl MVSDWI1WyYGoiU8tkeL6WTWjIMBACtEvY74epBLuEN BcFWVcUHFoNd4XOZOyI2BnwiZdjZuyvmBjFWCdQSILNN6HYDuvtnUqqPUfmTytQG12wXwcUC7GVj2GBs PhRR2zqk1SnBQcMs4WMHD5Wa9GXIXyRMTcFJYwMTT5WOJeGwNrIBxlBKBrMUVyYBO5TQKpHOVbJD8NXh RoYGIdXPF2RDKqMPKqSWLbkv7UQGCsONK7VlY2VZHw NSIfLSUhLRiuTAIaXIAxDPQ4ZUDfAQUlAR7WUePnKXNmNCHhCRGsHDClMIKqlr1TJXWsXQLoOdS4FNZa MIFmHQTvXCvqBSEcKEM6AlTjFZClIUOqTL4QMwUuICIzVCx9JzJqLWKnXPDflx9JILFrMFCfDmSgHSAu IIQaGPAdQOfmGJCyZVUaQJG9DDQmLPBnCL8JRhRdNW EkFWOiJZUqLYPyWARlkr9OQOHdBXEzEXY6QmIpCFSgUXFrVAatWCEnMFG4FHM5XNHnMFSjEA4FNmNsHY VyJWftAcYlFZMmUVRrkf1LPKBaGDTaHJO5YlWnFGGoQEHfSOwrFZFgLTEdMNYkFWMzAEPeSU1QKxEpJW XoNxT5QCirCOFpYKTavw1PESLeWIGsIep9XHLyFITw QKOoZWjpHQXxKDU3XWPhPODeVKOrQH1VYfHcGSMcRrylJVpvBJCvOXLcbj2VSOXvMPFkSIxcKrCbLJUx RRElGBwqPKHxCZLsAWNbVTVtEOFgYA7ZAjTtSXCbPiAoLILzIXNfMIAdum0DRHZiRYSbPJK0VODgZZGs JVMrYGbmDGQlAXBwAKMnWWLgDURkLG0OLhKrHESiOc H1GqGcOUVzDBMeze4PGTBtJFApLiKmODTaMFUvNXOdRMggRJVlFFIyIEXdAFMvYPVcOW6QRbMfDNEjOr B2MmUhIHDyJQApri4DILVsYSMdAlc9LkFlTHKnNSBgYGyvZZVnWZL5CIMcFWXpLVThDI9SUbKtSODiOm TxZaDrAEElKGSzvq1KWPIwGUHdMXQpNKYwSVEbFOBl TJwyMMCrBKS7GYLmLWFrDLJnDC2UDwLjZKHzMnK3TpEuBDZtYFRpha2NVKNvVUWmOkP9XIBwXBMmBXMz IXlgXSGtANP9KOE9TEOaHAGrVD9OTtNcYIStDSZ9OQhfYGRnTVJxdg9OXCTiLDR7ZWexGlUrKDXzTDVp FWodLQPyZGW3EBN7YLFiFCInEI9WWvSjZWRsEAU1Dy XrQXSxFXTdow8WXLOrJDS7JTA5DzLnMOYwHUEhEOnlHPZcPUX4ZYGmJZIjGXVrXF2FTtIsDMQsOFl3Li NsJDAaQNZgqj0FDJOzFIF9DpB0CLZtVXKfDYFrJDdpRTSfQCD2EAK8IUJbFCFuVM3YMgTwHIezESHKBh o6XChuS6n5RFV3Ns3QL3Nsz8XuTYBgATCXSPaiCU7n mhOmBWBbFc1WM1oEQydrLZh6TcYsLfXwQGqxZdj0RXPhB9J8GWBlKpp8JJKrWL2yDBCkDxP0WZEsWNBw UHL5ICybDUJsMMcdWJLwAbczZsOhHvMpFT5TUg7AFcX1OPK9aIBfUe9AQDjdBKRKArKvWD3AUNv= ID Date Data Source [id number] 07/17/2020 12:08:42 PM [facility] Name Value Range Interpretation Code Description Data Elvira rce(s) Supporting Document(s) Progress Note [facility] FMAENi8wUjUUYeFr35/THUfoHOLzg3DgRQkgAFi9HXetQFUpM2CjPFG1eG1oFUS0KXzXYgHpIsOpSXR3 lbm [file] AgICAgICAgICAgICAgICAgICAgICAgICAgICAgICAg ICAgICAgICAgICAgICAgICAgICAgICAgICAgICAgICAgICAgICAgICAgICAgICAgICAgICAgICAgICAg UJ2ZVDZhBOJrTMXtALPtAZWvJDMzGVRlPCPbOWNvQLFxZJXwFJGgZRXpWJFsYVDwIIJjLVUxVCDoYWGd ICAgICAgICAgICAgICAgICAgICAgICAgICAgICAgIC DaUEUtVTEoNOGuBH0JSCGtIHBcGDIkINRhERBdOGChOCWzSYRhWDWpSOYsNRRvATQgUVWgSQIiJXCoZU ApYYUyTTIqONKvGFOuMQJyPNFrHJSxGEOzBIPiEDCwDFVuAAFeYBFeKMMzKTLtECYiDBEgEB5PCXFeQO AgICAgICAgICAgICAgICAgICAgICAgICAgICAgICAg ICAgICAgICAgICAgICAgICAgICAgICAgICAgICAgICAgICAgICAgICAgICAgICAgICAgICAgICAgICAg ZCCcUH2DZLDkHXZbVRCkXQDaCOCsINZiTQVzFMMuFTIfOTZgMOCwIDIiUEFkXRIvSYYbCIVeCVLkHSPc ICAgICAgICAgICAgICAgICAgICAgICAgICAgICAgIC IaDOSuJOLzMGRmYFXsXM1BAQArDTCaAWKuFQQkOTUyJGRhNKXsZYMePWKbNYIuEXIhSEFmXQYgROHgJJ WdFJCmNGGgFYTlWYVzJFOjDRFtLGOdRHYlILTbNSApUCHwIUTwTFTpRFYzQUBnXRAlPCOiFASdUA1ZDG AgICAgICAgICAgICAgICAgICAgICAgICAgICAgICAg ICAgICAgICAgICAgICAgICAgICAgICAgICAgICAgICAgICAgICAgICAgICAgICAgICAgICAgICAgICAg INZtXXRdYC9NTUNqOVSpRRIoMNPfFMNlQPWrOLOvLWSxQRJoYOInPUSaFEZmOQPxVKGeOYHuJMYjPSKh ICAgICAgICAgICAgICAgICAgICAgICAgICAgICAgIC BaHFDnVTIzUHJoNIVpZAUkRU8VCZFnSLXwHUBiVPWoCZZmRIZcZWXoVOVgGPRoJLLaGALzJQRwPFZwQP AgICAgICAgICAgICAgICAgICAgICAgICAgICAgICAgICAgICAgICAgICAgICAgICAgICAgICAgICAgIA 0ZDT12rMZlm9O9DVWcXW3iosh/Re4FOAmedvXgfUIa KB5MEbDqIC1bwm8OMqUaDX9puk9UAXqIZrEeP6J6pXQuLMJnSSDKFvAmW78eROeaUu43KCnyKNEmLeBk SBf5Qs7BDcPyZ2oqUSTaIgY8JTOpWmUrYWbuWI2Am9KxaVYnOQv+Kp8RIL5kt6ThNYwoVQIiZQ1cls6C CDhNIxKpC4NwoyV0WLFqZOXeCn3LLSBiBQVwiFVtJW TeMMUYLzWzZ0RjqT56XFNYUq7+VCfyqmBqNniQWnUvWJCms8PvMUg1BN6MOGKzHSm5nGEqSKBeG8Pih0 CoAk82JQNnIrlkUU24m83gGHAKUJ35s20rFhBaaiYoHXUUCLLSQQF1UMJcNEnuToRaZBWoYieaJaFDHE nKTnQvD3Abf1FfDkX1TMSnJgJfRMxgYFUaUtY4HF57 hMwtHI8AHDGrGEFmPJ91SVX7IOIiTb9JWo4NWsCzPR2jsl8HIxJiRZLiPhrAEcb8CZwlNL0DhRUtF2Or cLVaq6bFNaYqV3BVRWM0APWkRj6THBOlHuAyWTBdGBqaEW1pWBAqBJLFfHxwraK9XL5KNN9njuPcBY9K UjCpWr4pKn6AVaMbG7EmY9BjBRVuKGPOBUozXW2LLM vwWI1bJG7Od4TGnGWknA8rdb3PNPCbBYVjTfkyxi9RVoeuA3W3fRnfLMXmUYrqPOSEKIjyUR4CDOAyIN S4AJIkTVQvJDYVFoFrX69dKD6QE0Myz38nBpX9PQCrOdNpTTjuNS27gPrtffMiiUAjpDlnAQ5HAx2+DQ plbmRvYmoNCnhyZWYNCjAgMjINCjAwMDAwMDAwMDAg SqB1HlMnIv3IFOGlKTGgQFEnUrScBVFzDUTcEGjjUGVlZEO1LxlpRDDrIYBcPV2PVqFtFIWlFUnaMIFp ZMXbXWMiyf3NYORsDCBkZRI2LfZdJMGnCDLjMLvmVMPoWZNwLbN9DYLoCJDvKS5KZkFzOKLbPBJ1OZWv QMOqAESvqz1YJBGzKVXvHkB9OfHjYOEbLZIhSLotML IwUKZdSSB3DQVtSQNhBP6WIlAmTIMrBVY2IDnxUDBoLMUkuz1NHJXpYKCeEBjoJkGhHBJqVQPsBFjiSR UzNNW9MFP7AHOrLAGuNJ2BWbWoEAVcXHQlASStYUHrTHUteb3KLWRoWDFbSoF7TNXkFXTuGLRxFAbiQP EjCCR6FeL7JEPkSSIlWY5RWjEwGKPiJYQ4BnTwNNZt MMZmjv0GVDUvBSKkZsDyLTXzKIUzDGWqLHsvMWKdCMJ0MiOxAQLuZIPqNN7JToGmIZAzBKh2OdLmPDHh QLHuwc9CMNQqNRBtBFR6GQOrKEYcUHDiGHmyMTBzLAY6QtvhDOKsFQDvQG4KGmFxAGRzSSu2FzrgAQRb SBOtfw2BnZPvpXuewr1JWWpGRt7EpFyjLTXhBSscEk 2kmSQqRDInTEKWEr6CosVkUWFyHZOZJJavRHFvFBm4JUy8YLA7RStpQoX4FUYvLjP7ECFvFmX9LfKzLG GpEvC7QQDzZlVpRHQkWYZgFVD0LlH7CBb9R7Z8WJa0WgT8UuY+QJ5hEOr+Hn8Na7DpwpF0haLmZVjoNE G5Ft7NCBFWX1BOUe== ID Date Data Source Comprehensive Metabolic Profile (CMP) 07/17/2020 12:00:00 AM EST eCW1 ([facility]) Name Value Range Interpretation Code Description Data Elvira rce(s) Supporting Document(s) 12 7-18 BLOOD UREA NITROGEN eCW1 ([facility]) 80 70-100 GLUCOSE, FASTING eCW1 ([facility]) 1.24 0.70-1.30 CREATININE FOR GFR eCW1 ([facility]) > 60.0 >56 GLOMERULAR FILTRATION RATE eCW 1 ([facility]) 4.4 3.5-5.1 POTASSIUM SERUM eCW1 ([facility]) 140 136-145 SODIUM LEVEL eCW1 ([facility]) 29 21-32 CARBON DIOXIDE LEVEL eCW1 ([facility]) 103 98-107 CHLORIDE LEVEL eCW1 ([facility]) 9.5 8.5-10.1 CALCIUM LEVEL eCW1 ([facility]) 36 12-78 ALT/SGPT eCW1 ([facility]) 24 7-37 AST/SGOT eCW1 ([facility]) 108 45-117 ALKALINE PHOSPHATASE eCW1 ([facility]) 0.5 0.2-1.0 BILIRUBIN,TOTAL eCW1 ([facility]) 7.0 6.4-8.2 TOTAL PROTEIN eCW1 ([facility]) 1.3 ALBUMIN/GLOBULIN RATIO eCW1 ([facility]) 3.9 3.2-5.2 ALBUMIN eCW1 ([facility]) ID Date Data Source CBC with Differential 07/17/2020 12:00:00 AM EST eCW1 ([facility]) Name Value Range Interpretation Code Description Data Elvira rce(s) Supporting Document(s) 4.14 4.30-6.10 RED BLOOD COUNT eCW1 ([facility]) 8.7 4.0-10.0 WHITE BLOOD COUNT eCW1 ([facility]) 13.4 13.5-17.5 HEMOGLOBIN eCW1 ([facility]) 39.0 42.0-52.0 HEMATOCRIT eCW1 ([facility]) 32.4 27.0-33.0 MEAN CORPUSCULAR HEMOGLOB IN eCW1 ([facility]) 94.2 80.0-96.0 MEAN CORPUSCULAR VOLUME e CW1 ([facility]) 34.4 32.0-36.5 MEAN CORPUSCULAR HGB CONC eCW1 ([facility]) 250 150-450 PLATELET COUNT, AUTOMATED eCW1 ([facility]) 12.6 11.5-14.5 RED CELL DISTRIBUTION WID TH eCW1 ([facility]) 62.4 36.0-66.0 NEUTROPHILS % eCW1 ([facility]) 18.5 24.0-44.0 LYMPH % eCW1 ([facility]) 5.7 0.0-3.0 EOS % eCW1 ([facility]) 10.4 0.0-5.0 MONO % eCW1 ([facility]) 0.8 0.0-1.0 BASO % eCW1 ([facility]) 1.6 1.5-5.0 LYMPH # eCW1 ([facility]) 5.4 1.5-8.5 NEUTROPHILS # eCW1 ([facility]) 0.5 0.0-0.5 EOS # eCW1 ([facility]) 0.9 0.0-0.8 MONO # eCW1 ([facility]) 0.1 0.0-0.2 BASO # eCW1 ([facility]) ID Date Data Source [id number] 07/13/2020 02:09:02 AM [facility] Name Value Range Interpretation Code Description Data Elvira rce(s) Supporting Document(s) [facility] ZJROPz1gBvHVIhHh75/ODWhwEUGwk5PfCWdvMTp3VIdwZMQeJ5BpUBW8fR1dDYS3OOxCEdRwOvUqIWO3 [facility] [file] oOj6sz3rXfkpu3jx0bt/A+Luis Antonio+8n4Tbk3mF/Mcy9w0p55qeTUtq9aL2H4Dfi9Y4R1xbTE2dp/I802yd0 [file] U+NW0eHBj+Xu3Yd7BlpxH4jhNaXMp8SSQ5KJ3YEMPEA3RKWz== ID Date Data Source [id number] 07/12/2020 03:54:03 AM EST [facility] Name Value Range Interpretation Code Description Data Elvira rce(s) Supporting Document(s) Leukocytes [#/volume] in Blood by Automated count 7.1 10*3/uL 4-10 [facility] Erythrocytes [#/volume] in Blood by Automated count 3.88 10*6/uL 4.6- 6.1 L [facility] Hemoglobin [Mass/volume] in Blood 12.8 g/dL 13.5-18 L [facility] Hematocrit [Volume Fraction] of Blood by Automated count 35.9 % 4 1-53 [facility] Erythrocyte mean corpuscular volume [Entitic volume] by Auto mated count 92.6 fL 80-96 [facility] Erythrocyte mean corpuscular hemoglobin [Entitic mass] by Automated count 32.9 pg 27-33 [facility] Erythrocyte mean corpuscular hemoglobin concentration [Mass/volume] by Automated count 35.5 g/dL 32.0-36.[facility] distribution width [Ratio] by Automated count 12.7 % 11.5-14.5 [facility] Platelets [#/volume] in Blood by Automated count 197 10*3/uL 150-400 [facility] ID Date Data Source [id number] 07/11/2020 09:29:00 AM EST [facility] Name Value Range Interpretation Code Description Data Elvira rce(s) Supporting Document(s) SARS-CoV-2 RNA 2019 nCoV Real-Time RT-PCR: NOT DETECTED [facility] This lab was ordered by [facility] and reported by [facility]. ID Date Data Source [id number] 07/11/2020 12:04:43 PM EST [facility] Name Value Range Interpretation Code Description Data Elvira rce(s) Supporting Document(s) Specimen source [Identifier] of Unspecified specimen [facility] SARS-CoV-2 RNA 2019 nCoV Real-Time RT-PCR: NOT DETECTED [facility] Assay Performed [facility] Patients first test for condition [facility] Patient employed in healthcare setting [facility] Patient has symptoms related to condition [facility] When did you start to experience these symptoms [Date and time] [Phen X] [facility] Patient was hospitalized because of this condition [facility] patient was admitted to ICU for condition [facility] Patient resides in a congregate care setting [facility] status [facility] ID Date Data Source [id number] 07/11/2020 06:36:29 AM [facility] Name Value Range Interpretation Code Description Data Elvira rce(s) Supporting Document(s) Leukocytes [#/volume] in Blood by Automated count 6.9 10*3/uL 4-10 [facility] Erythrocytes [#/volume] in Blood by Automated count 3.96 10*6/uL 4.6- 6.1 L [facility] Hemoglobin [Mass/volume] in Blood 13.1 g/dL 13.5-18 L [facility] Hematocrit [Volume Fraction] of Blood by Automated count 36.8 % 4 1-53 L [facility] Erythrocyte mean corpuscular volume [Entitic volume] by Auto mated count 93.0 fL 80-96 [facility] Erythrocyte mean corpuscular hemoglobin [Entitic mass] by Automated count 33.0 pg 27-33 [facility] Erythrocyte mean corpuscular hemoglobin concentration [Mass/volume] by Automated count 35.5 g/dL 32.0-36.0 [facility] Erythrocyte distribution width [Ratio] by Automated count 12.7 % 11.5-14.5 [facility] Platelets [#/volume] in Blood by Automated count 178 10*3/uL 150-400 [facility] ID Date Data Source [id number] 07/10/2020 11:58:46 AM [facility] Name Value Range Interpretation Code Description Data Elvira rce(s) Supporting Document(s) [facility] UCLAVw7uSpLSTdEc04/HTRpuXXMuv9XjQJmaISc6JUecTWYbF2BwZOK6mJ4aGQJ7NCtXSrImQjZbKDGh [facility] [file] ICAgICAgICAgICAgICAgICAgICAgICAgICAgICAgICAgICAgICAgICAgICAgICAgICAgICAgICAgICAg ICAgICAgICAgICAgICAgICAgICAgICAgICAgICAgIC AgDQogICAgICAgICAgICAgICAgICAgICAgICAgICAgICAgICAgICAgICAgICAgICAgICAgICAgICAgIC AgICAgICAgICAgICAgICAgICAgICAgICAgICAgICAgICAgICAgICAgICAgDQogICAgICAgICAgICAgIC AgICAgICAgICAgICAgICAgICAgICAgICAgICAgICAg ICAgICAgICAgICAgICAgICAgICAgICAgICAgICAgICAgICAgICAgICAgICAgICAgICAgICAgDQogICAg ICAgICAgICAgICAgICAgICAgICAgICAgICAgICAgICAgICAgICAgICAgICAgICAgICAgICAgICAgICAg ICAgICAgICAgICAgICAgICAgICAgICAgICAgICAgIC AgICAgDQogICAgICAgICAgICAgICAgICAgICAgICAgICAgICAgICAgICAgICAgICAgICAgICAgICAgIC AgICAgICAgICAgICAgICAgICAgICAgICAgICAgICAgICAgICAgICAgICAgICAgDQogICAgICAgICAgIC AgICAgICAgICAgICAgICAgICAgICAgICAgICAgICAg ICAgICAgICAgICAgICAgICAgICAgICAgICAgICAgICAgICAgICAgICAgICAgICAgICAgICAgICAgDQog ICAgICAgICAgICAgICAgICAgICAgICAgICAgICAgICAgICAgICAgICAgICAgICAgICAgICAgICAgICAg ICAgICAgICAgICAgICAgICAgICAgICAgICAgICAgIC AgICAgICAgDQogICAgICAgICAgICAgICAgICAgICAgICAgICAgICAgICAgICAgICAgICAgICAgICAgIC AgICAgICAgICAgICAgICAgICAgICAgICAgICAgICAgICAgICAgICAgICAgICAgICAgDQogICAgICAgIC AgICAgICAgICAgICAgICAgICAgICAgICAgICAgICAg ICAgICAgICAgICAgICAgICAgICAgICAgICAgICAgICAgICAgICAgICAgICAgICAgICAgICAgICAgICAg DQogICAgICAgICAgICAgICAgICAgICAgICAgICAgICAgICAgICAgICAgICAgICAgICAgICAgICAgICAg ICAgICAgICAgICAgICAgICAgICAgICAgICAgICAgIC FyLIYpSLZyRAQxEQr0K3flGGIxGBWnTS5aMIn0Sw3+AOsOCfNkQEC8qmJgvD6JIA2gs7SbTEznYAChm6 HwHBx4ST5TMYMgQRvnBO6AFIfnbl7QTOTrKJAjrHJWe2uiNmOoCET5OCVbOogzTD0PKNMwY3oernJuXL ObENLDCY7DGgNqS2LswG69SPOCLd7+DQplbmRvYmoN CoE4YKInf0UsSIs4ZY6LCLExAtxfw7CmMWNxQHYVBIquVO1OWFQ3GWH2PMPoZi9PRVBoU294zmGmOT1S Cv1ERfIbLH5vpb8LOLKvUSEuWkfISbm2DDvaTD4GoRAqJXzKs15meMg4foXkoIKEsiKhgvzoLTTmbkYu jo0WDOwmBBFgBSaJW7srIMJzRY6eJX9wKQTfIOGmZn W9DEQOGZ4PUWVqPJVcoEJgQNKdWENNAU6WDMviCVZ4WHBvknHflOJcXVgnJE7IXSTnipVaZRMkBKFAME o+Tr0YMM0bi3AkOFoxGwMuGF7tkg0DKUxJAgElX2Q2fUIeV7E3YIkqPp4OIWMdSDBnMHHsWOKFLRbnYH 8UML0mmuR6CB7WoOQkRRMfLJBstIHeNJs2K18noNWc HAljFA1QMLM+Shaneka+Er7QIPBvJJVjSRMhJkDxMCBCUoXqR9PwR5INo8UxA7YjBQ14wFdwcaTdFSbxNT6R HM7uQFWkAJVLMY5UnCVvpQ1thwOnNZQoHBPVStSbA12ayNJdZRZlSHIrBITdRr3LIQUlK8FubwQoqWoz iyVrIJIfZKJIFH4PMCvrdnSbsCXeaUiaVI58rLjzRO 3BDd2VHoQmLA7rxe5IyMXbLt9XZRYjBq7GFPKbEMFhXZLkPSU5EHNyJrWxJRejXOExNXUuTTK4FQYdPL NaJC0KNeQxZEKfFZAgOFFtKURvBEJhce7MATVbSAQtFac9MvUpLPQiMKEyKMoqFMYrPBEoQAJ1GKOpTV DqIN0DDvIyWGLgMXNrRASeGDDlKIUjtv6LTBGyAINd NwE0BgTwVUPvNZOjGRhaJDGwTIAfWWK8VNZkEMClCG2TJsIrCAAmYOU1VXBzXRJlZSFzwx5UIQBxXUJa Vbu3UCSxQFZzMBQsPThwLZUsRPX7EbY4LYEkRZOaBU4TZtXfNJOnSDK4LPOfRAAkVHIens6FVYFeBXZr HZGvAGLqVQIzSBVsCCzbLNThIAA6OEOlUDQzRPNgZN 0LSfTgYRTfJAP1TcYsBHMyGZPshm7BGVYyHLRhRaC8TNDsDLJcJHUnZRnxMGGiMDL4UTsvBQVjUOFxRW 6IYnSqWUyqNULNBla9RXujZ8r2WFPbWj8WN9Ucj7YoZDVoRALLQTdoKI7efxRoTLFzUn7YA4tINkr8RQ RdFlk8Lie7NjLzTNErUlVxUcZ2RAPmSEJtYRBgUv8m MBx1F4YcITNwJpzcRFG5DfHmWHJhYlleJHD3ViFtMJWnYnQgJL2EVf5VZdG6NVM7rMUvJl1IBmQaXq4M LKUCO2SRYo== ID Date Data Source [id number] 07/10/2020 05:07:09 AM [facility] Name Value Range Interpretation Code Description Data Elvira rce(s) Supporting Document(s) Leukocytes [#/volume] in Blood by Automated count 9.6 10*3/uL 4-10 [facility] Erythrocytes [#/volume] in Blood by Automated count 4.05 10*6/uL 4.6- 6.1 L [facility] Hemoglobin [Mass/volume] in Blood 13.5 g/dL 13.5-18 [facility] Hematocrit [Volume Fraction] of Blood by Automated count 38.2 % 4 1-53 L [facility] Erythrocyte mean corpuscular volume [Entitic volume] by Auto mated count 94.2 fL 80-96 [facility] Erythrocyte mean corpuscular hemoglobin [Entitic mass] by Automated count 33.2 pg 27-33 H [facility] Erythrocyte mean corpuscular hemoglobin concentration [Mass/volume] by Automated count 35.2 g/dL 32.0-36.0 [facility] Erythrocyte distribution width [Ratio] by Automated count 13.0 % 11.5-14.5 [facility] Platelets [#/volume] in Blood by Automated count 154 10*3/uL 150-400 [facility] ID Date Data Source [id number] 07/09/2020 06:25:59 AM [facility] Name Value Range Interpretation Code Description Data Elvira rce(s) Supporting Document(s) Leukocytes [#/volume] in Blood by Automated count 9.0 10*3/uL 4-10 [facility] Erythrocytes [#/volume] in Blood by Automated count 4.34 10*6/uL 4.6- 6.1 L [facility] Hemoglobin [Mass/volume] in Blood 14.3 g/dL 13.5-18 [facility] Hematocrit [Volume Fraction] of Blood by Automated count 40.8 % 4 1-53 L [facility] Erythrocyte mean corpuscular volume [Entitic volume] by Auto mated count 94.0 fL 80-96 [facility] Erythrocyte mean corpuscular hemoglobin [Entitic mass] by Automated count 32.9 pg 27-33 [facility] Erythrocyte mean corpuscular hemoglobin concentration [Mass/volume] by Automated count 35.0 g/dL 32.0-36.0 [facility] Erythrocyte distribution width [Ratio] by Automated count 13.0 % 11.5-14.5 [facility] Platelets [#/volume] in Blood by Automated count 153 10*3/uL 150-400 [facility] ID Date Data Source [id number] 07/08/2020 06:55:10 PM [facility] Name Value Range Interpretation Code Description Data Elvira rce(s) Supporting Document(s) Consultation [facility] SVBJHn7gVgHPImFa42/FTHhpMQTcr5EzNXfzIDt3GAujUROhD0SdFTQ3zJ9lUYB6MCdISnYlJiIrFBB3 lbm [file] xoUrT0Dy5CTKVLJ1ZDWd== ID Date Data Source [id number] 07/08/2020 09:08:09 AM [facility] Name Value Range Interpretation Code Description Data Elvira rce(s) Supporting Document(s) Glucose [Mass/volume] in Capillary blood by Glucometer 99 mg/dL 70- 140 [facility] ID Date Data Source [id number] 07/08/2020 06:04:05 AM [facility] Name Value Range Interpretation Code Description Data Elvira rce(s) Supporting Document(s) Leukocytes [#/volume] in Blood by Automated count 8.3 10*3/uL 4-10 [facility] Erythrocytes [#/volume] in Blood by Automated count 4.32 10*6/uL 4.6- 6.1 L [facility] Hemoglobin [Mass/volume] in Blood 14.3 g/dL 13.5-18 [facility] Hematocrit [Volume Fraction] of Blood by Automated count 41.2 % 4 1-53 [facility] Erythrocyte mean corpuscular volume [Entitic volume] by Auto mated count 95.3 fL 80-96 [facility] Erythrocyte mean corpuscular hemoglobin [Entitic mass] by Automated count 33.1 pg 27-33 H [facility] Erythrocyte mean corpuscular hemoglobin concentration [Mass/volume] by Automated count 34.8 g/dL 32.0-36.0 [facility] distribution width [Ratio] by Automated count 13.0 % 11.5-14.5 [facility] Platelets [#/volume] in Blood by Automated count 144 10*3/uL 150-400 L [facility] ID Date Data Source [id number] 07/08/2020 06:28:34 AM [facility] Name Value Range Interpretation Code Description Data Elvira rce(s) Supporting Document(s) Albumin [Mass/volume] in Serum or Plasma by Bromocresol green (BCG) dye binding method 3.9 g/dL 3.5-5.2 [facility] Bilirubin.total [Mass/volume] in Serum or Plasma 0.8 mg/dL <1.2 [facility] Calcium [Mass/volume] in Serum or Plasma 9.5 mg/dL 8.6-10.0 [facility] Chloride [Moles/volume] in Serum or Plasma 102 mmol/L 98-107 [facility] Creatinine [Mass/volume] in Serum or Plasma 1.23 mg/dL 0.70-1.20 H [facility] Glucose [Mass/volume] in Serum or Plasma 96 mg/dL 70-140 [facility] Alkaline phosphatase [Enzymatic activity/volume] in Serum or Plasma 92 U/L 40-129 [facility] Potassium [Moles/volume] in Serum or Plasma 4.2 mmol/L 3.4-5.1 [facility] Protein [Mass/volume] in Serum or Plasma 7.0 g/dL 6.4-8.3 [facility] Sodium [Moles/volume] in Serum or Plasma 137 mmol/L 136-145 [facility] Aspartate aminotransferase [Enzymatic activity/volume] in Serum or Plasma 27 U/L <40 [facility] Urea nitrogen [Mass/volume] in Serum or Plasma 11 mg/dL 6-20 [facility] Osmolality of Serum or Plasma by calculation 283 mosm/kg 275-300 [facility] Creatinine/Urea nitrogen [Mass Ratio] in Serum or Plasma 9 [facility] Bicarbonate [Moles/volume] in Serum 24 mmol/L 22-29 [facility] Alanine aminotransferase [Enzymatic activity/volume] in Seru m or Plasma 32 U/L <41 [facility] Anion gap 3 in Serum or Plasma 11 mmol/L 8-15 [facility] Glomerular filtration rate/1.73 sq M pre dicted among non-blacks [Volume Rate/Area] in Serum or Plasma by Creatinine-based formula (MDRD) 64 mL/min/1.73m2 >60 [facility] Glomerular filtration rate/1.73 sq M pre dicted among blacks [Volume Rate/Area] in Serum or Plasma by Creatinine-based formula (MDRD) 75 mL/min/1.73m2 >60 [facility] ID Date Data Source [id number] 07/07/2020 03:32:19 PM [facility] Name Value Range Interpretation Code Description Data Elvira rce(s) Supporting Document(s) [facility] QSDJWn5cRtZDGxJb05/MXUzmZSPpe7NwHKbkSZd7DXlaBLXsL7HrFBB4fB9gSTR8NDjXSkTiHpLkNTU9 [facility] [file] m2jmBCxyeoMf/semO5dExdmxQIjpsm9FMz+touch up carver+KP2geR6jfLVexlta9GMs1r9fsGqCXi3nRis/9Q9FM MUBB77qykxkDwmtfrwA/skrKNxxMr7uzS8gDJQh01HTp2MUsPvJZTb98D5zt4ru89Nr3GQXolL792RCM 3n/9FRlkcCHk4Zpoiv2/Nr4xyjp2bmVblzrki1hSV0 RgfM31aowVsrug7PoVdad2vvxakdaRWnhSynFLrUbzwVf1bD3Kn0o0ffsatn/mUctjo/5HdxK6eiF4ER arSqiQ9X7TCU6qHfpwRYPZ/ccx1AT65m3dVO4ndQAWmD5qxYTDW1gVbwj1AQmRN78pdG+FeG+LOMZ5eC 59T+VxG94+GqNpF909MyL6L4M2FiXXfsuEW+ReZCIP Hi4llYUg292//4aim7a33Clxp5xe6ksaTds29IL7Bki7177pni9urZmYx/Sx1VKWlk/oXX0pFMF64juG p8qy4jm2Io02VqwOfdj+arnxu2tsXLKg2iaPhLZ2SZOiVxUfFEbJ1Ggp5V/Siddhartha/8hbi1OS+KrhphD4k2 [file] t4/amygfw3/Zf1bxWapQ6t00JNM23rsb8Z0tfiWqQvKuTb0u5gccYzIGxGa0F/snfx+hNlA/child development specialist/Iz8cd [file] LhPL0TAb5VCwO9FID0aRUfBa3HLKZvFvmKAvXmHK1BJEm= ID Date Data Source [id number] 07/07/2020 01:42:19 PM [facility] Name Value Range Interpretation Code Description Data Elvira rce(s) Supporting Document(s) Consultation [facility] OJPCAx1xUdZSZkHu50/VUXwsPOVsf6ExYJuaLUs4ZAreQIRoY9XnTBR6cD3kHTQ4TUtLQmRgWjAcEXS8 lbm [file] AgICAgICAgICAgICAgICAgICAgICAgICAgICAgICAg HSLdOJReYXKhEMThEKZeSBOwLRAhPNSoWIObSLFbTTFzPMCwMHTnGEKtRENwJZQaSP5OPWUtQYEoQWJv ICAgICAgICAgICAgICAgICAgICAgICAgICAgICAgICAgICAgICAgICAgICAgICAgICAgICAgICAgICAg ICAgICAgICAgICAgICAgICAgICAgICAgICAgICAgIA 0KICAgICAgICAgICAgICAgICAgICAgICAgICAgICAgICAgICAgICAgICAgICAgICAgICAgICAgICAgIC PgJUMiUTYhUOSwMOCySEGaWLMvBJKdJBNeGNAyQVDhTNThCDZwGFHgRR2NKHEhBYQdOWJjYMNkRAFpSD AgICAgICAgICAgICAgICAgICAgICAgICAgICAgICAg VSXcGSCkUFSwCKKjYVKlJNPhSCEuKMHlSGGzEYCtQKXvRGAfLVHqHLDkGLOhKGZwAXEmDD4LCBXtKVWg ICAgICAgICAgICAgICAgICAgICAgICAgICAgICAgICAgICAgICAgICAgICAgICAgICAgICAgICAgICAg ICAgICAgICAgICAgICAgICAgICAgICAgICAgICAgIC GoUS1HKBOfSUFwISXrXRMrBUHpAMRzWQMvBUKeCDVbMXGzNMSaWPJrAAPvRUVlGCZfIJAgLYJdRGDhPV FfRFIcRSPeLHMeJGQqGZQyIBCxBFFyWWXjXBWkFLNlIWLaDMZbFGQwEGEeEY1TGNSfGUJjFPQqQJWxBN AgICAgICAgICAgICAgICAgICAgICAgICAgICAgICAg UKGaEBAzOVAbCWZbSMKfXEZeFFYmMXCmWRYsDGCtWXZqGWIzFENjCTAvJZRaFAOzDVQhAJRnWL8HKYWv ICAgICAgICAgICAgICAgICAgICAgICAgICAgICAgICAgICAgICAgICAgICAgICAgICAgICAgICAgICAg ICAgICAgICAgICAgICAgICAgICAgICAgICAgICAgIC GnZDHfBT0ZTOYzTCBmXACrXHFeMXCzEKYoACTuGGFhOZLaMJNzHJIcPCPnBTArQMHtOLJuVEJmUMSiAD LxOEGsLAOoZTLsXNZxQXTaMVNyIGTuFXNdCMWsVZGzUHJgERRmFPMzXHJyHZToBD8FAQSgVVHsJWKyVF AgICAgICAgICAgICAgICAgICAgICAgICAgICAgICAg PKErMURbDJYtJKKlSQVeRCZcDKQhQHPuFBJaHQWpEKHiFZQyKFMiVWPsSGGzOPEhZKPhLDGvHOIdLJ7P PZ54sXGze9K4GUGjMQ3eysn/Zc7VZEsvwfTocMWpOJ9EJyWbDS3lbr0OJdJvYE7obn3NUAaFQmMuG9P2 eVNpEOKdPUANIvJgF05zBWhfLs39TSvsPFJqWmSmKP k3Xk9HWtMoZ1srGXQsLtC4BKRkAwY5YZXjIfDmWAwdUB1Xr5UxgMBxKPh+Ne8BKU5st4VpLGjsVpAbYB 1vbe5QSDrVIjPvK8AgyeH3LUI2OIFaJv0MLMAtYGDpaSWfHaYqOJOHZoQlH0NwpV87OXHEAz1+DQplbm ArAcvKGfW0KXEcc5KlLAz9XR3ZAKPdZFh3yXNtW16u j2GamIUvQizuOY30m01cLKWUWP00p71uToRpvzGaXOIWQXLWTBI8DDLkGA3dYPRgBTEpYvI3BNXBPN3Y ZOKkBLCmdVWzZCSaTCWCUL6AMSlbGFV8KSKuftGmoLYgEUtpZW5WLIFhsyVgVJJpRECBVWy+Cx7PVY7m z6FkVXosQTUyNS0fim8AXAxJMoJuY4H7mRVzQ6C2MF xvMs6GPTKdLGCuDPBwRFNPHYdrVJ5DPV6fneT2EC9NvVWcKDBwHNGmcVIyHRc0D57puBVvNXbbUV8QVZ A+Shaneka+Es6WGBVoFBPpFXLfZdDdAFTAVcEjQ2TqO6BIc7YeF3GtID32kFjkgmAfFEyvUU6NEU9ePZKfUE ESBY1RwVQahW6fofGcZsEcMKVMYtTcA98utMIvGGUf LOZ8XIMfWd9LEFAqV6BinzYpnMdoaxDkYIVyLBVSGM1SJWjuqmRxbLSxbVrdEU73xYjrXN4ABy0FZrGr TH0qlt9GpXYqMj9YKJRqMJ2PKMDbDQAtQXBvECM7EPEtAiIkHKqeIMCgAMFiWLG3MTKkSRWeGG0CViIo JYAoRIunNPofLJRaRRZasn8YFJElSXEmZLXnEIQoJX HvVLWoQJxlMOYaGOIyJPP5GJPrCLMwAB1LGuMiMHNlMIT5KVGyJFIbPHKymu0FDCWqSTPkRCf9FCOkIL UySHWjNMzuXMRmZMF5Nfh1MEGzWNPpLS4YGjSjQCJpZHR2GVCqJJPeALPtqq2QQUOeOEDzRpIqMZMbAF YeNJFhFJkrVITyWQC6DlW9FQBiYFQqAN6KQjQsNOAa PFj5EZOsQBUpXAVivu9GOWOrKSNkFCe4EEJoALMzGPHnISblVOUeVQC1NUw7RUYuVZFjWL2GFoLeORPg TLslUuCbMCLsQQQknh4THWPqWBMvRTJ9GOGdLPTpHJKkDRlpLJXjYTFnHZK2MIEaEPYvWX6JRzIdENQm LLPjMXSsKDJeBPRpdh8AAAQjLQNcNSYaOyJyXCTvKD UfMBw4eoQpsWPnAEu7TL6EX1KjoqSvOHiXVb8Xd111WEE9MLVtOx9ZS0dhRe5eOHObMHIBIm3BKHy8NL TyWIk3UgVrUWYzEVC8B0QmJicnWIGnCNSwPblyNXJ+VSvcMNHpSpkvTEKtHPPaHeo2QIHpAMAvCjZvVT KpWxF8DY1lPITNQp9+ZQkswSUoqHeaEYVLYlCnZNlaMWlrSJKXKv1Y ID Date Data Source [id number] 07/07/2020 04:15:33 AM EST [facility] Name Value Range Interpretation Code Description Data Elvira rce(s) Supporting Document(s) Leukocytes [#/volume] in Blood by Automated count 6.2 10*3/uL 4-10 [facility] Erythrocytes [#/volume] in Blood by Automated count 4.00 10*6/uL 4.6- 6.1 L [facility] Hemoglobin [Mass/volume] in Blood 13.3 g/dL 13.5-18 L [facility] Hematocrit [Volume Fraction] of Blood by Automated count 37.9 % 4 1-53 L [facility] Erythrocyte mean corpuscular volume [Entitic volume] by Auto mated count 94.8 fL 80-96 [facility] Erythrocyte mean corpuscular hemoglobin [Entitic mass] by Automated count 33.3 pg 27-33 H [facility] Erythrocyte mean corpuscular hemoglobin concentration [Mass/volume] by Automated count 35.2 g/dL 32.0-36.0 [facility] Erythrocyte distribution width [Ratio] by Automated count 13.7 % 11.5-14.5 [facility] Platelets [#/volume] in Blood by Automated count 142 10*3/uL 150-400 L [facility] ID Date Data Source [id number] 07/07/2020 04:33:42 AM EST [facility] Name Value Range Interpretation Code Description Data Elvira rce(s) Supporting Document(s) Albumin [Mass/volume] in Serum or Plasma by Bromocresol green (BCG) dye binding method 3.5 g/dL 3.5-5.2 [facility] al Bilirubin.total [Mass/volume] in Serum or Plasma 0.7 mg/dL <1.2 [facility] Calcium [Mass/volume] in Serum or Plasma 8.8 mg/dL 8.6-10.0 [facility] Chloride [Moles/volume] in Serum or Plasma 106 mmol/L 98-107 [facility] Creatinine [Mass/volume] in Serum or Plasma 1.18 mg/dL 0.70-1.20 [facility] Glucose [Mass/volume] in Serum or Plasma 96 mg/dL 70-140 [facility] Alkaline phosphatase [Enzymatic activity/volume] in Serum or Plasma 82 U/L 40-129 [facility] Potassium [Moles/volume] in Serum or Plasma 3.9 mmol/L 3.4-5.1 [facility] Protein [Mass/volume] in Serum or Plasma 6.2 g/dL 6.4-8.3 L [facility] Sodium [Moles/volume] in Serum or Plasma 137 mmol/L 136-145 [facility] Aspartate aminotransferase [Enzymatic activity/volume] in Serum or Plasma 30 U/L <40 [facility] Urea nitrogen [Mass/volume] in Serum or Plasma 9 mg/dL 6-20 [facility] Osmolality of Serum or Plasma by calculation 282 mosm/kg 275-300 [facility] Creatinine/Urea nitrogen [Mass Ratio] in Serum or Plasma 7 [facility] Bicarbonate [Moles/volume] in Serum 23 mmol/L 22-29 [facility] Alanine aminotransferase [Enzymatic activity/volume] in Seru m or Plasma 34 U/L <41 [facility] Anion gap 3 in Serum or Plasma 8 mmol/L 8-15 [facility] Glomerular filtration rate/1.73 sq M pre dicted among non-blacks [Volume Rate/Area] in Serum or Plasma by Creatinine-based formula (MDRD) 68 mL/min/1.73m2 >60 [facility] Glomerular filtration rate/1.73 sq M pre dicted among blacks [Volume Rate/Area] in Serum or Plasma by Creatinine-based formula (MDRD) 79 mL/min/1.73m2 >60 [facility] ID Date Data Source [id number] 07/06/2020 09:44:04 AM [facility] CT HEAD WITHOUT CONTRAST [id number] RESU LTInterpreted by:Cristofer Wilde MDCLINICAL INDICATION: Follow-up of intraparenchymal hemorrhage.TECHNIQUE: Multiaxial CT images of the brain were obtained from the skull base through the vertex and displayed at 5 mm and 1.25 mm increments. No intravenous contrast was administered. Automated dose lowering techniques and/or adjustment according to patient size were utilized for this exam.COMPARISON: Outside noncontrast CT head and CTA head dated 07/04/2020.FINDINGS: Intracranial hemorrhage centered in the right basal [...] are clear. The extracranial soft tissues are unremarkable.IMPRESSION: Stable examination. Grossly unchanged appearance of the intraparenchymal hemorrhage with surrounding vasogenic edema. Stable mass effect and leftward midline shift of approximately 5 mm.This document has been electronically signed by OSWALDO Wilde on 07/06/2020 9:41 AM Name Value Range Interpretation Code Description Data Elvira rce(s) Supporting Document(s) ID Date Data Source [id number] 07/06/2020 08:23:40 AM [facility] MR BRAIN WITH AND WITHOUT CONTRAST [id number] FINAL RESULTInterpreted by:Serafin Meza MDHISTORY: Rule out underlying mass in the region of hemorrhage.COMPARISON: CT head July 05, 2020.TECHNIQUE: Multiplanar multiecho MRI of the brain emphasizing relative T1 and T2*information without and with intravenous contrast administration was completed on a 3 Mayi magnet.FINDINGS:The known hemorrhage in the right basal ganglia [...] basal cisterns and the foramen magnum remain patent.The remainder of the brain reveals normal signal characteristics and morphology. There is no evidence off edema or mass effect elsewhere in the brain. The posterior fossa structures appear normal. No evidence of abnormal parenchymal or meningeal enhancement in the remainder of the brain either.IMPRESSION: Acute right basal ganglia hematoma. No evidence of an underlying mass on the current examination. However a repeat MRI is recommended upon resolution of the blood byproducts.This document has been electronically signed by Serafin Meza MD on 07/06/2020 8:21 AM Name Value Range Interpretation Code Description Data Elvira rce(s) Supporting Document(s) ID Date Data Source [id number] 07/06/2020 06:44:51 AM [facility] Name Value Range Interpretation Code Description Data Elvira rce(s) Supporting Document(s) Leukocytes [#/volume] in Blood by Automated count 6.8 10*3/uL 4-10 [facility] Erythrocytes [#/volume] in Blood by Automated count 4.08 10*6/uL 4.6- 6.1 L [facility] Hemoglobin [Mass/volume] in Blood 13.6 g/dL 13.5-18 [facility] Hematocrit [Volume Fraction] of Blood by Automated count 38.5 % 4 1-53 L [facility] Erythrocyte mean corpuscular volume [Entitic volume] by Auto mated count 94.4 fL 80-96 [facility] Erythrocyte mean corpuscular hemoglobin [Entitic mass] by Automated count 33.3 pg 27-33 H [facility] Erythrocyte mean corpuscular hemoglobin concentration [Mass/volume] by Automated count 35.3 g/dL 32.0-36.0 [facility] Erythrocyte distribution width [Ratio] by Automated count 13.0 % 11.5-14.5 [facility] Platelets [#/volume] in Blood by Automated count 149 10*3/uL 150-400 L [facility] ID Date Data Source [id number] 07/06/2020 08:16:34 AM [facility] Value Range Interpretation Code Description Data Elvira rce(s) Supporting Document(s) Creatine kinase [Enzymatic activity/volume] in Serum or Plasma 281 U/L 20-200 H [facility] ID Date Data Source [id number] 07/06/2020 08:16:34 AM [facility] Value Range Interpretation Code Description Data Elvira rce(s) Supporting Document(s) Albumin [Mass/volume] in Serum or Plasma by Bromocresol green (BCG) dye binding method 3.5 g/dL 3.5-5.2 [facility] Bil[facility].total [Mass/volume] in Serum or Plasma 0.7 mg/dL <1.2 [facility] Calcium [Mass/volume] in Serum or Plasma 8.3 mg/dL 8.6-10.0 L [facility] Chloride [Moles/volume] in Serum or Plasma 109 mmol/L 98-107 H [facility] Creatinine [Mass/volume] in Serum or Plasma 1.22 mg/dL 0.70-1.20 H [facility] Glucose [Mass/volume] in Serum or Plasma 93 mg/dL 70-140 [facility] Alkaline phosphatase [Enzymatic activity/volume] in Serum or Plasma 85 U/L 40-129 [facility] Potassium [Moles/volume] in Serum or Plasma 3.7 mmol/L 3.4-5.1 [facility] Protein [Mass/volume] in Serum or Plasma 6.0 g/dL 6.4-8.3 L [facility] Sodium [Moles/volume] in Serum or Plasma 142 mmol/L 136-145 [facility] Aspartate aminotransferase [Enzymatic activity/volume] in Serum or Plasma 31 U/L <40 [facility] Urea nitrogen [Mass/volume] in Serum or Plasma 11 mg/dL 6-20 [facility] Osmolality of Serum or Plasma by calculation 294 mosm/kg 275-300 [facility] Creatinine/Urea nitrogen [Mass Ratio] in Serum or Plasma 9 [facility] Bicarbonate [Moles/volume] in Serum 24 mmol/L 22-29 [facility] Alanine aminotransferase [Enzymatic activity/volume] in Seru m or Plasma 34 U/L <41 [facility] Anion gap 3 in Serum or Plasma 9 mmol/L 8-15 [facility] Glomerular filtration rate/1.73 sq M pre dicted among non-blacks [Volume Rate/Area] in Serum or Plasma by Creatinine-based formula (MDRD) 65 mL/min/1.73m2 >60 [facility] Glomerular filtration rate/1.73 sq M pre dicted among blacks [Volume Rate/Area] in Serum or Plasma by Creatinine-based formula (MDRD) 75 mL/min/1.73m2 >60 [facility] ID Date Data Source [id number] 07/06/2020 02:02:22 AM [facility] Name Value Range Interpretation Code Description Data Elvira rce(s) Supporting Document(s) Creatine kinase [Enzymatic activity/volume] in Serum or Plasma 363 U/L 20-200 H [facility] ID Date Data Source [id number] 07/05/2020 11:08:20 PM [facility] Value Range Interpretation Code Description Data Elvira rce(s) Supporting Document(s) [facility] [id number] lbm [file] [id number] ID Date Data Source [id number] 07/05/2020 07:04:39 PM [facility] Value Range Interpretation Code Description Data Elvira rce(s) Supporting Document(s) Creatine kinase [Enzymatic activity/volume] in Serum or Plasma 454 U/L 20-200 H [facility] ID Date Data Source [id number] 07/05/2020 02:25:13 PM EST [facility] Name Value Range Interpretation Code Description Data Elvira rce(s) Supporting Document(s) Consultation [facility] [id number] lbm [file] [id number]= ID Date Data Source [id number] 07/05/2020 12:42:31 PM [facility] Name Value Range Interpretation Code Description Data Elvira rce(s) Supporting Document(s) Creatine kinase [Enzymatic activity/volume] in Serum or Plasma 525 U/L 20-200 H [facility] ID Date Data Source [id number] 07/05/2020 12:42:31 PM [facility] Name Value Range Interpretation Code Description Data Elvira rce(s) Supporting Document(s) Albumin [Mass/volume] in Serum or Plasma by Bromocresol green (BCG) dye binding method 3.4 g/dL 3.5-5.2 [facility] Bilirubin.total [Mass/volume] in Serum or Plasma 0.9 mg/dL <1.2 [facility] Calcium [Mass/volume] in Serum or Plasma 8.1 mg/dL 8.6-10.0 L [facility] Chloride [Moles/volume] in Serum or Plasma 105 mmol/L 98-107 [facility] Creatinine [Mass/volume] in Serum or Plasma 1.38 mg/dL 0.70-1.20 H [facility] Glucose [Mass/volume] in Serum or Plasma 82 mg/dL 70-140 [facility] Alkaline phosphatase [Enzymatic activity/volume] in Serum or Plasma 86 U/L 40-129 [facility] Potassium [Moles/volume] in Serum or Plasma 4.2 mmol/L 3.4-5.1 [facility] Protein [Mass/volume] in Serum or Plasma 5.8 g/dL 6.4-8.3 L [facility] Sodium [Moles/volume] in Serum or Plasma 136 mmol/L 136-145 [facility] Aspartate aminotransferase [Enzymatic activity/volume] in Serum or Plasma 39 U/L <40 [facility] Urea nitrogen [Mass/volume] in Serum or Plasma 14 mg/dL 6-20 [facility] Osmolality of Serum or Plasma by calculation 282 mosm/kg 275-300 [facility] Creatinine/Urea nitrogen [Mass Ratio] in Serum or Plasma 10 [facility] Bicarbonate [Moles/volume] in Serum 25 mmol/L 22-29 [facility] Alanine aminotransferase [Enzymatic activity/volume] in Seru m or Plasma 37 U/L <41 [facility] Anion gap 3 in Serum or Plasma 6 mmol/L 8-15 L [facility] Glomerular filtration rate/1.73 sq M pre dicted among non-blacks [Volume Rate/Area] in Serum or Plasma by Creatinine-based formula (MDRD) 56 mL/min/1.73m2 >60 L [facility] Glomerular filtration rate/1.73 sq M pre dicted among blacks [Volume Rate/Area] in Serum or Plasma by Creatinine-based formula (MDRD) 65 mL/min/1.73m2 >60 [facility] ID Date Data Source [id number] 07/05/2020 09:59:58 AM [facility] CT CERVICAL SPINE WITHOUT CONTRAST [id number] FINAL RESULTInterpreted by:Yovany James MD07/05/2020 8:[address] CERVICAL SPINE WITHOUT CONTRAST [id number] CLINICAL INFORMATION: trauma. Fall from standing.ADDITIONAL CLINICAL INFORMATION: None. COMPARISON: None. CERVICAL SPINE CT PROCEDURE : Contiguous axial tomographic sections were obtained through the cervical spine without intravenous contrast. Coronal and sagittal reformats were processed.Automated dose lowering techniques and/or adjustment according to patient size were utilized for this examCERVICAL SPINE CT FINDINGS:Cervical vertebral bodies are grossly maintained in height.There is no evidence of significant compression deformity or fracture.Alignment of the cervical vertebral bodies is unremarkable without significant listhesis or subluxation.The craniovertebral junction is unremarkable. Multilevel osteophyte formation is noted. Moderate to severe narrowing of neural foramina at C5-6 and C6-7 levels.IMPRESSION: No evidence of acute fracture or traumatic listhesis is noted. END OF IMPRESSION: This document has been electronically signed by Yovany James MD on 07/05/2020 9:57 AM Name Value Range Interpretation Code Description Data Elvira rce(s) Supporting Document(s) ID Date Data Source [id number] 07/05/2020 08:36:34 AM [facility] CT HEAD WITHOUT CONTRAST [id number] RESU LTInterpreted by:Harmony Ramirez MDINDICATION: Follow-up of intraparenchymal hemorrhage. TECHNIQUE: Noncontrast CT of the head using axial technique was performed. Automated dose lowering techniques and/or adjustment according to patient size were utilized for this exam.COMPARISON: CT head dated 07/05/2020.FINDINGS: There is redemonstration of intraparenchymal hemorrhage involving the right basal ganglia and temporal lobe, grossly unchanged as compared to scan. There is redemonstration of surrounding vasogenic edema and mass effect with persistent effacement of right lateral ventricle. There is redemonstration of left-sided midline shift measuring approximately 5 mm.No new hemorrhage is seen. There is no evidence of acute territorial infarction. No abnormal extra-axial fluid collection is seen. The basal cisterns are patent. Mild mucosal thickening is noted in bilateral maxillary sinuses. Mastoid air cells are clear. No depressed calvarial fracture. Extracranial soft tissues are normal.IMPRESSION: Grossly stable intraparenchymal hemorrhage involving the right basal ganglia and temporal lobe with surrounding vasogenic edema, mass effect with persistent effacement of right lateral ventricle and left-sided midline shift measuring approximately 5 mm. No new hemorrhage.This document has been electronically signed by Harmony Ramirez MD on 07/05/2020 8:34 AM Name Value Range Interpretation Code Description Data Elvira rce(s) Supporting Document(s) ID Date Data Source [id number] 07/05/2020 08:09:03 AM [facility] Name Value Range Interpretation Code Description Data Elvira rce(s) Supporting Document(s) History and Physical [facility] TVVGDy4hNeVGIyGi47/DOIsyVWEde0LeNSqmTJq1MHmdXPGxJ3ZkLJB9iC4wUPO3NHeOLqUzNvFoTOR6 lbm [file] CiAgICAgICAgICAgICAgICAgICAgICAgICAgICAgICAgICAgICAgICAgICAgICAgICAgICAgICAgICAg ICAgICAgICAgICAgICAgICAgICAgICAgICAgICAgIC AgICAgICAgICANCiAgICAgICAgICAgICAgICAgICAgICAgICAgICAgICAgICAgICAgICAgICAgICAgIC AgICAgICAgICAgICAgICAgICAgICAgICAgICAgICAgICAgICAgICAgICAgICAgICAgICANCiAgICAgIC AgICAgICAgICAgICAgICAgICAgICAgICAgICAgICAg ICAgICAgICAgICAgICAgICAgICAgICAgICAgICAgICAgICAgICAgICAgICAgICAgICAgICAgICAgICAg ICANCiAgICAgICAgICAgICAgICAgICAgICAgICAgICAgICAgICAgICAgICAgICAgICAgICAgICAgICAg ICAgICAgICAgICAgICAgICAgICAgICAgICAgICAgIC AgICAgICAgICAgICANCiAgICAgICAgICAgICAgICAgICAgICAgICAgICAgICAgICAgICAgICAgICAgIC AgICAgICAgICAgICAgICAgICAgICAgICAgICAgICAgICAgICAgICAgICAgICAgICAgICAgICANCiAgIC AgICAgICAgICAgICAgICAgICAgICAgICAgICAgICAg ICAgICAgICAgICAgICAgICAgICAgICAgICAgICAgICAgICAgICAgICAgICAgICAgICAgICAgICAgICAg ICAgICANCiAgICAgICAgICAgICAgICAgICAgICAgICAgICAgICAgICAgICAgICAgICAgICAgICAgICAg ICAgICAgICAgICAgICAgICAgICAgICAgICAgICAgIC AgICAgICAgICAgICAgICANCiAgICAgICAgICAgICAgICAgICAgICAgICAgICAgICAgICAgICAgICAgIC AgICAgICAgICAgICAgICAgICAgICAgICAgICAgICAgICAgICAgICAgICAgICAgICAgICAgICAgICANCi AgICAgICAgICAgICAgICAgICAgICAgICAgICAgICAg ICAgICAgICAgICAgICAgICAgICAgICAgICAgICAgICAgICAgICAgICAgICAgICAgICAgICAgICAgICAg ICAgICAgICANCiAgICAgICAgICAgICAgICAgICAgICAgICAgICAgICAgICAgICAgICAgICAgICAgICAg ICAgICAgICAgICAgICAgICAgICAgICAgICAgICAgIC AgICAgICAgICAgICAgICAgICANCjw/nNEhR7cxeEVdpvY1B2tbKb2OCt1DSO2df5RuHYBaDVufzjTiFw kAYjBoQFTvMvxZFbj5NQyqUC1BzBXoG3SgA5HoAEsjZC8YCBZkHSKcrEReTPQsAXWaZtW0DVCrYVysXC 6AeXIpXPttPNGwPTDcSU4RHOCbU411nbKtUU6GGm4P WbMmSG2tmm6APFkyXSQmHpaIFfi3WAxrWY3TxZYujJTkYMXfQURBRgKgF4ohj3KoJUkaJBGZSYmdCW7H o0ZvuTGwKCq+Ok5JFM0yz0IiMUsbLTQrSA6rcl3DXZuRMjMwC1IqpXipZSysDRJofEOPw9nruC6kLPBR IFNoYWhhYiwgTUJCUyBhdCAxLzUvMjAyMSAxMDoxNS EQXAiRHjPyO5Cxt7LlRqR3YLHrOvAzBXzeRNXuDiG6HG70yByoIG7IRSEnTUOnZE95TWC6NMJnRf8AUu 2UDoZbSR7izh4WQKkbVBDtYxhOGrz8HTpjMA4UqUGzV6BmmIMyf2wUKhFjQ4KLSOY4ZUVaGc1VATTzGn FmKXIwVIlyES1nHKLwDRXItZjffvG6HR3WAW0rqnGz MR1WEqHgXo4qBh7CWbIrB2HyE6HzPWChHMHIMXclYE5DQXluAT2vAG0Ma0OOqVSrhP2lco0SDANyZOKh Kzxgfm8PRphvD1R8fGfvKLCaFReoCXLQCTpwEU8ODKHoIQQ0WKYlVjWiQRLQNnHlY89vPG6UO9Vzj28l EiL4ARYpGpVhYNsyIX04lAyrgjVilCJioIapAM3SZc 4+QNplocNdNfuEOpdpCNNKObHeXgYAYlEiTDSrYMGyOWKeNbS9UyDpAb8ZFAWeFIKqLMGyQqZzANHoND MuNRdxFRWaQRL6OgT4GWYiJMAnGD2HUpJwYOVyRRrrLTXdZJGbZVEjhr9OMNNrGGPgBMW3FmYiSIYzKD NePAvkUYSrYJNpHUM0FGNrXNQcBJ1HGjMpTOArYCAj GXocGDDaKDFtgp2YYVUaDLYuHyN0JeEmVLVrXURpCGizLSQuBXGaODSpVGDrDJWvQA5HFeQsXICtNFR9 MUIiZTXbAOQqvo9NKHSkOCVpGMKjUZPlHRTzETHwVIsuLWSvBQB8SXWfGSHaHTQjVX7IRxLgOGErHUH3 YJWrRJJjVKVrrk8OWNVvGHRhLUb3INEyVJPwZGDnGE fnDPYwUMF3MTS9QHTeDQBlTO2QFfEoHNGiRGSdJwFzIPSoYSXrqk6PVOLvKEWjNza1DvIkMJTiIXKyTN nkQVLpXEN7QDrqQXWjWNBaXW6UBuSvDXCyZTazSxMsRERmQPFnpl9FJGPdLEAsAIGmIlAwVVScCWNxEP i4jqIefCWsGXg8QY0YK3PfzlHzVgJHKk9Lr656PPX0 FEOoBe0NT7tpOc1ePWMhXKTOTh2FCRm0OcR7WbCyHDC4NXDvNZY5RPVtEfIgEUBxIybgXSJfBmS+IDwz EjvcUIAqZju5C1QxLYz6BlRlERUeXLV7CYE0IDXhHq3yBXRLEn3+ZPsnsWDxmJuvPWELEfn6ZOfQCeZx SB2XSCk= ID Date Data Source [id number] 07/05/2020 06:33:25 AM [facility] Name Value Range Interpretation Code Description Data Elvira rce(s) Supporting Document(s) Leukocytes [#/volume] in Blood by Automated count 6.4 10*3/uL 4-10 [facility] Erythrocytes [#/volume] in Blood by Automated count 4.11 10*6/uL 4.6- 6.1 [facility] Hemoglobin [Mass/volume] in Blood 13.7 g/dL 13.5-18 [facility] Hematocrit [Volume Fraction] of Blood by Automated count 38.8 % 4 1-53 L [facility] Erythrocyte mean corpuscular volume [Entitic volume] by Auto mated count 94.3 fL 80-96 [facility] Erythrocyte mean corpuscular hemoglobin [Entitic mass] by Automated count 33.3 pg 27-33 H [facility] Erythrocyte mean corpuscular hemoglobin concentration [Mass/volume] by Automated count 35.3 g/dL 32.0-36.0 [facility] Erythrocyte distribution width [Ratio] by Automated count 13.2 % 11.5-14.5 [facility] Platelets [#/volume] in Blood by Automated count 134 10*3/uL 150-400 L [facility] ID Date Data Source [id number] 07/05/2020 06:52:44 AM [facility] Name Value Range Interpretation Code Description Data Elvira rce(s) Supporting Document(s) Creatine kinase [Enzymatic activity/volume] in Serum or Plasma 704 U/L 20-200 H [facility] ID Date Data Source [id number] 07/05/2020 06:52:44 AM [facility] Name Value Range Interpretation Code Description Data Elvira rce(s) Supporting Document(s) Albumin [Mass/volume] in Serum or Plasma by Bromocresol green (BCG) dye binding method 3.4 g/dL 3.5-5.2 L [facility] al Bilirubin.total [Mass/volume] in Serum or Plasma 0.9 mg/dL <1.2 [facility] Calcium [Mass/volume] in Serum or Plasma 8.0 mg/dL 8.6-10.0 L [facility] Chloride [Moles/volume] in Serum or Plasma 108 mmol/L 98-107 H [facility] Creatinine [Mass/volume] in Serum or Plasma 1.29 mg/dL 0.70-1.20 H [facility] Glucose [Mass/volume] in Serum or Plasma 95 mg/dL 70-140 [facility] Alkaline phosphatase [Enzymatic activity/volume] in Serum or Plasma 86 U/L 40-129 [facility] Potassium [Moles/volume] in Serum or Plasma 4.0 mmol/L 3.4-5.1 [facility] Protein [Mass/volume] in Serum or Plasma 5.8 g/dL 6.4-8.3 L [facility] Sodium [Moles/volume] in Serum or Plasma 140 mmol/L 136-145 [facility] Aspartate aminotransferase [Enzymatic activity/volume] in Serum or Plasma 45 U/L <40 H [facility] Urea nitrogen [Mass/volume] in Serum or Plasma 15 mg/dL 6-20 [facility] Osmolality of Serum or Plasma by calculation 290 mosm/kg 275-300 [facility] Creatinine/Urea nitrogen [Mass Ratio] in Serum or Plasma 11 [facility] Bicarbonate [Moles/volume] in Serum 23 mmol/L 22-29 [facility] Alanine aminotransferase [Enzymatic activity/volume] in Seru m or Plasma 39 U/L <41 [facility] Anion gap 3 in Serum or Plasma 9 mmol/L 8-15 [facility] Glomerular filtration rate/1.73 sq M pre dicted among non-blacks [Volume Rate/Area] in Serum or Plasma by Creatinine-based formula (MDRD) 61 mL/min/1.73m2 >60 [facility] Glomerular filtration rate/1.73 sq M pre dicted among blacks [Volume Rate/Area] in Serum or Plasma by Creatinine-based formula (MDRD) 71 mL/min/1.73m2 >60 [facility] ID Date Data Source [id number] 07/05/2020 12:49:00 AM EST [facility] Name Value Range Interpretation Code Description Data Elvira rce(s) Supporting Document(s) SARS-CoV-2 RNA [facility] This lab was ordered by [facility] and reported by [facility]. ID Date Data Source [id number] 07/05/2020 02:17:37 AM [facility] Service Cmnt XXX-Imp : NoneRespiratory P CR Panel : PCR ResultsMicroorganism XXX Cult : See Labs Tab for 2019 nCoV RT-PCR resultsHAdV DNA QI KARLA+non-probe : Not DetectedHCoV 229ERNA Nph QI KARLA+non-probe : Not DetectedHCoV BYU2LOT Nph QI KARLA+non-probe : Not IqbujmvnOFtJNS85 RNA Nph QI KARLA+non-probe : Not [id number] RNA Upper resp QI KARLA+probe : Not DetectedhMPV RNA Nph QINAA+non-probe : Not DetectedRV+EV RNA Nph QI KARLA+non-probe : Not DetectedFLUAV RNA Nph QI KARLA+ non-probe : Not DetectedFLUBV RNA Nph QI KARLA+non-probe : Not DetectedHPIV1 RNA NphQINAA+non-probe : Not DetectedHPIV2 RNA Nph QINAA+non-probe : Not DetectedHPVI3 RNA Nph KARLA+non-probe : Not DetectedHPIV4 RNA Nph Q KARLA+non- probe : Not DetectedRSV RNA Nph Q KARLA+non-probe : Not DetectedB pert.PT PrmtNph Q KARLA+non-probe : Not DetectedC pneum DNA Nph Q KARLA+non-probe : Not DetectedM pneum DNA Nph Q KARLA+non-probe : Not DetectedB [id number] DNA Nph KARLA+non-probe : Not Detected Name Value Range Interpretation Code Description Data Elvira rce(s) Supporting Document(s) ID Date Data Source [id number] 07/05/2020 02:16:35 AM [facility] Name Value Range Interpretation Code Description Data Elvira rce(s) Supporting Document(s) Specimen source [Identifier] of Unspecified specimen [facility] SARS-CoV-2 RNA 2019 nCoV Real-Time RT-PCR: NOT DETECTED [facility] Assay Performed [facility] Patients first test for [facility] Patient employed in healthcare setting [facility] Patient has symptoms related to [facility] When did you start to experience these symptoms [Date and time] [Phen X] [facility] Patient was hospitalized because of this condition [facility] patient was admitted to ICU for [facility] Patient resides in a congregate care setting [facility] status [facility] ID Date Data Source [id number] 07/05/2020 01:31:49 AM [facility] Name Value Range Interpretation Code Description Data Elvira rce(s) Supporting Document(s) Hepatitis C virus Ab [Presence] in Serum or Plasma by Immuno assay Non Reactive [facility] No serological evidence of active infect ion. If recent exposure is suspected, test for HCV RNA. ID Date Data Source [id number] 07/05/2020 12:47:19 AM [facility] Name Value Range Interpretation Code Description Data Elvira rce(s) Supporting Document(s) Albumin [Mass/volume] in Serum or Plasma by Bromocresol green (BCG) dye binding method 3.9 g/dL 3.5-5.2 [facility] Bil[facility].total [Mass/volume] in Serum or Plasma 1.1 mg/dL <1.2 [facility] Calcium [Mass/volume] in Serum or Plasma 8.5 mg/dL 8.6-10.0 L [facility] Chloride [Moles/volume] in Serum or Plasma 103 mmol/L 98-107 [facility] Creatinine [Mass/volume] in Serum or Plasma 1.54 mg/dL 0.70-1.20 H [facility] Glucose [Mass/volume] in Serum or Plasma 98 mg/dL 70-140 [facility] Alkaline phosphatase [Enzymatic activity/volume] in Serum or Plasma 99 U/L 40-129 [facility] Potassium [Moles/volume] in Serum or Plasma 3.8 mmol/L 3.4-5.1 [facility] Protein [Mass/volume] in Serum or Plasma 6.6 g/dL 6.4-8.3 [facility] Sodium [Moles/volume] in Serum or Plasma 138 mmol/L 136-145 [facility] Aspartate aminotransferase [Enzymatic activity/volume] in Serum or Plasma 49 U/L <40 H [facility] Urea nitrogen [Mass/volume] in Serum or Plasma 15 mg/dL 6-20 [facility] Osmolality of Serum or Plasma by calculation 287 mosm/kg 275-300 [facility] Creatinine/Urea nitrogen [Mass Ratio] in Serum or Plasma 10 [facility] Bicarbonate [Moles/volume] in Serum 24 mmol/L 22-29 [facility] Alanine aminotransferase [Enzymatic activity/volume] in Seru m or Plasma 43 U/L <41 H [facility] Anion gap 3 in Serum or Plasma 11 mmol/L 8-15 [facility] Glomerular filtration rate/1.73 sq M pre dicted among non-blacks [Volume Rate/Area] in Serum or Plasma by Creatinine-based formula (MDRD) 49 mL/min/1.73m2 >60 L [facility] Glomerular filtration rate/1.73 sq M pre dicted among blacks [Volume Rate/Area] in Serum or Plasma by Creatinine-based formula (MDRD) 57 mL/min/1.73m2 >60 L [facility] ID Date Data Source [id number] 07/05/2020 12:47:19 AM [facility] Name Value Range Interpretation Code Description Data Elvira rce(s) Supporting Document(s) Creatine kinase [Enzymatic activity/volume] in Serum or Plasma 925 U/L 20-200 H [facility] ID Date Data Source [id number] 07/04/2020 11:44:41 PM [facility] Name Value Range Interpretation Code Description Data Elvira rce(s) Supporting Document(s) ED Provider Note [facility] SQZJSd4xBoJWInLp99/BJUkqLGJzl4HoBDjsIDo8REqzBGUyQ7UeEJU1jA6hWYM6ETsNWaZoWgAcULS0 lbm [file] MIGUEL ÁNGEL+VxMHGaCeM1PbsvNZCNObagoaqI2pZDJ6BLLkNw [file] E+DQogICAgICAgICAgICAgICAgICAgICAgICAgICAgICAgICAgICAgICAgICAgICAgICAgICAgICAgIC AgICAgICAgICAgICAgICAgICAgICAgICAgICAgICAg ICAgICAgICAgICAgDQogICAgICAgICAgICAgICAgICAgICAgICAgICAgICAgICAgICAgICAgICAgICAg ICAgICAgICAgICAgICAgICAgICAgICAgICAgICAgICAgICAgICAgICAgICAgICAgICAgICAgDQogICAg ICAgICAgICAgICAgICAgICAgICAgICAgICAgICAgIC AgICAgICAgICAgICAgICAgICAgICAgICAgICAgICAgICAgICAgICAgICAgICAgICAgICAgICAgICAgIC AgICAgDQogICAgICAgICAgICAgICAgICAgICAgICAgICAgICAgICAgICAgICAgICAgICAgICAgICAgIC AgICAgICAgICAgICAgICAgICAgICAgICAgICAgICAg ICAgICAgICAgICAgICAgDQogICAgICAgICAgICAgICAgICAgICAgICAgICAgICAgICAgICAgICAgICAg ICAgICAgICAgICAgICAgICAgICAgICAgICAgICAgICAgICAgICAgICAgICAgICAgICAgICAgICAgDQog ICAgICAgICAgICAgICAgICAgICAgICAgICAgICAgIC AgICAgICAgICAgICAgICAgICAgICAgICAgICAgICAgICAgICAgICAgICAgICAgICAgICAgICAgICAgIC AgICAgICAgDQogICAgICAgICAgICAgICAgICAgICAgICAgICAgICAgICAgICAgICAgICAgICAgICAgIC AgICAgICAgICAgICAgICAgICAgICAgICAgICAgICAg ICAgICAgICAgICAgICAgICAgDQogICAgICAgICAgICAgICAgICAgICAgICAgICAgICAgICAgICAgICAg ICAgICAgICAgICAgICAgICAgICAgICAgICAgICAgICAgICAgICAgICAgICAgICAgICAgICAgICAgICAg DQogICAgICAgICAgICAgICAgICAgICAgICAgICAgIC AgICAgICAgICAgICAgICAgICAgICAgICAgICAgICAgICAgICAgICAgICAgICAgICAgICAgICAgICAgIC AgICAgICAgICAgDQogICAgICAgICAgICAgICAgICAgICAgICAgICAgICAgICAgICAgICAgICAgICAgIC AgICAgICAgICAgICAgICAgICAgICAgICAgICAgICAg JSBxHCMyUBYaGDYgYHJqVGFvOYYpVHc6D6dsVMPrLOWlQT9xWFh1Fi8+XFkMCzVzIHV0lbHnqU1UTN3g e3QuQPxbWZAbq8ZbDJk2YG2ZHFNyGSmtEZ2KOXpfat2GWBTmDBHmpOJMf3bkRcFzMGG3RAZfQinnQS4U CFHvC4hyjqCvZFLjUKHWGToqITHJQPgzNKXIFYShYB UsCdVpDlTbLIDdPYNyUSKOCHC7SOReVqReMRKnRUMsPU2RVGGkM248skMdLN9ONr3MOpDkXR1znh3GQl OaHMWeDruTWlb0QApfWX0UpIFxqTIlKgWoSSWUEaTgJ7ebj3GuIYWuZWNMFUovMC6Qd5DvnOF8CWm+Pg 9APW8tv5SpNKxmXoXgON8qbv5VDBzTYvRlA4BdkQfp TSDESTViz4KkSCJpHI5krRUxWUB5ZFingKMMIUXgHO9dPCClEA3LUZQ1EXSlKL5rUEBuRAA6YvWsAHIH FH7WOVOuDVVlwTJwORDbXJYTCM2RZOgkAVC0RrRapxIpyZGgJKovQY5LPNTpbnEtHxLlVLEHPFeeFC3G PNk1KOR0OPHrEt1VSg3SMeKuPO7sfi7FVrmuUVEyAk vWTnu0LEbbSL6ThYNiTHvABTIPyu54wCUicfUSo2NzwlAveDAZZVweMWDTfaOivlAnBCZWNRPmgYQjKk AcLxVqUDVhHQogVNWNXVnBVwRxY1Rxx2FgCzZlLTEiERUkI3nLWaEiDRR2EhJaoUfjEG2WOhNvX8Bztm PskEEnNeGtPLFNDhBaR1HqLZNgOsbnFJSGBQejVB2X AXb1JVQ2HNNcWa8XOa3LPxAsWU9qmo6MJznmMOJzFupHPak6ULwlAG1GmHEyQQaIIPOWw2SufuOxcDGA xW7yZFWfSXPWQ4uglcSsVSTFPNS0NEOvBY2jPEGiLLLzMuD6QALOUL6AOUWwTYJprSHhJXF1XYYuCtHw QFxqOSQrXTuajaMdeBEjPDdaUZ5WXWNoxxTnZhLyEW CZKXxeFV5GywP7OJO5PYYxRp3WJKUrEmT0vXV5KMIyQCTNMz6+KHglgdCcIrpMAvRuKOGyi8EqJKq2QB 4FMNYdWYx3kGOoBSWyZy58DLJnTsbzERkrwQEoUQQvDcgIDGOgXTQTQhFvgZJmHiFwQuMgQEJmSWf3YT EZUOrWYdKvK7Rix3HbWfXeUTLeBDYdZ2rWNfFiMGXe BZYoyHpaRW6UGzQeA5WtlgUhqWRjClClUOSTReGbT9TiPGAtBrtjDXYHFAcnCQ3HJAj4LPVzMLReXj4F Dg9LUaRkCX5sai5LISFfYIEyKyhPIoq1STapHL5UeKZcVQtALDXBaeqrB9PmOw03IBOzFekrMB7qbjD9 BAVtf2gxGZRHAyWheYJaQpNfJcVxFPCeFVlrAPPNUD wKSlSvJ9Bnp6DfWaDnFQAuKPMwA7tYUhHjSBM6REJblVzhBX1BDiQdW2YzbjNjyAFxRqUmUBBDOrZzV7 ByZXYgNDAgMCBSDQo+Xf0DAR3gs0GtIBy8TbZoYS1kla6XMQqNAkPwS0K4pTRgT5A3SCfmYf3AVUXyDG KuGvCiNNHAIClhAL3QWM7cnmI6IC7OxXVnWLSkVPOm oTHhHFs2J32fhJYrOUzjNC2QRVW+Shaneka+Cm8JUROlCDFjAPSyUaOcIAJZDaXzL3KjL3MDd1CrG2GzBI05 lWurafQeWTpwBM1EVB0fLEMjYAZDLT3UsPCceE1krgDyXuWlKONUGjVnH90izNBhLEZyKJI4EEAeBh5R FXLhX1PhioRikPsgjnJfSMByDGEWCV6IFLkkkdUyzH GgeLyrZJ49eYjeCR2LMb2QApRzFY1mjb8HiLSxNo7KRUX0Lh0XQIGuJQLsPDLgXQT0HMRbSfReSDgeOF IbXGJkZBH5MFEwSBMcUV6YNfOfTQLvDrm8KwTqYMLgKIMacp2VWWPlYHAdVQS6MGBvWPToMAAjKQblEL LuZMHyNJX1UVLqWTLeVF9MRkIgFJUnLNI3MpEfUHUy PTTioz9SWDHaMWUsNcR0VfJnSBRuAVBpDWjkHTJeVGC0CMG3BKLoHYDgWN7UYrJcJLZmGCIiPdNsRKLj TMOmxb9DZWMtXJWyJCU3MeAfSWUjVCMlJUymWPYxQCT9PNB4MUJqQSMbGR0PYePrCQOjQOOzEyesAPEa PPFomx3NQAUfLOCkFXC0JUAkOZEsKPZsLOdsJGSyMC IgNeT5USYnIVAcKH6ZPtUwTZWoOHL7HuTcWJXkDSPghw0UPLKxRPKjJyY1TVAdCDKuGHNlUHfxAABzGD T5CUezVSFnFAKuLF4FIqUlKNVmMAs7FsJnXFAhFDBglq6RHOTkPYJgBUJuOPImQFUsEQAjOXbxXMAhZT UnNcRlEIYnOPAcPG6IWfLjLCQtGwY5TXYeCOErKADk rt1QYVMgVKFsVaE2TwTkECKmGPXaWAgfKFAyLRVkAJgyZHNcWOOdSP4JFgYrNKYaMqR1EPIyMREoQJGb oi0UHGGeFOItZsngCNWcTVZtIULbCRvdBTPqXLHgRNS8CTEkXBLpCX3EZoIgZNVcUpNxCVPdHMOpPXKd yu9PMNNoDZCfMBM1NXHqHMYrNJGnDAsuBDHjDVO1KI U8VCQwPOJwQX5YGcBoBRToCdEgGHtjAIMkETLwmx7IXJHfWCEvSmI8GsLjALJvBKLpWZrcTCFdRHT6RS NtDBPpZBBiED6GHdCwNMAhZdunQWJwIJKgAQQhsd8VTGOaCQPkQvBxSuRyKULlPXVrDMzgQCUmYOI9Kq b7ATBlYPUpKJ3VNqLxCFWwViqcWDIeQGJfNLDumn2X GCDrFIJoUMAqSIQsIDAkTDHvUDxmUCSqKZL2BzpcHMVgYLNcWD8XQbStJGNwZii6AnxtWULyMJFisa8T VHGmJKG2XLThPCQnSOKxPIRsVVdwYGMhFEBrNVl3QTNpRUZgRY8ZZnOiZSBhLNSwMbGhJUAqFNVtdn5O VTMnFRD0USLuFIHwCZQzVWCpPWq0ocUhvZSmXBq7MK 7EW0OzdiPfQVCDKw9Qo918RTCwHASwPr9YZ2wlLx5rSYUfGYTMFf6QGHe9DKE5HIWlJyIySdH7WFG5Dl DoAPAdRXBqZBXgKxD8Jul+MAtwPAL6WOEhYsOlROq0JYBkMqP2LMRaGfY7PmW5ELpbWJ8gICCXGh5+DQ ryeCDokIlcICJJHiQtZnm7QJdqJGGEEs4X ID Date Data Source [id number] 07/05/2020 12:05:39 AM [facility] Name Value Range Interpretation Code Description Data Elvira rce(s) Supporting Document(s) Hemoglobin A1c/Hemoglobin.total in Blood by HPLC 5.4 % 4.0-6.0 [facility] (NOTE)<5.7% Average risk of diabetes (ADA)5.7-6.4% Increased risk of diabetes(ADA)>/= 6.5% Diagnostic for diabetes(ADA) Glucose mean value [Mass/volume] in Blood Estimated fr om glycated hemoglobin 108 mg/dL <126 [facility] ID Date Data Source [id number] 07/04/2020 11:39:32 PM [facility] Name Value Range Interpretation Code Description Data Elvira rce(s) Supporting Document(s) Leukocytes [#/volume] in Blood by Automated count 9.9 10*3/uL 4-10 [facility] Erythrocytes [#/volume] in Blood by Automated count 4.58 10*6/uL 4.6- 6.1 L [facility] Hemoglobin [Mass/volume] in Blood 15.1 g/dL 13.5-18 [facility] Hematocrit [Volume Fraction] of Blood by Automated count 43.0 % 4 1-53 [facility] Erythrocyte mean corpuscular volume [Entitic volume] by Auto mated count 93.7 fL 80-96 [facility] Erythrocyte mean corpuscular hemoglobin [Entitic mass] by Automated count 33.0 pg 27-33 [facility] Erythrocyte mean corpuscular hemoglobin concentration [Mass/volume] by Automated count 35.2 g/dL 32.0-36.0 [facility] E[facility]th[facility] distribution width [Ratio] by Automated count 13.0 % 11.5-14.5 [facility] Platelets [#/volume] in Blood by Automated count 184 10*3/uL 150-400 [facility] Differential cell count method - Blood [facility] Neutrophils/100 leukocytes in Blood by Automated count 65 % [facility] Lymphocytes/100 leukocytes in Blood by Automated count 17 % [facility] Monocytes/100 leukocytes in Blood by Automated count 11 % [facility] Eosinophils/100 leukocytes in Blood by Automated count 6 % [facility] Basophils/100 leukocytes in Blood by Automated count 1 % [facility] Neutrophils [#/volume] in Blood by Automated count 6.53 10*3/uL 1.8-7 .0 [facility] Lymphocytes [#/volume] in Blood by Automated count 1.70 10*3/uL 1.2-4 .0 [facility] Monocytes [#/volume] in Blood by Automated count 1.09 10*3/uL 0-0.8 H [facility] Eosinophils [#/volume] in Blood by Automated count 0.55 10*3/uL 0-0.5 H [facility] Basophils [#/volume] in Blood by Automated count 0.05 10*3/uL 0-0.2 [facility] Nucleated erythrocytes/100 leukocytes [Ratio] in Blood by Automated count 0 /100{WBCs} 0-0 [facility] ID Date Data Source [id number] 07/04/2020 11:51:49 PM [facility] Value Range Interpretation Code Description Data Elvira rce(s) Supporting Document(s) Creatine kinase [Enzymatic activity/volume] in Serum or Plasma 1 063 U/L 20-200 H [facility] ID Date Data Source [id number] 07/04/2020 11:51:49 PM [facility] Value Range Interpretation Code Description Data Elvira rce(s) Supporting Document(s) Cholesterol [Mass/volume] in Serum or Plasma 175 mg/dL <200 [facility] Triglyceride [Mass/volume] in Serum or Plasma 89 mg/dL <150 [facility] Cholesterol in HDL [Mass/volume] in Serum or Plasma 42 mg/dL >40 [facility] Cholesterol in LDL [Mass/volume] in Serum or Plasma by calcu lation 115 mg/dL <100 H [facility] Cholesterol in VLDL [Mass/volume] in Serum or Plasma by calc ulation 18 mg/dl 16-42 [facility] Cholesterol non HDL [Mass/volume] in Serum or Plasma 132 mg/dL <130 H [facility] ID Date Data Source [id number] 07/04/2020 11:51:49 PM [facility] Value Range Interpretation Code Description Data Elvira rce(s) Supporting Document(s) Thyrotropin [Units/volume] in Serum or Plasma 3.140 u[IU]/mL 0.270-4. 200 [facility] ID Date Data Source [id number] 07/04/2020 11:51:49 PM [facility] Value Range Interpretation Code Description Data Elvira rce(s) Supporting Document(s) Albumin [Mass/volume] in Serum or Plasma by Bromocresol green (BCG) dye binding method 4.2 g/dL 3.5-5.2 [facility] al Bilirubin.total [Mass/volume] in Serum or Plasma 1.2 mg/dL <1.2 H [facility] Calcium [Mass/volume] in Serum or Plasma 8.6 mg/dL 8.6-10.0 [facility] Chloride [Moles/volume] in Serum or Plasma 104 mmol/L 98-107 [facility] Creatinine [Mass/volume] in Serum or Plasma 1.43 mg/dL 0.70-1.20 H [facility] Glucose [Mass/volume] in Serum or Plasma 102 mg/dL 70-140 [facility] Alkaline phosphatase [Enzymatic activity/volume] in Serum or Plasma 103 U/L 40-129 [facility] Potassium [Moles/volume] in Serum or Plasma 3.7 mmol/L 3.4-5.1 [facility] Protein [Mass/volume] in Serum or Plasma 6.8 g/dL 6.4-8.3 [facility] Sodium [Moles/volume] in Serum or Plasma 143 mmol/L 136-145 [facility] Aspartate aminotransferase [Enzymatic activity/volume] in Serum or Plasma 51 U/L <40 H [facility] Urea nitrogen [Mass/volume] in Serum or Plasma 13 mg/dL 6-20 [facility] Osmolality of Serum or Plasma by calculation 296 mosm/kg 275-300 [facility] Creatinine/Urea nitrogen [Mass Ratio] in Serum or Plasma 9 [facility] Bicarbonate [Moles/volume] in Serum 25 mmol/L 22-29 [facility] Alanine aminotransferase [Enzymatic activity/volume] in Seru m or Plasma 44 U/L <41 H [facility] Anion gap 3 in Serum or Plasma 14 mmol/L 8-15 [facility] Glomerular filtration rate/1.73 sq M pre dicted among non-blacks [Volume Rate/Area] in Serum or Plasma by Creatinine-based formula (MDRD) 54 mL/min/1.73m2 >60 L [facility] Glomerular filtration rate/1.73 sq M pre dicted among blacks [Volume Rate/Area] in Serum or Plasma by Creatinine-based formula (MDRD) 62 mL/min/1.73m2 >60 [facility] ID Date Data Source [id number] 07/04/2020 11:54:59 PM EST [facility] Name Value Range Interpretation Code Description Data Elvira rce(s) Supporting Document(s) aPTT in Platelet poor plasma by Coagulation assay 30.7 s 24.0-33. 0 [facility] ID Date Data Source [id number] 07/04/2020 11:54:59 PM EST [facility] Name Value Range Interpretation Code Description Data Elvira rce(s) Supporting Document(s) Prothrombin time (PT) 13.3 s 12.5-14.9 [facility] INR in Platelet poor plasma by Coagulation assay 1.00 [facility] Routine intensity oral anticoagulation I NR is typically 2.0-3.0. Target INR must be clinically individualized. ID Date Data Source [id number] 07/04/2020 04:40:00 PM EST [facility] Name Value Range Interpretation Code Description Data Elvira rce(s) Supporting Document(s) SARS coronavirus 2 RNA [Presence] in Res piratory specimen by KARLA with probe detection [facility] This lab was ordered by [facility] a nd reported by [facility]. ID Date Data Source [id number] 02/11/2020 11:16:00 AM EDT [facility] Name Value Range Interpretation Code Description Data Elvira rce(s) Supporting Document(s) Surgical pathology study Laboratory test result [facility] ([facility], ) FINAL DIAGNOSIS A - Cecal polyp, polypectomy: Polypoid fragments of colonic mucosa with hyperplastic changes. B - Rectal/anal biopsy: Scant colorectal mucosa, not sufficient for definitive diagnosis. 03/10/20201357 CLINICAL DIAGNOSIS Colon polyps 03/10/20201357 GROSS DIAGNOSIS A - Received in formalin labeled "cecal polyp" and consists of a fragment of tissue 0.2 x 0.1 x 0.1 cm. All in one. B - Received in formalin labeled "rectal/anal biopsy" and consists of a fragment of tissue 0.1 x 0.1 x 0.1 cm. All in one. -OA 03/10/20201357 Signed DENICE WILLOUGHBY MD 03/13/2020 1223 Procedure Social History Code Duration Value Status Description Data Source(s ) Smoking 08/08/2020 12:00:00 AM EST Former Smoker completed Former Smoker eCW1 ([facility]) Smoking 08/08/2020 12:00:00 AM EST Former Smoker completed Former Smoker eCW1 ([facility]) Smoking 07/17/2020 12:00:00 AM EST Former Smoker completed Former Smoker eCW1 ([facility]) Smoking 07/17/2020 12:00:00 AM EST Former Smoker completed Former Smoker eCW1 ([facility]) Smoking 07/17/2020 12:00:00 AM EST Former Smoker completed Former Smoker eCW1 ([facility]) Smoking 07/17/2020 12:00:00 AM EST Former Smoker completed Former Smoker eCW1 ([facility]) Alcohol intake 07/12/2020 12:00:00 AM EST Current drinker of al cohol (finding) completed Current drinker of alcohol (finding) [facility] Tobacco use and exposure 07/12/2020 12:00:00 AM EST Never used co mpleted Never used [facility] Smoking 07/12/2020 12:00:00 AM EST Former smoker completed Former smoker [facility] Smoking 10/18/2019 12:00:00 AM EDT Former Smoker completed Former Smoker eCW1 ([facility]) Vital Signs ID Date Data Source [id number] Name Value Range Interpretation Code Description Data Source(s) Diastolic blood pressure 80 mm[Hg] 80 mm[Hg] eCW1 ([facility]) Systolic blood pressure 135 mm[Hg] 135 mm[Hg] e CW1 ([facility]) Body temperature 96.3 [degF] 96.3 [degF] eCW1 ( [facility]) Respiratory rate 18 /min 18 /min eCW1 ([facility]) Heart rate 78 /min 78 /min eCW1 ([facility]) Body mass index (BMI) [Ratio] 35.55 kg/m2 35.55 kg/m2 eCW1 ([facility]) Body height [in_i] eCW1 ([facility]) Body weight 227 [lb_av] 227 [lb_av] eCW1 ([facility]) Body surface area Derived from formula 2.18 m2 2.18 m2 [facility] ([facility] ) Body weight 108.127 kg 108.127 kg [facility] ([facility] ) [place] body weight 148 [lb_av] 148 [lb_av] MEDEN T ([facility]) Body mass index (BMI) [Ratio] 37.3 kg/m2 37.3 k g/m2 [facility] ([facility]) Body weight 238.38 [lb_av] 238.38 [lb_av] [facility] T ([facility]) Body height 67 [in_i] 67 [in_i] [facility] ([facility]) 5'7" Heart rate 64 /min 64 /min [facility] ([facility]) Diastolic blood pressure 114 mm[Hg] 114 mm[Hg] [facility] ([facility]) Systolic blood pressure 186 mm[Hg] 186 mm[Hg] [facility] ([facility]) Body surface area Derived from formula 2.17 m2 2.17 m2 [facility] ([facility]) Body weight 107.106 kg 107.106 kg [facility] ([facility]) [place] body weight 148 [lb_av] 148 [lb_av] [facility] T ([facility]) Body mass index (BMI) [Ratio] 37.0 kg/m2 37.0 k g/m2 [facility] ([facility]) Body weight 236.12 [lb_av] 236.12 [lb_av] [facility] T ([facility]) Body height 67 [in_i] 67 [in_i] [facility] ([facility]) 5'7" Diastolic blood pressure 105 mm[Hg] 105 mm[Hg] [facility] ([facility]) Systolic blood pressure 181 mm[Hg] 181 mm[Hg] [facility] ([facility]) Body weight 106.709 kg 106.709 kg [facility] ([facility]) [place] body weight 148 [lb_av] 148 [lb_av] [facility] T ([facility]) Body mass index (BMI) [Ratio] 36.8 kg/m2 36.8 k g/m2 [facility] ([facility]) Body weight 235.25 [lb_av] 235.25 [lb_av] [facility] ([facility]) Body height 67 [in_i] 67 [in_i] [facility] ([facility]) 5'7" Diastolic blood pressure 106 mm[Hg] 106 mm[Hg] [facility] ([facility]) [place] Systolic blood pressure 179 mm[Hg] 179 mm[Hg] [facility] [place] Body weight 107.957 kg 107.957 kg [facility] ([facility]) [place] body weight 148 [lb_av] 148 [lb_av] [facility] T ([facility]) Body mass index (BMI) [Ratio] 37.3 kg/m2 37.3 k g/m2 [facility] ([facility]) Body weight 238.00 [lb_av] 238.00 [facility]_av[facility] Body height 67 [in_i] 67 [in_i] [facility] ([facility]) 5'7" Diastolic blood pressure 80 mm[Hg] 80 mm[Hg] [facility] ([facility]) Systolic blood pressure 140 mm[Hg] 140 mm[Hg] [facility] ([facility]) Diastolic blood pressure 84 mm[Hg] 84 mm[Hg] eCW1 ([facility]) Systolic blood pressure 142 mm[Hg] 142 mm[Hg] e CW1 ([facility]) Body temperature 97.1 [degF] 97.1 [degF] eCW1 ( [facility]) Respiratory rate 20 /min 20 /min eCW1 ([facility]) Heart rate 99 /min 99 /min eCW1 ([facility]) Body mass index (BMI) [Ratio] 38.15 kg/m2 38.15 kg/m2 W1 ([facility]) Body height [in_us] eCW1 ([facility]) Body weight Measured 243.6 [lb_av] 243.6 [lb_av ] eCW1 ([facility]) Body weight 110.225 kg 110.225 kg [facility] ([facility]) Body mass index (BMI) [Ratio] 38.1 kg/m2 38.1 k g/m2 [facility] ([facility]) Body weight 243.00 [lb_av] 243.00 [lb_av] LASHELL T ([facility], ) Body height 67 [in_i] 67 [in_i] KINDRA ([facility]) 5'7" Diastolic blood pressure 88 mm[Hg] 88 mm[Hg] KINDRA ([facility]) Systolic blood pressure 148 mm[Hg] 148 mm[Hg] M CASSANDRA ([facility]) ID Date Data Source [id number] 07/19/2020 02:31:18 PM [facility] Name Value Range Interpretation Code Description Data Source(s) WEIGHT RECORDED 227.07 lb 227.07 lb [facility] WEIGHT RECORDED 231.04 lb 231.04 lb [facility] WEIGHT RECORDED 231 lb 231 lb [facility] Body height Measured 67 in 67 in [facility] TRANSFER FROM [facility] Patient Treatment Plan of Care Planned Activity Planned Date Details Description Data Source (s) - 07/21/2020 12:00:00 AM EST e CW1 ([facility]) Can - 07/21/2020 12:00:00 AM EST e CW1 ([facility]) Can - 07/21/2020 12:00:00 AM EST e CW1 ([facility]) Can - 07/21/2020 12:00:00 AM EST e CW1 ([facility]) Multivitamin Adult 07/18/2020 12:00:00 AM EST NETSMART ([facility]) Thiamine HCl 100 MG 07/18/2020 12:00:00 AM EST NETSMART ([facility]) Folic Acid 1 MG 07/18/2020 12:00:00 AM EST NETSMART ([facility]) Labetalol HCl 100 MG 07/18/2020 12:00:00 AM EST NETSMART ([facility]) AmLODIPine Besylate 10 MG 07/18/2020 12:00:00 AM [facility] NETSMAR ([facility]) Acetaminophen 325 MG / Hydrocodone Bitartrate 5 MG Ora l Tablet 07/12/2020 07:30:54 AM [facility] Thiamine 100 MG Oral Tablet 07/12/2020 12:00:00 AM [facility] Tab-A-Joanna/Beta Carotene Oral Tablet 07/12/2020 12:00:00 AM [facility] Folic Acid 1 MG Oral Tablet 07/12/2020 12:00:00 AM [facility] Amlodipine 10 MG Oral Tablet 07/12/2020 12:00:00 AM [facility] Labetalol hydrochloride 100 MG Oral Tablet 07/11/2020 12:00:00 AM [facility] Amlodipine 5 MG Oral Tablet 07/06/2020 09:15:00 AM [facility] sennosides, FCI 35.2 MG/ML Oral Solution 07/05/2020 08:15:00 AM [facility] sodium chloride 0.9 % bag 3-20 mL 07/04/2020 10:23:46 PM [facility] Nicardipine hydrochloride 0.2 MG/ML Injectable Solutio n 07/04/2020 08:25:33 PM [facility] cefdinir 300 MG Oral Capsule 10/18/2019 12:00:00 AM EDT eCW1 ([facility]) cefdinir 300 MG Oral Capsule 10/18/2019 12:00:00 AM EDT eCW1 ([facility])
--- NOTE | 2020-08-21 12:41 | REP ---
INDICATION: R/O CVA. COMPARISON: CT angio, CT brain 07/04/2020 TECHNIQUE: Noncontrast soft tissue bone windows with coronal reconstructions. FINDINGS: The right basal ganglia and white matter tracts show a zone of confluent hypodensity measuring 4.4 long by 1.7 transverse by 4 cm in height. This is in precise location of the recent hemorrhagic infarct from 07/04/2020 I do not see a residual or new hyperdense blood products. There is less a vasogenic edema in the region and the midline shift caused by this hypertensive hemorrhage has resolved. The lateral ventricles are more symmetric in size with left ventricle only slightly smaller than the right with less effacement due to the mass effect of the infarct. This is on the frontal horn and body of the lateral ventricle while the posterior horn is symmetric 3rd and 4th ventricles are unremarkable. I do not see evidence of a new or acute infarct. There is no intraventricular hemorrhage other intraparenchymal bleed or infarct. No extra-axial fluid collection or mass. Brainstem and cerebellum grossly intact no basal ganglia infarct or lesion on the left. Basal cisterns intact brainstem and cerebellum grossly intact. The bone windows show mastoids, cranial floor, visualized sinuses and calvarium without fracture or focal lesion. 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 Overall size of the defect has decreased compared to that of the hemorrhagic infarct of 07/04/2020 and its associated vasogenic edema. The midline shift is resolved and there is much less effacement of the right lateral ventricle. There is no new or acute infarct. No new intra or extra-axial hemorrhage. Posterior fossa intact. Bones intact of the skull base and calvarium. <Electronically signed by Sujit Rojas > 08/21/20 [id number]
--- NOTE | 2020-08-21 13:08 | REP ---
INDICATION: numbness to left flank/torso. COMPARISON: CT angio neck bone windows 07/04/2020 TECHNIQUE: Trauma protocol with coronal and sagittal bone window reconstructions. FINDINGS: [place] image of the sagittal reconstruction show slight loss of normal lordosis. There is cervical spondylosis greatest at C5-6 and C6-7 with disc space narrowing, anterior and posterior osteophytes. There are anterior osteophytes without disc space narrowing at C3-4 and C4-5. These disc space heights are intact. All vertebral body heights are intact. The dens was intact and shows normal relationship to the anterior arch of C1 on the sagittal reconstructions and to the lateral masses on the coronal images. The spinous processes, lamina, pedicles, facets, transverse processes and transverse foramina are without acute bony abnormality. There are some facet hypertrophic changes on both sides at scattered levels. There is some mild central canal narrowing at C5-6 due to combined factors and bilateral foraminal encroachment due to uncinate and facet spurs. At C6-7 there is also mild central canal stenosis due to disc bulge and posterior osteophytes and some foraminal narrowing on the right greater than left due to uncinate spurs. There are no other significant findings. The portions of 1st few ribs and thoracic vertebral levels show no acute finding. The lung apices were clear. Cervicothoracic and craniocervical junction align normally. No prevertebral swelling or malalignment IMPRESSION: Cervical spondylosis C5-6 and C6-7 with some mild central canal stenosis and foraminal encroachment at those levels. Less spondylosis at the 2 levels above without central canal or foraminal stenosis. No compression fracture malalignment or other acute finding. <Electronically signed by Sujit Rojas > 08/21/20 [id number]
--- NOTE | 2020-08-21 13:15 | REP ---
INDICATION: numbness to left flank/torso. COMPARISON: Lateral chest x-ray 09/23/2012 TECHNIQUE: Axial soft tissue and bone window settings from the superior margin of C5 through inferior aspect of L2. Coronal and sagittal reconstructions provided. FINDINGS: A levoconvex curve in the lower thoracic spine noted on the malt house operator images and the coronal reconstructions with gentle dextroconvex curve above it. The C5-6 and C6-7 levels show cervical spondylosis within central canal stenosis and foraminal encroachment, mild. There is no evidence of central canal stenosis or foraminal encroachment in the thoracic spine. There are marginal osteophytes at multiple levels in the mid lower thoracic spine without compression fracture or focal kyphosis. Posterior ribs are without fracture or focal lesion. Lung windows show no pleural effusion, pulmonary nodule or parenchymal mass in the visible regions on this study. Paraspinal musculature symmetric. No paraspinal hematoma evident. IMPRESSION: Negative CT thoracic spine for any compression fracture, malalignment, spinal or foraminal stenosis. There is thoracic spondylosis at multiple levels in the mid to lower thoracic spine with marginal osteophytes. No destructive bony lesion. Posterior ribs intact. <Electronically signed by Sujit Rojas > 08/21/20 [id number]
[2020-08-21 13:16] LABS: BASO % 0.5 % (0.0-1.0); EOS # 0.2 10^3/uL (0.0-0.5); EOS % 4.2 % (0.0-3.0); HEMATOCRIT 39.7 % (42.0-52.0); HEMOGLOBIN 13.8 g/dl (13.5-17.5); LYMPH # 1.4 10^3/uL (1.5-5.0); MEAN CORPUSCULAR HEMOGLOBIN 31.9 pg (27.0-33.0); MEAN CORPUSCULAR HGB CONC 34.8 g/dl (32.0-36.5); MEAN CORPUSCULAR VOLUME 91.9 fl (80.0-96.0); MONO # 0.6 10^3/uL (0.0-0.8); MONO % 10.5 % (2.0-8.0); NEUTROPHILS # 3.4 10^3/uL (1.5-8.5); NEUTROPHILS % 60.4 % (36.0-66.0); PLATELET COUNT, AUTOMATED 150 10^3/uL (150-450); RED BLOOD COUNT 4.32 10^6/uL (4.30-6.10); WHITE BLOOD COUNT 5.7 10^3/uL (4.0-10.0)
[2020-08-21 13:49] LABS: ALBUMIN 4.1 GM/DL (3.2-5.2); ALT/SGPT 42 U/L (12-78); BILIRUBIN,DIRECT 0.2 MG/DL (0.0-0.2); BILIRUBIN,TOTAL 1.1 MG/DL (0.2-1.0); BLOOD UREA NITROGEN 12 MG/DL (7-18); CALCIUM LEVEL 9.5 MG/DL (8.5-10.1); CARBON DIOXIDE LEVEL 29 MEQ/L (21-32); CHLORIDE LEVEL 104 MEQ/L (98-107); CK-MB VALUE MASS 2.1 NG/ML (<3.6); CPK CREATINE PHOSPHOKINASE 114 U/L (39-308); CREATININE FOR GFR 1.07 MG/DL (0.70-1.30); GLOMERULAR FILTRATION RATE > 60.0 (>56); GLUCOSE, FASTING 91 MG/DL (70-100); MB/CK RELATIVE INDEX 1.84 (< OR =4); POTASSIUM SERUM 4.1 MEQ/L (3.5-5.1); SODIUM LEVEL 140 MEQ/L (136-145); TROPONIN I < 0.02 NG/ML (< 0.10)
--- OUTSIDE RECORDS SUMMARY | 2020-08-21 14:24 | CCD ---
Author Author [facility] Organization [facility] Address Unknown Phone Unavailable Care Team Providers Care President [employer] Name Role Phone Esperanza Cobian MD Unavailable [...] Mata Abdirizak Gene MD Unavailable Unavailabl e Aranaz, Mata Abdirizak Gene MD Unavailable Unavailabl e Arazna, Mata Adbirizak Gene MD Unavailable Unavailabl e Aranza, Mata [...] is protected by Article 27-F of the [facility] Public Health law. If you continue you may have access to information: Regarding HIV / AIDS; Provided by facilities licensed or operated by the [facility] Office of Mental Health; or Provided by the [facility] Office for People With Developmental Disabilities. If such information is present, then the following [facility] mandated warning applies: This information has been [...] Data Source(s ) PCN PCN PCN active [facility] Drug Class PENICILLINS Penicillin Rash [facility] Drug allergy Penicillin (For Allergies Use Only) Drug allergy Rash Active eCW1 ([facility]) Family History Family Member Name Family Member Gender Family Member Status Date o f Status Description Data Source(s) Unknown Unknown Problem MEDENT ([facility]) Unknown Female Problem MEDENT ([facility]) Encounters Encounter Providers Location Date Indications Data Source(s ) [place] [address] [facility] [address] 08/15/2020 12:00:00 AM EST eCW1 ([facility]) [place] [address] [facility] [address] 08/11/2020 12:00:00 AM EST [email or web address] Outpatient Attender: MARLEN SHEARER MD [id number] 08/02/2020 12:00:00 AM EST - 08/02/2020 01:21:46 PM EST [facility], [facility] Outpatient Referrer: CLAUDE DIAZ MD 08/02/2020 12: 00:00 AM EST [facility], un specified Outpatient Attender: GABINO GUERRERO [address] [place] [address] 07/28/2020 10:01:54 AM E [facility] Unknown [address] [facility] [address] 07/25/2020 12:00:00 AM EST eCW1 [email or web address] Outpatient Attender: GABINO GUERRERO [address] [place] [address] 07/24/2020 11:58:22 AM E [facility] [place] [address] [address] 07/21/2020 12:00:00 AM EST [facility]CW1 [email or web address] [place] [address] [facility] [address] 07/19/2020 12:00:00 AM EST [facility]CW1 [email or web address] 07/18/2020 12:00:00 AM EST - 021 10:10:03 AM EST NETSMART ([facility]) Outpatient Attender: GABINO GUERRERO [address] [place] [address] 07/17/2020 12:08:42 PM E [facility] [address] [facility] [address] 07/17/2020 12:00:00 AM EST eCW1 [email or web address] [place] [address] [facility] [address] 07/06/2020 12:00:00 AM EST eCW1 ([facility]) Inpatient Attender: Abdirizak Cobian MDReferrer: Abdirizak Cobian MD 07/05/2020 12:00:00 AM EST [facility] Inpatient Attender: KYLEE MILLS MDAt tender: JAYCEE JEFFERSON MDAttender: Abdirizak Cobian MDAttender: Dusty Mott MDAdmitter: Abdirizak Cobian MDReferrer: Abdirizak Cobian MD [id number] 07/04/2020 12:00:00 AM EST - 07/12/2020 10:48:00 AM EST Nontraumatic intracranial hemorrhage, unspecified [facility] Nontraumatic intracranial hemorrhage, un specified Patient discharged. Outpatient Attender: FLOR Wheeler/Manfred/Johnie/David ndl 05/11/2020 09:00:00 AM EST MEDENT [facility] Outpatient Attender: FLOR Wheeler/Everett/David ndeugenia 03/16/2020 11:20:00 AM EDT MEDENT ([facility] [address] [address] 10/19/2019 12:00:00 AM EDT eCW1 ([facility]) [address] [place] [address] 10/18/2019 12:00:00 AM EDT eCW1 ([facility]) [address] [place] [address] 10/18/2019 12:00:00 AM EDT eCW1 ([facility]) Medications Medication Brand Name Start Date Product [...] 12:00:00 AM EST active Cane - eCW1 ([facility]) Cane - Cane - 07/21/2020 12:00:00 AM EST active Cane - eCW1 ([facility]) Cane - Cane - 07/21/2020 12:00:00 AM EST active Cane - eCW1 ([facility]) Cane - Cane - 07/21/2020 12:00:00 AM EST active Cane - eCW1 ([facility]) Cane - Cane - 07/21/2020 12:00:00 AM EST active Cane - eCW1 ([facility]) Cane - Cane - 07/21/2020 12:00:00 AM EST active Cane - eCW1 ([facility]) Labetalol HCl 100 MG Labetalol HCl 07/18/2020 12:00:00 AM EST completed NETSMART ([facility]) Folic Acid 1 MG Folic Acid 07/18/2020 12:00:00 AM EST completed NETSMART ([facility]) Thiamine HCl 100 MG Thiamine HCl 07/18/2020 12:00:00 AM EST completed NETSMART ([facility]) Multivitamin Adult Multivitamin Adult 07/18/2020 12:00:00 AM EST completed NETSMART ([facility]) AmLODIPine Besylate 10 MG AmLODIPine Besylate 07/18/2020 12:00:[address] completed NETSMART ([facility]) Acetaminophen 325 MG / Hydrocodone Yarely trate [...] mg from all sources in 24 hours.
[facility] Medication administered onsite Tab-A-Joanna/Beta Carotene Oral Tablet 7264-9671-40 07/12/2020 12:00: 00 AM EST 1 {tbl} Oral active Take 1 tablet by mouth d [facility] Amlodipine 10 MG Oral Tablet amLODIPine Besylate 10 MG Oral Tablet (NORVASC) amLODIPine Besylate 10 MG Oral Tablet (NORVASC) 07/12/2020 12:00:00 AM EST 10 mg Oral active Take 1 tablet by mouth d [facility] Folic Acid 1 MG Oral Tablet Folic Acid 1 MG Oral Table t (FOLVITE) Folic Acid 1 MG Oral Tablet (FOLVITE) 07/12/2020 12:00:00 AM EST 1 mg Oral active Take 1 tablet by mouth daily [facility] Thiamine 100 MG Oral Tablet Thiamine HCl 100 MG Oral T ablet (B-1) Thiamine HCl 100 MG Oral Tablet (B-1) 07/12/2020 12:00:00 AM EST 100 mg Oral active Take 1 tablet by mouth daily [facility] Labetalol hydrochloride 100 MG Oral Tabl et Labetalol HCl 100 MG Oral Tablet (NORMODYNE) Labetalol HCl 100 MG Oral Tablet (NORMODYNE) 12:00:00 AM EST 100 mg Oral active Take 1 tablet by mouth every 12 (twelve) hours [facility] Labetalol hydrochloride 100 MG Oral Tablet labetalol ( NORMODYNE) tablet 100 mg labetalol (NORMODYNE) tablet 100 mg 07/08/2020 09:00:00 PM EST 100 mg Oral active 100 mg, Oral, Ev jackie 12 hours Standard (2 times per day), First dose on 07/08/20 at 2100, For 30 days
Check vital signs before administering
[facility] Medication administered onsite Amlodipine 5 MG Oral Tablet amlodipine (NORVASC) table t 10 mg amlodipine (NORVASC) tablet 10 mg 07/07/2020 09:00:00 AM EST 10 mg Oral active 10 mg, Oral, Daily Standard, First dose on Fri07/07/20 at 0900, For 30 days
Check vital signs before administering
[facility] Medication administered onsite heparin (porcine) 5000 UNIT/ML injection 5,000 Units [id number] 07/06/2020 09:00:00 PM EST 5000 U Subcutaneous active 5,000 Units, Subcutaneous, 2 Times Daily, First dose on Fri07/06/20 at 2100, For 30 days [facility] Medication administered onsite Acetaminophen 325 MG / [...] mg from all sources in 24 hours.
[facility] Medication administered onsite potassium chloride (K-DUR) dissolvable tablet 20 mEq [id number] 07/06/2020 09:15:00 AM EST 20 meq Oral completed 20 mEq, Oral, 2 Times Daily, First dose (after last modification) on Fri07/06/20 at 0915, For 3 days
May be dissolved in water for patients with a G-Tube or unable to swallow. If concern for clogging G-Tube, may contact Pharmacy to switch formulation to a powder packet.
[facility] Medication administered onsite lidocaine (LIDODERM) 5 % patch 1 patch 8970-2225-65 09:15:00 AM EST 1 {patch} Transdermal active 1 patch, T ransdermal, Daily Standard, First dose on Fri07/06/20 at 0915, For 30 days
Apply to area of back pain12 hours on - 12 hours off
[facility] Medication administered onsite Amlodipine 5 MG Oral Tablet amlodipine (NORVASC) table t 5 mg amlodipine (NORVASC) tablet 5 mg 07/06/2020 09:15:00 AM EST 5 mg Oral aborted 5 mg, Oral, Once, Dalila 07/06/20 at 0915, For 1 dose
Check vital signs before administering
[facility] Medication administered onsite Cyclobenzaprine hydrochloride 10 MG Oral Tablet cyclobenzaprine (FLEXERIL) tablet 10 mg cyclobenzaprine (FLEXERIL) tablet 10 mg 07/06/2020 09:13:20 AM EST 10 mg Oral active 10 mg, Oral, Thr ee Times Daily-PRN, Muscle spasms, Starting Dalila 07/06/20 at 0913, For 30 days [facility] Medication administered onsite Amlodipine 5 MG Oral Tablet amlodipine (NORVASC) table t 10 mg amlodipine (NORVASC) tablet 10 mg 07/06/2020 09:00:00 AM EST 10 mg Oral aborted 10 mg, Oral, Daily Standard, First dose (after last modification) on Dalila 07/06/20 at 0900, For 28 doses
Check vital signs before administering
[facility] Medication administered onsite Acetaminophen 325 MG / Hydrocodone Yarely trate 5 MG Oral Tablet HYDROcodone- acetaminophen (LORTAB) 5-325 MG per tablet 1 tablet HYDROcodone-acetaminophen (LORTAB) 5-325 MG per tablet 1 tablet 07/05/2020 11:30:00 PM EST 1 {tbl} Oral completed 1 tablet, Oral, Once, Fri07/05/20 at 2330, For 1 dose
Maximum daily dose of acetaminophen is 3,000 mg from all sources in 24 hours.
[facility] Medication administered onsite gadobutrol (GADAVIST) contrast injection 10 mL [id number] 0 07/05/2020 05:15:00 PM EST 0.1 mL/kg Intravenous completed 10 mL (r ounded from 10.48 mL = 0.1 mL/kg 104.8 kg), Intravenous, 1 TIME IMAGING, Fri07/05/20 at 1715, For 1 dose
Do not mix or administer in the same IV line with other medications.
[facility] Medication administered onsite Amlodipine 5 MG Oral Tablet amlodipine (NORVASC) table t 5 mg amlodipine (NORVASC) tablet 5 mg 07/05/2020 03:15:00 PM EST 5 mg Oral aborted 5 mg, Oral, Daily Standard, First dose (after last modification) on Fri07/05/20 at 1515, For 30 days
Check vital signs before administering
[facility] Medication administered onsite pantoprazole 4 MG/ML Injectable Solution pantoprazole (PROTONIX) injection 40 mg pantoprazole (PROTONIX) injection 40 mg 07/05/2020 12:15:00 PM EST 40 mg Intravenous active 40 mg, Intrav enous, Daily Standard, First dose on Fri07/05/20 at 1215, For 30 days [facility] Medication administered onsite Thiamine 100 MG Oral Tablet thiamine (B-1) tablet 100 mg thiamine (B-1) tablet 100 mg 07/05/2020 09:00:00 AM EST 100 mg Oral active 100 mg, Oral, Daily Standard, First dose on Fri07/05/20 at 0900, For 30 days [facility] Medication administered onsite Docusate Sodium 100 MG Oral Capsule docusate sodium (C OLACE) capsule 100 mg docusate sodium (COLACE) capsule 100 mg 07/05/2020 09:00:00 AM EST 100 mg Oral active 100 mg, Oral, 2 Times Daily, First dose on Fri07/05/20 at 0900, For 30 days [facility] Medication administered onsite Folic Acid 1 MG Oral Tablet folic acid (FOLVITE) table t 1 mg folic acid (FOLVITE) tablet 1 mg 07/05/2020 09:00:00 AM EST 1 mg Oral active 1 mg, Oral, Daily Standard, First dose on Fri07/05/20 at 0900, For 30 days [facility] Medication administered onsite multivitamin tablet 1 tablet [id number] 07/05/2020 09:00:00 AM EST 1 {tbl} Oral active 1 tablet, Oral , Daily Standard, First dose on Fri07/05/20 at 0900, For 30 days [facility] Medication administered onsite sennosides, SENIOR CARE 35.2 MG/ML Oral Solution senna (SENOKO T) syrup 10 mL senna (SENOKOT) syrup 10 mL 07/05/2020 08:15:00 AM EST 10 mL Oral active 10 mL, Oral, Nightly, First dose on Fri07/05/20 at 0815, For 30 days [facility] Medication administered onsite sodium chloride (preservative free) [...] 2224, For 1 occurrence [Order 4 End] [facility] Medication administered onsite NaCl infusion 0.9 % [id number] 07/05/2020 12:15:00 AM EST Intravenous aborted at 125 mL/hr, Intrav enous, Continuous, Starting Fri07/05/20 at 0015, For 30 days [facility] Medication administered onsite dexmedetomidine (PRECEDEX) in NaCl 0.9 % infusion 4 mcg/mL 1 [id number] 07/05/2020 12:15:00 AM EST ug/kg/h Intravenous aborted 0.1-1.5 mcg/kg/hr 104.8 kg (2.62-39.3 mL/hr, rounded to 2.6-39.3 mL/hr), Intravenous, at 2.6-39.3 mL/hr, Continuous, Starting Fri07/05/20 at 0015, For 30 days
Starting dose = 0.2 mcg/kg/hrTitrate to maintain RASS of -2 Titrate by 0.1-0.2 mcg/kg/hrMax Dose = 1.5 mcg/kg/hr Titrate down if RASS of -1
[facility] Medication administered onsite diazePAM (VALIUM) injection 10 mg [id number] 07/04/2020 11:00:00 PM EST 10 mg Intravenous aborted 10 mg, I ntravenous, Every 1 hour, First dose on Fri07/04/20 at 2300, For 4 doses
Maximum of 40 mg in 4 hour period. If patient is sleeping, do not wake them to administer Diazepam or to assess the CIWA score. Assess once patient awakens.
[facility] Medication administered onsite Thiamine 100 MG/ML Injectable Solution thiamine (B-1) injection 100 mg thiamine (B-1) injection 100 mg 07/04/2020 10:30:00 PM EST 100 mg Intramuscu lar completed 100 mg, Intramuscula r, Once, Fri07/04/20 at 2230, For 1 dose
Upon arrival PRIOR to administration of any glucose containing IVF.
[facility] Medication administered onsite Magnesium Chloride 0.66134 MEQ/ML / Pota ssium Chloride 0.74213 MEQ/ML / Sodium Acetate 0.027 MEQ/ML / Sodium Chloride 0.0899 MEQ/ML / Sodium gluconate 5.02 MG/ML Injectable Solution [Plasmalyte A] electrolyte-A (PLASMALYTE-A) infusion electrolyte-A (PLASMALYTE-A) infusion 07/04/2020 10:30:00 PM EST 125 mL/h Intravenous aborted at 125 mL/hr, Intravenous, Continuous, Starting Fri07/04/20 at 2230, For 3 days
This product comes from distribution.
[facility] Medication administered onsite sodium chloride 0.9 % 1,000 mL with MVI adult 10 mL, folic acid 1 mg, magnesium sulfate 2 g, thiamine (B-1) 100 mg infusion 07/04/2020 10:30:00 PM EST 100 mL/h Intravenous aborted at 100 m L/hr, Intravenous, Continuous, Starting Fri07/04/20 at 2230, For 10 hours
Run in at 100 mL/hr until done.
[facility] Medication administered onsite sodium chloride 0.9 % bag 3-20 mL [id number] 07/04/2020 10:23:46 PM EST mL Intravenous active 3-20 mL, Intr avenous, at 1-999 mL/hr, PRN, For Medication Administration and Line Clearance, Starting Fri07/04/20 at 2223, For 30 days
Flush line with sufficient amount of fluid needed based on man ufacturer recommendation for specific line size. Rate should be run at the same rate as medication in the line being flushed.
[facility] Medication administered onsite Acetaminophen 325 MG Oral [...] mg from all sources in 24 hours.
[facility] Medication administered onsite 4 ML Labetalol hydrochloride 5 MG/ML Car tridge labetalol (TRANDATE) injection 10 mg labetalol (TRANDATE) injection 10 mg 07/04/2020 10:16:59 PM EST 10 mg Intravenous aborted 10 mg, Intrav enous, Every 6 hours PRN, High Blood Pressure, Starting Fri07/04/20 at 2216, For 30 days
If BP > 140
[facility] Medication administered onsite Hydralazine Hydrochloride 20 MG/ML Injec table Solution hydrALAZINE (APRESOLINE) injection 10 mg hydrALAZINE (APRESOLINE) injection 10 mg 07/04/2020 10 :16:59 PM EST 10 mg Intravenous aborted 10 m g, Intravenous, Every 6 hours PRN, Other, High Blood Pressure, Starting Fri07/04/20 at 2216, For 30 days
If BP > 140
[facility] Medication administered onsite Nicardipine hydrochloride 0.2 MG/ML [...] 8 hours
Titrate to SBP < 140
[facility] Medication administered onsite Nicardipine hydrochloride 0.2 MG/ML Inje ctable Solution niCARdipine (CARDENE) 40-0.83 MG/200ML-% in sodium chloride 0.9 % infusion (0.2 mg/mL) niCARdipine (CARDENE) 40-0.83 MG/200ML-% in sodium chloride 0.9 % infusion (0.2 mg/mL) 07/04/2020 08:25:33 PM EST completed Starting Fri07/04/20 at 2024, For 1 dose
Momo Stover: cabinet override
Momo Stover: cabinet override
[facility] Medication administered onsite 17 gram/dose 02/04/2020 12:00:00 AM EDT powder 510 USE DIRECTED BY OREN COLÓN (TO BE USED FOR PREP) USE DIRECTED BY OREN COLÓN (TO BE USED FOR PREP) SOLD: 02/09/2020 [facility] POLYETHYLENE GLYCOL 3350 142 MG/ML Oral Solution [Miralax] M iralax 02/03/2020 12:00:00 AM EDT completed MEDENT ([facility]) cefdinir 300 MG Oral Capsule Cefdinir 300 MG Cefdinir 300 MG 10/18/2019 12:00:00 AM EDT active 1 cap eCW1 ([facility]) cefdinir 300 MG Oral Capsule Cefdinir 300 MG Cefdinir 300 MG 10/18/2019 12:00:00 AM EDT active Cefdinir 300 MG eCW1 ([facility]) 300 mg 10/18/2019 12:00:00 AM EDT capsule 14 TAKE ONE CAPSULE BY MOUTH TWICE A DAY FOR 7 DAYS TAKE ONE CAPSULE BY MOUTH TWICE A DAY FOR 7 DAYS SOLD: 10/18/2019 [facility] Bisacodyl 5 MG Delayed Release Oral Tablet [Dulcolax] Dulcol ax 09/13/2019 12:00:00 AM EDT ORAL active Janett EDENT ([facility] ) POLYETHYLENE GLYCOL 3350 142 MG/ML Oral Solution [Miralax] M iralax 09/13/2019 12:00:00 AM EDT active M EDLUIS ([facility]) Insurance Providers Payer name Policy type / Coverage type Policy ID Covered republican ID Covered republican's relationship to egan Policy Egan Plan Information [id number] SP [id number] [facility] PL[facility] MCDO [id number] SP [id number] [facility] PLAN MCDO [id number] SP [id number] [facility] [id number] Self [id number] [facility](MCAID) O [id number] S [id number] [facility] COMMUNITY PLAN MCDO [id number] SP [id number] [facility] COMM[facility]ITY PLAN MCDO [id number] SP [id number] [facility] COMMUNITY PLAN MCDO [id number] SP [id number] [facility] Health Maintenance Organization (HMO) [id number] Self [id number] [facility] [id number] [facility] Hmo Commercial [id number] Self [id number] Medicaid Dental S [id number] S [id number] D Managed Care [facility] P [id number] S [id number] [facility] Hmo Commercial [id number] Self [id number] [facility]-Medicaid [id number] [facility](MCAID) O [id number] S [id number] [facility] [id number] Managed Care [facility] P [id number] S [id number] [facility] Health Maintenance Organization (HMO) [id number] Self [id number] [facility] [id number] SP [id number] [facility] Health Maintenance Organization (HMO) Self [facility](MCAID) O [id number] S [id number] [facility] Health Maintenance Organization (HMO) Self SELF PAY UNAVAILABLE SP UNAVAILA BLE Medicaid Dental O [id number] S [id number] Medicaid S [id number] S [id number] MEDICAID [id number] SP [id number] MEDICAID - CLINIC [id number] Problems, Conditions, and Diagnoses Code Display Name Description Problem Type Effective Dates Data Source(s) I50.32 [id number] Chronic diastolic heart failure Problem 08/08/2020 12:00:00 AM EST eCW1 ([facility]) Z91.19 [id number] Medical non-compliance Problem 07/17/2020 12 :00:00 AM EST eCW1 ([facility]) I61.9 [id number] Hemorrhagic cerebrovascular accident (CVA ) Problem 07/17/2020 12:00:00 AM EST eCW1 ([facility]) G81.94 [id number] Left hemiplegia Problem 07/17/2020 12:00:00 AM EST eCW1 ([facility]) F10.10 Alcohol abuse Alcohol abuse Problem 07/17/2020 12:00:00 AM EST eCW1 ([facility]) Z68.35 Body mass index [BMI] 35.0-35.9, adult B devan mass index [BMI] 35.0-35.9, adult Problem 07/04/2020 12:00:00 AM EST NETSMART ([facility]) I69.298 Other sequelae of other nontraumatic int racranial hemorrhage Other sequelae of other nontraumatic intracranial hemorrhage Problem 07/04/2020 12:00:00 AM EST NETSMART ([facility] ) 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 Het eronymous bilateral field defects Problem 07/04/2020 12:00:00 AM EST NETSMART ([facility]) 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 Visuospatial deficit and spatial neglect following other nontraumatic intracranial hemorrhage Problem 07/04/2020 12:00:00 AM EST NETSMART ([facility]) M62.82 Rhabdomyolysis Rhabdomyolysis Problem 07/04/2020 12:00: 00 AM EST NETSMART ([facility]) R41.9 Unspecified symptoms and sig ns involving cognitive functions and awareness Unspecified symptoms and signs involving cognitive fun ctions and awareness Problem 07/04/2020 12:00:00 AM EST NETSMART ([facility]) F10.10 Alcohol abuse, uncomplicated Alcohol abuse, uncomplica frank Problem 07/04/2020 12:00:00 AM EST NETSMART ([facility] ) M54.9 Dorsalgia, unspecified Dorsalgia, unspecified Problem 07/04/2020 12:00:00 AM EST NETSMART ([facility] ) G89.29 Other chronic pain Other chronic pain Problem 12:00:00 AM EST NETSMART ([facility]) I10 Essential (primary) hypertension Essential (primary) h ypertension Problem 07/04/2020 12:00:00 AM EST NETSMART ([facility] ) E66.01 Morbid (severe) obesity due to excess ca lories Morbid (severe) obesity due to excess calories Problem 07/04/2020 12:00:00 AM EST NETSMART ( [facility]) Z91.81 History of falling History of falling Problem 12:00:00 AM EST NETSMART ([facility]) Z87.891 Personal history of nicotine dependence Personal history of nicotine dependence Problem 07/04/2020 12:00:00 AM EST NETSMART ([facility]) I69.254 Hemiplegia and hemiparesis f ollowing other nontraumatic intracranial hemorrhage affecting left non-dominant side Hemiplegia and hemiparesis following other nontraumatic intracranial hemorrhage affecting left non-dominant side Problem 07/04/2020 [facility] I62.9 Nontraumatic intracranial hemorrhage, un specified Nontraumatic intracranial hemorrhage, unspecified Diagnosis 07/04/2020 10:25:17 PM [facility] R29.810 Facial weakness Facial weakness Diagnosis 07/04/2020 08:1 7:00 PM [facility] G81.94 Hemiplegia, unspecified affecting left n ondominant side Hemiplegia, unspecified affecting left nondominant side Diagnosis 07/04/2020 08:17:00 PM [facility] I61.0 Nontraumatic intracerebral hemorrhage in hemisphere, subcortical Nontraumatic intracerebral hemorrhage in hemisphere, subcortical Diagnosis 07/04/2020 08:17:00 PM [facility] Hemorrhagic CVA. Hemorrhagic CVA. Diagnosis 07/04/2020 08 :17:00 PM [facility] [facility] Sur[facility]Procedures Procedure Description Date Indications Data Source(s) CT HEAD/BRAIN W/O CONTRAST MATERIAL CT HEAD WITHOUT CONTRAST 70 450 STAT 08/02/2020 11:00 AM EST Intracranial hemorrhage 08/02/2020 11:00:00 AM EST Intracranial hemorrhage [facility] Intracranial hemorrhage BLOOD COUNT COMPLETE AUTOMATED CBC Routine 07/12/2020 3:27 A M EST 07/12/2020 03:27:00 AM [facility] COVID-19 PCR COVID-19 PCR Routine 07/11/2020 9:29 AM EST 07/11/2020 09:29:00 AM [facility] BLOOD COUNT COMPLETE AUTOMATED CBC Routine 07/11/2020 6:00 A M EST 07/11/2020 06:00:00 AM [facility] BLOOD COUNT COMPLETE AUTOMATED CBC Routine 07/10/2020 4:48 A M EST 07/10/2020 04:48:00 AM [facility] BLOOD COUNT COMPLETE AUTOMATED CBC Routine 07/09/2020 5:55 A M EST 07/09/2020 05:55:00 AM [facility] GLUCOSE QUANTITATIVE BLOOD XCPT REAGENT STRIP POCT GLUCOSE, DOC KED Routine 07/08/2020 8:43 AM EST 07/08/2020 08:43:00 AM [facility] BLOOD COUNT COMPLETE AUTOMATED CBC Routine 07/08/2020 5:29 A M EST 07/08/2020 05:29:00 AM [facility] COMPREHENSIVE METABOLIC PANEL COMPREHENSIVE METABOLIC PANEL Rou rashard 07/08/2020 5:29 AM EST 07/08/2020 05:29:00 AM [facility] BLOOD COUNT COMPLETE AUTOMATED CBC Routine 07/07/2020 3:42 A M EST 07/07/2020 03:42:00 AM [facility] COMPREHENSIVE METABOLIC PANEL COMPREHENSIVE METABOLIC PANEL Rou rashard 07/07/2020 3:42 AM EST 07/07/2020 03:42:00 AM [facility] BLOOD COUNT COMPLETE AUTOMATED CBC Routine 07/06/2020 6:18 A M EST 07/06/2020 06:18:00 AM [facility] CREATINE KINASE TOTAL CK Routine 07/06/2020 6:18 AM EST 07/06/2020 06:18:00 AM [facility] COMPREHENSIVE METABOLIC PANEL COMPREHENSIVE METABOLIC PANEL Rou rashard 07/06/2020 6:18 AM EST 07/06/2020 06:18:00 AM [facility] CREATINE KINASE TOTAL CK Timed 07/06/2020 1:17 AM EST 07/06/2020 01:17:00 AM [facility] CREATINE KINASE TOTAL CK Timed 07/05/2020 6:25 PM EST 07/05/2020 06:25:00 PM [facility] MRI BRAIN BRAIN STEM W/O &W/CONTRAST MATERIAL MR BRAI N WITH AND WITHOUT CONTRAST [id number] Routine 07/05/2020 5:48 PM EST 07/05/2020 05:48:00 PM [facility] ECHO TTHRC R-T 2D W/WOM-MODE COMPL SPEC&COLR DOP ECHOCARDIO GRAM 2D COMPLETE Routine 07/05/2020 1:37 PM EST 07/05/2020 01:37:15 PM [facility] CREATINE KINASE TOTAL CK Timed 07/05/2020 11:51 AM EST 07/05/2020 11:51:00 AM [facility] COMPREHENSIVE METABOLIC PANEL COMPREHENSIVE METABOLIC PANEL Julius ed 07/05/2020 11:51 AM EST 07/05/2020 11:51:00 AM [facility] CT CERVICAL SPINE W/O CONTRAST MATERIAL CT CERVICAL S PINE WITHOUT CONTRAST [id number] Routine 07/05/2020 8:17 AM EST 07/05/2020 08:17 :26 AM [facility] CT HEAD/BRAIN W/O CONTRAST MATERIAL CT HEAD WITHOUT CONTRAST 70 450 Routine 07/05/2020 8:17 AM EST 07/05/2020 08:17:26 AM [facility] BLOOD COUNT COMPLETE AUTOMATED CBC Routine 07/05/2020 6:09 A M EST 07/05/2020 06:09:00 AM [facility] CREATINE KINASE TOTAL CK Timed 07/05/2020 6:09 AM EST 07/05/2020 06:09:00 AM [facility] COMPREHENSIVE METABOLIC PANEL COMPREHENSIVE METABOLIC PANEL Julius ed 07/05/2020 6:09 AM EST 07/05/2020 06:09:00 AM [facility] CT HEAD/BRAIN W/O CONTRAST MATERIAL CT HEAD WITHOUT CONTRAST 70 450 STAT 07/05/2020 1:15 AM EST 07/05/2020 01:15:48 AM [facility] RESPIRATORY PATHOGEN PANEL RESPIRATORY PATHOGEN PANEL Routine 07/05/2020 12:49 AM EST 07/05/2020 12:49:00 AM [facility] COVID-19 PCR COVID-19 PCR Routine 07/05/2020 12:49 AM EST 07/05/2020 12:49:00 AM [facility] HEPATITIS C ANTIBODY HEPATITIS C ANTIBODY Routine 07/05/2020 12:03 AM EST 07/05/2020 12:03:00 AM [facility] CREATINE KINASE TOTAL CK Timed 07/05/2020 12:03 AM EST 07/05/2020 12:03:00 AM [facility] COMPREHENSIVE METABOLIC PANEL COMPREHENSIVE METABOLIC PANEL Julius ed 07/05/2020 12:03 AM EST 07/05/2020 12:03:00 AM [facility] COMPREHENSIVE METABOLIC PANEL METABOLIC PANEL, COMPREHENSIVE Ro utine 07/04/2020 8:40 PM EST 07/04/2020 08:40:00 PM [facility] THROMBOPLASTIN TIME PARTIAL PLASMA/WHOLE BLOOD PARTIA L THROMBOPLASTIN TIME (PTT) Routine 07/04/2020 8:40 PM EST 07/04/2020 08:40 :00 PM [facility] PROTHROMBIN TIME PROTIME INR Routine 07/04/2020 8:40 PM EST 07/04/2020 08:40:00 PM [facility] BLOOD COUNT COMPLETE AUTO&AUTO DIFRNTL WBC COUNT CBC AND DIFFER ENTIAL Routine 07/04/2020 8:40 PM EST 07/04/2020 08:40:00 PM [facility] THYROID STIMULATING HORMONE TSH TSH Routine 07/04/2020 8:40 PM EST 07/04/2020 08:40:00 PM [facility] HEMOGLOBIN GLYCOSYLATED A1C HEMOGLOBIN A1C Routine 07/04/2020 8:40 PM EST 07/04/2020 08:40:00 PM [facility] CREATINE KINASE TOTAL CK Routine 07/04/2020 8:40 PM EST 07/04/2020 08:40:00 PM [facility] LIPID PANEL LIPID PANEL Routine 07/04/2020 8:40 PM EST 07/04/2020 08:40:00 PM [facility] Hemorrhoidectomy, By Simple Ligature 04/13/2020 12:00: 00 AM EDT [facility] ([facility], ) Colonoscopy W/ Poly 02/11/2020 12:00:00 AM EDT [facility] ([facility], ) Results ID Date Data Source [id number] 08/02/2020 03:30:05 PM [facility] Name Value Range Interpretation Code Description Data Elvira rce(s) Supporting Document(s) Progress Note [facility] WWJPQd3yDvBVQjCi29/OMLdwXGVvr1FaGBreMNt7GWzqOGVgR4QoQQB6bE9hURA4APdAKnHeDeIzVlMl lb [file] JeOwt8AlLfYmogEGXiPANiCOE9KALkGyPxKN8VKp7QJtL4OXP2yHPpGa1QPfY6RDiLUkNzWM8WBCe= ID Date Data Source [id number] 08/02/2020 11:38:[address] [facility] [address] HEAD WITHOUT CONTRAST [id number] RESU LTInterpreted by:MARIETTA Damonlinical Indication: Follow-up right [...] rce(s) Supporting Document(s) ID Date Data Source [id number] 07/28/2020 10:01:54 AM [facility] Name Value Range Interpretation Code Description Data Elvira rce(s) Supporting Document(s) Progress Note [facility] OMEGFg7zBmQSGkYj47/UIQviERRzn6XhCFrtPRl5XLwhJOHmG0CtVKT5qL8mPHF0FVuACzHaLuOnPFB8 lbm [file] ID Date Data Source [id number] 07/24/2020 11:58:22 AM EST [facility] Name Value Range Interpretation Code Description Data Elvira rce(s) Supporting Document(s) Progress Note [facility] DZFOXu4rIuWBQeIp12/FUYddAKUxe0OxFSduGSx5CNtlFWMtU1WzYCO5kI7wPEW7JUaKTbJtSlLkZXI6 lbm [file] Sm0Wn5EdewS7wiOpXRjsZUK9Lo8WFZNZR4XNEy== ID Date Data Source [id number] 07/19/2020 02:31:18 PM EST [facility] Name Value Range Interpretation Code Description Data Elvira rce(s) Supporting Document(s) Discharge Summary [facility] SNRUXq5pXaTZCiBx58/LFXwvIKHbv6ZbTSkaMIx0QIidULEvL4CyMWK5tT9yXDB7DFoLLiVqJtPqOTCv lbm [file] K7y+u8h/AgEu3zi7+LSVkMhf0lhjzW+/Gr8PC9WDmn/xw52hvyj/0q+CHH9rxKapyBFch+n7HVeg/Simón [file] 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 HELPER+Ut1ATTFhWZf7T5M7RBPeNIz0N1VHR7JADNLyOK deIDqvSLUhUEn7M6P3FXJpI1YQP7Zieyvdxi3+YJ0WD60UEUXcYDv1W6R0jOXcC8N9cLgBnWN5KQ1QUQ 8EdQd9aQIwhB5+PS6PC3WFEhOvUNk9S1Y2yYTcA2Y8oKzJyFW9JQ1OEA2IeEAwZEBdktEcYx1yZ1QJXD lHJoGHYGS6AV6QnRCrWI4PeISUZ5BmnNLsIt4gXLsr uGKzpI5bRz1hDIasHA3ZWoESGSaBEAP5RZ3XkURfCB7SnYGXA4JeaCOvDx4cMZmahLXwcy6+KA4LHPSr Ep5EKx8+BOcwbhBiQzdQAtLnMPQfl1EcFGu7SR5DID0mgKziLXJ3Uj7GwSX8xAAjK8sGTQ1IlSPcW24n sKEnUFNyMj8NLsE8auNmlL7UJG36kDKdp9L6MKVsL4 xoHWgtd02zPKidZRyQGY3fWJAVXXdtTRkxDOB7FlAszoohXXSrGo0MWvZtVXz4rK4lvHK0VJO3AvwjoT OhESqsHqMzBmDgTmF6eVbopxy6BXudUP1pDCyyiztsUCRyFln+FCdcFASbKLLeUhdSKDIuiL1ovoI4zs CxBQnrrQCaEu5ri4s9FabgXt2fXj8vTBh8NxCuSwHp TXThSf3qqE74KFlhguPiGh6KQzGzBBT1E3WdCurHPEG+JCvxLKjxtRm7eWSqHQTaKw7ZZIWnACGqMQRf ICAgICAgICAgICAgICAgICAgICAgICAgICAgICAgICAgICAgICAgICAgICAgICAgICAgICAgICAgICAg ICAgICAgICAgICAgICAgICAgICAgICAgICAgICAgIA 0KICAgICAgICAgICAgICAgICAgICAgICAgICAgICAgICAgICAgICAgICAgICAgICAgICAgICAgICAgIC EtFHWuECIfMLIpANWcOQHyJVQgWKWyGIFgDQPzLKDnAWToNNUqIHYbLX9OTOPjEMDsSNImBUYcCGJwUV AgICAgICAgICAgICAgICAgICAgICAgICAgICAgICAg GDRoFKWrHEKhDPVuKLJzIVNjYBAlUCJuEAIeEQAqMEMxLLFrXENfKMDxJTTbWNSvUUYhSG6NNJXoFBCg ICAgICAgICAgICAgICAgICAgICAgICAgICAgICAgICAgICAgICAgICAgICAgICAgICAgICAgICAgICAg ICAgICAgICAgICAgICAgICAgICAgICAgICAgICAgIC OaGH3IRSSeFFEbKIArOGMkDMCsVDZgCJDeSGOcWEFlNGTlLHWhZHAvVEWyIZPbIGFgHVHxEYUtSQMpXO WfVGQcZQFxJQXiCGJgZQKdZVLpKJKvFWBvPKWyBYJgWBGgJIUwKPVlBFDoTS7XIRXkKYWvJHUmRJEvXG AgICAgICAgICAgICAgICAgICAgICAgICAgICAgICAg UYSuNEHmDVNqHSXaPMVaWLTfDVOtINCvELWwIKDqWXIoCFVuZZUsXDRkKVLoGAPvVRFsOQKuIF7FOHZb ICAgICAgICAgICAgICAgICAgICAgICAgICAgICAgICAgICAgICAgICAgICAgICAgICAgICAgICAgICAg ICAgICAgICAgICAgICAgICAgICAgICAgICAgICAgIC XvYJPbOV0JLFPhQFOpKSSbXZIxIQMzHTEqFPGvJMBeDMNfWXBjZEHsQADiUPCfNCBzSFRiWXRrBEUnVJ VtZXGlPLVrLDRpHRDaBOWqBGKjQBTfRYGuPJHsCBBdTFSpISMsXZCkDYTzAGNgZA7KVGBnJCXkWFKwMN AgICAgICAgICAgICAgICAgICAgICAgICAgICAgICAg ZWWbBDBfASBxCBYpKBYkXPWsVHKkUXKtUGBlPJIgHUKuXDWzPHNeLIGvVMDrWFHxRINdEVAgHCTdAZ6R ICAgICAgICAgICAgICAgICAgICAgICAgICAgICAgICAgICAgICAgICAgICAgICAgICAgICAgICAgICAg ICAgICAgICAgICAgICAgICAgICAgICAgICAgICAgIC FqCBLzCAKnHS4LTE49jZQwp0S3YDMaED6kiyv/Wo6ERNgbkkJxyIScER5BLbToNH0rls6TGiHvVZ6azp 5MHIyTRxWaB2H1bSMuOADtVRMASoQwF27pCRjkNs15OMneZCZkIpUmNTw4Zp3JZvSaQ1frJWJlPrW8BY ErHoH7SQFxAgC5TAXqBnXtYRNjXFJjBTFgUHBDOWG3 EXHrEdGhWfVgNLVbXZpwXNISFGEiEPXkEgGyKViqFU2Yo0KxeIQ9IYu+Fd9MAB5rx4ZkCKr1VXMiDZ6z zu5LOQyMGfLmW3GwhaK4ZKY3BIMuXz5ZDDNpVOKofQU3SSIcLDZNYpDyP2FzwW28SCSAPh7+DQplbmRv RdmVBkN8ACXfp3VlBBs5SQ6VHMLhOWg2bPHrFMctC6 sdulhjCST1kX4nhsutJigjREhuZRKqWUWnANmajUgvJOFKZ7lrRXHjIC0kWj6hGXFyWPY4AvNqYEZYIH 2TUKUbQJXohXBuXGWfIQAGLX2IROnjCAM3HYViaqSyzKYsHBodCP5LJGMhynIsZOVrFWZPSDo+Pg0KZW 1gx9OdRBw9SrSiPR3rjo6KMMbMQeHiW6R7yNBuH0V5 IRbrBa0NBCRuOOQqKOCaEGMCKVizBS5NVG2cedH2AH2OyXCaWFPhPBQfjMCxPNh2X68dyXQyXOfoDF8X ICA+Shaneka+So6FHJVxBBTvUQLgJeBpMMDXSeGwP1GjF4XJc8ZfY3XsOC32iUsjxhOnINfzCB9JME8wEWRd ZFJIOR7WyLQuyM7vnaI6KKBzQSDMDdYtE97rgCSnIC GjEGXzYKToIw6KSOXfA1XkxdJcrIanieBwFZVkZMARKO7DLGlplzZolONwaVokRW89jOdcNX8LBe6KKd TsCU1tvh7LoWExCr2JEIN0Gu7SPCVoOOOsCCFzVLE7ZWUdIbDoCRsyXVFmUNJsTSN6CWDgCFQeTP1VIl NfCVAjQDR4ZDJfSTQjHUHxnn8QPWRzALY6PlP3FNIj FWBwZPPoZGozUTSdOYBeFKD2RIJpYPNsLJ3KZxWaTXFhGNJrIMFvIDYbALWjsb2IGZBjRNFbWbD1SFQh BHJmSSFyOTdfGCVdTVC4OgVeDODvTIVnSC5AKjPlMCCuNMq2YoJySNRjTMWuem7MVTGcZWTrMlUmEUSb RXDxFFFwITnoNELqOAAhMQH6DQMyMWJuGF0MOpMvCA EkGQFmNFSdCPEuUVEpdw4SLNIaDFEaFQX9UvPsQRNkVCNuCSbtUOUyNLB1BUT2HBEdZIYoQP6RTcPpGY EsQDooUeBhELUeMRGbus8OYQVaOEDpOMR9IuUmCPJdFUDrPBlfERQoPAXpHEPrUSJpLZDrWM5IUuLqXG GfZfM0MCjnSSFiBOVomt7POPDrFKFwStu4VFNuPYWy FITdRVwyXUFoUCN4SPBnXXWuKPGcCY5NHzTqKFIpPslxTPfrMQCjYQDdpj4CNUHaURVaTOtsHkWwJMGt TRZhOMmqCWUoABXyYSYhRWZmCVSbDM0APjJeEFBjPxWcAUGeOQKhVDSwdk5ODHRuUZFaAJM7LUKeXDFh XWOcSKjtQQRyNITdHFIzUQQgOMDlUM4TLbNnJHKlFw L4PiUcUMYnYWVygf6BUSTzGNZuHpBkXFVjKFQsNBZwJAhxJQBrIBWkFQZcHDQoBJEtYZ5EJtZnYGDdKi I7NgDfROPhFZTfao6JSMSfHIRfNky5SnYyNSJtCUOeCTpuZCTkSYN2CZHvAPEpRAUdOS7MWrZeOHCoYe SlLuDfPOXvTLPqha5TQENnYUVoFBVrICMxQYKwCYMr WSmdFBZpXVB2EACvROAwNQChZQ1CEbHxONEmJcL2TeUbEUTmBAZffs5FBVFbZTIvFiR5VONrEVRdYXTq NBkvEWNoZEG0ZAN0DWXzKRQhTR8UXgMzHWMgLFS0NLstHOEiORNupb3UUOReSOH6LNhlXbAkXOMnUDXm PYtuWKOrDNU3TJA2QKRgPMMxGX2WDgYmFKOoWEK2Kd LoWMFwSRTwqc0GVQKrXCX2PUR5YfLgFGIhOJPaRRucXOXmJHE0KBVaAYPaOLAnGC9BGaAaJZSbHAc4Qu GzEPOuAOYuch6NAXDlCCM4YwI5VIUoLIDoMVYuFXqhGONiEHH3ADF7SOWhOHQpLI7CBmJkOHhqXOHYLw e4VBboN1t4ZLY1Hz7OR2Zmd9VmHRRtUGCBTQxfQC9z alEvVPDaAl9PD7fXYvwfOZq5NqShWtApZZauQok5SQBhS3B3NPLzGgz1VODsMV0pWDJlXpS2ZACtXEIb NZI9OAvsGEZuMTwdPKXfVfcdDkIkTxFvNM6OFe2VNrD2FGK4jPPgUg5EEMmwZYRFOpBoGL4LFRx= ID Date Data Source [id number] 07/17/2020 12:08:42 PM [facility] Name Value Range Interpretation Code Description Data Elvira rce(s) Supporting Document(s) Progress Note [facility] XPCSJb4lAtTBVgWc68/YFDvwNRNny0JeIZneSCs0YWcwFLWlB2TfVKA7uJ2vGIX7OXwGBfNuDoAdGQS7 lbm [file] AgICAgICAgICAgICAgICAgICAgICAgICAgICAgICAg ICAgICAgICAgICAgICAgICAgICAgICAgICAgICAgICAgICAgICAgICAgICAgICAgICAgICAgICAgICAg BC0TBWXxFTQcZMUxVXCbZTToHUBtSASoNHZqTKFdIWTcSWZzGKEjOISxSEToYARoMTFeWVVaXBUuGAZw ICAgICAgICAgICAgICAgICAgICAgICAgICAgICAgIC MwQYPeAQMbRRJyVA6EYQHwUYUzPALjPFCvSHZqMYXcGTPyBPPqZIImEBZxXIQaSNKqUAEfTDGuDEWcCT ToKLUnVIFtJKCmBBTyKZGkTKSmWRIjHIWiOSWtOFDxTFWlLUKrKFRdFQThRNNsIZLwZFTaEQ6NYLGdHH AgICAgICAgICAgICAgICAgICAgICAgICAgICAgICAg ICAgICAgICAgICAgICAgICAgICAgICAgICAgICAgICAgICAgICAgICAgICAgICAgICAgICAgICAgICAg AVDnFV7FLKZuYOMvFUHxIRYkSRThFFQyQAGvUZWsMZAcGCSmCIMeMXAtUFFcEEPhCRBbEXZcSFTdTKBh ICAgICAgICAgICAgICAgICAgICAgICAgICAgICAgIC NuXAApRSFwJJPsWNEbTB4LAZEjAWQlVGLiWHPwBNYhASLuHBGuNNGxVPThKFPuMHQeJGYxOWYeUUKbOS ZpGUKjFMUwCFRmKKFxDYPfUYQoNTExAEBlGTYkFVRrEQTcEIVpURTdAGPdVDWzJYRlARHvFMGjQD8RKP AgICAgICAgICAgICAgICAgICAgICAgICAgICAgICAg ICAgICAgICAgICAgICAgICAgICAgICAgICAgICAgICAgICAgICAgICAgICAgICAgICAgICAgICAgICAg VVRhYFLxWB8GCEAsQXSuKOYoPLCxBSSuMYFtBLHrYDPhJKMcNGKvKDKkQHZyOZYzMLDtHURjTIWtXHGu ICAgICAgICAgICAgICAgICAgICAgICAgICAgICAgIC NjMWSgWZRgQCQaYTNlPOMhCN3CCIHmNYNjKNNxUYLaGEJvFPKtEJFvPQQrKQRvOBJxVXXaGVZdCWFkFW AgICAgICAgICAgICAgICAgICAgICAgICAgICAgICAgICAgICAgICAgICAgICAgICAgICAgICAgICAgIA 1RYW10tQDei5Q9HLNxMN5oofg/Rj3QSRdvdoGmuJKm NY0CRmBoAZ8bck5WBxXnNE1vie8ELCfCKgEoD4O7aOEnLSJjCLSDThTzK32bZWnqPc59VPydSRYuKwZz VCf6Eg3AIzBnA2ynEJEfGqW3SCTxRjXxHRrlEO9Ps9IrvHCsTLo+Xi7ZWB2jc6WxZHorKOOjYO6ewn2V OWmISbIxI6RkqeS8WIWeLCRyXm4TBTAdPIJkgQIuZP NkFGUNElBzQ5YkmU26XEKHZh5+YGnlczQgQzaDIgQuPJCgk7ZzKRa8CL1NEITaQKc2wTJnXDFvG5Lff6 QaWx66WHFfVuviEA81g28qLIBYAT85x00uWaYvylSsTKBMDXIWLXI6COVeXSjdKoWnBQNmCskmXdKFYV qIEjZeM3Ctz3CaYpJ6PWRlUdXzPXvxZIEcSnJ6RZ63 vThpRF1SGOWsMOBpFV34LNL9EZTiVr3VPi9MWxQpXU4wla8GVjDlLJLdGgyNMko3LFleFU6HlNSiW4Pf vZRmr4hVVrQoW2JSTNV5TRKmZh9KCSKlByTeDCJuQPtqWM6qLQRiBDKGoAhlebN1SK4NAF1okeMlOV6B DfTsEt1dPp5FAoQvY1IbT6XyZGLwCBOCBHysJI0GFK zkWM1eNU4Em8AQyHIiyC0vde8ZPXApRAYpDjmjyb2IKmuiI8A2nWfyLHAaPSbbRGOGUXziEG3TPPPaGG Y4ZSBgIFBcYZGNOwWxE88wAR5XT4Bgd29dPtY8NFUjCbRdHGnoDX71mOlbdqRkhNBalKizOL9QPs1+DQ plbmRvYmoNCnhyZWYNCjAgMjINCjAwMDAwMDAwMDAg XsU9ScNiOw8PJQXxCHVeSLBnLoBwRAAjWFVcSRwdQDRySFG9KchzOTWsOMKtBJ9VOzWjLNIjTCsvZLAa EBWgAGIdob4ZDZWbYNTgNYH6RmBeEHBuHFFzXIbmKZDyBVLdXnG8YSUbMJAqTB2NUuXkWWXcIEL4CCMn DKYhLFYyvh5OKHTiCFHpZsU2WdByMOViFOQwFLhqEA JuSHMyCRW6HWRyMQVuAS9KAgAxVIVdECT9LKilZNUfCJVgzx9GXUKmBPOiEOawTrKcCZQfBFCcMAdnYU XfHZS3LEO0YVIdBFCcXW5OOyArFDWlTEQpQRNyVZRfXQYqul7OXMJkHIVhXlA8CWAaWOGrMNNjPGwtNF GkADI2PoZ3IXVjAGVgGU8EAgFfJTBnVNN4TnHqORKa NZZzco0MVHUvGAKfAlQpUQTlJAZvZIMqOLruPBNkMCJ5DiCoJYSiJQPiRK8MHnYtUEUtOCy0PyXqQRSu KQJuoa9MIJKeMPVeFXF6MHMeWFUrDRFkQAobLPGeZES0VumnCSHyZGUxTT7STfKzIXXnIBb5YouqFGFm MTKppm1SiGPwoYkrzv8TYKuZFp7TvNcdBHKmUQacDi 0bpBYlGLViHICWGe0KhdZxLQLiQNRXITovTBNuOZp4CPv4ABH2UViqIzK9BSBsKcO1JHTmWlD7GgNnUZ GyGjK9XWHlEuRqOJWrATRfQQZ5AlC7HEk7S5B5ZKm6QwK2OdK+ZL2cJVn+Na6Wv6BekkE2paOnBYcfAN D5Cw1XGMLGP9JQYt== ID Date Data Source Comprehensive Metabolic Profile (CMP) 07/17/2020 12:00:00 AM EST eCW1 ([facility]) Name Value Range Interpretation Code Description Data Elvira rce(s) Supporting Document(s) 12 7-18 BLOOD UREA NITROGEN eCW1 ([facility]) 80 70-100 GLUCOSE, FASTING eCW1 ([facility]) 1.24 0.70-1.30 CREATININE FOR GFR eCW1 ([facility]) > 60.0 >56 GLOMERULAR FILTRATION RATE eCW 1 ([facility]) 4.4 3.5-5.1 POTASSIUM SERUM eCW1 ([facility]) 140 136-145 SODIUM LEVEL eCW1 ([facility]) 29 21-32 CARBON DIOXIDE LEVEL eCW1 ([facility]) 103 98-107 CHLORIDE LEVEL eCW1 ([facility]) 9.5 8.5-10.1 CALCIUM LEVEL eCW1 ([facility]) 36 12-78 ALT/SGPT eCW1 ([facility]) 24 7-37 AST/SGOT eCW1 ([facility]) 108 45-117 ALKALINE PHOSPHATASE eCW1 ([facility]) 0.5 0.2-1.0 BILIRUBIN,TOTAL eCW1 ([facility]) 7.0 6.4-8.2 TOTAL PROTEIN eCW1 ([facility]) 1.3 ALBUMIN/GLOBULIN RATIO eCW1 ([facility]) 3.9 3.2-5.2 ALBUMIN eCW1 ([facility]) ID Date Data Source CBC with Differential 07/17/2020 12:00:00 AM EST eCW1 ([facility]) Name Value Range Interpretation Code Description Data Elvira rce(s) Supporting Document(s) 4.14 4.30-6.10 RED BLOOD COUNT eCW1 ([facility]) 8.7 4.0-10.0 WHITE BLOOD COUNT eCW1 ([facility]) 13.4 13.5-17.5 HEMOGLOBIN eCW1 ([facility]) 39.0 42.0-52.0 HEMATOCRIT eCW1 ([facility]) 32.4 27.0-33.0 MEAN CORPUSCULAR HEMOGLOB IN eCW1 ([facility]) 94.2 80.0-96.0 MEAN CORPUSCULAR VOLUME e CW1 ([facility]) 34.4 32.0-36.5 MEAN CORPUSCULAR HGB CONC eCW1 ([facility]) 250 150-450 PLATELET COUNT, AUTOMATED eCW1 ([facility]) 12.6 11.5-14.5 RED CELL DISTRIBUTION WID TH eCW1 ([facility]) 62.4 36.0-66.0 NEUTROPHILS % eCW1 ([facility]) 18.5 24.0-44.0 LYMPH % eCW1 ([facility]) 5.7 0.0-3.0 EOS % eCW1 ([facility]) 10.4 0.0-5.0 MONO % eCW1 ([facility]) 0.8 0.0-1.0 BASO % eCW1 ([facility]) 1.6 1.5-5.0 LYMPH # eCW1 ([facility]) 5.4 1.5-8.5 NEUTROPHILS # eCW1 ([facility]) 0.5 0.0-0.5 EOS # eCW1 ([facility]) 0.9 0.0-0.8 MONO # eCW1 ([facility]) 0.1 0.0-0.2 BASO # eCW1 ([facility]) ID Date Data Source [id number] 07/13/2020 02:09:02 AM [facility] Name Value Range Interpretation Code Description Data Elvira rce(s) Supporting Document(s) Consultation [facility] NEZXVq8yBkCOLaJn90/HGRfwLSGxz1FzQNarIPx8PWcwYBInX2DeLYD8tN8zNGA3FYwZCxLvJkDwHAS5 lb [file] eYk2cl6sYdvfp0zp6jt/A+Luis Antonio+7v5Dgb7pT/Rfa8e8n89wxARjp6nK0I0Yro7Q0Q8nwKO0xt/P335lg8 [file] U+YM5lFVh+Gx1Ze9RqnlE7aiPwNQl5NZX9QI5FNKPZV4IWZs== ID Date Data Source [id number] 07/12/2020 03:54:03 AM EST [facility] Name Value Range Interpretation Code Description Data Elvira rce(s) Supporting Document(s) Leukocytes [#/volume] in Blood by Automated count 7.1 10*3/uL 4-10 [facility] Erythrocytes [#/volume] in Blood by Automated count 3.88 10*6/uL 4.6- 6.1 L [facility] Hemoglobin [Mass/volume] in Blood 12.8 g/dL 13.5-18 L [facility] Hematocrit [Volume Fraction] of Blood by Automated count 35.9 % 4 1-53 [facility] Erythrocyte mean corpuscular volume [Entitic volume] by Auto mated count 92.6 fL 80-96 [facility] Erythrocyte mean corpuscular hemoglobin [Entitic mass] by Automated count 32.9 pg 27-33 [facility] Erythrocyte mean corpuscular hemoglobin concentration [Mass/volume] by Autom[facility] 35.5 g[facility].0[facility] width [Ratio] by Automated count 12.7 % 11.5-14.5 [facility] Platelets [#/volume] in Blood by Automated count 197 10*3/uL 150-400 [facility] ID Date Data Source [id number] 07/11/2020 09:29:00 [facility] Name Value Range Interpretation Code Description Data Elvira rce(s) Supporting Document(s) SARS-CoV-2 RNA 2019 nCoV Real-Time RT-PCR: NOT DETECTED [facility] This lab was ordered by [facility] and reported by [facility]. ID Date Data Source [id number] 07/11/2020 12:04:43 PM EST [facility] Name Value Range Interpretation Code Description Data Elvira rce(s) Supporting Document(s) Specimen source [Identifier] of Unspecified specimen [facility] SARS-CoV-2 RNA 2019 nCoV Real-Time RT-PCR: NOT DETECTED [facility] Assay Performed [facility] Patients first test for condition [facility] Patient employed in healthcare setting [facility] Patient has symptoms related to condition [facility] When did you start to experience these symptoms [Date and time] [Phen X] [facility] Patient was hospitalized because of this condition [facility] patient was admitted to ICU for condition [facility] Patient resides in a congregate care setting [facility] status [facility] ID Date Data Source [id number] 07/11/2020 06:36:29 AM [facility] Name Value Range Interpretation Code Description Data Elvira rce(s) Supporting Document(s) Leukocytes [#/volume] in Blood by Automated count 6.9 10*3/uL 4-10 [facility] Erythrocytes [#/volume] in Blood by Automated count 3.96 10*6/uL 4.6- 6.1 L [facility] Hemoglobin [Mass/volume] in Blood 13.1 g/dL 13.5-18 L [facility] Hematocrit [Volume Fraction] of Blood by Automated count 36.8 % 4 1-53 L [facility] Erythrocyte mean corpuscular volume [Entitic volume] by Auto mated count 93.0 fL 80-96 [facility] Erythrocyte mean corpuscular hemoglobin [Entitic mass] by Automated count 33.0 pg 27-33 [facility] Erythrocyte mean corpuscular hemoglobin concentration [Mass/volume] by Automated count 35.5 g/dL 32.0-36.0 [facility] Erythrocyte distribution width [Ratio] by Automated count 12.7 % 11.5-14.5 [facility] Platelets [#/volume] in Blood by Automated count 178 10*3/uL 150-400 [facility] ID Date Data Source [id number] 07/10/2020 11:58:46 AM [facility] Name Value Range Interpretation Code Description Data Elvira rce(s) Supporting Document(s) [facility] MLWGXa3jPhZUUlIy03/FTIbnWFHzs1ZkYEdeEEe9RUgxCNJdO0TkQDO7wZ1jJMT6SJpAPdCuFyFxMBCp lbm [file] ICAgICAgICAgICAgICAgICAgICAgICAgICAgICAgICAgICAgICAgICAgICAgICAgICAgICAgICAgICAg ICAgICAgICAgICAgICAgICAgICAgICAgICAgICAgIC AgDQogICAgICAgICAgICAgICAgICAgICAgICAgICAgICAgICAgICAgICAgICAgICAgICAgICAgICAgIC AgICAgICAgICAgICAgICAgICAgICAgICAgICAgICAgICAgICAgICAgICAgDQogICAgICAgICAgICAgIC AgICAgICAgICAgICAgICAgICAgICAgICAgICAgICAg ICAgICAgICAgICAgICAgICAgICAgICAgICAgICAgICAgICAgICAgICAgICAgICAgICAgICAgDQogICAg ICAgICAgICAgICAgICAgICAgICAgICAgICAgICAgICAgICAgICAgICAgICAgICAgICAgICAgICAgICAg ICAgICAgICAgICAgICAgICAgICAgICAgICAgICAgIC AgICAgDQogICAgICAgICAgICAgICAgICAgICAgICAgICAgICAgICAgICAgICAgICAgICAgICAgICAgIC AgICAgICAgICAgICAgICAgICAgICAgICAgICAgICAgICAgICAgICAgICAgICAgDQogICAgICAgICAgIC AgICAgICAgICAgICAgICAgICAgICAgICAgICAgICAg ICAgICAgICAgICAgICAgICAgICAgICAgICAgICAgICAgICAgICAgICAgICAgICAgICAgICAgICAgDQog ICAgICAgICAgICAgICAgICAgICAgICAgICAgICAgICAgICAgICAgICAgICAgICAgICAgICAgICAgICAg ICAgICAgICAgICAgICAgICAgICAgICAgICAgICAgIC AgICAgICAgDQogICAgICAgICAgICAgICAgICAgICAgICAgICAgICAgICAgICAgICAgICAgICAgICAgIC AgICAgICAgICAgICAgICAgICAgICAgICAgICAgICAgICAgICAgICAgICAgICAgICAgDQogICAgICAgIC AgICAgICAgICAgICAgICAgICAgICAgICAgICAgICAg ICAgICAgICAgICAgICAgICAgICAgICAgICAgICAgICAgICAgICAgICAgICAgICAgICAgICAgICAgICAg DQogICAgICAgICAgICAgICAgICAgICAgICAgICAgICAgICAgICAgICAgICAgICAgICAgICAgICAgICAg ICAgICAgICAgICAgICAgICAgICAgICAgICAgICAgIC DgQGJeTXJoBVDaUWz9O6wxUWJpSLLwQA5bRZz4Sa6+JSpJSzEySGT3kvEsnK8KKA2nu5QrDTznHMQlk2 NjVZd7BZ9GMSLeWXaxLB8BVCkrgw3FTEGoSLSizVCTh9siFtBiQRU0NWEmYtsiQN4TEHNiF3vyslDaVJ XaNBXGAL0PPvShL4CukD83PGSBBi1+DQplbmRvYmoN KbV1HFQvm6TwRRm9PU5UZAUpYkcch5UvIVYzPZFAMRytKW1TCCA0FTB6YFPzUd6MYZMcA751uvJqTD8W Uy3ZDvXsGO7tvu2CCTWjRMAqUetLXbp8COyqYM9AmZMpKFdWw86elJu6ivRciMZSkkQclctgRPTztlJe yc8PITkpKSQpUEiCH8tiKBXtEF0mOO1wUJIzTCAeOh N7WDUDBX4STRHuWYXujZYhZSHaRFFSJP5GAUotQUZ6MEVjiuXmkEObFWpxNX8KPQHoygMoGVJrOOUPEH o+Jy1WFP3kj9UgNSobZtIqUY8qmj6RXPhQZqHjQ2W8lKIhQ4O7AFcxOm2PYHOvTSVsHTYjLXFMYSvgJG 7LVN1tatM5SN1KqCCgFONoURUzqSGaRPa8X16atWKu GXflWG9JZSC+Shaneka+Up0JWQRoVKRlQUDqBiDfPRYHFuFqC1DmI6AEe7RoW3WtXU55uEanmhLjBMbwXF9H NP8wLFOcTURBHF1BhBQbhN6pcbHfNNHgQVZQAwUkH38jeJZcQSRrDGAsDNVpDa5NINXgR7ZbfdQnfMlh wmIaXSHmRRZNAE5RCSqbfjUpcJDbpFiePV32tZnrUE 4HQn0RLhKzTR4qey3BzFIcOn6TVBKjWm6LVGGpZLEtHEPkZDU8DGNaAgPjXLyfGAUwCNVrMGA7GKBtPN IwXI7IMcTlSSXtSXHnFPEoJENdXQNnic0JVVJwSSJvBxk6WgTtDCWySXOgXOkxTVGqZOXcOBG1WLJpGA YwTW8VHhOiBXUyZNOjQDJaJQFmMGNzfd6CDQBrYLUu SfQ4FkKtIFZnOXClVPvdMNAcDUWaRAY0DAVzQMTqWC9PRnJuDFXlULL6LFRyHFKzQIVdnn5RKCOfQVMu Azc8SJPfYFRzDPKjTLhdZXTaLTF1RzT7SJCmBNSvFB3FVeUkDJXeLVU1CYVxEBXiMFLcbl6ELUHbZDJk BERcYFJcKRAzMXLaKPwcJMCpLWC8BKNiPMDfHUHzRT 4ANkTvFFWqSZC1TiCrKSPaESRdfr4XAJQyLZBlYhD5RZIaUKUkKDWjXVdkNLInYHG0HKrwMDNtDMMrTB 2VFlMtIWirQGXKFih5OEziD0s3RHPhEr2BZ5Ibh9ZuZNCaAMGRSQjgEH3osoSvEBSzBt2DJ6vTXnj0DF FyElm8Iwe8JmXnGXDcAsThMnU4KYPpWADgPCDrRi2p AIx2Z1JuONAkBkahLEH6AkAfCTVkKvqoTOA1YkJbAZIwDeHgXC4CVw0AKyI4XIE1zCZoJw7VYkRmSc1B IPSKD6JYIh== ID Date Data Source [id number] 07/10/2020 05:07:09 AM [facility] Name Value Range Interpretation Code Description Data Elvira rce(s) Supporting Document(s) Leukocytes [#/volume] in Blood by Automated count 9.6 10*3/uL 4-10 [facility] Erythrocytes [#/volume] in Blood by Automated count 4.05 10*6/uL 4.6- 6.1 L [facility] Hemoglobin [Mass/volume] in Blood 13.5 g/dL 13.5-18 [facility] Hematocrit [Volume Fraction] of Blood by Automated count 38.2 % 4 1-53 L [facility] Erythrocyte mean corpuscular volume [Entitic volume] by Auto mated count 94.2 fL 80-96 [facility] Erythrocyte mean corpuscular hemoglobin [Entitic mass] by Automated count 33.2 pg 27-33 H [facility] Erythrocyte mean corpuscular hemoglobin concentration [Mass/volume] by Automated count 35.2 g/dL 32.0-36.0 [facility] al Erythrocyte distribution width [Ratio] by Automated count 13.0 % 11.5-14.5 [facility] Platelets [#/volume] in Blood by Automated count 154 10*3/uL 150-400 [facility] ID Date Data Source [id number] 07/09/2020 06:25:59 AM [facility] Name Value Range Interpretation Code Description Data Elvira rce(s) Supporting Document(s) Leukocytes [#/volume] in Blood by Automated count 9.0 10*3/uL 4-10 [facility] Erythrocytes [#/volume] in Blood by Automated count 4.34 10*6/uL 4.6- 6.1 L [facility] Hemoglobin [Mass/volume] in Blood 14.3 g/dL 13.5-18 [facility] Hematocrit [Volume Fraction] of Blood by Automated count 40.8 % 4 1-53 [facility] Erythrocyte mean corpuscular volume [Entitic volume] by Auto mated count 94.0 fL 80-96 [facility] Erythrocyte mean corpuscular hemoglobin [Entitic mass] by Automated count 32.9 pg 27-33 [facility] Erythrocyte mean corpuscular hemoglobin concentration [Mass/volume] by Automated count 35.0 g/dL 32.0-36.0 [facility] al Erythrocyte distribution width [Ratio] by Automated count 13.0 % 11.5-14.5 [facility] Platelets [#/volume] in Blood by Automated count 153 10*3/uL 150-400 [facility] ID Date Data Source [id number] 07/08/2020 06:55:10 PM [facility] Name Value Range Interpretation Code Description Data Elvira rce(s) Supporting Document(s) Consultation 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 [file] ICAgICAgICAgICAgICAgICAgICAgICAgICAgICAgIC UhZNVtIGEdZSJiOOEqAQIqQUPgJCOgQPMiDUTsIJGxKZAfSRCgDNSsPPUoRYBlDO9UHXXdBFOnKRHrUT AgICAgICAgICAgICAgICAgICAgICAgICAgICAgICAgICAgICAgICAgICAgICAgICAgICAgICAgICAgIC PvXUUtLTEsKNAuVZDyXJLzAXAfXEMgTUUaOGWpSK0B ICAgICAgICAgICAgICAgICAgICAgICAgICAgICAgICAgICAgICAgICAgICAgICAgICAgICAgICAgICAg NOEnDXYzWXIyLSPjOZCwABCwPHHrEHDeTVApGJTrUNUaUWYfYZNiES9GOOIvOHBvXDIaVRPgCYFmAWZp ICAgICAgICAgICAgICAgICAgICAgICAgICAgICAgIC LcNQBwNINrYNXbTTShBTPcFVSqRFKkCCUsDVSjOQSyPDQpEFXoMRRtDZEoUEGiGWRcED7UTYChKKOvBZ AgICAgICAgICAgICAgICAgICAgICAgICAgICAgICAgICAgICAgICAgICAgICAgICAgICAgICAgICAgIC AgICAgICAgICAgICAgICAgICAgICAgICAgICAgICAg IL1OHTSkFFGhECUuOXPpVIYqSTSaPOTmUGFsKILqRPZgKANgEARiVSOvWFTaXWOeUMElKUKjQNQjKLOe IZQjJVUhJSNkHUDzGGIyJKCzIDRhTFQcMCAeQZAwOITfYIDvJGWsQAVpQY7TBXIyDCCiGDMiQVHqRMBx ICAgICAgICAgICAgICAgICAgICAgICAgICAgICAgIC NsRQFdRHNuRVWfKHWyWMPkFSXbQLJrXNXzXRFzTFIzJEQsMZLkPEKoRABeHWBwLNRnUBYhKY8YUVGuMF AgICAgICAgICAgICAgICAgICAgICAgICAgICAgICAgICAgICAgICAgICAgICAgICAgICAgICAgICAgIC AgICAgICAgICAgICAgICAgICAgICAgICAgICAgICAg IFAcXO1TKRThGLCaGOKcDSGbRWIfRYMsBLUuKGUoDSTpEYWfSQXhDZMpHJXtDSDbSXQfWHDeGZWhJNZz JVFeZCHrJDYiKCHbWFTaCUYgBIBkJBBlUIImDFNoGDJePJXhTIQiXBCoJWFhLV0UZXYtLIBdGLQfQYBd ICAgICAgICAgICAgICAgICAgICAgICAgICAgICAgIC NtIGNhFPLmQPOrAMQuIFSbBLUwXNQwNIOePZUcCTYjMCRdCOKjHJCeTJJbAVQeUPCcYDOwPBVqCM7QDZ 60hMTyw5P1PDTjEP9kuuh/Vv8NNCegjsNkfQOjBG5MFhTyGB5phh0LKoXqCS0wsb3RCIcXBrJrD8I6oB EgGXAnRRJESqEbR92jGNiyWr23OCxkQHFsNoZcMIl2 Sw8JUyDwN2elKJNfMwK8VCEoGlY9TOPjCeS5XTRfAxIcVFLwABLzSK2PHQPrI447gnQxEC0LZz1YUaXc XU9wma8PLoXwQZUzVzwLXps5ZGjpYK8BzSPwjHWfMNXzTECCYtPzT4yly4VvLwMgEHGRDZbvNH8Lc1Uj dCAxDQo+Ws0UZS0sl4JpIWrpOLCkEZ6gku1JQXzRCi FgU7OlzMweFSSeurH8wTLqDJD4ER4zhCibxUQlX4OtnuPlzCZ8MQdzNGJHGdUlnIQkQeonCqTkTLJvHt xoWTJNQPfOAmFwP8Bvl7BuOlB0LBQpZlZaWZjnFAHoKuB7WD54bWnbQT0CPAZbSDCbPW44VRE0ANXfWr 8JXs0GHtKmED9phq3TQhEwXMRhDzmKDjn0YAkoDV1O iOTvZ8DyhBBml2mSDxInK9FNOSGpEFGwXg6KVZCpYwHyKPAcKMrbBD7wWWLkTBLIgFyvrxV0LW9KMU9b bjAnSX8ODwSkWa6nXz8CDwMzV4UyT4CkWZVsYNBYKLwnTU3IRHwwCJ4sNO2Sy2UUyRNryI6rpx5ARWRi DXHjJjlrmy5FXigyB0T9wIfcEAKjIxQwTASLWZizLQ 8TPXVsELY7VTPcXqOjHBGUExGpM52rNT3SQ0Ett23kUiG9MGAtRvSsSMtuEP58qRyqyoBkkBEsxKnkFR 0NCj4+LMfoamEyAcsXKcdbXSCVDaSqQxnQAvPfAKImMDVnDAOnByD6XmDwTg9JQVAwGDYnPOOnBeKqDH TzPNPqYKckWAIjBCVfKNF5YJWgXBBcZE1NAjQgDJXi XpY9UAMaBYOhEAJkjx5TENIhXGLeCTQ9TmQeZBHxBICkNUqjAGFbYOK9PWi2YAYnGBTeFJ6TQiBxOSOh RODyQHUhXSJwAQIfyw5FJXKjBTYsFfmsQFBqOTByQRGaKDjfBOSvRLB1ZRHvLLZnNFExAK0MNqAfAHMt OPZtZyxoFEMbTATemg5HBQBqGKUjUQP2HRPvPXZkYY BeALggQOXeXEN2GoGeFKXhHIFrFY4VEeKwDTVkOUC0RosdPMPkGTNbjw6JWRUnBLTaOQh7VZAoYZEeXY ZyYFapVTLeVGF2CIj4KIMpJGJlXI2YHfFjTXXaJUIpErbxGDKeJXDbae2ZPBXiQEBwXjQsBHEaAWTkPK RxKXoxNKQwPNL4IXGeHTWkEWKxDA4PZzMaEMKdHSo6 MMgxGKXbPAAaoo0FUVMwARGiQBI5WMRvPKBvIWZuHOnxDUBiAPO4Tbn3ZKDrFBAwPK6GOqGpGBUeUBp9 DQlyZMEsDWRosk1SCNPuUUCaWIxiLqFoZXPjHXWkJRytBZMjPFSmFNE2ALHuTTHbUX4IPxDyXKBqGjAr UCyeODLwPSNdve0HHAKnNKEvRHO6AoXcBJQhHPNwNI doVGEaCTLmBTWdFMKxCMUjWU3SFkDlVCJfNqYgRJsuJTUwWGVhlr6AWGIdICWzVbQ1IGVpCWJqOOSkWU ckOFJlPQNlYmP3CDVkHKQzGJ8XEoEnGHPjAsQ8EEnjRTGsBIVwzc4JLTDyTFZeZakkOsDpNHZpJIYeRJ lgCCTfDPZsLTK9NNVzIVJlOF0EWzMyRGWjMiWxIiJi NBNeEJDasr7VRQQeZBOrLMcoUCShQAAvRVGvTEfjHIYkTDY2BQcdHFDkTKWvIJ2BReNzJLOdVoOmHvtq UCWxTCPkkl9LnJJkwQzfva0DYMqPLv5WbNfvKQS7QAhoOj1juVYaNrTxPEXDUq5WpkDvPPBeVJZDOUfd KFXpYZw5RaCfFXKnPtZ2BVX9JqwlK7E5ZWU0GmnzGG z4Rps6FnX5FVc6QTClACL6BYWgIXgjKOZrLuz9WjQcRGP7HqC7DIX+RH9yOTl+Ak5Ar0RxceK3zdYoYJ qtFbO3Hm7WLAFCB3KFAt== ID Date Data Source [id number] 07/08/2020 09:08:09 AM [facility] Name Value Range Interpretation Code Description Data Elvira rce(s) Supporting Document(s) Glucose [Mass/volume] in Capillary blood by Glucometer 99 mg/dL 70- 140 [facility] ID Date Data Source [id number] 07/08/2020 06:04:05 AM [facility] Name Value Range Interpretation Code Description Data Elvira rce(s) Supporting Document(s) Leukocytes [#/volume] in Blood by Automated count 8.3 10*3/uL 4-10 [facility] Erythrocytes [#/volume] in Blood by Automated count 4.32 10*6/uL 4.6- 6.1 L [facility] Hemoglobin [Mass/volume] in Blood 14.3 g/dL 13.5-18 [facility] Hematocrit [Volume Fraction] of Blood by Automated count 41.2 % 4 1-53 [facility] Erythrocyte mean corpuscular volume [Entitic volume] by Auto mated count 95.3 fL 80-96 [facility] Erythrocyte mean corpuscular hemoglobin [Entitic mass] by Automated count 33.1 pg 27-33 H [facility] Erythrocyte mean corpuscular hemoglobin concentration [Mass/volume] by Automated count 34.8 g/dL 32.0-[facility].0 [facility] distribution width [Ratio] by Automated count 13.0 % 11.5-14.5 [facility] Platelets [#/volume] in Blood by Automated count 144 10*3/uL 150-400 L [facility] ID Date Data Source [id number] 07/08/2020 06:28:[address] [facility] Value Range Interpretation Code Description Data Elvira rce(s) Supporting Document(s) Albumin [Mass/volume] in Serum or Plasma by Bromocresol green (BCG) dye binding method 3.9 g/dL 3.5-5.2 [facility] al Bilirubin.total [Mass/volume] in Serum or Plasma 0.8 mg/dL <1.2 [facility] Calcium [Mass/volume] in Serum or Plasma 9.5 mg/dL 8.6-10.0 [facility] Chloride [Moles/volume] in Serum or Plasma 102 mmol/L 98-107 [facility] Creatinine [Mass/volume] in Serum or Plasma 1.23 mg/dL 0.70-1.20 H [facility] Glucose [Mass/volume] in Serum or Plasma 96 mg/dL 70-140 [facility] Alkaline phosphatase [Enzymatic activity/volume] in Serum or Plasma 92 U/L 40-129 [facility] Potassium [Moles/volume] in Serum or Plasma 4.2 mmol/L 3.4-5.1 [facility] Protein [Mass/volume] in Serum or Plasma 7.0 g/dL 6.4-8.3 [facility] Sodium [Moles/volume] in Serum or Plasma 137 mmol/L 136-145 [facility] Aspartate aminotransferase [Enzymatic activity/volume] in Serum or Plasma 27 U/L <40 [facility] Urea nitrogen [Mass/volume] in Serum or Plasma 11 mg/dL 6-20 [facility] Osmolality of Serum or Plasma by calculation 283 mosm/kg 275-300 [facility] Creatinine/Urea nitrogen [Mass Ratio] in Serum or Plasma 9 [facility] Bicarbonate [Moles/volume] in Serum 24 mmol/L 22-29 [facility] Alanine aminotransferase [Enzymatic activity/volume] in Seru m or Plasma 32 U/L <41 [facility] Anion gap 3 in Serum or Plasma 11 mmol/L 8-15 [facility] Glomerular filtration rate/1.73 sq M pre dicted among non-blacks [Volume Rate/Area] in Serum or Plasma by Creatinine-based formula (MDRD) 64 mL/min/1.73m2 >60 [facility] Glomerular filtration rate/1.73 sq M pre dicted among blacks [Volume Rate/Area] in Serum or Plasma by Creatinine-based formula (MDRD) 75 mL/min/1.73m2 >60 [facility] ID Date Data Source [id number] 07/07/2020 03:32:19 PM [facility] Name Value Range Interpretation Code Description Data Elvira rce(s) Supporting Document(s) [facility] MCHHNx1eErDUOxUk56/HTIjcYIZvj1OkBRgoLDp3IGznIVDlX4ChLLQ2hT8eEGQ1HMkFJjZyEkHeOHI8 [facility] [file] t4/amygfw3/Gl9zcNfhZ6t90HJA96lzc3S7kpvGxCvRbUg8j1aqdBwIBpAd0R/snfx+hNlA/rn surgery/Iz8cd [file] ICAgICAgICAgICAgICAgICAgICAgICAgICAgICAgIC AgICAgICAgICAgICAgICAgICAgICAgICAgICAgICAgICAgICAgICAgICAgICAgICAgICAgICAgICAgIC OfYIPkJUPfTW2PSMZbXSChNDCgVKGiBMXmPJCzOIQpQNUqAFQcDGIaGITyMSVjMCQrUTRjTJYqNOAcCU AgICAgICAgICAgICAgICAgICAgICAgICAgICAgICAg UTEpSWBxLQIkHKQjAUYoBOSvRO7BFEHpTVDcJNByKUGoBHJlQBHvYWBuLVXxYVOtKRQqEZLfRUKzCNDe ICAgICAgICAgICAgICAgICAgICAgICAgICAgICAgICAgICAgICAgICAgICAgICAgICAgICAgICAgICAg LF1FXNWdDVLbIFLdBRWkFYQcXNQbCKEpSBXoJASyBU AgICAgICAgICAgICAgICAgICAgICAgICAgICAgICAgICAgICAgICAgICAgICAgICAgICAgICAgICAgIC OuXMNnMOYlHFHoOR6PTTZgBUPfYTPyAWKtWXEdUWWdROMfFJDaJFGeVRQgALBvFNEmNUIzOULfIEIsYD AgICAgICAgICAgICAgICAgICAgICAgICAgICAgICAg XWWbECYkHSVcKHXeZOAzKQFjUWZuFI4KSQVkGOHjSKAqARLgDVWxEWGfDVExRGSeXKEiJAPiCBDeLHOu ICAgICAgICAgICAgICAgICAgICAgICAgICAgICAgICAgICAgICAgICAgICAgICAgICAgICAgICAgICAg KRJlZG0GPPPnPORaRSEhKRDcWLKhEBQgWDXoOCGoYA AgICAgICAgICAgICAgICAgICAgICAgICAgICAgICAgICAgICAgICAgICAgICAgICAgICAgICAgICAgIC ZsXJAfNRPwVYVyUMRfQH1MTWHqXITnRFXxOFIfLGLxXKElFFFiXJWkCOPkBJTfVBHrSLByWIYfAYUkZV AgICAgICAgICAgICAgICAgICAgICAgICAgICAgICAg IPDkXRPqIQFxNBSsIXSbXHOlGDRuDITlBY5FLKPoTNPjMAReMAPgOKNmHMReLKQqGEBgQYIeDBRnCUOo ICAgICAgICAgICAgICAgICAgICAgICAgICAgICAgICAgICAgICAgICAgICAgICAgICAgICAgICAgICAg XVOeWVQmDD7MME46mUAuu6Q2UCRuIG3ctch/Pg0KDQ xugtEmqRRmWN9QFqIyJD3svv2CWhXjZO5tsx6PWIcYKcSfQ8M3jDFyJZLfGYLLGkJxB40bDDyqPe05QX uyQIMjHlRqUNf3Kb5AXeGaE2maUXQlPeI3AKTmAmX8GIDfLuF6TUDwDsFxDUFbTRTnRYVzZRJRJBQ0UB AgUiAxNyAwIFIgMTkgMCBSIDIxIDAgUiAyMyAwIFIg IH4ZMEKyA132skQeEGGMQg2+AWeomzEwEyfWSlU5HFUbu5ErJEm3FE7AFUBdXtojl0DzJqptSQLEBFsp AL1OSBO1MNE3MEClKk4ELHEmS987lhHnJX3LBp2YIxVhJV7oug2UUbmyLGMhYfoNWsr3RVptCQ9DyRBc UFkVl16ryTp6ceJizYRLbEVbytY2SBtmSNJftN9nXb pxQE8eWVZaBK77BjHhEiYxZUs5TLipPV6yTOarJQ0USGV6OWzaVFNaKPGmC5dCCuGyYMNtIaGglCyvKQ 3CBiHsJ7IoekHiyZSmGhQoYPIUZp3+AOovhoVgEvgPYyO5DQDic6MvQMa0WS2DRKEsXUsvRX7ZEHTqdK 2hXXkzXX4LCuLcUOOiUFKNFdFqV42waBMzDEu4A1Me YmVkZGVkRmlsZXMgPDwvTmFtZXMgWyBdDQogID4+ID4+YFbiGB5XEGaykcXmSALzAq9LWDYoVYTeTB5q TIDxUJJyU4K3vYxhQPUOKqGcJ8offsrgRY0jBARxP605sIjxpaLhTPH5JOGnWg9MBYNtUCN9QNGogGVr NaPcADIPLDpsED6PpLGoDHX2hL3dQPepBUCiRHEwV3 zXAyMavKxdDH61cVquziDpwOEtLNc+St1YRK0rn0BfWNw5jtStYSzvOVSdGGhuOASvMYUhYGViONI2XI W7MQZIErNlHMDdENHoDQamLTGiOWCimx3LSQGpHCK9YwV5GTOkXZQhJJJrIStdEMDiZZG5FXZ5IXCrBD FcQC6SGxReEQJbXECsQOkzFXRrMFKlyz5SIAErCEYd XPHdHRWuDEXlWVQaHHwwBBIgYSQ1UUV8SPHyGNXkNQ3POiXkABCnPHw0EEIlOCZiPVUtpx3YVGQbXXMd AEG1GUDmOHJkJGElQBvoRQEhXVDhBGLtFRYfAEWhBQ1LKiYyHVTbPHO3EsHnRNWtCHGicb4VWYSiQTWs JXP0OsDoVZGhFTFuSIynJZChJZC3Msa5BJGyCJCaHN 3TWiOtJONoFLq7ObSwWFGpXOHrxb3YJRRyBLBbZTZ0ViNcQNSuUAMiGTosTABjRBMsOSbvBSMgZDLlET 6NCnQaEXUuShIbEZguIHDuSODnbe2UWXTkMVTjUuV5FrXoYYBnZLDgFOtiHKXoMON6MBD4WNQnWGLmVT 7ZXsBnYKJfZmPyXUQgBRBcSDVczy4TKNCsMEKrPGI6 CQZeYJDrXIQmLBfvBWRiVEB7IZN0SUNvZLRiYZ0KAqBoCXIsByZ2BYJcMPLhEMCaue7NKKOrEUUuLvY9 JSFkOOQaVBLxTWmjINUcDPV3WrrhKFZhOFVyZW4STfOuSUPcWyx7KQLsSQXiJYTter1NHFOmVHOjWLwj OMNsXFFdYPLbBCmeQUPfODZ4YSIjJTAzSPKoXK8AGp ZhSGSfWng5NHVqFPUoSJHqyk0NFZVqCJU7VUL2OlCzBUVaPGEtCQofKPTmFRNmQutvUQNdAKRpBE1REs MeIOUgBQN0YSTnRFTvMXBgbh6VQFZzEIG5YpV4PsIzOXUbFSKfLRjsHANsDZBrSviyTSQxKXWePO6ZWj LdDXCbOWZ3CnNiQFRzMQBsyr9JJTFvIZT6HrX6RyXw RSZjFENdJJqbPJVyPXWmOZA0GONeXXYfSJ6TEuFwSSPtQHO1LodeHKSeDTHxcp4QLVKlNDB0TRTqVRJx ONQoHBDqHIzqXFXmBWV8Fdz9OXAbGUFtRC1SOnZiNKosBZDPToi9IIdwB2h5QWQ8FO8OY1Aes4IgNrpf KOYWKYcvCX4rtqZxYDCiQs9KU2bJPvl5D8FpAAktHD HbSzX0UQclFIZcDTUpRxpnTWqeSmG1Eu2tUVAhQMEdDPIfXTDrEJrhE6Y6ZSFnSTTgU9AkKOCyYEodUr YqZT3OHp8HNgB4VAG5aNCgXr1AETHlWoxWLvUuPX5ORAl= ID Date Data Source [id number] 07/07/2020 01:42:19 PM [facility] Name Value Range Interpretation Code Description Data Elvira rce(s) Supporting Document(s) Consultation [facility] BBJJJp5bUvNHDwGj56/LQVezBRThs6YmOCfoJMt6DYesREXdP6HcQLD7pJ3hMQD3SPcTWnWfNgQwJGX4 lbm [file] AgICAgICAgICAgICAgICAgICAgICAgICAgICAgICAg IEQlFNWvCDPeWMPuXOMsPJJjWVNtVQVgOHPrNKHjWPVcFOAoITNxPLQrZNIgQPQyPU9HZUEvTIBxMWFu ICAgICAgICAgICAgICAgICAgICAgICAgICAgICAgICAgICAgICAgICAgICAgICAgICAgICAgICAgICAg ICAgICAgICAgICAgICAgICAgICAgICAgICAgICAgIA 0KICAgICAgICAgICAgICAgICAgICAgICAgICAgICAgICAgICAgICAgICAgICAgICAgICAgICAgICAgIC XfCNAeJLSoAFCmLIHkHQGmXCQbURHgYXEpEVOtSSGnSDDmVGTdLYPsQE3NXYZhIELgICEdMGPtEPWvZA AgICAgICAgICAgICAgICAgICAgICAgICAgICAgICAg NHRzQAXkEKNgDHIoQSLuGFWyTUNzBRYhJSDpPWMhMGXsOSNnPSUjYAYiTFCqPOSqDLPePY9BPWMuUNZu ICAgICAgICAgICAgICAgICAgICAgICAgICAgICAgICAgICAgICAgICAgICAgICAgICAgICAgICAgICAg ICAgICAgICAgICAgICAgICAgICAgICAgICAgICAgIC OuKA1AXMOwGYCeYUDqJRAkAEMrFWMvPOLnYMBbTEOqWQPqTXKbIUEpCWVwOICaKVYbJSMdORDbFIInGJ NaXQAtAQMaMCCxBRDkIDKxPXSgRZDxGUYrJTBjECCuLJLjVABoOCVwHLLgSO0PPMOxMFPuILZaAGAfUN AgICAgICAgICAgICAgICAgICAgICAgICAgICAgICAg CGIfGEBdXNOdTKBcHAZaRGRjEXFnEGVtQUKgUTSvKTLlXJBvOSIeYDLpDFKrWJHaQWPuFYSfIB4KVGFz ICAgICAgICAgICAgICAgICAgICAgICAgICAgICAgICAgICAgICAgICAgICAgICAgICAgICAgICAgICAg ICAgICAgICAgICAgICAgICAgICAgICAgICAgICAgIC ZoAEQvOT3KBYAjVYRnDUSaGWYiBBWrBCJeFZFtYMVtCHVnMQJnPVYvFMCjTIUjVWSuMBKhXIHnZHEoIC SjNBYrRKAzQQTfFSEuAERfVUZuGOStDUYiZAPlQSEkKAJsJEExGGJvYWNwNBUzZA3GWDIqVXVzRSYgFX AgICAgICAgICAgICAgICAgICAgICAgICAgICAgICAg ZIRySHOhYZKpZVUtCGVgNWOcIGRiCOUeFBLnGQAjILIwLBThJDFgITZsRHDzXIDdYNGyNKOpXRGlLB9F QO86eJWno4A7VATcPR9pqnl/Eh0ZYDlqseBktQTlZO0SLpWgVB0kmt6LPkVmTP9fxh9FHUwDDuJnA6X1 hBCzECMgFGJSAlUyJ57qTUgiCt37HDyeLFNyXxAtFL a5Ec6ZEkKuU0fdJGPaIsK8EQWhEsN2WRPuOmHnEUmuCZ4Er1QfiQEbZUn+Fl6ULH5uz6CiYEfwSzBdVI 3elh0KZNnMJcPhO6ZcxmP6KSF0PJFsAg1PXGIeZYKjlNMwKmGePZKCXdBzF7EzaW65TAQPCe5+DQplbm RzPzzIUyV3RLThz1DdFBq9YP7YYOLpLGi6aVKeC41q n0KuoUGjMdbaPI79h42cRZHEJZ73h29nTxHymlZbFPUBKSCSNUL4EYIuHU3zVHJcVPZeDpA0MCLRNW9Y PRTaYBPenMSyGWShXHKEIP6NLPnfTHR7JJDwieOvbINsWRfsYM4ZLIRzqhPuMISaBZZPZRz+Qy4LAT4j a4TkKTkgLDQsKP5tur0HFIoGTgTyE2M6dHWcK6H5XM eoYl8RBBTtBXJgRXGfIDLKYRjbSR2INI7uvgT9FL9TlVGjWVQxZCBtnINoGFh0L40ufLThAAorQC7JUW A+Shaneka+Ja0HJQNdDUFfFIHkWcNlRDNHErWsM8CnT8ZSz1IuH2QdQX34eYgqwmBpBKfmPY7KCC8wSRWkER JMFX9MbEUazQ5olbAuSyHfWNFEWnXyQ88nmNDdZIHl JOL9VVXuRt9QAZMiT8LldrQftQhxwaBzPDIdEFXDQL0IKYkxgqQnrCMggCooGA99nMrvTW4ZBt6PDnMx SG9dmd0BrNTkYp1MFNMmHZ8CKPDlGUZxYBOzSFV5NIShLwNoROzvWCYeZXSsWKX0RWAfIWRhYJ2OVkEs GQDtRHknWQurFVBuYNUxwf9YAWCfGTLxFLYaSSRjKG LnIXPpRFyvVIBrVYTkVVT1UNCtWFTjPD9MJtPzXFLlMFS2DTUzZNEoKLWhye0TUJJlDZUrUUp1EYYqJF YaKBVgOPqwGZGqEJY9Bqa9EGDqTFHiOW8GXoYyMZOdOTU9QNQkEENoOHImbg3RZSJmSIUcUoBdEPRnFR VmYEVjAJqmSUXkPZW7JhV5SDSsPVQnNZ7PKwNvHLRu GZo7DNGaIDTlCMPohh0QMEQuGFEzWCx8UHHsMSKnVCZdXJywIZQlAQU7XSo7SPRpADAjYQ6GReLsRWMw WFnkPgDjCSBwUCXigf1DEQUwJAWzZAW4ZINjVWHbBPEoVRmbZHGiASReUMF4TDMnGFWyRV4PVrQhDBRg GPNjVZBqGXGyNTJdrn3YVCTwZEGrYVDwQcPlDDGoRL RxSLv9quZuyVKiUVk1IL2SH9IrwuZiORjMPk1Pd580ZNK6PXAfMr3MZ4pyCg2bGMUtYHRXPu1UOSd2NO BzVGn4UmAwLZAoDYU8D3JmShzeVSCzBBHnUjhyQCB+JXliMNEmDdncOXVpBGIkMhg8AARcHICyTzEpYI NmQsW0IX1oMFGCFe1+FMnejMFalHqkUWYJAsQyUYebPDzoFWADLo4G ID Date Data Source [id number] 07/07/2020 04:15:33 AM [facility] Name Value Range Interpretation Code Description Data Elvira rce(s) Supporting Document(s) Leukocytes [#/volume] in Blood by Automated count 6.2 10*3/uL 4-10 [facility] Erythrocytes [#/volume] in Blood by Automated count 4.00 10*6/uL 4.6- 6.1 L [facility] Hemoglobin [Mass/volume] in Blood 13.3 g/dL 13.5-18 L [facility] Hematocrit [Volume Fraction] of Blood by Automated count 37.9 % 4 1-53 L [facility] Erythrocyte mean corpuscular volume [Entitic volume] by Auto mated count 94.8 fL 80-96 [facility] Erythrocyte mean corpuscular hemoglobin [Entitic mass] by Automated count 33.3 pg 27-33 H [facility] Erythrocyte mean corpuscular hemoglobin concentration [Mass/volume] by Automated count 35.2 g/dL 32.0-36.0 [facility] Erythrocyte distribution width [Ratio] by Automated count 13.7 % 11.5-14.5 [facility] Platelets [#/volume] in Blood by Automated count 142 10*3/uL 150-400 L [facility] ID Date Data Source [id number] 07/07/2020 04:33:42 AM [facility] Name Value Range Interpretation Code Description Data Elvira rce(s) Supporting Document(s) Albumin [Mass/volume] in Serum or Plasma by Bromocresol green (BCG) dye binding method 3.5 g/dL 3.5-5.2 [facility] al Bilirubin.total [Mass/volume] in Serum or Plasma 0.7 mg/dL <1.2 [facility] Calcium [Mass/volume] in Serum or Plasma 8.8 mg/dL 8.6-10.0 [facility] Chloride [Moles/volume] in Serum or Plasma 106 mmol/L 98-107 [facility] Creatinine [Mass/volume] in Serum or Plasma 1.18 mg/dL 0.70-1.20 [facility] Glucose [Mass/volume] in Serum or Plasma 96 mg/dL 70-140 [facility] Alkaline phosphatase [Enzymatic activity/volume] in Serum or Plasma 82 U/L 40-129 [facility] Potassium [Moles/volume] in Serum or Plasma 3.9 mmol/L 3.4-5.1 [facility] Protein [Mass/volume] in Serum or Plasma 6.2 g/dL 6.4-8.3 L [facility] Sodium [Moles/volume] in Serum or Plasma 137 mmol/L 136-145 [facility] Aspartate aminotransferase [Enzymatic activity/volume] in Serum or Plasma 30 U/L <40 [facility] Urea nitrogen [Mass/volume] in Serum or Plasma 9 mg/dL 6-20 [facility] Osmolality of Serum or Plasma by calculation 282 mosm/kg 275-300 [facility] Creatinine/Urea nitrogen [Mass Ratio] in Serum or Plasma 7 [facility] Bicarbonate [Moles/volume] in Serum 23 mmol/L 22-29 [facility] Alanine aminotransferase [Enzymatic activity/volume] in Seru m or Plasma 34 U/L <41 [facility] Anion gap 3 in Serum or Plasma 8 mmol/L 8-15 [facility] Glomerular filtration rate/1.73 sq M pre dicted among non-blacks [Volume Rate/Area] in Serum or Plasma by Creatinine-based formula (MDRD) 68 mL/min/1.73m2 >60 [facility] Glomerular filtration rate/1.73 sq M pre dicted among blacks [Volume Rate/Area] in Serum or Plasma by Creatinine-based formula (MDRD) 79 mL/min/1.73m2 >60 [facility] ID Date Data Source [id number] 07/06/2020 09:44:04 AM EST [facility] CT HEAD WITHOUT CONTRAST [id number] RESU LTInterpreted by:Cristofer Wilde MDCLINICAL INDICATION: Follow-up [...] rce(s) Supporting Document(s) ID Date Data Source [id number] 07/06/2020 08:23:40 AM [facility] MR BRAIN WITH AND WITHOUT CONTRAST [id number] FINAL RESULTInterpreted by:Serafin Meza MDHISTORY: Rule out [...] rce(s) Supporting Document(s) ID Date Data Source [id number] 07/06/2020 06:44:[address] [facility] Value Range Interpretation Code Description Data Elvira rce(s) Supporting Document(s) Leukocytes [#/volume] in Blood by Automated count 6.8 10*3/uL 4-10 [facility] Erythrocytes [#/volume] in Blood by Automated count 4.08 10*6/uL 4.6- 6.1 L [facility] Hemoglobin [Mass/volume] in Blood 13.6 g/dL 13.5-18 [facility] Hematocrit [Volume Fraction] of Blood by Automated count 38.5 % 4 1-53 L [facility] Erythrocyte mean corpuscular volume [Entitic volume] by Auto mated count 94.4 fL 80-96 [facility] Erythrocyte mean corpuscular hemoglobin [Entitic mass] by Automated count 33.3 pg 27-33 H [facility] Erythrocyte mean corpuscular hemoglobin concentration [Mass/volume] by Automated count 35.3 g/dL 32.0-36.0 [facility] distribution width [Ratio] by Automated count 13.0 % 11.5-14.5 [facility] Platelets [#/volume] in Blood by Automated count 149 10*3/uL 150-400 L [facility] ID Date Data Source [id number] 07/06/2020 08:16:[address] [facility] Value Range Interpretation Code Description Data Elvira rce(s) Supporting Document(s) Creatine kinase [Enzymatic activity/volume] in Serum or Plasma 281 U/L 20-200 H [facility] ID Date Data Source [id number] 07/06/2020 08:16:[address] [facility] Value Range Interpretation Code Description Data Elvira rce(s) Supporting Document(s) Albumin [Mass/volume] in Serum or Plasma by Bromocresol green (BCG) dye binding method 3.5 g/dL 3.5-5.2 [facility] al Bilirubin.total [Mass/volume] in Serum or Plasma 0.7 mg/dL <1.2 [facility] Calcium [Mass/volume] in Serum or Plasma 8.3 mg/dL 8.6-10.0 L [facility] Chloride [Moles/volume] in Serum or Plasma 109 mmol/L 98-107 H [facility] Creatinine [Mass/volume] in Serum or Plasma 1.22 mg/dL 0.70-1.20 H [facility] Glucose [Mass/volume] in Serum or Plasma 93 mg/dL 70-140 [facility] Alkaline phosphatase [Enzymatic activity/volume] in Serum or Plasma 85 U/L 40-129 [facility] Potassium [Moles/volume] in Serum or Plasma 3.7 mmol/L 3.4-5.1 [facility] Protein [Mass/volume] in Serum or Plasma 6.0 g/dL 6.4-8.3 L [facility] Sodium [Moles/volume] in Serum or Plasma 142 mmol/L 136-145 [facility] Aspartate aminotransferase [Enzymatic activity/volume] in Serum or Plasma 31 U/L <40 [facility] Urea nitrogen [Mass/volume] in Serum or Plasma 11 mg/dL 6-20 [facility] Osmolality of Serum or Plasma by calculation 294 mosm/kg 275-300 [facility] Creatinine/Urea nitrogen [Mass Ratio] in Serum or Plasma 9 [facility] Bicarbonate [Moles/volume] in Serum 24 mmol/L 22-29 [facility] Alanine aminotransferase [Enzymatic activity/volume] in Seru m or Plasma 34 U/L <41 [facility] Anion gap 3 in Serum or Plasma 9 mmol/L 8-15 [facility] Glomerular filtration rate/1.73 sq M pre dicted among non-blacks [Volume Rate/Area] in Serum or Plasma by Creatinine-based formula (MDRD) 65 mL/min/1.73m2 >60 [facility] Glomerular filtration rate/1.73 sq M pre dicted among blacks [Volume Rate/Area] in Serum or Plasma by Creatinine-based formula (MDRD) 75 mL/min/1.73m2 >60 [facility] ID Date Data Source [id number] 07/06/2020 02:02:22 AM [facility] Name Value Range Interpretation Code Description Data Elvira rce(s) Supporting Document(s) Creatine kinase [Enzymatic activity/volume] in Serum or Plasma 363 U/L 20-200 H [facility] ID Date Data Source [id number] 07/05/2020 11:08:[address] [facility] Value Range Interpretation Code Description Data Elvira rce(s) Supporting Document(s) Consultation [facility] [id number] lbm [file] [id number] ID Date Data Source [id number] 07/05/2020 07:04:39 PM [facility] Name Value Range Interpretation Code Description Data Elvira rce(s) Supporting Document(s) Creatine kinase [Enzymatic activity/volume] in Serum or Plasma 454 U/L 20-200 H [facility] ID Date Data Source [id number] 07/05/2020 02:25:13 PM [facility] Name Value Range Interpretation Code Description Data Elvira rce(s) Supporting Document(s) [facility] [id number] lbm [file] [id number]= ID Date Data Source [id number] 07/05/2020 12:42:31 PM [facility] Name Value Range Interpretation Code Description Data Elvira rce(s) Supporting Document(s) Creatine kinase [Enzymatic activity/volume] in Serum or Plasma 525 U/L 20-200 H [facility] ID Date Data Source [id number] 07/05/2020 12:42:31 PM EST [facility] Name Value Range Interpretation Code Description Data Elvira rce(s) Supporting Document(s) Albumin [Mass/volume] in Serum or Plasma by Bromocresol green (BCG) dye binding method 3.4 g/dL 3.5-5.2 [facility] Bilirubin.total [Mass/volume] in Serum or Plasma 0.9 mg/dL <1.2 [facility] Calcium [Mass/volume] in Serum or Plasma 8.1 mg/dL 8.6-10.0 L [facility] Chloride [Moles/volume] in Serum or Plasma 105 mmol/L 98-107 [facility] Creatinine [Mass/volume] in Serum or Plasma 1.38 mg/dL 0.70-1.20 H [facility] Glucose [Mass/volume] in Serum or Plasma 82 mg/dL 70-140 [facility] Alkaline phosphatase [Enzymatic activity/volume] in Serum or Plasma 86 U/L 40-129 [facility] Potassium [Moles/volume] in Serum or Plasma 4.2 mmol/L 3.4-5.1 [facility] Protein [Mass/volume] in Serum or Plasma 5.8 g/dL 6.4-8.3 L [facility] Sodium [Moles/volume] in Serum or Plasma 136 mmol/L 136-145 [facility] Aspartate aminotransferase [Enzymatic activity/volume] in Serum or Plasma 39 U/L <40 [facility] Urea nitrogen [Mass/volume] in Serum or Plasma 14 mg/dL 6-20 [facility] Osmolality of Serum or Plasma by calculation 282 mosm/kg 275-300 [facility] Creatinine/Urea nitrogen [Mass Ratio] in Serum or Plasma 10 [facility] Bicarbonate [Moles/volume] in Serum 25 mmol/L 22-29 [facility] Alanine aminotransferase [Enzymatic activity/volume] in Seru m or Plasma 37 U/L <41 [facility] Anion gap 3 in Serum or Plasma 6 mmol/L 8-15 L [facility] Glomerular filtration rate/1.73 sq M pre dicted among non-blacks [Volume Rate/Area] in Serum or Plasma by Creatinine-based formula (MDRD) 56 mL/min/1.73m2 >60 L [facility] Glomerular filtration rate/1.73 sq M pre dicted among blacks [Volume Rate/Area] in Serum or Plasma by Creatinine-based formula (MDRD) 65 mL/min/1.73m2 >60 [facility] ID Date Data Source [id number] 07/05/2020 09:59:[address] [facility] [address] CERVICAL SPINE WITHOUT CONTRAST [id number] FINAL RESULTInterpreted by:Yovany James MD07/05/2020 8:[address] CERVICAL SPINE WITHOUT CONTRAST [id number] CLINICAL INFORMATION: trauma. Fall from standing.ADDITIONAL CLINICAL [...] rce(s) Supporting Document(s) ID Date Data Source [id number] 07/05/2020 08:36:[address] [facility] [address] HEAD WITHOUT CONTRAST [id number] RESU LTInterpreted by:Harmony Ramirez MDINDICATION: Follow-up of [...] rce(s) Supporting Document(s) ID Date Data Source [id number] 07/05/2020 08:09:03 AM [facility] Name Value Range Interpretation Code Description Data Elvira rce(s) Supporting Document(s) History and Physical [facility] [id number] lbm [file] [id number] ID Date Data Source [id number] 07/05/2020 06:33:25 AM [facility] Name Value Range Interpretation Code Description Data Elvira rce(s) Supporting Document(s) Leukocytes [#/volume] in Blood by Automated count 6.4 10*3/uL 4-10 [facility] Erythrocytes [#/volume] in Blood by Automated count 4.11 10*6/uL 4.6- 6.1 L [facility] Hemoglobin [Mass/volume] in Blood 13.7 g/dL 13.5-18 [facility] Hematocrit [Volume Fraction] of Blood by Automated count 38.8 % 4 1-53 L [facility] Erythrocyte mean corpuscular volume [Entitic volume] by Auto mated count 94.3 fL 80-96 [facility] Erythrocyte mean corpuscular hemoglobin [Entitic mass] by Automated count 33.3 pg 27-33 H [facility] Erythrocyte mean corpuscular hemoglobin concentration [Mass/volume] by Automated count 35.3 g/dL 32.0-36.0 [facility] E[facility]th[facility] distribution width [Ratio] by Automated count 13.2 % 11.5-14.5 [facility] Platelets [#/volume] in Blood by Automated count 134 10*3/uL 150-400 L [facility] ID Date Data Source [id number] 07/05/2020 06:52:[address] [facility] Value Range Interpretation Code Description Data Elvira rce(s) Supporting Document(s) Creatine kinase [Enzymatic activity/volume] in Serum or Plasma 704 U/L 20-200 H [facility] ID Date Data Source [id number] 07/05/2020 06:52:[address] [facility] Value Range Interpretation Code Description Data Elvira rce(s) Supporting Document(s) Albumin [Mass/volume] in Serum or Plasma by Bromocresol green (BCG) dye binding method 3.4 g/dL 3.5-5.2 [facility] Bilirubin.total [Mass/volume] in Serum or Plasma 0.9 mg/dL <1.2 [facility] Calcium [Mass/volume] in Serum or Plasma 8.0 mg/dL 8.6-10.0 L [facility] Chloride [Moles/volume] in Serum or Plasma 108 mmol/L 98-107 H [facility] Creatinine [Mass/volume] in Serum or Plasma 1.29 mg/dL 0.70-1.20 H [facility] Glucose [Mass/volume] in Serum or Plasma 95 mg/dL 70-140 [facility] Alkaline phosphatase [Enzymatic activity/volume] in Serum or Plasma 86 U/L 40-129 [facility] Potassium [Moles/volume] in Serum or Plasma 4.0 mmol/L 3.4-5.1 [facility] Protein [Mass/volume] in Serum or Plasma 5.8 g/dL 6.4-8.3 L [facility] Sodium [Moles/volume] in Serum or Plasma 140 mmol/L 136-145 [facility] Aspartate aminotransferase [Enzymatic activity/volume] in Serum or Plasma 45 U/L <40 H [facility] Urea nitrogen [Mass/volume] in Serum or Plasma 15 mg/dL 6-20 [facility] Osmolality of Serum or Plasma by calculation 290 mosm/kg 275-300 [facility] Creatinine/Urea nitrogen [Mass Ratio] in Serum or Plasma 11 [facility] Bicarbonate [Moles/volume] in Serum 23 mmol/L 22-29 [facility] Alanine aminotransferase [Enzymatic activity/volume] in Seru m or Plasma 39 U/L <41 [facility] Anion gap 3 in Serum or Plasma 9 mmol/L 8-15 [facility] Glomerular filtration rate/1.73 sq M pre dicted among non-blacks [Volume Rate/Area] in Serum or Plasma by Creatinine-based formula (MDRD) 61 mL/min/1.73m2 >60 [facility] Glomerular filtration rate/1.73 sq M pre dicted among blacks [Volume Rate/Area] in Serum or Plasma by Creatinine-based formula (MDRD) 71 mL/min/1.73m2 >60 [facility] ID Date Data Source [id number] 07/05/2020 12:49:00 AM EST [facility] Name Value Range Interpretation Code Description Data Elvira rce(s) Supporting Document(s) SARS-CoV-2 RNA [facility] This lab was ordered by [facility] and reported by [facility]. ID Date Data Source [id number] 07/05/2020 02:17:37 AM [facility] Service Cmnt XXX-Imp : NoneRespiratory P CR Panel : PCR ResultsMicroorganism XXX Cult : See Labs Tab for 2019 nCoV RT-PCR resultsHAdV DNA QI KARLA+non-probe : Not DetectedHCoV [id number] Nph QI KARLA+non-probe : Not DetectedHCoV [id number] Nph QI KARLA+non-probe : Not [id number] RNA Nph QI KARLA+non-probe : Not [id number] RNA Upper resp QI KARLA+probe : Not [...] DNA Nph Q KARLA+non-probe : Not DetectedB [id number] DNA Nph KARLA+non-probe : Not Detected Name Value Range Interpretation Code Description Data Elvira rce(s) Supporting Document(s) ID Date Data Source [id number] 07/05/2020 02:16:35 AM [facility] Name Value Range Interpretation Code Description Data Elvira rce(s) Supporting Document(s) Specimen source [Identifier] of Unspecified specimen [facility] SARS-CoV-2 RNA 2019 nCoV Real-Time RT-PCR: NOT DETECTED [facility] Assay Performed [facility] Patients first test for [facility] Patient employed in healthcare setting [facility] Patient has symptoms related to [facility] When did you start to experience these symptoms [Date and time] [Phen X] [facility] Patient was hospitalized because of this condition [facility] patient was admitted to ICU for [facility] Patient resides in a congregate care setting [facility] status [facility] ID Date Data Source [id number] 07/05/2020 01:31:49 AM [facility] Name Value Range Interpretation Code Description Data Elvira rce(s) Supporting Document(s) Hepatitis C virus Ab [Presence] in Serum or Plasma by Immuno assay Non Reactive [facility] No serological evidence of active infect ion. If recent exposure is suspected, test for HCV RNA. ID Date Data Source [id number] 07/05/2020 12:47:19 AM [facility] Name Value Range Interpretation Code Description Data Elvira rce(s) Supporting Document(s) Albumin [Mass/volume] in Serum or Plasma by Bromocresol green (BCG) dye binding method 3.9 g/dL 3.5-5.2 [facility] Bilirubin.total [Mass/volume] in Serum or Plasma 1.1 mg/dL <1.2 [facility] Calcium [Mass/volume] in Serum or Plasma 8.5 mg/dL 8.6-10.0 L [facility] Chloride [Moles/volume] in Serum or Plasma 103 mmol/L 98-107 [facility] Creatinine [Mass/volume] in Serum or Plasma 1.54 mg/dL 0.70-1.20 H [facility] Glucose [Mass/volume] in Serum or Plasma 98 mg/dL 70-140 [facility] Alkaline phosphatase [Enzymatic activity/volume] in Serum or Plasma 99 U/L 40-129 [facility] Potassium [Moles/volume] in Serum or Plasma 3.8 mmol/L 3.4-5.1 [facility] Protein [Mass/volume] in Serum or Plasma 6.6 g/dL 6.4-8.3 [facility] Sodium [Moles/volume] in Serum or Plasma 138 mmol/L 136-145 [facility] Aspartate aminotransferase [Enzymatic activity/volume] in Serum or Plasma 49 U/L <40 H [facility] Urea nitrogen [Mass/volume] in Serum or Plasma 15 mg/dL 6-20 [facility] Osmolality of Serum or Plasma by calculation 287 mosm/kg 275-300 [facility] Creatinine/Urea nitrogen [Mass Ratio] in Serum or Plasma 10 [facility] Bicarbonate [Moles/volume] in Serum 24 mmol/L 22-29 [facility] Alanine aminotransferase [Enzymatic activity/volume] in Seru m or Plasma 43 U/L <41 H [facility] Anion gap 3 in Serum or Plasma 11 mmol/L 8-15 [facility] Glomerular filtration rate/1.73 sq M pre dicted among non-blacks [Volume Rate/Area] in Serum or Plasma by Creatinine-based formula (MDRD) 49 mL/min/1.73m2 >60 L [facility] Glomerular filtration rate/1.73 sq M pre dicted among blacks [Volume Rate/Area] in Serum or Plasma by Creatinine-based formula (MDRD) 57 mL/min/1.73m2 >60 L [facility] ID Date Data Source [id number] 07/05/2020 12:47:19 AM [facility] Name Value Range Interpretation Code Description Data Elvira rce(s) Supporting Document(s) Creatine kinase [Enzymatic activity/volume] in Serum or Plasma 925 U/L 20-200 H [facility] ID Date Data Source [id number] 07/04/2020 11:44:41 PM [facility] Name Value Range Interpretation Code Description Data Elvira rce(s) Supporting Document(s) ED Provider Note [facility] [id number] lbm [file] MIGUEL ÁNGEL+MtTIRjTiH2JjfdXUEEPqsloxpJ5qOTB0LXNgVt [file] E+DQogICAgICAgICAgICAgICAgICAgICAgICAgICAgICAgICAgICAgICAgICAgICAgICAgICAgICAgIC AgICAgICAgICAgICAgICAgICAgICAgICAgICAgICAg ICAgICAgICAgICAgDQogICAgICAgICAgICAgICAgICAgICAgICAgICAgICAgICAgICAgICAgICAgICAg ICAgICAgICAgICAgICAgICAgICAgICAgICAgICAgICAgICAgICAgICAgICAgICAgICAgICAgDQogICAg ICAgICAgICAgICAgICAgICAgICAgICAgICAgICAgIC AgICAgICAgICAgICAgICAgICAgICAgICAgICAgICAgICAgICAgICAgICAgICAgICAgICAgICAgICAgIC AgICAgDQogICAgICAgICAgICAgICAgICAgICAgICAgICAgICAgICAgICAgICAgICAgICAgICAgICAgIC AgICAgICAgICAgICAgICAgICAgICAgICAgICAgICAg ICAgICAgICAgICAgICAgDQogICAgICAgICAgICAgICAgICAgICAgICAgICAgICAgICAgICAgICAgICAg ICAgICAgICAgICAgICAgICAgICAgICAgICAgICAgICAgICAgICAgICAgICAgICAgICAgICAgICAgDQog ICAgICAgICAgICAgICAgICAgICAgICAgICAgICAgIC AgICAgICAgICAgICAgICAgICAgICAgICAgICAgICAgICAgICAgICAgICAgICAgICAgICAgICAgICAgIC AgICAgICAgDQogICAgICAgICAgICAgICAgICAgICAgICAgICAgICAgICAgICAgICAgICAgICAgICAgIC AgICAgICAgICAgICAgICAgICAgICAgICAgICAgICAg ICAgICAgICAgICAgICAgICAgDQogICAgICAgICAgICAgICAgICAgICAgICAgICAgICAgICAgICAgICAg ICAgICAgICAgICAgICAgICAgICAgICAgICAgICAgICAgICAgICAgICAgICAgICAgICAgICAgICAgICAg DQogICAgICAgICAgICAgICAgICAgICAgICAgICAgIC AgICAgICAgICAgICAgICAgICAgICAgICAgICAgICAgICAgICAgICAgICAgICAgICAgICAgICAgICAgIC AgICAgICAgICAgDQogICAgICAgICAgICAgICAgICAgICAgICAgICAgICAgICAgICAgICAgICAgICAgIC AgICAgICAgICAgICAgICAgICAgICAgICAgICAgICAg NDYuUAVvSZLvWQDlMKQqRSJfHVRwDNh2C0ebKVFtICKiEA8xWPb3Lx1+VYxCEzBuPMK2vmRvoR3CAT1c a3FeQWkrYYEjc8HkRFu3GI7IDSMqZXltVB6ZYFduij2FGTWuXVScjKYRr7nkOaPaFJV6OLNgGhrmEW7Y VDQvM1jiopFbOIThVNQXFYauNUPHEXieOKUDVYCiEJ KpMuJpCuSfNEMhWVWiEEZBOTU4IQInMyCnKXQqFJHvNR1MDVHbO557xxZoUT3SVj4QAfRxZJ8uwq1RKg UwFGVaBdpDDpu3UFnwLG2QxIFutRLuVbArGVCXSkAnL0svf8PlLHTlGAIOKZcpOW7Nc5SinNN7IPs+Pg 4ECJ7gy4XpRTdnJlYwKP3aio2JXGtRFyKkA8JgrKta VXQLSETmj1IbRPHlRR9jqTTsENR3PYmnhNGXOVQgEU7bJIHvQD7QTRP7WFByXS2vLSItADC1WhDrNASH SQ0QURWzXKXnmWAhXHVfHPJUKQ4AZCkcBPG2IyAjzcLffBNjPBlsRV0JJJYpvpSqLgScIYNSVKouQI3Q UYd3WRL9YKHqXv8KLh5RXeArZL5jni9KSvwdWHOgIf mGZyt3NQveKP8LzMZeOWgIVQBYzd39nGXqwxSQx9JvzfJwtNNPMHcsTJPEfsExkyTkSELZDHZhdBZvMw FdWiKaVDPjRBvyTXYKRNiWKrPcD8Skq6IeMyWvQXJqTTPrO7yKIbTiRFB2LlAzkLdyTQ3JJaNyA7Mxde CjrYBwYzTiGCBBFyEnW7MiSOZkQtvfHAHZKIchJV1C QRi9NDA0GOUaDc3MSu9GPmNdVN4vxg1MShajMQOxCmvERfk6TIvxAU7BiVPjJVwVKHVZw6AfnzBsrEBX bF1iICBbAAWAE8apccToXSBTDYZ9FVXgHP9eKVTkZRKuWkP3YZUYSN4JWPTaVGOfqOPqAMQ5BUKvAjJs GUweTWFdYDlxbxOmdPEhROboWA1OXQQyvzIzRyPkAV SZIFsdNZ9UmoE9VFK9ABJoWr5MSUHaCrM9uJX2LFBsRKAFOh8+SGipciYmKxqKDuDmKONxl9SdQSa4SU 3EIHEaTRn7iRIjSUDqAg14WWPkYblaOOyedLOjYUYkAzvBPFRbBIAKNkIrkWLaUxFlMbAeVYGxELx6CA KMQQdIIaVuL2Rny5GdEsXvAJWyDJDsD2wLXvLxATYk YNBpmEkrJM7DSyIrK4XfrcFmxFCzDzZaTCBQTzOuD9KnFIQuRxtkIYEDUIhsKZ9TLXa9KIOoELNzKq0Z Th5GDoOyDZ0hfd7DZVPcPCAbUgdCCfx3NFivGB3CvEFhCIuWOXTWqucqO3YiHf79NZIqLdwwYM4ujcK2 FHGss8wmFFOCKmJqdLTmAqTgJmIuUOPuISoyVLLEUJ nGRrHyZ1Yqc3RwPyHpCVHkLTNvW5mCVgBkYAI2NGWdtTjlCT8IQiAlF6XrvfNrwUJcQqNwFAGQYbYiH3 ByZXYgNDAgMCBSDQo+Jl0UGS8yn4PfIMt7LuZfKY2edf7PLIvYXjSdY2O0wQPaG4U2EKivEl6ITLWpLG DsAaJcICRWHEkiRK1WFZ9bvdC6SQ6UrTVnVLHrVRAt tJLcXHw7A69ewMIyZWqePV8XEDS+Shaneka+Kg6JQXYdHNStIPMhNgZdTXSVUaXnF9ApV9YWi5XyK0AiZX60 nPvbzpPfQBuiIW5PMZ6hGRDuCETYDO6ZoXApaT9xocNnWkXbNINBSgFlO15nxGDhUBZbRFA8MKGnXe2O WJRmR2VwzgVxfNssbzPgEDYgGRAPAW7AJJheozXktV LkzHncIZ13qUnhJY4VIp7YCkNuQO4ipw7VuKOoPr4JJIA5Lz8WGSNmJFVrKUXhRMQ6FZRrGkScFNaaTP MzETCeNRA8KSGlGOGiDY9EBsYzYKFsHir7AeFyZNDxCKVebu5OCCZgBHIgBIY1RQThBKPwGELkRAwcDK RcKSKyIAG8BLAkBFDuGI9ZEhNcXAZlWIO6QbLcSSGh QTPegk7WIWHxFRQkPiB4EsSvFXHpOITlXJdbMZWbBHQ6EEY7FCCeUVBlLP5YPcYdAPGtEIKaCxBuAIIm WYNvfq3XFVLzCARwWJH7KhZiVOZpJQMkBIskKJYjNGA9YLV6UTImJMJhPC8SCqPcDSCiQDSwAyzqEYPm QVSigv7NPNSqEHNsMYW0FXJgEXWpSTFgVCsaRZUjTU CuHiT3POSpBKWgXF4DTxTxUSAaNUZ5SgWjYPZuQWQonl2QCAOuLCXzOoH2TPPbBGFbTTXcFObvGNIjKX H4QWqnTLMhGLMqVR3OOaDvFRXuMJv6VlVrNKHaOSIyil5WFSVwBTTbANZoTRPlNXXhMOUhOHgoRJYpEZ VsJmEvYATtMXSeCH3DPnCeYTNuHjK4SJLjNWQwBDZi tp6MBPInINNcElA0SiOdPRWoRGApEPpdMZDhBHOaMAfwFLYrYHWxTG8AZaBsVEJdCbT2DJZsXXJrMMAo jp6PHTIoIDReBmszQTMeQGWxALJrZHbaGAXbCFEpXWJ4BLWqAQNmVG9NRgGyQZEkNkBuINEzRMGlPMRl ap0HIPSgHRHaTVE8UYWqQRUqFMZnZNgtIUPbVJJ5VT R3QZThQJRyZO9GKwTgHOFkTwJiERmdUFXnRQRaij7BJYKwELBiZwG8TgNvRHEuORIfNScoAZUhQRC5RJ LuODByTAHyAA4CMbWeAZFxMotcMBFgTFJdINHnmv3UVHEvRCEbFyLuFjGtZCIoDRBlBZhbQJPhWBG6Jr e9OYDaRHYfAE4SItBcWZCvYexxLOJsNKDdSNHegr7H EWBeEVGlCEEuGXJoPSNtTLCsNTavBNYlCJT8XpxxFIMyTTOuNQ1AWdIaWXKaAsb1BgofJUSrZJOfwn0E HXRmYVL6LVJvENVwFDCqTVZzJEhsLFZbBXXeNLv9SFAyHKXlQB0RWzJfTUToGORtHqCfWYBfMPGwij1D RBVpAQK1UGTbIDVcEHPhSQFgBMh8soAuiGMzBYp6UJ 0AO0KxyuVyCJAMKs9Ki498ZNDgPLKjPk5PU7cnGb4pMBSbXVGZBz1WUXo0DHH9WXOlMhJmDkJ9TYC3Gc CfLKVyJNElCLQhOvJ5Jqo+MPgrWIL0KJOwDfGtQFs3GMYrTrU4JKJdZpB4PnE0ZVqmIB5jVAELVw8+DQ jwiMTcqHcsJIPYToFlVuz0HSdyRKHZZp0C ID Date Data Source [id number] 07/05/2020 12:05:39 AM [facility] Name Value Range Interpretation Code Description Data Elvira rce(s) Supporting Document(s) Hemoglobin A1c/Hemoglobin.total in Blood by HPLC 5.4 % 4.0-6.0 [facility] (NOTE)<5.7% Average risk of diabetes (ADA)5.7-6.4% Increased risk of diabetes(ADA)>/= 6.5% Diagnostic for diabetes(ADA) Glucose mean value [Mass/volume] in Blood Estimated fr om glycated hemoglobin 108 mg/dL <126 [facility] ID Date Data Source [id number] 07/04/2020 11:39:32 PM [facility] Name Value Range Interpretation Code Description Data Elvira rce(s) Supporting Document(s) Leukocytes [#/volume] in Blood by Automated count 9.9 10*3/uL 4-10 [facility] Erythrocytes [#/volume] in Blood by Automated count 4.58 10*6/uL 4.6- 6.1 L [facility] Hemoglobin [Mass/volume] in Blood 15.1 g/dL 13.5-18 [facility] Hematocrit [Volume Fraction] of Blood by Automated count 43.0 % 4 1-53 [facility] Erythrocyte mean corpuscular volume [Entitic volume] by Auto mated count 93.7 fL 80-96 [facility] Erythrocyte mean corpuscular hemoglobin [Entitic mass] by Automated count 33.0 pg 27-33 [facility] Erythrocyte mean corpuscular hemoglobin concentration [Mass/volume] by Automated count 35.2 g/dL 32.0-36.0 [facility] distribution width [Ratio] by Automated count 13.0 % 11.5-14.5 [facility] Platelets [#/volume] in Blood by Automated count 184 10*3/uL 150-400 [facility] Differential cell count method - Blood [facility] Neutrophils/100 leukocytes in Blood by Automated count 65 % [facility] Lymphocytes/100 leukocytes in Blood by Automated count 17 % [facility] Monocytes/100 leukocytes in Blood by Automated count 11 % [facility] Eosinophils/100 leukocytes in Blood by Automated count 6 % [facility] Basophils/100 leukocytes in Blood by Automated count 1 % [facility] Neutrophils [#/volume] in Blood by Automated count 6.53 10*3/uL 1.8-7 .0 [facility] Lymphocytes [#/volume] in Blood by Automated count 1.70 10*3/uL 1.2-4 .0 [facility] Monocytes [#/volume] in Blood by Automated count 1.09 10*3/uL 0-0.8 H [facility] Eosinophils [#/volume] in Blood by Automated count 0.55 10*3/uL 0-0.5 H [facility] Basophils [#/volume] in Blood by Automated count 0.05 10*3/uL 0-0.2 [facility] Nucleated erythrocytes/100 leukocytes [Ratio] in Blood by Automated count 0 /100{WBCs} 0-0 [facility] ID Date Data Source [id number] 07/04/2020 11:51:[address] [facility] Value Range Interpretation Code Description Data Elviar rce(s) Supporting Document(s) Creatine kinase [Enzymatic activity/volume] in Serum or Plasma 1 063 U/L 20-200 H [facility] ID Date Data Source [id number] 07/04/2020 11:51:[address] [facility] Value Range Interpretation Code Description Data Elvira rce(s) Supporting Document(s) Cholesterol [Mass/volume] in Serum or Plasma 175 mg/dL <200 [facility] Triglyceride [Mass/volume] in Serum or Plasma 89 mg/dL <150 [facility] Cholesterol in HDL [Mass/volume] in Serum or Plasma 42 mg/dL >40 [facility] Cholesterol in LDL [Mass/volume] in Serum or Plasma by calcu lation 115 mg/dL <100 H [facility] Cholesterol in VLDL [Mass/volume] in Serum or Plasma by calc ulation 18 mg/dl 16-42 [facility] Cholesterol non HDL [Mass/volume] in Serum or Plasma 132 mg/dL <130 H [facility] ID Date Data Source [id number] 07/04/2020 11:51:[address] [facility] Value Range Interpretation Code Description Data Elvira rce(s) Supporting Document(s) Thyrotropin [Units/volume] in Serum or Plasma 3.140 u[IU]/mL 0.270-4. 200 [facility] ID Date Data Source [id number] 07/04/2020 11:51:[address] [facility] Value Range Interpretation Code Description Data Elvira rce(s) Supporting Document(s) Albumin [Mass/volume] in Serum or Plasma by Bromocresol green (BCG) dye binding method 4.2 g/dL 3.5-5.2 [facility] Bilirubin.total [Mass/volume] in Serum or Plasma 1.2 mg/dL <1.2 H [facility] Calcium [Mass/volume] in Serum or Plasma 8.6 mg/dL 8.6-10.0 [facility] Chloride [Moles/volume] in Serum or Plasma 104 mmol/L 98-107 [facility] Creatinine [Mass/volume] in Serum or Plasma 1.43 mg/dL 0.70-1.20 H [facility] Glucose [Mass/volume] in Serum or Plasma 102 mg/dL 70-140 [facility] Alkaline phosphatase [Enzymatic activity/volume] in Serum or Plasma 103 U/L 40-129 [facility] Potassium [Moles/volume] in Serum or Plasma 3.7 mmol/L 3.4-5.1 [facility] Protein [Mass/volume] in Serum or Plasma 6.8 g/dL 6.4-8.3 [facility] Sodium [Moles/volume] in Serum or Plasma 143 mmol/L 136-145 [facility] Aspartate aminotransferase [Enzymatic activity/volume] in Serum or Plasma 51 U/L <40 H [facility] Urea nitrogen [Mass/volume] in Serum or Plasma 13 mg/dL 6-20 [facility] Osmolality of Serum or Plasma by calculation 296 mosm/kg 275-300 [facility] Creatinine/Urea nitrogen [Mass Ratio] in Serum or Plasma 9 [facility] Bicarbonate [Moles/volume] in Serum 25 mmol/L 22-29 [facility] Alanine aminotransferase [Enzymatic activity/volume] in Seru m or Plasma 44 U/L <41 H [facility] Anion gap 3 in Serum or Plasma 14 mmol/L 8-15 [facility] Glomerular filtration rate/1.73 sq M pre dicted among non-blacks [Volume Rate/Area] in Serum or Plasma by Creatinine-based formula (MDRD) 54 mL/min/1.73m2 >60 L [facility] Glomerular filtration rate/1.73 sq M pre dicted among blacks [Volume Rate/Area] in Serum or Plasma by Creatinine-based formula (MDRD) 62 mL/min/1.73m2 >60 [facility] ID Date Data Source [id number] 07/04/2020 11:54:59 PM [facility] Name Value Range Interpretation Code Description Data Elvira rce(s) Supporting Document(s) aPTT in Platelet poor plasma by Coagulation assay 30.7 s 24.0-33. 0 [facility] ID Date Data Source [id number] 07/04/2020 11:54:59 PM EST [facility] Name Value Range Interpretation Code Description Data Elvira rce(s) Supporting Document(s) Prothrombin time (PT) 13.3 s 12.5-14.9 [facility] INR in Platelet poor plasma by Coagulation assay 1.00 [facility] Routine intensity oral anticoagulation I NR is typically 2.0-3.0. Target INR must be clinically individualized. ID Date Data Source [id number] 07/04/2020 04:40:00 PM EST [facility] Name Value Range Interpretation Code Description Data Elvira rce(s) Supporting Document(s) SARS coronavirus 2 RNA [Presence] in Res piratory specimen by KARLA with probe detection [facility] This lab was ordered by [facility] a nd reported by [facility]. ID Date Data Source [id number] 02/11/2020 11:16:00 AM EDT [facility] ([facility], ) Name Value Range Interpretation Code Description Data Elvira rce(s) Supporting Document(s) Surgical pathology study Laboratory test result [facility] ([facility], ) FINAL DIAGNOSIS A - Cecal polyp, [...] EST Former Smoker completed Former Smoker eCW1 ([facility]) Smoking 08/08/2020 12:00:00 AM EST Former Smoker completed Former Smoker eCW1 ([facility]) Smoking 07/17/2020 12:00:00 AM EST Former Smoker completed Former Smoker eCW1 ([facility]) Smoking 07/17/2020 12:00:00 AM EST Former Smoker completed Former Smoker eCW1 ([facility]) Smoking 07/17/2020 12:00:00 AM EST Former Smoker completed Former Smoker eCW1 ([facility]) Smoking 07/17/2020 12:00:00 AM EST Former Smoker completed Former Smoker eCW1 ([facility]) Alcohol intake 07/12/2020 12:00:00 AM EST Current drinker of al cohol (finding) completed Current drinker of alcohol (finding) [facility] Tobacco use and exposure 07/12/2020 12:00:00 AM EST Never used co mpleted Never used [facility] Smoking 07/12/2020 12:00:00 AM EST Former smoker completed Former smoker [facility] Smoking 10/18/2019 12:00:00 AM EDT Former Smoker completed Former Smoker eCW1 ([facility]) Vital Signs ID Date Data Source UNK Name Value Range Interpretation Code Description Data Source(s) Diastolic blood pressure 80 mm[Hg] 80 mm[Hg] eCW1 ([facility]) Systolic blood pressure 135 mm[Hg] 135 mm[Hg] e CW1 ([facility]) Body temperature 96.3 [degF] 96.3 [degF] eCW1 ( [facility]) Respiratory rate 18 /min 18 /min eCW1 (Replaced by [facility]) Heart rate 78 /min 78 /min eCW1 ([facility]) Body mass index (BMI) [Ratio] 35.55 kg/m2 35.55 kg/m2 eCW1 ([facility]) Body height [in_i] eCW1 ([facility]) Body weight 227 [lb_av] 227 [lb_av] W1 ([facility]) Body surface area Derived from formula 2.18 m2 2.18 m2 [facility] ([facility], ) Body weight 108.127 kg 108.127 kg [facility] [place] body weight 148 [lb_av] 148 [lb_av] MEDEN T ([facility]) Body mass index (BMI) [Ratio] 37.3 kg/m2 37.3 k g/m2 [facility] ([facility]) Body weight 238.38 [lb_av] 238.38 [lb_av] [facility] T ([facility]) Body height 67 [in_i] 67 [in_i] [facility] ([facility]) 5'7" Heart rate 64 /min 64 /min [facility] ([facility]) Diastolic blood pressure 114 mm[Hg] 114 mm[Hg] [facility] ([facility]) Systolic blood pressure 186 mm[Hg] 186 mm[Hg] [facility] ([facility]) Body surface area Derived from formula 2.17 m2 2.17 m2 [facility] ([facility]) Body weight 107.106 kg 107.106 kg [facility] ([facility]) [place] body weight 148 [lb_av] 148 [lb_av] MED[facility] T ([facility]) Body mass index (BMI) [Ratio] 37.0 kg/m2 37.0 k g/m2 [facility] ([facility]) Body weight 236.12 [lb_av] 236.12 [lb_av] MED[facility] T ([facility]) Body height 67 [in_i] 67 [in_i] [facility] ([facility]) 5'7" Diastolic blood pressure 105 mm[Hg] 105 mm[Hg] [facility] ([facility]) Systolic blood pressure 181 mm[Hg] 181 mm[Hg] [facility] ([facility]) Body weight 106.709 kg 106.709 kg [facility] ([facility]) [place] body weight 148 [lb_av] 148 [lb_av] MED[facility] T ([facility]) Body mass index (BMI) [Ratio] 36.8 kg/m2 36.8 k g/m2 [facility] ([facility]) Body weight 235.25 [lb_av] 235.25 [lb_av] [facility] Body height 67 [in_i] 67 [in_i] [facility] ([facility]) 5'7" Diastolic blood pressure 106 mm[Hg] 106 mm[Hg] [facility] ([facility]) [place] Systolic blood pressure 179 mm[Hg] 179 mm[Hg] [facility] [place] Body weight 107.957 kg 107.957 kg [facility] ([facility]) [place] body weight 148 [lb_av] 148 [lb_av] [facility] Body mass index (BMI) [Ratio] 37.3 kg/m2 37.3 k g/m2 [facility] ([facility]) Body weight 238.00 [lb_av] 238.00 [lb_av] [facility] Body height 67 [in_i] 67 [in_i] [facility] ([facility]) 5'7" Diastolic blood pressure 80 mm[Hg] 80 mm[Hg] [facility] ([facility]) Systolic blood pressure 140 mm[Hg] 140 mm[Hg] [facility] ([facility]) Diastolic blood pressure 84 mm[Hg] 84 mm[Hg] eCW1 ([facility]) Systolic blood pressure 142 mm[Hg] 142 mm[Hg] e CW1 ([facility]) Body temperature 97.1 [degF] 97.1 [degF] eCW1 ( [facility]) Respiratory rate 20 /min 20 /min eCW1 (Replaced by [facility]) Heart rate 99 /min 99 /min W1 ([facility]) Body mass index (BMI) [Ratio] 38.15 kg/m2 38.15 kg/m2 W1 ([facility]) Body height [in_us] eCW1 ([facility]) Body weight Measured 243.6 [lb_av] 243.6 [lb_av ] eCW1 ([facility]) Body weight 110.225 kg 110.225 kg [facility] ([facility]) Body mass index (BMI) [Ratio] 38.1 kg/m2 38.1 k g/m2 [facility] ([facility]) Body weight 243.00 [lb_av] 243.00 [lb_av] LASHELL T ([facility]) Body height 67 [in_i] 67 [in_i] [facility] ([facility]) 5'7" Diastolic blood pressure 88 mm[Hg] 88 mm[Hg] [facility] ([facility]) Systolic blood pressure 148 mm[Hg] 148 mm[Hg] M CASSANDRA ([facility]) ID Date Data Source [id number] 07/19/2020 02:31:18 PM [facility] Name Value Range Interpretation Code Description Data Source(s) WEIGHT RECORDED 227.07 lb 227.07 lb [facility] WEIGHT RECORDED 231.04 lb 231.04 lb [facility] WEIGHT RECORDED 231 lb 231 lb [facility] Body height Measured 67 in 67 in [facility] TRANSFER FROM [facility] Patient Treatment Plan of Care Planned Activity Planned Date Details Description Data Source (s) - 07/21/2020 12:00:00 AM EST e CW1 ([facility]) Can - 07/21/2020 12:00:00 AM EST e CW1 ([facility]) Can - 07/21/2020 12:00:00 AM EST e CW1 ([facility]) Cane - 07/21/2020 12:00:00 AM EST e CW1 ([facility]) Multivitamin Adult 07/18/2020 12:00:00 AM EST [facility] ([facility]) Thiamine HCl 100 MG 07/18/2020 12:00:00 AM EST [facility] ([facility]) Folic Acid 1 MG 07/18/2020 12:00:00 AM EST [facility] ([facility]) Labetalol HCl 100 MG 07/18/2020 12:00:00 AM EST [facility] ([facility]) AmLODIPine Besylate 10 MG 07/18/2020 12:00:00 AM [facility] ([facility]) Acetaminophen 325 MG / Hydrocodone Bitartrate 5 MG Ora l Tablet 07/12/2020 07:30:54 AM [facility]ital Thiamine 100 MG Oral Tablet 07/12/2020 12:00:00 AM [facility] Tab-A-Joanna/Beta Carotene Oral Tablet 07/12/2020 12:00:00 AM [facility] Folic Acid 1 MG Oral Tablet 07/12/2020 12:00:00 AM [facility] Amlodipine 10 MG Oral Tablet 07/12/2020 12:00:00 AM [facility] Labetalol hydrochloride 100 MG Oral Tablet 07/11/2020 12:00:00 AM [facility] Amlodipine 5 MG Oral Tablet 07/06/2020 09:15:00 AM [facility] sennosides, SENIOR CARE 35.2 MG/ML Oral Solution 07/05/2020 08:15:00 AM [facility] sodium chloride 0.9 % bag 3-20 mL 07/04/2020 10:23:46 PM [facility] Nicardipine hydrochloride 0.2 MG/ML Injectable Solutio n 07/04/2020 08:25:33 PM [facility]spital cefdinir 300 MG Oral Capsule 10/18/2019 12:00:00 AM EDT eCW1 ([facility]) cefdinir 300 MG Oral Capsule 10/18/2019 12:00:00 AM EDT eCW1 ([facility])
[2020-08-21] MEDS ORDERED: GABA-282 PO (14:38)
[2020-08-21 15:15] VITALS: BP 140/99
--- NOTE | 2020-08-21 16:06 | ECGEPIP ---
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
--- NOTE | 2020-08-21 20:11 | ED PDOC ---
Post-Departure Follow-Up ct head faxed to dr evans for fu Irina Lawton MD Aug 21, 2020 20:11
== END 2020-08-21 15:29 | disposition home or self-care (01) ==
LOC: M ED 11:45
DX: M48.02 Spinal stenosis, cervical region (principal); M54.14 Radiculopathy, thoracic region; M25.78 Osteophyte, vertebrae; R00.1 Bradycardia, unspecified; Z86.73 Personal history of transient ischemic attack (TIA), and cerebral infarction without residual deficits; I10 Essential (primary) hypertension; Z88.0 Allergy status to penicillin

== ENCOUNTER → 2020-08-28 | Outpatient (REF) | payer OTHER ==
[~2020-08-28] MED LIST changes: +GABA-282 PO
== END ==
LOC: M SFHCADAM 09:42
PROVIDERS: ATTEND Physician Assistant Medical
DX: I10 Essential (primary) hypertension (principal)

== ENCOUNTER → 2020-08-28 | Outpatient (CLI) | payer OTHER ==
--- NOTE | 2020-08-28 11:28 | REP ---
INDICATION: CVA COMPARISON: None. TECHNIQUE: Internal rotation, external rotation, and Y view. FINDINGS: Cortical irregularity and spurring involving the distal clavicle at the acromioclavicular joint as well as cortical irregularity involving the inferior half of the glenoid rim consistent with mild arthritic changes at the acromioclavicular and glenohumeral joints. The humeral head appears normal. The subacromial space is normal. IMPRESSION: Mild arthritic changes <Electronically signed by Galdino Sanchez > 08/28/20 [id number]
== END ==
LOC: M ADAMS 09:47
PROVIDERS: ATTEND Physician Assistant Medical
DX: I61.9 Nontraumatic intracerebral hemorrhage, unspecified (principal); M25.511 Pain in right shoulder; M19.011 Primary osteoarthritis, right shoulder

== ENCOUNTER → 2020-08-31 | Outpatient (REF) | payer OTHER ==
[2020-08-31 18:38] LABS: ALBUMIN 4.5 GM/DL (3.2-5.2); CALCIUM LEVEL 9.4 MG/DL (8.5-10.1); CREATININE FOR GFR 1.53 MG/DL (0.70-1.30); GLOMERULAR FILTRATION RATE 50.4 (>56); MAGNESIUM LEVEL 2.2 MG/DL (1.8-2.4); PHOSPHORUS LEVEL 5.1 MG/DL (2.5-4.9); POTASSIUM SERUM 4.1 MEQ/L (3.5-5.1)
== END ==
LOC: M LABDRWAD 16:41
PROVIDERS: ATTEND Internal Medicine Cardiovascular Disease
DX: I10 Essential (primary) hypertension (principal)

== ENCOUNTER → 2020-09-03 | Outpatient (REF) | payer OTHER | LOC: M LAB REF 16:11 | PROVIDERS: ATTEND Internal Medicine Cardiovascular Disease | DX: Z00.00 Encounter for general adult medical examination without abnormal findings (principal) ==

== ENCOUNTER → 2020-09-04 | Outpatient (REF) | payer OTHER ==
[2020-09-04 13:08] LABS: BLOOD UREA NITROGEN 18 MG/DL (7-18); CALCIUM LEVEL 10.1 MG/DL (8.5-10.1); CARBON DIOXIDE LEVEL 32 MEQ/L (21-32); CHLORIDE LEVEL 100 MEQ/L (98-107); GLOMERULAR FILTRATION RATE > 60.0 (>56); GLUCOSE, FASTING 103 MG/DL (70-100); POTASSIUM SERUM 3.9 MEQ/L (3.5-5.1); SODIUM LEVEL 138 MEQ/L (136-145)
== END ==
LOC: M SFHCADAM 10:25
PROVIDERS: ATTEND Physician Assistant Medical
DX: I10 Essential (primary) hypertension (principal)

== ENCOUNTER → 2020-09-04 | Outpatient (REF) | payer OTHER ==
[2020-09-04 17:20] LABS: CREATININE, URINE 58.2 MG/DL; MALB URINE SIEMENS 11.3 MG/L; MAU/CREAT RATIO 19.4 MCG/MG (0.0-30.0)
== END ==
LOC: M LAB REF 16:16
PROVIDERS: ATTEND Internal Medicine Cardiovascular Disease
DX: I10 Essential (primary) hypertension (principal)

== ENCOUNTER → 2020-09-04 | Outpatient (CLI) | payer OTHER ==
--- NOTE | 2020-09-04 12:32 | REP ---
INDICATION: PAIN IN LEFT SHOULDER COMPARISON: Right shoulder dated 08/28/2020 TECHNIQUE: Internal rotation, external rotation, and Y view. FINDINGS: No acute fracture or dislocation. Mild/moderate arthritic degenerative changes include cortical irregularity and spurring at the acromioclavicular joint as well as subtle blunting and heterogeneity to the calcified glenoid rim. Subacromial space is normal. No periarticular calcifications are identified. IMPRESSION: Mild/early moderate arthritic changes <Electronically signed by Galdino Sanchez > 09/04/20 [id number]
--- NOTE | 2020-09-04 12:33 | REP ---
INDICATION: PAIN IN LEFT KNEE COMPARISON: None. TECHNIQUE: AP, lateral, bilateral oblique and sunrise views. FINDINGS: The osseous structures and joint spaces are intact and normal for age. No overt arthritic degenerative changes are appreciated. There is no evidence for acute fracture or dislocation. No joint effusion is appreciated. Surrounding soft tissues are unremarkable. No subcutaneous emphysema or radiodense foreign body. IMPRESSION: Essentially age-appropriate left knee radiograph series. <Electronically signed by Galdino Sanchez > 09/04/20 [id number]
== END ==
LOC: M ADAMS 10:30
PROVIDERS: ATTEND Physician Assistant Medical
DX: M19.012 Primary osteoarthritis, left shoulder (principal); M25.562 Pain in left knee; G89.29 Other chronic pain; M47.812 Spondylosis without myelopathy or radiculopathy, cervical region; I10 Essential (primary) hypertension

== ENCOUNTER → 2021-01-09 | Outpatient (CLI) | payer OTHER | LOC: M PLAIMG 09:15 | PROVIDERS: ATTEND Orthopaedic Surgery Sports Medicine | DX: M75.41 Impingement syndrome of right shoulder (principal) ==

== ENCOUNTER → 2021-01-15 | Outpatient (REF) | payer OTHER ==
[2021-01-15 16:58] LABS: BASO # 0.1 10^3/uL (0.0-0.2); BASO % 0.9 % (0.0-1.0); EOS # 0.5 10^3/uL (0.0-0.5); EOS % 6.1 % (0.0-3.0); HEMOGLOBIN 14.3 g/dl (13.5-17.5); LYMPH # 1.7 10^3/uL (1.5-5.0); MEAN CORPUSCULAR HEMOGLOBIN 31.2 pg (27.0-33.0); MEAN CORPUSCULAR HGB CONC 34.9 g/dl (32.0-36.5); MEAN CORPUSCULAR VOLUME 89.3 fl (80.0-96.0); MONO # 0.9 10^3/uL (0.0-0.8); NEUTROPHILS # 4.7 10^3/uL (1.5-8.5); NEUTROPHILS % 59.5 % (36.0-66.0); PLATELET COUNT, AUTOMATED 202 10^3/uL (150-450); RED BLOOD COUNT 4.59 10^6/uL (4.30-6.10); WHITE BLOOD COUNT 7.9 10^3/uL (4.0-10.0)
[2021-01-15 17:26] LABS: ALBUMIN 4.1 GM/DL (3.2-5.2); ALT/SGPT 55 U/L (12-78); BILIRUBIN,TOTAL 0.6 MG/DL (0.2-1.0); BLOOD UREA NITROGEN 14 MG/DL (7-18); CALCIUM LEVEL 9.8 MG/DL (8.5-10.1); CARBON DIOXIDE LEVEL 31 MEQ/L (21-32); CHLORIDE LEVEL 100 MEQ/L (98-107); CREATININE FOR GFR 1.27 MG/DL (0.70-1.30); GLOMERULAR FILTRATION RATE > 60.0 (>56); GLUCOSE, FASTING 98 MG/DL (70-100); POTASSIUM SERUM 3.7 MEQ/L (3.5-5.1); SODIUM LEVEL 139 MEQ/L (136-145); TOTAL PROTEIN 7.3 GM/DL (6.4-8.2)
== END ==
LOC: M SFHCADAM 12:06
PROVIDERS: ATTEND Physician Assistant Medical
DX: I10 Essential (primary) hypertension (principal); I61.9 Nontraumatic intracerebral hemorrhage, unspecified; F19.11 Other psychoactive substance abuse, in remission; Q60.0 Renal agenesis, unilateral

== ENCOUNTER → 2021-04-24 | Outpatient (CLI) | payer OTHER ==
--- NOTE | 2021-04-24 13:50 | REP ---
INDICATION: NICOTINE DEPENDENCE. COMPARISON: None. TECHNIQUE: Axial noncontrast images from the thoracic inlet to the upper abdomen using low-dose lung screening technique (LDCT). As per the protocol only lung window images were sent to the read station for interpretation FINDINGS: There is a 7 mm size nodule in the left lower lobe. No other abnormal nodules, masses, or opacities are present. Grossly, the mediastinum and pulmonary kira are within normal limits. Grossly, the imaged upper abdomen and imaged osseous structures are within normal limits. IMPRESSION: There is a 7 mm size nodule in the left lower lobe. According to the revised Fleischner society criteria this nodule represents a category 3 lesion since this is the baseline study and for which a 6 month follow-up CT examination is recommended. <Electronically signed by Jah Adrian > 04/24/21 [id number]
== END ==
LOC: M RAD 13:32
PROVIDERS: ATTEND Family Medicine
DX: Z87.891 Personal history of nicotine dependence (principal)

== ENCOUNTER → 2021-08-28 | Outpatient (REF) | payer OTHER | LOC: M LAB REF 12:45 | PROVIDERS: ATTEND Internal Medicine Nephrology | DX: N18.30 Chronic kidney disease, stage 3 unspecified (principal) ==

== ENCOUNTER → 2022-11-19 | Outpatient (CLI) | payer OTHER ==
[~2022-11-19] MED LIST changes: -OFLO3OPSO; +OFLO5DRO
== END ==
LOC: M RAD 09:38
PROVIDERS: ATTEND Physician Assistant Medical
DX: M54.50 Low back pain, unspecified (principal)

== ENCOUNTER → 2023-10-26 | Outpatient (REF) | payer MEDICARE, MEDICAID | LOC: M LAB REF 20:48 | PROVIDERS: ATTEND Physician Assistant Medical | DX: B34.9 Viral infection, unspecified (principal) ==

== ENCOUNTER → 2024-01-27 | Outpatient (CLI) | payer MEDICARE | LOC: M RAD 10:29 | PROVIDERS: ATTEND Surgery | DX: M79.604 Pain in right leg (principal) ==